=== PATIENT | female | born 1960 | race Caucasian/White ===

== ENCOUNTER 2016-04-06 09:26 | Emergency (ER) | payer OTHER ==
[2016-04-06] MEDS ORDERED: Morphine INJ* 4 MG/ML 1 ML CARPUJECT IV ONE (10:23)
[2016-04-06] MEDS ORDERED: NS 0.9% 1000 ML* 3,000 ML IV ONE (10:23)
[2016-04-06] MEDS ORDERED: Ondansetron INJ* 2 MG/ML VIAL IV ONE (10:23)
[2016-04-06 10:53] LABS: Albumin 3.8 g/dL (3.2-5.2); BUN/Creatinine Ratio 23.8 (8-20); Calcium 10.1 mg/dL (8.6-10.3); EGFR African American 49.2 (>60); EGFR Non-African American 38.2 (>60); Globulin 3.1 g/dL (2-4); Potassium 3.4 mmol/L (3.5-5.0); Total Bilirubin 0.5 mg/dL (0.2-1.0); Total Protein 6.9 g/dL (6.4-8.9)
[2016-04-06] MEDS ORDERED: NS 0.9% IVPB SCH (11:00)
[2016-04-06] MEDS ORDERED: ACYCLOVIR IVPB SCH (11:00)
--- NOTE | 2016-04-06 11:04 | ED ---
Harry Ren Rebecca, scribed for Johnathan Mcmillan MD on 04/06/16 at 1018 . Headache - HPI Summary HPI Summary: Pt is a 55 y/o F who presents to ED c/o FERNANDEZ. FERNANDEZ began suddenly 3 days ago with a L ear ache and has been constant since onset. Initially FERNANDEZ was characterized as shooting pain at onset, and is now characterized as dull. FERNANDEZ is in the occipital region with radiation into the neck and is currently ranked 4/10. Sx aggravated and alleviated by nothing, unchanged by Tylenol. Additionally c/o L eye swelling and rash on the L side of her forehead (1 day). Denies vision or hearing changes, ear drainage, slurred speech or weakness in the LE. Denies pruritis, fever, dental pain, CP, SOB. Confirms chicken pox infection as a child. No PMHx ear infections. PMHx kidney transplant (5 years ago). Is on Warfarin for blood clots s/p transplant. FHx aneurysms. - History Of Current Complaint Chief Complaint: EDHeadache Stated Complaint: HX OF FAMILY anysurms/HEADACHE 2DAYS Hx Obtained From: Patient Onset/Duration: Sudden Onset, Started days ago - 3 days ago, Still Present Initially Headache Was: Moderate Currently Pain Is: Current Pain Scale(0-10)= - 4, Moderate Timing: Constant Character: Dull Location of Headache: Occipital Radiates to: Neck Aggravating Factor: Nothing Allevating Factors: Nothing Associated Signs And Symptoms: Other (Noted In Comments) - L eye swelling, L- sided forehead rash - Allergies/Home Medications Allergies/Adverse Reactions: Allergies Allergy/AdvReac Type Severity Reaction Status Date / Time Anesthetics, Amide Allergy GI Upset Verified 04/06/16 09:35 Anesthetics, Jenny Allergy GI Upset Verified 04/06/16 09:35 Anesthetics, Halogenated Allergy GI Upset Verified 04/06/16 09:35 Home Medications: Home Medications Metoprolol Succinate [Toprol Xl] 50 mg PO QPM 04/06/16 [History Confirmed ] Metoprolol Succinate [Toprol Xl] 75 mg PO QAM 04/06/16 [History Confirmed ] NIFEdipine ER TAB* [Procardia Xl TAB*] 30 mg PO BEDTIME 04/06/16 [History Confirmed 01/28/17] PMH/Surg Hx/FS Hx/Imm Hx Endocrine/Hematology History: Denies: Hx Diabetes, Hx Thyroid Disease Cardiovascular History: Reports: Hx Angina, Hx Hypercholesterolemia, Hx Hypertension Denies: Hx Congestive Heart Failure, Hx Coronary Artery Disease, Hx Myocardial Infarction, Hx Pacemaker/ICD, Hx Valvular Heart Disease Respiratory History: Reports: Hx Pulmonary Embolism Denies: Hx Asthma, Hx Chronic Obstructive Pulmonary Disease (COPD) Comment Only: Other Respiratory Problems/Disorders - pe GI History: Denies: Hx Ulcer History: Reports: Hx Chronic Renal Failure - prior to renal transplant, Hx Renal Disease, Other Problems/Disorders - kidney transplant Sensory History: Reports: Hx Contacts or Glasses Denies: Hx Hearing Aid Opthamlomology History: Reports: Hx Contacts or Glasses Psychiatric History: Denies: Hx Panic Disorder - Cancer History Hx Chemotherapy: No Hx Radiation Therapy: No - Surgical History Surgery Procedure, Year, and Place: RIGHT KIDNEY BIOPSY. kidney transplant see above. RT CATARACT. D&C. RT BREAST BIOPSY - Immunization History Date of Tetanus Vaccine: 2009 Date of Influenza Vaccine: 12/08/14 Infectious Disease History: No Infectious Disease History: Denies: Hx Clostridium Difficile, Hx Hepatitis, Hx Human Immunodeficiency Virus (HIV), Hx of Known/Suspected MRSA, Hx Shingles, Hx Tuberculosis, Hx Known/ Suspected VRE, Hx Known/Suspected VRSA, Traveled Outside the [place] in Last 30 Days Comment Only: History Other Infectious Disease - CMV - Family History Known Family History: Positive: Cardiac Disease, Renal Disease, Other - Aneurysms - Social History Alcohol Use: None Substance Use Type: Reports: None Smoking Status (MU): Never Smoked Tobacco Review of Systems Negative: Fever Negative: Blurred Vision Positive: Ear Ache - Left, Other - Denies hearing changes, ear drianage. Negative: Dental Pain Negative: Chest Pain Negative: Shortness Of Breath Positive: Rash - L side of forehead; Non-pruritic, Other - L eye swelling Positive: Headache. Negative: Weakness, Slurred Speech All Other Systems Reviewed And Are Negative: Yes Physical Exam - Summary Physical Exam Summary: The patient is well-nourished in no acute distress and in no acute pain. The skin is warm and dry and skin color reflects adequate perfusion. HEENT: The head is normocephalic and atraumatic. The pupils are equal and reactive. EOMI. The conjunctivae are without drainage. Nares are patent and without drainage. Mouth reveals moist mucous membranes and the throat is without erythema and exudate. The external ears are intact. The ear canals are patent and without drainage. No tragal tenderness. No tenderness over the mastoid. The tympanic membranes are intact. On the left side of her forehead and into the scalp, involving the L eye, she has vesicles, red, raised lesions that extend into the eyelid. Conjunctiva is injected on the L side. Nothing behind the ear or on the R side and does not involve the nose. Maxillofacial swelling on the left side. Neck is supple with full range of motion and non-tender. There are no carotid bruits. There is no neck vein distension. Respiratory: Chest is non-tender. Lungs are clear to auscultation and breath sounds are symmetrical and equal. Cardiovascular: Hear is regular rate and rhythm. There is no murmur or rub auscultated. There is no peripheral edema and pulses are symmetrical and equal. Abdomen: The abdomen is soft and non-tender. There are normal bowel sounds heard in all four quadrants and there is no organomegaly palpated. Musculoskeletal: There is no back pain noted. Extremities are non-tender with full range of motion. There is good capillary refill. There is no peripheral edema or calf tenderness elicited. Neurological: Patient is alert and oriented to person, place and time. The patient has symmetrical motor strength in all four extremities. Cranial nerves are grossly intact. Deep tendon reflexes are symmetrical and equal in all four extremities. Psychiatric: The patient has an appropriate affect and does not exhibit any anxiety or depression. Triage Information Reviewed: Yes Vital Signs On Initial Exam: Initial Vitals Temp Pulse Resp BP Pulse Ox 98.7 F 90 16 138/77 99 04/06/16 09:36 04/06/16 09:36 04/06/16 09:36 04/06/16 09:36 04/06/16 09:36 Vital Signs Reviewed: Yes Diagnostics - Vital Signs Vital Signs Temp Pulse Resp BP Pulse Ox 04/06/16 09:36 98.7 F 90 16 138/77 99 - Laboratory Lab Results: Lab Results 04/06/16 04/06/16 04/06/16 Range/Units 09:59 09:59 09:59 INR (Anticoag Therapy) 2.56 H (0.89-1.11) Sodium 134 (133-145) mmol/L Potassium 3.4 L (3.5-5.0) mmol/L Chloride 102 (101-111) mmol/L Carbon Dioxide 22 (22-32) mmol/L Anion Gap 10 (2-11) mmol/L BUN 34 H (6-24) mg/dL Creatinine 1.43 H (0.51-0.95) mg/dL Est GFR ( Amer) 49.2 (>60) Est GFR (Non-Af Amer) 38.2 (>60) BUN/Creatinine Ratio 23.8 H (8-20) Glucose 166 H (70-100) mg/dL Lactic Acid 2.2 H* (0.5-2.0) mmol/L Calcium 10.1 (8.6-10.3) mg/dL Total Bilirubin 0.50 (0.2-1.0) mg/dL AST 13 (13-39) U/L ALT 15 (7-52) U/L Alkaline Phosphatase 69 (34-104) U/L Total Protein 6.9 (6.4-8.9) g/dL Albumin 3.8 (3.2-5.2) g/dL Globulin 3.1 (2-4) g/dL Albumin/Globulin Ratio 1.2 (1-3) Result Diagrams: 04/06/16 09:59 Lab Statement: Any lab studies that have been ordered have been reviewed, and results considered in the medical decision making process. Headache Course/Dx - Course Assessment/Plan: Pt is a 55 y/o F who presents to ED with a CC of FERNANDEZ for 3 days. She additinally c/o L ear ache (3 days) and L eye swelling and L-sided facial rash (1 day). Denies vision or hearing changes, ear drainage, slurred speech or weakness in the LE. Denies pruritis, fever, dental pain, CP, SOB. PMHx kidney transplant (5 years ago). Confirms chicken pox infection as a child. Discussed care of pt with Dr. Montiel who believed that transfer to [facility] would be best for pt. [facility] accepts pt for transfer. Pt will be transferred to [facility] with a dx of Ophthalmicus Herpes Zoster. - Diagnoses Differential Diagnosis/HQI/PQRI: Subarachnoid Hemorrhage, Other - herpes zoster , renal tranplant Provider Diagnoses: Herpes zoster ophthalmicus - Physician Notifications Discussed Care Of Patient With: Dr. Montiel, circular shear operator, who initially advised an opthamology consult but upon further discussion believed that a transfer to [facility] would be the best option. [facility], at 1044, who accepts pt for transfer. Time Discussed With Above Provider: 10:27 Reason For Transfer: Specialty or service not available at [facility]. Discharge - Discharge Plan Condition: Good Disposition: TRANS HIGHER LVL OF CARE FAC Referrals: Christophe Muñoz MD [Primary Care Provider] - The documentation as recorded by the Harry fraser Rebecca accurately reflects the service I personally performed and the decisions made by me, Johnathan Mcmillan MD.
[2016-04-06 12:42] VITALS: BP 117/60
== END 2016-04-06 12:41 | disposition short-term general hospital (02) ==
LOC: ED 09:26
DX: B02.30 Zoster ocular disease, unspecified (principal); R51 Headache; R21 Rash and other nonspecific skin eruption; H92.02 Otalgia, left ear
CPT/HCPCS: 36415; 80053; 83605; 85610; 85652; 87040; 96361; 96374; 96375; 99284; J0133; J2270; J2405

== ENCOUNTER 2016-08-06 07:41 | Emergency (ER) | payer OTHER ==
[2016-08-06 08:08] VITALS: BP 153/93
--- NOTE | 2016-08-06 08:40 | UC ---
Kang Ren SooYoung, scribed for Mary Rojas MD on 08/06/16 at 0757 . Complaint Female HPI - HPI Summary HPI Summary: A 55 y/o F presents to [facility] [place] with c/o UTI onset yesterday. Symptoms include aches , frequency, dysuria. Denies: nausea, fevers, chills, abdominal pain, vaginal discharge, urinary odor, hematuria. She denies having taken any OTC meds. Pt does have a renal transplant RLQ - no discomfort or pain over site. pt is on immunosuppressant. Denies vaginal discharge, odor, itch. Pt is post- menopausal. Pert PMHx: kidney transplant performed in [place]; bladder infection last summer and was hospitalized. Last time she was given Cipro, but infection was resistant so abx changed. Patients medication reviewed this visit. - History Of Current Complaint Stated Complaint: UTI Time Seen by Provider: 08/06/16 07:53 Hx Obtained From: Patient ?: No Onset/Duration: Lasting Hours - onset yesterday, Still Present Timing: Constant Severity Initially: Mild Severity Currently: Moderate Pain Intensity: 4 Pain Scale Used: 0-10 Numeric Associated Signs And Symptoms: Negative: Vaginal Bleeding/Discharge, Vaginal Discharge, Nausea - Allergies/Home Medications Allergies/Adverse Reactions: Allergies Allergy/AdvReac Type Severity Reaction Status Date / Time Anesthetics, Amide Allergy GI Upset Verified 08/06/16 07:59 Anesthetics, Jenny Allergy GI Upset Verified 08/06/16 07:59 Anesthetics, Halogenated Allergy GI Upset Verified 08/06/16 07:59 Home Medications: Home Medications Lisinopril [Lisinopril 40 MG-] 40 mg PO DAILY 08/06/16 [History Confirmed ] PMH/Surg Hx/FS Hx/Imm Hx Previously Healthy: No Endocrine History Of: Denies: Diabetes, Thyroid Disease Cardiovascular History Of: Reports: Hypertension Denies: Cardiac Disorders, Pacemaker/ICD, Myocardial Infarction, Congestive Heart Failure Respiratory History Of: Reports: Pulmonary Embolism Denies: COPD, Asthma GI/ History Of: Reports: Renal Disease Denies: Ulcer Cancer History Of: Denies: Breast Cancer - Surgical History Surgical History: Yes Surgery Procedure, Year, and Place: RIGHT KIDNEY BIOPSY. kidney transplant see above. RT CATARACT. D&C. RT BREAST BIOPSY - Family History Known Family History: Positive: Cardiac Disease - CAD, Hypertension, Renal Disease, Other - Aneurysms; Breast CA - paternal aunt - Social History Occupation: Employed Full-time Lives: Alone Alcohol Use: None Substance Use Type: None Smoking Status (MU): Never Smoked Tobacco - Immunization History Most Recent Influenza Vaccination: Fall 2015 Most Recent Tetanus Shot: 4 yrs ago Most Recent Pneumonia Vaccination: Fall 2015 Review of Systems Constitutional: Other - achiness Skin: Negative Eyes: Negative ENT: Negative Respiratory: Negative Cardiovascular: Negative Gastrointestinal: Negative Genitourinary: Dysuria, Frequency, Urgency Motor: Negative Neurovascular: Negative Musculoskeletal: Negative Neurological: Negative Psychological: Negative All Other Systems Reviewed And Are Negative: Yes Physical Exam Triage Information Reviewed: Yes Completion Of Physical Exam Limited Due To: Altered Mental Status Appearance: Well-Appearing, No Pain Distress, Well-Nourished Vital Signs: Initial Vital Signs Temp 98.8 F 08/06/16 07:52 Pulse 77 08/06/16 07:52 Resp 18 08/06/16 07:52 BP 153/93 08/06/16 07:52 Pulse Ox 97 08/06/16 07:52 Vital Signs Reviewed: Yes Neck: Positive: Supple Respiratory: Positive: Lungs clear, Normal breath sounds, No respiratory distress Cardiovascular: Positive: RRR, No Murmur, Pulses Normal Abdomen Description: Positive: Nontender, No Organomegaly, Soft, Other: - no discomfort with palpation of abdomen including over transplant. Negative: CVA Tenderness (R), CVA Tenderness (L), Distended Bowel Sounds: Positive: Present Musculoskeletal Exam: Normal Neurological Exam: Normal Psychological Exam: Normal Skin Exam: Normal Complaint Female Dx - Course Course Of Treatment: Blood pressure noted and patient informed to follow up with PCP. Spoke to pharmacist at [facility] - pt was given Rx cipro 10/06 and changed to Augmentin 875mg on 10/23 then Augmentin 250mg 10/24. Pt states was told 875mg was "too much". After discussion with pt, will start Augmentin 500mg BID. Pt to call her metal furniture assembler today with an update. urine culture pending. Pt states understanding if sx increase, fevers, chills MUST call metal furniture assembler or go to ED. Pt well appearing with stable VS today - Differential Dx/Diagnosis Provider Diagnoses: UTI in immunocompromised pt Discharge - Discharge Plan Condition: Stable Disposition: HOME Prescriptions: Amoxicillin/Clavulanate TAB* [Augmentin TAB 500 mg*] 500 mg PO BID #20 tab Patient Education Materials: Urinary Tract Infection in Women (ED) Referrals: Christophe Muñoz MD [Primary Care Provider] - Additional Instructions: - Stay well hydrated. Drink plenty of non-alcoholic, non-caffinated beverages - Eat and drink regular, healthy meals - Contact your metal furniture assembler today to update them regarding your infection and treatment today - you urine will be sent for additional testing. If you need a different antibiotic, a member of the care team will contact your - If you develop fevers, vomiting, increased pain, abdominal pain over the site of your transplant or any other concerns - contact your metal furniture assembler of go to the emergency department Lab Results - Lab Results Lab Results: 08/06/16 08:04 POC Urine Color Light yellow POC Urine Clarity Slightly cloudy POC Urine pH 5.0 POC Ur Specif [place] <= 1.005 L POC Urine Protein Negative POC Ur Glucose (UA) Negative POC Urine Ketones Negative POC Urine Blood 2+ H POC Urine Nitrite Negative POC Urine Bilirubin Negative POC Urine Urobilinogen 0.2 POC U Leukocyte Esteras 1+ H The documentation as recorded by the Kang fraser SooYoung accurately reflects the service I personally performed and the decisions made by , Mary Rojas MD.
== END 2016-08-06 08:49 | disposition home or self-care (01) ==
LOC: UCEAST 07:41
DX: N39.0 Urinary tract infection, site not specified (principal); N95.9 Unspecified menopausal and perimenopausal disorder; Z94.0 Kidney transplant status; I10 Essential (primary) hypertension; Z86.711 Personal history of pulmonary embolism; N28.9 Disorder of kidney and ureter, unspecified; D89.9 Disorder involving the immune mechanism, unspecified
CPT/HCPCS: 81003; 87077; 87086; 87186; 99212; G0463

== ENCOUNTER 2016-08-06 23:44 | Emergency (ER) | payer OTHER ==
[2016-08-07] MEDS ORDERED: Acetaminophen TAB* 325 MG ONE (00:14)
[2016-08-07] MEDS ORDERED: Acetaminophen TAB* 325 MG PO ONE (00:16)
[2016-08-07] MEDS ORDERED: NS 0.9% 1000 ML* 1,000 ML IV ONE (00:51)
--- NOTE | 2016-08-07 01:18 | ED ---
prateek Ren Timothy, scribed for Ras Holguin MD on 08/07/16 at 0052 . GI/ HPI - HPI Summary HPI Summary: Alondra Ramsey is a 55 yo female presenting to [facility] with fever and possible UTI with 4/10 dysuria. She states she [facility], and has taken 2 doses of the Rx Augmentin since then. She states she is presenting with a fever of 102 taken at home at 2300, and notes continued dysuria and urinary frequency. she denies any N/V. Her MHx includes CMV, angina, HLD, palpitations, HTN, PE, DVT, renal disease, kidney transplant, psychiatric problems. - History of Current Complaint Chief Complaint: EDUrogenitalProblems Time Seen by Provider: 08/07/16 00:45 Stated Complaint: POSSIBLE UTI, FEVER Hx Obtained From: Patient Onset/Duration: Started Days Ago, Still Present Timing: Constant Severity: Moderate Current Severity: Moderate Pain Intensity: 4 Location of Pain: Suprapubic Associated Signs and Symptoms: Positive: Fever, Dysuria, UTI Symptoms - Additional Pertinent History Primary Care Physician: FAIZA - Allergy/Home Medications Allergies/Adverse Reactions: Allergies Allergy/AdvReac Type Severity Reaction Status Date / Time Anesthetics, Amide Allergy GI Upset Verified 08/06/16 23:52 Anesthetics, Jenny Allergy GI Upset Verified 08/06/16 23:52 Anesthetics, Halogenated Allergy GI Upset Verified 08/06/16 23:52 PMH/Surg Hx/FS Hx/Imm Hx Endocrine/Hematology History: Denies: Hx Diabetes, Hx Thyroid Disease Cardiovascular History: Reports: Hx Angina, Hx Hypercholesterolemia, Hx Hypertension Denies: Hx Congestive Heart Failure, Hx Coronary Artery Disease, Hx Myocardial Infarction, Hx Pacemaker/ICD, Hx Valvular Heart Disease Respiratory History: Reports: Hx Pulmonary Embolism Denies: Hx Asthma, Hx Chronic Obstructive Pulmonary Disease (COPD) Comment Only: Other Respiratory Problems/Disorders - pe GI History: Denies: Hx Ulcer History: Reports: Hx Chronic Renal Failure - prior to renal transplant, Hx Renal Disease, Other Problems/Disorders - kidney transplant Sensory History: Reports: Hx Contacts or Glasses Denies: Hx Hearing Aid Opthamlomology History: Reports: Hx Contacts or Glasses Psychiatric History: Denies: Hx Panic Disorder - Cancer History Hx Chemotherapy: No Hx Radiation Therapy: No - Surgical History Surgery Procedure, Year, and Place: RIGHT KIDNEY BIOPSY. kidney transplant see above. RT CATARACT. D&C. RT BREAST BIOPSY - Immunization History Date of Tetanus Vaccine: 2009 Date of Influenza Vaccine: 12/08/14 Infectious Disease History: Denies: Hx Clostridium Difficile, Hx Hepatitis, Hx Human Immunodeficiency Virus (HIV), Hx of Known/Suspected MRSA, Hx Shingles, Hx Tuberculosis, Hx Known/ Suspected VRE, Hx Known/Suspected VRSA, Traveled Outside the [place] in Last 30 Days Comment Only: History Other Infectious Disease - CMV - Family History Known Family History: Positive: Cardiac Disease - CAD, Hypertension, Renal Disease, Other - Aneurysms; Breast CA - paternal aunt Negative: Diabetes - Social History Alcohol Use: None Substance Use Type: Reports: None Smoking Status (MU): Never Smoked Tobacco Review of Systems Positive: Fever Eyes: Negative ENT: Negative Cardiovascular: Negative Respiratory: Negative Gastrointestinal: Negative Positive: dysuria, frequency Musculoskeletal: Negative Skin: Negative Neurological: Negative Psychological: Normal All Other Systems Reviewed And Are Negative: Yes Physical Exam Triage Information Reviewed: Yes Vital Signs On Initial Exam: Initial Vitals Temp Pulse Resp BP Pulse Ox 101.5 F 105 16 156/92 97 08/06/16 23:45 08/06/16 23:45 08/06/16 23:45 08/06/16 23:45 08/06/16 23:45 Vital Signs Reviewed: Yes Appearance: Positive: Well-Appearing, No Pain Distress Skin: Positive: Warm Head/Face: Positive: Normal Head/Face Inspection Eyes: Positive: WAQAS ENT: Positive: Hearing grossly normal Neck: Positive: Supple Respiratory/Lung Sounds: Positive: Breath Sounds Present Cardiovascular: Positive: RRR Abdomen Description: Positive: Nontender, Soft. Negative: CVA Tenderness (R), CVA Tenderness (L) Bowel Sounds: Positive: Present Musculoskeletal: Positive: Strength/ROM Intact Neurological: Positive: Alert, Oriented to Person Place, Time Psychiatric: Positive: Affect/Mood Appropriate Diagnostics - Vital Signs Vital Signs Temp Pulse Resp BP Pulse Ox 08/06/16 23:45 101.5 F 105 16 156/92 97 - Laboratory Result Diagrams: 08/07/16 01:02 08/07/16 01:02 Lab Statement: Any lab studies that have been ordered have been reviewed, and results considered in the medical decision making process. Re-Evaluation - Re-Evaluation First Eval Change: Improved - will switch from augmentin to cipro GIGU Course/Dx - Course Assessment/Plan: Alondra Ramsey is a 55 yo female presenting to [facility] with Dx of UTI with fever and continued dysuria and frequency after her Dx this morning and beginning her augmentin regimen today. In the ED course she received acetampinophen to treat her fever and IV fluids. After clinical examination and review of her lab studies, she will be discharged home with UTI with appropriate instructions. - Diagnoses Differential Diagnoses - Female: Urinary Tract Infection Provider Diagnoses: UTI (urinary tract infection) Discharge - Discharge Plan Condition: Stable Disposition: HOME Prescriptions: Ciprofloxacin TAB* [Cipro 250 MG Tab*] 250 mg PO BID #14 tab Patient Education Materials: Urinary Tract Infection in Women (ED) Referrals: Christophe Muñoz MD [Primary Care Provider] - 2 Days Additional Instructions: Please follow up with your primary care physician regarding your visit to the emergency department today. Return to the emergency department with any new or recurring symptoms. The documentation as recorded by the prateek fraser Timothy accurately reflects the service I personally performed and the decisions made by , Ras Holguin MD.
[2016-08-07 01:20] LABS: Hematocrit 32 % (35-47); Hemoglobin 10.1 g/dl (12.0-16.0); Mean Corpuscular HGB Conc 32 g/dl (31-36); Mean Corpuscular Hemoglobin 25 pg (27-31); Mean Corpuscular Volume 77 fL (80-97); Mean Platelet Volume 9 um3 (7.4-10.4); Red Blood Count 4.13 10^6/ul (4.0-5.4); Red Cell Distribution Width 18 % (10.5-15); White Blood Count 11.9 10^3/ul (3.5-10.8)
[2016-08-07 01:22] LABS: Add Diff/Slide Review? Manual Diff Added; Comments Flag Yes
[2016-08-07 01:33] LABS: Albumin 3.7 g/dL (3.2-5.2); BUN/Creatinine Ratio 25.8 (8-20); C Reactive Protein 85.19 mg/L (< 5.00); Calcium 9.5 mg/dL (8.6-10.3); EGFR African American 46.2 (>60); EGFR Non-African American 35.9 (>60); Globulin 3.4 g/dL (2-4); Potassium 4.4 mmol/L (3.5-5.0); Total Bilirubin 0.5 mg/dL (0.2-1.0); Total Protein 7.1 g/dL (6.4-8.9)
[2016-08-07 01:39] LABS: Urine Bacteria 1+ (Absent); Urine Bilirubin Negative (Negative); Urine Glucose Negative (Negative); Urine Nitrite Negative (Negative)
[2016-08-07 01:42] LABS: Add Path Review? YES; Hypochromasia 1+; Immature Granulocytes 5 % (0-9); Macrocytosis 1+; Neutrophil % 71 % (38-83)
[2016-08-07] MEDS ORDERED: Ciprofloxacin 400MG IVPREMIX(* 400 MG/200 ML BAG IVPB ONE (02:33)
[2016-08-07 04:14] VITALS: BP 127/67
== END 2016-08-07 04:09 | disposition home or self-care (01) ==
LOC: ED 23:44
DX: N39.0 Urinary tract infection, site not specified (principal); R50.9 Fever, unspecified; R30.0 Dysuria
CPT/HCPCS: 36415; 80053; 81003; 81015; 83605; 83690; 85025; 85060; 86140; 87040; 99283; A9270-GY; J0744

== ENCOUNTER 2017-03-07 10:10 | Emergency (ER) | payer OTHER ==
--- NOTE | 2017-03-07 10:56 | ED ---
HPI Chest Pain - HPI Summary HPI Summary: Patient is a 56yo F with a history of HTN and high cholesterol arrives to the ED with CC of left anterior chest pain which radiates to the R anterior chest since last evening. Symptoms have improved since last night from a 710 to a / 10. Pain is described as a aching and stabbing intermittently and now just an ache. She notes to some radiation to the back (1-2 times) last night, but denies currently. Denies recent illness, cough, congestion. She first noticed the chest pain while at rest. Pain was not worse with exertion. Aggravated by nothing, relieved with nothing. Denies taking any aspirin. She is currently on Metroprolol and Lisinopril and recently has started taking Verapamil which was given to her by her advertising sales representative [address] Montiel Her helper shear operator is Dr. Mckeon but has not seen in many years. She is currently on Warfarin since her kidney transplant 7 years ago along with immunosuppression medications. She states she is active, but denies eating right. Denies smoking history or COPD/asthma. She denies SOB, N/V/C/D or weakness. Denies any neuro deficits. Mother still living with 7 stent placements from CAD. Denies other family history. Denies any personal history of PR, but notes to having chest pains similar to today's episode of which she has been seen here, with normal labs and EKG and stress test with no additional findings. She also states she had one episode a few weeks ago while walking and became light headed and short of breath. After sitting for a few minutes, she felt improved. Denies any other symptoms until last evening. - History of Current Complaint Chief Complaint: EDChestPainROMI Time Seen by Provider: 03/07/17 10:33 Hx Obtained From: Patient Onset/Duration: Started Hours Ago Timing: Constant Initial Severity: Mild Current Severity: Mild Pain Intensity: 1 Pain Scale Used: 0-10 Numeric Chest Pain Location: Left Anterior, Left Lateral Chest Pain Radiates: Yes Chest Pain Radiates To:: Back Character: Dull/Aching Aggravating Factor(s): Nothing Alleviating Factor(s): Nothing Associated Signs and Symptoms: Positive: Negative - Risk Factors Pulmonary Embolism Risk Factors: Negative TAD Risk Factors: Negative - Additional Pertinent History Primary Care Physician: [id number] - Allergy/Home Medications Allergies/Adverse Reactions: Allergies Allergy/AdvReac Type Severity Reaction Status Date / Time Anesthetics, Amide Allergy GI Upset Verified 03/07/17 10:13 Anesthetics, Jenny Allergy GI Upset Verified 03/07/17 10:13 Anesthetics, Halogenated Allergy GI Upset Verified 03/07/17 10:13 PMH/Surg Hx/FS Hx/Imm Hx Previously Healthy: Yes Endocrine/Hematology History: Denies: Hx Diabetes, Hx Thyroid Disease Cardiovascular History: Reports: Hx Angina, Hx Hypercholesterolemia, Hx Hypertension Denies: Hx Congestive Heart Failure, Hx Coronary Artery Disease, Hx Myocardial Infarction, Hx Pacemaker/ICD, Hx Valvular Heart Disease Respiratory History: Reports: Hx Pulmonary Embolism Denies: Hx Asthma, Hx Chronic Obstructive Pulmonary Disease (COPD) Comment Only: Other Respiratory Problems/Disorders - pe GI History: Denies: Hx Ulcer History: Reports: Hx Chronic Renal Failure - prior to renal transplant, Hx Renal Disease, Other Problems/Disorders - kidney transplant Sensory History: Reports: Hx Contacts or Glasses Denies: Hx Hearing Aid Opthamlomology History: Reports: Hx Contacts or Glasses Psychiatric History: Denies: Hx Panic Disorder - Cancer History Hx Chemotherapy: No Hx Radiation Therapy: No - Surgical History Surgery Procedure, Year, and Place: RIGHT KIDNEY BIOPSY. kidney transplant see above. RT CATARACT. D&C. RT BREAST BIOPSY - Immunization History Date of Tetanus Vaccine: 2009 Date of Influenza Vaccine: 12/08/14 Hx Pertussis Vaccination: No Immunizations Up to Date: Unable to Obtain/Confirm Infectious Disease History: No Infectious Disease History: Denies: Hx Clostridium Difficile, Hx Hepatitis, Hx Human Immunodeficiency Virus (HIV), Hx of Known/Suspected MRSA, Hx Shingles, Hx Tuberculosis, Hx Known/ Suspected VRE, Hx Known/Suspected VRSA, Traveled Outside the [place] in Last 30 Days Comment Only: History Other Infectious Disease - CMV - Family History Known Family History: Positive: Cardiac Disease - CAD, Hypertension, Renal Disease, Other - Aneurysms; Breast CA - paternal aunt Negative: Diabetes - Social History Occupation: Employed Full-time Lives: With Family Alcohol Use: None Hx Substance Use: No Substance Use Type: Reports: None Hx Tobacco Use: No Smoking Status (MU): Never Smoked Tobacco Review of Systems Constitutional: Negative Negative: Fever, Chills, Fatigue, Skin Diaphoresis Eyes: Negative Positive: Chest Pain Respiratory: Negative Negative: Shortness Of Breath, Cough Gastrointestinal: Negative Negative: Abdominal Pain, Vomiting, Diarrhea, Nausea Positive: see HPI. Negative: burning, dysuria, discharge Negative: Arthralgia, Myalgia Negative: Rash, Bruising Negative: Headache, Weakness, Paresthesia, Numbness, Syncope, Slurred Speech Psychological: Normal All Other Systems Reviewed And Are Negative: Yes Physical Exam Vital Signs On Initial Exam: Initial Vitals Temp Pulse Resp BP Pulse Ox 98.3 F 76 16 185/98 96 03/07/17 10:13 03/07/17 10:13 03/07/17 10:13 03/07/17 10:13 03/07/17 10:13 Diagnostics - Vital Signs Vital Signs Temp Pulse Resp BP Pulse Ox 03/07/17 10:13 98.3 F 76 16 185/98 96 - Laboratory Result Diagrams: 03/07/17 10:58 03/07/17 10:58 Lab Statement: Any lab studies that have been ordered have been reviewed, and results considered in the medical decision making process. Chest Pain Course/Dx - Course Course Of Treatment: During the course of treatment, labs obtained. Trop 0.01 with repeat of 0.00. Chest xray obtained and shows no abnormalities. EKG WNL. Patient is currently asymptomatic. Discussed case with Dr. St who also saw the patient. Called hospitalist who agrees to see the patient and d/t two negative trops, will schedule stress test and call on Friday. While awaiting discharge, 3rd trop is drawn and negative. Repeat EKG shows no changes. Patient is again asymptomatic at discharge. - Diagnoses Provider Diagnoses: Chest pain Discharge - Discharge Plan Condition: Stable Disposition: HOME Patient Education Materials: Chest Pain (ED) Referrals: Christophe Muñoz MD [Primary Care Provider] - Additional Instructions: Please follow up with cardiology. Out patient stress test will be scheduled - will call friday with date and time
[2017-03-07 11:12] LABS: ABS Basophils 0 10^3/ul (0-0.2); ABS Eosinophils 0.1 10^3/ul (0-0.6); ABS Lymphocytes 1.3 10^3/ul (1.0-4.8); ABS Monocytes 0.9 10^3/ul (0-0.8); ABS Neutrophils 5.1 10^3/ul (1.5-7.7); ABS Nucleated RBC 0 10^3/ul; Eosinophil % 1.5 % (0-6); Hematocrit 37 % (35-47); Hemoglobin 12.2 g/dl (12.0-16.0); Mean Corpuscular HGB Conc 33 g/dl (31-36); Mean Corpuscular Hemoglobin 27 pg (27-31); Mean Corpuscular Volume 82 fL (80-97); Mean Platelet Volume 9 um3 (7.4-10.4); Nucleated Red Blood Cells % 0; Platelet Count 233 10^3/ul (150-450); Red Blood Count 4.52 10^6/ul (4.0-5.4); Red Cell Distribution Width 15 % (10.5-15); White Blood Count 7.5 10^3/ul (3.5-10.8)
--- NOTE | 2017-03-07 11:18 | RAD ---
INDICATION: Chest pain COMPARISON: Chest x-ray dated October 20, 2015 TECHNIQUE: Single AP portable view of the chest was obtained. FINDINGS: Image quality is compromised due to the relative inferiority of a portable chest x-ray. The heart and mediastinum exhibit normal size and contour. The lungs are grossly clear. There is no evidence of a large pleural effusion. Visualized bones are normal for the patient's age. IMPRESSION: No radiographic evidence for acute cardiopulmonary abnormality on this portable chest x-ray.
[2017-03-07 11:21] LABS: INR 1.89 (0.77-1.02)
[2017-03-07 11:28] LABS: EGFR Non-African American 31.6 (>60)
[2017-03-07] MEDS ORDERED: Nitroglycerin TAB 0.4 MG* 0.4 MG TAB SL ONE (12:40)
--- NOTE | 2017-03-07 13:27 | RAD ---
INDICATION: Chest pain radiation to back evaluate for aneurysm, history of renal transplant and family history of aneurysms. COMPARISON: There are no prior studies available for comparison. TECHNIQUE: A CT scan of the chest, abdomen and pelvis was performed without intravenous or oral contrast. Contiguous axial sections were obtained from the lung apices through the symphysis pubis. Images were reconstructed in the coronal and sagittal planes. FINDINGS: There are small dependent bilateral lower lobe infiltrates suggestive of atelectasis. No pleural effusion is seen. No significant enlarged mediastinal or hilar lymph nodes are seen. The heart is within normal limits in size. There are coronary artery calcifications present. No pericardial effusion is present. The thoracic aorta is normal in caliber measuring a maximum of 3.5 cm in diameter. No calcific plaque is noted. The liver and spleen are normal in size without significant focal abnormality on this noncontrast study. No calcified gallstones are seen. The pancreas is normal in size. The adrenal glands appear within normal limits. There are severely atrophic [place] kidneys. There are couple hypodense lesions within the left [place] kidney most consistent with hemorrhagic cysts. No hydronephrosis is present. There is a renal transplant in the right iliac fossa which appears normal in size. There is a hypodense lesion in the inferior portion of the transplant measuring 2.3 cm in size most consistent with a cyst. There appear to be a couple hemorrhagic cysts. In addition there is a solid-appearing nodular density arising from the inferior pole measuring 1.5 cm in size. No hydronephrosis is seen. The abdominal aorta is normal in caliber. There is mild calcific plaque present. No significant enlarged retroperitoneal lymph nodes are seen. There is a small hiatal hernia present. The stomach, small and large bowel appear nondistended. There is mild descending and sigmoid diverticulosis without evidence for diverticulitis. There is no evidence for colitis. The uterus is anteverted and normal in size. No free intraperitoneal air or fluid is seen. No significant focal osseous abnormality is seen. IMPRESSION: 1. NO THORACIC OR ABDOMINAL AORTIC ANEURYSM. 2. STATUS POST RIGHT RENAL TRANSPLANT. NO HYDRONEPHROSIS IS PRESENT. THERE APPEAR TO BE A COUPLE HEMORRHAGIC CYSTS. THERE ALSO APPEARS TO BE A MORE SOLID NODULAR DENSITY ARISING FROM THE LOWER POLE OF THE KIDNEY. RECOMMEND A OUTPATIENT ULTRASOUND OF THE RENAL TRANSPLANT FOR FURTHER EVALUATION.
[2017-03-07 18:05] VITALS: BP 116/70
--- NOTE | 2017-03-07 22:37 | CONS ---
CC: Dr. Muñoz CONSULTATION REPORT: DATE OF ADMISSION: 03/07/17 PRIMARY CARE PHYSICIAN: Dr. Muñoz. ATTENDING PHYSICIAN: Natalia Arriola DO (dictation provided by Amarilis Orozco NP). CHIEF COMPLAINT: Chest pain. HISTORY OF PRESENT ILLNESS: Ms. Ramsey is a 56-year-old female with a past medical history of interstitial nephritis with renal transplant as well as chronic kidney disease; DVT, PE, on Coumadin; hypertension; and hyperlipidemia, who presents today to the hospital with concern for chest discomfort. Ms. Ramsey states that she has been in normal state of health and no acute complaints. Last evening, she was lying in bed when she had a sudden onset of discomfort along her lower chest at epigastric region. She describes it as an 8 out of 10 and intermittently sharp. It felt better when she sat up and worse when she laid down. She was not able to sleep all through the night because she was very worried. This morning, the pain had improved but she was still concerned and came to the emergency room for evaluation. She denies other complaints. She has had no shortness of breath. She had a mild cough that was related to postnasal drip. She has had no fever. She has been eating and drinking normally. She has had no nausea, vomiting, abdominal pain. In the emergency room, Ms. Ramsey had troponin, which was 0.01 followed by second troponin which was 0.00. Her BUN and creatinine are essentially at baseline. Rest of her labs are unremarkable. Her EKG shows no evidence of ischemia. She went on to have a chest x-ray that was read as normal and then a chest, abdomen and pelvis CT, which showed that she has no acute abnormality, but did show that there appears to be a solid nodular density arising from the lower lobe of the kidney and recommendation was for outpatient ultrasound of the renal transplant for further evaluation. PAST MEDICAL HISTORY: 1. Hereditary interstitial nephritis with renal transplant. 2. History of chronic kidney disease. 3. DVT/PE, on Coumadin. 4. Hypertension. 5. Hyperlipidemia. 6. Last stress test performed in 2013, which was a negative exercise stress test. MEDICATIONS: 1. Prednisone 5 mg p.o. daily. 2. Warfarin 2 and 3 mg every other day. 3. Pravastatin 20 mg p.o. q.p.m. 4. Omeprazole 20 mg p.o. daily. 5. Mycophenolate 540 mg p.o. b.i.d. 6. Multivitamin 1 cap p.o. daily. 7. Lisinopril 40 mg p.o. daily. 8. Cyclosporin 100 mg p.o. b.i.d. 9. Verapamil 180 mg p.o. daily. 10. Calcium carbonate 2 tabs 500 mg p.o. daily. 11. Metoprolol tartrate 100 mg p.o. b.i.d. ALLERGIES: To ANESTHETICS. FAMILY HISTORY: The patient reports that her mother related to cardiac disease, but she had her first five stents placed in her 60s. Dad had aneurysm and hypertension. SOCIAL HISTORY: No report of alcohol, tobacco or drug use. The patient states that her sister, Mely, will be her healthcare proxy. REVIEW OF SYSTEMS: A 14-point review of systems was completed with Ms. Ramsey and all those not mentioned above were negative. PHYSICAL EXAMINATION: Vital Signs: Temperature 98.3, pulse rate 72, respiratory rate 12, O2 saturation 95% on room air, blood pressure 125/69. General: Ms. Ramsey is lying in bed. She is in no acute distress. Neuro: She is alert and oriented x3. She moves all extremities equally. There is no facial asymmetry or focal weakness. Extraocular movements are intact. Heart: S1, S2. No murmur, rub or gallop and regular. Lungs: Clear to auscultation bilaterally with no accessory muscle use and good aeration. Abdomen: The abdomen is soft, nontender with bowel sounds positive x4. Extremities: No cyanosis or edema. Skin: intact. LABORATORY DATA/DIAGNOSTIC STUDIES: WBC 7.5, hemoglobin 12.2, hematocrit 37, platelet count 233, INR 1.89. Sodium 136, potassium 4.8, chloride 107, sodium bicarbonate 21, BUN 42, creatinine 1.68, glucose 104, troponin 0.01 followed by second troponin that was 0.00. TSH 0.86. Chest x-ray: "No radiographic evidence of acute cardiopulmonary abnormality on this portable chest x-ray. The chest, abdomen, and pelvis is read as follows: No thoracic or abdominal aortic aneurysm, status post right renal transplant. No hydronephrosis is present. There appears to be a couple hemorrhagic cysts. There also appears to be more solid nodular density arising from the lower pole of the kidney, recommend an outpatient ultrasound and renal transplant for further evaluation. ASSESSMENT: Ms. Ramsey is a 56-year-old female with a past medical history of renal transplant for hereditary interstitial nephritis as well as deep venous thrombosis, pulmonary embolism, on Coumadin, and hypertension, hyperlipidemia, presents to the hospital with concern for chest discomfort. Our recommendations are as follows: Chest pain: The patient states her pain has improved. Her 2+ troponins are negative. Her EKG shows no evidence of ischemia. The patient will need a third troponin to rule out acute coronary syndrome today, but I think that she can be discharged at that point, also write for repeat followup EKG. I think she is at low risk for acute coronary syndrome and that she can be followed up as outpatient for stress testing. Exercise stress test has been ordered and the patient will be contacted by [facility] on Friday. I instructed the patient should she have any further worsening at all of her chest pain that she should return immediately to the emergency room for reevaluation. I also again note the presence of an NODULAR DENSITY on her CT abdomen and pelvis which should be followed up outpatient with a DEDICATED ULTRASOUND. TIME SPENT: Approximately 45 minutes were spent on consultation of this patient , more than half time spent with the patient at the bedside reviewing the events , leading up to this presentation to the ED, performing physical examination, and reviewing my plan of care. AMARILIS OROZCO NP [id number]/[facility] [place] #: [id number] [place]
== END 2017-03-07 18:10 | disposition home or self-care (01) ==
LOC: ED 10:10
DX: R07.9 Chest pain, unspecified (principal); Z86.79 Personal history of other diseases of the circulatory system; M54.9 Dorsalgia, unspecified; R06.02 Shortness of breath; Z94.0 Kidney transplant status; Z79.01 Long term (current) use of anticoagulants; R42 Dizziness and giddiness
CPT/HCPCS: 36415; 71010; 71250; 74176; 80053; 82550; 83605; 83735; 83880; 84436; 84443; 84484; 85025; 85610; 85730; 93005; 99282

== ENCOUNTER 2017-04-06 19:40 | Observation (INO) | payer OTHER ==
--- NOTE | 2017-04-06 21:04 | RAD ---
INDICATION: Chest pain COMPARISON: March 07, 2017 TECHNIQUE: PA and lateral dual-energy views were obtained. FINDINGS: Bones/Soft Tissues: There are no acute bony findings. Cardiomediastinal: The cardiomediastinal silhouette is normal. Lungs: There are no infiltrates. Pleura: There are no pleural effusions. Other: None IMPRESSION: NO ACTIVE DISEASE
[2017-04-06] MEDS ORDERED: Nitroglycerin TAB 0.4 MG* 0.4 MG TAB SL ONE (22:23)
[2017-04-06] MEDS ORDERED: Aspirin TAB* 325 MG PO ONE (22:23)
[2017-04-06 22:29] LABS: ABS Basophils 0 10^3/ul (0-0.2); ABS Eosinophils 0.1 10^3/ul (0-0.6); ABS Lymphocytes 1.4 10^3/ul (1.0-4.8); ABS Monocytes 0.8 10^3/ul (0-0.8); ABS Nucleated RBC 0 10^3/ul; Eosinophil % 0.5 % (0-6); Hematocrit 37 % (35-47); Hemoglobin 12.2 g/dl (12.0-16.0); Lymphocyte % 12.7 % (25-47); Mean Corpuscular HGB Conc 33 g/dl (31-36); Mean Corpuscular Hemoglobin 27 pg (27-31); Mean Corpuscular Volume 83 fL (80-97); Mean Platelet Volume 9 um3 (7.4-10.4); Nucleated Red Blood Cells % 0; Platelet Count 248 10^3/ul (150-450); Red Cell Distribution Width 15 % (10.5-15); White Blood Count 11.4 10^3/ul (3.5-10.8)
[2017-04-06 22:33] LABS: INR 3.61 (0.77-1.02)
[2017-04-06] MEDS ORDERED: Ondansetron INJ* 2 MG/ML VIAL IV ONE (22:34)
[2017-04-06] MEDS ORDERED: Morphine INJ* 2 MG/ML 1 ML CARPUJECT IV ONE (22:34)
[2017-04-06 22:35] LABS: EGFR Non-African American 28.5 (>60)
[2017-04-06] MEDS ORDERED: NS 0.9% 1000 ML* 1,000 ML IV ONE (22:45)
--- NOTE | 2017-04-06 23:50 | ED ---
Amaris Ren Thomas, scribed for Mahendra St MD on 04/06/17 at 2349 . Progress - Progress Note Progress Note: I discussed the case with Dr. Wei, transplant surgeon at [facility] medical collections representative. (The patient had her transplant at [facility] many years ago by Dr. Juan.) I explained to Dr. Wei the patients slight increase in creatinine. Dr. Wei stated that a creatinine less than 2 is acceptable post-transplant. He reports that the patient should receive IV fluids for hydration and he recommended admission to [facility]. Dr. Montes De Oca is aware. Diagnosis is chest pain unspecified, acute renal insufficiency. The patient will be observed. Course/Dx - Diagnoses Provider Diagnoses: Chest pain, unspecified, Acute renal insufficiency - Provider Notifications Instructed by Provider To: Other - I consulted with Dr. Wei, transplant surgeon at [facility]. I also consulted with Dr. Montes De Oca, hospitalist. The documentation as recorded by the Amaris fraser Thomas accurately reflects the service I personally performed and the decisions made by me, Mahendra St MD.
--- NOTE | 2017-04-06 23:51 | ED ---
Haider Ren Stephanie, scribed for Mahendra St MD on 04/06/17 at 2220 . HPI Chest Pain - HPI Summary HPI Summary: The pt is a 56 y/o F presenting to the ED with c/o CP that began at 19:00 today. The pt reports she has experienced intermittent CP for the past few days. Current symptoms include cough, decreased appetite and diaphoresis. The pt reports recent illness including cough for 2 weeks. The pt was sitting at rest when pain began. The pain spontaneously resolved. The pain is rated at a 2 in severity and is described as a stabbing pain. The pt denies sleep disturbances, SI, or LE edema. - History of Current Complaint Chief Complaint: EDChestPainROMI Time Seen by Provider: 04/06/17 22:07 Hx Obtained From: Patient Onset/Duration: Started Hours Ago - 3 Timing: Intermittent Pain Intensity: 2 Pain Scale Used: 0-10 Numeric Chest Pain Location: Mid Sternal Chest Pain Radiates: No Character: Sharp/Stabbing Aggravating Factor(s): Nothing Alleviating Factor(s): Nothing Associated Signs and Symptoms: Positive: Chest Pain, Diaphoresis, Other: - decreased appetite. Negative: sleep disturbances, SI, or LE edema - Additional Pertinent History Primary Care Physician: FAIZA - Allergy/Home Medications Allergies/Adverse Reactions: Allergies Allergy/AdvReac Type Severity Reaction Status Date / Time Anesthetics, Amide Allergy GI Upset Verified 03/07/17 10:13 Anesthetics, Jenny Allergy GI Upset Verified 03/07/17 10:13 Anesthetics, Halogenated Allergy GI Upset Verified 03/07/17 10:13 PMH/Surg Hx/FS Hx/Imm Hx Endocrine/Hematology History: Denies: Hx Diabetes, Hx Thyroid Disease Cardiovascular History: Reports: Hx Angina, Hx Hypercholesterolemia, Hx Hypertension Denies: Hx Congestive Heart Failure, Hx Coronary Artery Disease, Hx Myocardial Infarction, Hx Pacemaker/ICD, Hx Valvular Heart Disease Respiratory History: Reports: Hx Pulmonary Embolism Denies: Hx Asthma, Hx Chronic Obstructive Pulmonary Disease (COPD) Comment Only: Other Respiratory Problems/Disorders - pe GI History: Denies: Hx Ulcer History: Reports: Hx Chronic Renal Failure - prior to renal transplant, Hx Renal Disease, Other Problems/Disorders - kidney transplant Sensory History: Reports: Hx Contacts or Glasses Denies: Hx Hearing Aid Opthamlomology History: Reports: Hx Contacts or Glasses Psychiatric History: Denies: Hx Panic Disorder - Cancer History Hx Chemotherapy: No Hx Radiation Therapy: No - Surgical History Surgery Procedure, Year, and Place: RIGHT KIDNEY BIOPSY. kidney transplant see above. RT CATARACT. D&C. RT BREAST BIOPSY - Immunization History Date of Tetanus Vaccine: 2009 Date of Influenza Vaccine: 12/08/14 Infectious Disease History: No Infectious Disease History: Denies: Hx Clostridium Difficile, Hx Hepatitis, Hx Human Immunodeficiency Virus (HIV), Hx of Known/Suspected MRSA, Hx Shingles, Hx Tuberculosis, Hx Known/ Suspected VRE, Hx Known/Suspected VRSA, Traveled Outside the [place] in Last 30 Days Comment Only: History Other Infectious Disease - CMV - Family History Known Family History: Positive: Cardiac Disease - CAD, Hypertension, Renal Disease, Other - Aneurysms; Breast CA - paternal aunt Negative: Diabetes - Social History Occupation: Employed Full-time Lives: Alone Alcohol Use: None Hx Substance Use: No Substance Use Type: Reports: None Hx Tobacco Use: No Smoking Status (MU): Never Smoked Tobacco Review of Systems Positive: Skin Diaphoresis. Negative: Fever, Chills Negative: Erythema Negative: Sore Throat Positive: Chest Pain Positive: Cough. Negative: Shortness Of Breath Negative: Abdominal Pain, Vomiting, Nausea Negative: dysuria, hematuria Negative: Myalgia, Edema Neurological: Other - Negative: dizziness All Other Systems Reviewed And Are Negative: Yes Physical Exam - Summary Physical Exam Summary: Constitutional: Well-developed, Well-nourished, Alert. (-) Distressed Skin: Warm, Dry HENT: Normocephalic; Atraumatic Eyes: Conjunctiva normal Neck: Musculoskeletal ROM normal neck. (-) JVD, (-) Stridor, (-) Tracheal deviation Cardio: Rhythm regular, rate normal, Heart sounds normal; Intact distal pulses; The pedal pulses are 2+ and symmetric. Radial pulses are 2+ and symmetric. (-) Murmur Pulmonary/Chest wall: Effort normal. (-) Respiratory distress, (-) Wheezes, (-) Rales Abd: Soft, (-) Tenderness, (-) Distension, (-) Guarding, (-) Rebound Musculoskeletal: (-) Edema Lymph: (-) Cervical adenopathy Neuro: Alert, Oriented x3 Psych: Mood and affect Normal Triage Information Reviewed: Yes Vital Signs On Initial Exam: Initial Vitals Temp Pulse Resp BP Pulse Ox 98 F 60 16 156/82 95 04/06/17 19:54 04/06/17 19:54 04/06/17 19:54 04/06/17 19:54 04/06/17 19:54 Vital Signs Reviewed: Yes Diagnostics - Vital Signs Vital Signs Temp Pulse Resp BP Pulse Ox 04/06/17 19:54 98 F 60 16 156/82 95 - Laboratory Lab Results: Lab Results 04/06/17 04/06/17 04/06/17 Range/Units 21:55 21:55 21:55 WBC 11.4 H (3.5-10.8) 10^3/ul RBC 4.50 (4.0-5.4) 10^6/ul Hgb 12.2 (12.0-16.0) g/dl Hct 37 (35-47) % MCV 83 (80-97) fL MCH 27 (27-31) pg MCHC 33 (31-36) g/dl RDW 15 (10.5-15) % Plt Count 248 (150-450) 10^3/ul MPV 9 (7.4-10.4) um3 Neut % (Auto) 79.6 (38-83) % Lymph % (Auto) 12.7 L (25-47) % [place] % (Auto) 7.0 (1-9) % Eos % (Auto) 0.5 (0-6) % Baso % (Auto) 0.2 (0-2) % Absolute Neuts (auto) 9.0 H (1.5-7.7) 10^3/ul Absolute Lymphs (auto) 1.4 (1.0-4.8) 10^3/ul Absolute Monos (auto) 0.8 (0-0.8) 10^3/ul Absolute Eos (auto) 0.1 (0-0.6) 10^3/ul Absolute Basos (auto) 0 (0-0.2) 10^3/ul Absolute Nucleated RBC 0 10^3/ul Nucleated RBC % 0 INR (Anticoag Therapy) 3.61 H (0.77-1.02) APTT 52.6 H (26.0-36.3) seconds Sodium (133-145) mmol/L Potassium (3.5-5.0) mmol/L Chloride (101-111) mmol/L Carbon Dioxide (22-32) mmol/L Anion Gap (2-11) mmol/L BUN (6-24) mg/dL Creatinine (0.51-0.95) mg/dL Est GFR ( Amer) (>60) Est GFR (Non-Af Amer) (>60) BUN/Creatinine Ratio (8-20) Glucose (70-100) mg/dL Lactic Acid (0.5-2.0) mmol/L Calcium (8.6-10.3) mg/dL Total Bilirubin (0.2-1.0) mg/dL AST (13-39) U/L ALT (7-52) U/L Alkaline Phosphatase (34-104) U/L Troponin I (<0.04) ng/mL B-Natriuretic Peptide 100 ( - 100) pg/mL Total Protein (6.4-8.9) g/dL Albumin (3.2-5.2) g/dL Globulin (2-4) g/dL Albumin/Globulin Ratio (1-3) 04/06/17 04/06/17 Range/Units 21:55 21:55 WBC (3.5-10.8) 10^3/ul RBC (4.0-5.4) 10^6/ul Hgb (12.0-16.0) g/dl Hct (35-47) % MCV (80-97) fL MCH (27-31) pg MCHC (31-36) g/dl RDW (10.5-15) % Plt Count (150-450) 10^3/ul MPV (7.4-10.4) um3 Neut % (Auto) (38-83) % Lymph % (Auto) (25-47) % [place] % (Auto) (1-9) % Eos % (Auto) (0-6) % Baso % (Auto) (0-2) % Absolute Neuts (auto) (1.5-7.7) 10^3/ul Absolute Lymphs (auto) (1.0-4.8) 10^3/ul Absolute Monos (auto) (0-0.8) 10^3/ul Absolute Eos (auto) (0-0.6) 10^3/ul Absolute Basos (auto) (0-0.2) 10^3/ul Absolute Nucleated RBC 10^3/ul Nucleated RBC % INR (Anticoag Therapy) (0.77-1.02) APTT (26.0-36.3) seconds Sodium 130 L (133-145) mmol/L Potassium 5.1 H (3.5-5.0) mmol/L Chloride 104 (101-111) mmol/L Carbon Dioxide 19 L (22-32) mmol/L Anion Gap 7 (2-11) mmol/L BUN 57 H (6-24) mg/dL Creatinine 1.84 H (0.51-0.95) mg/dL Est GFR ( Amer) 36.6 (>60) Est GFR (Non-Af Amer) 28.5 (>60) BUN/Creatinine Ratio 31.0 H (8-20) Glucose 131 H (70-100) mg/dL Lactic Acid 0.6 (0.5-2.0) mmol/L Calcium 10.0 (8.6-10.3) mg/dL Total Bilirubin 0.50 (0.2-1.0) mg/dL AST 12 L (13-39) U/L ALT 15 (7-52) U/L Alkaline Phosphatase 71 (34-104) U/L Troponin I 0.00 (<0.04) ng/mL B-Natriuretic Peptide ( - 100) pg/mL Total Protein 7.6 (6.4-8.9) g/dL Albumin 4.0 (3.2-5.2) g/dL Globulin 3.6 (2-4) g/dL Albumin/Globulin Ratio 1.1 (1-3) Result Diagrams: 04/06/17 21:55 04/06/17 21:55 Lab Statement: Any lab studies that have been ordered have been reviewed, and results considered in the medical decision making process. - Radiology CXR Xray Interpretation: No Acute Changes Radiology Interpretation Completed By: Radiologist - NO ACTIVE DISEASE - EKG 20:00 EKG Rhythm: Sinus Bradycardia - 56 BPM EKG Interpretation: No STEMI 22:11 EKG Rhythm: Sinus Rhythm - 60 BPM EKG Interpretation: No STEMI Chest Pain Course/Dx - Course Course Of Treatment: The pt is at high risk for PE given past hx of PE. The pt has multiple cardiac risk factors. ED physician recommends admission for recommendation for stress test in the morning and consideration for VQ scan. ED physician feels that d-dimer would underestimate possibility for PE. However, the patients symptoms are more typical for angina than for PE. - Diagnoses Provider Diagnoses: Chest pain, unspecified, Acute renal insufficiency Discharge - Discharge Plan Condition: Stable Disposition: ADMITTED TO [facility] Referrals: Christophe Muñoz MD [Primary Care Provider] - The documentation as recorded by the Haider fraser Stephanie accurately reflects the service I personally performed and the decisions made by , Mahendra St MD.
[2017-04-07] MEDS ORDERED: Senna TAB PO PRN (00:16)
[2017-04-07] MEDS ORDERED: Docusate CAP* 100 MG PO PRN (00:16)
[2017-04-07] MEDS ORDERED: Al Hydrox/Mg Hydrox/Simet LIQ* 30 ML UDC PO PRN (00:16)
[2017-04-07] MEDS ORDERED: Ondansetron INJ* 2 MG/ML VIAL IV PRN (00:16)
[2017-04-07] MEDS ORDERED: Acetaminophen TAB* 325 MG PO PRN (00:16)
[2017-04-07] MEDS ORDERED: NS 0.9% 1000 ML* 1,000 ML IV SCH (00:30)
[2017-04-07] MEDS ORDERED: Metoprolol Tartrate TAB* 100 MG TAB PO SCH (01:00)
[2017-04-07] MEDS ORDERED: CYCLOSPORINE 25 MG PO SCH (01:00)
[2017-04-07] MEDS: MYCOPHENOLATE 180 MG PO SCH ×2 (02:32→12:56)
--- NOTE | 2017-04-07 03:56 | PN ---
Progress Note - Progress Note Date of Service: 04/07/17 Note: Paged for HR in mid 40's - decreased her metoprolol 100 mg BID to 25 mg BID
--- NOTE | 2017-04-07 05:59 | HP ---
CC: Christophe Muñoz MD * HISTORY AND PHYSICAL: DATE OF ADMISSION: 04/07/17 TIME OF EVALUATION: 0000. PRIMARY CARE PHYSICIAN: Christophe Muñoz MD. CHIEF COMPLAINT: Chest pain. HISTORY OF PRESENT ILLNESS: This is a 56-year-old female with a past medical history of PE on Coumadin and interstitial nephritis, status post transplant in 2010, who presented to the emergency room after having atypical chest pain for the past 2 to 3 days. The patient's mother a few days ago, was home on hospice and since her mother has , she has had chest pain off and on in no pattern. There is nothing that seems to make it worse or better. It happens when she is at rest. This evening she was watching TV and she felt very flushed with the pain across her chest that lasted about 5 to 6 minutes. This concerned her and prompted her to come to the emergency room for further evaluation. Her last stress test was about 3 to 4 years ago. She was seeing Dr. Mckeon routinely prior to transplant. She denies any associated shortness of breath. No nausea. No diaphoresis. She feels achy all over. She has a sore neck and a posterior headache. She had a cold about 2 weeks ago. She still has a residual cough. No fever. No vomiting. No diarrhea. No abdominal pain. No urinary symptoms. She has had a decrease in her appetite since her mother has . Otherwise, remaining review of systems negative. In the emergency room, the patient had labs and imaging. She was given a liter of fluid, Zofran, nitro, morphine and full aspirin and was referred to the hospitalist service for further evaluation. Due to the patient's worsening renal function, Dr. Sanjuana Ariza was called by the ER and they were happy with her creatinine being less than 2 and recommended IV fluids and repeat labs. PAST MEDICAL HISTORY: 1. History of PE and DVT, on anticoagulation. 2. History of interstitial nephritis, status post transplant in 2010 at [facility]. She follows Dr. Montiel routinely. 3. Hypertension. 4. Hyperlipidemia. 5. GERD. 6. 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 MEDICATIONS: 1. Cyclosporin 100 mg in the morning and 75 mg in the evening. 2. Myfortic 2 pills 360 mg p.o. b.i.d. 3. Prednisone 5 mg p.o. in the morning. 4. Multivitamin. 5. Omeprazole 20 mg daily. 6. Metoprolol 100 mg p.o. b.i.d. 7. Verapamil 180 mg p.o. in the morning. 8. Pravastatin 20 mg p.o. daily. 9. Lisinopril 40 mg a day. 10. Warfarin 2 mg every other day and 3 mg every other day. ALLERGIES: AMIDE ANESTHETIC, CHELE ANESTHETIC and HALOGENATED ANESTHETIC, all gives GI upset. FAMILY HISTORY: Mother as mentioned just recently from lung cancer. Father from a brain aneurysm at age 70. She states her paternal grandfather had an NH at 50s. SOCIAL HISTORY: The patient works on a farm. She is not very active during this time of year. No history of tobacco, alcohol, or illicit drug use. Her healthcare proxy is her sister, Anneliese Armijo. Code status is full code. REVIEW OF SYSTEMS: A 14-point review of systems as mentioned in the HPI, otherwise negative. PHYSICAL EXAMINATION GENERAL: No acute distress, resting comfortably. VITAL SIGNS: Temp 98, pulse rate 68, respiratory rate 16, oxygen saturation 97 % on room air, blood pressure 159/85. HEENT: Head: Normocephalic. Pupils equal and reactive. Oropharynx: Mucous membranes moist. No erythema or exudate. NECK: Supple. No lymphadenopathy. RESPIRATORY: Diminished breath sounds. No wheezes, rhonchi, or rales. CARDIAC: Regular rate and rhythm. Soft systolic murmur heard throughout. ABDOMEN: Soft, nontender, and nondistended. EXTREMITIES: No clubbing, cyanosis, or edema. NEUROLOGIC: Alert and oriented x3. No focal neurologic deficits. LABORATORY DATA: White count 11.4, hemoglobin 12.2, hematocrit 37, and platelets 248. INR is 3.61. Sodium 130, potassium 5.1, chloride 105, bicarb 19 , BUN 57, creatinine 1.84, glucose 131, troponin is 0. RADIOGRAPHIC DATA: Chest x-ray, no active disease. EKG shows normal sinus rhythm. No significant ST changes. ASSESSMENT: This is a 56-year-old female with a past medical history of interstitial nephritis, status post transplant and pulmonary embolism, on anticoagulation, who presents to the emergency room with atypical chest pain for the past few days since her mother . 1. Chest pain. Assessment: The patient's chest pain is atypical. She does have hypertension and other risk factors. The other concern is her worsening renal function in the setting of decreased p.o. Plan: We will admit her to telemetry. We will trend her troponin. We will continue on a baby aspirin. Check a lipid panel in the morning and order a nuclear stress test. Making note there does not seem to be any contraindication for having a stress test in setting of renal transplant on immunosuppressive agents. She states normally she does treadmill stress test, but the verapamil makes her lower extremities very weak. Regarding her worsening renal failure, has not had significant change from her past creatinines. Dr. Wei from [facility] was notified and recommended keeping it less than 2, IV fluids and repeat her labs. We will place her on IV fluids and as mentioned we will renally dose her meds. I am going to hold her lisinopril for now and keep her at normal saline 125 an hour. 2. Chronic medical problems: Hypertension, resume her antihypertensive agents ; as mentioned and hold her lisinopril. 3. History of pulmonary embolism, on warfarin pharmacy dose. Hold her dose now as she is supratherapeutic. 4. Hyperlipidemia. Continue pravastatin and check her cholesterol in the morning. 5. Gastroesophageal reflux disease. Continue omeprazole. 6. History of renal transplant, on immunosuppressive. Continue with cyclosporin and Myfortic. 7. FEN. Keep her n.p.o. in the setting of a nuclear stress test with IV fluids in place. 8. DVT prophylaxis: The patient scores moderate risk. She is on Coumadin. 9. Code status: Full code. PATIENT TIME: Greater than 60 minutes was spent doing the history and physical , more than half time spent in direct patient contact. [id number]/[facility] #: [id number] ZELALEM
[2017-04-07] MEDS ORDERED: Omeprazole CAP* 20 MG PO SCH (06:00)
[2017-04-07 07:58] LABS: INR 3.53 (0.77-1.02)
[2017-04-07] MEDS ORDERED: Metoprolol Tartrate TAB* 25 MG PO SCH (09:00)
[2017-04-07] MEDS ORDERED: predniSONE TAB* 5 MG PO SCH (09:00)
[2017-04-07] MEDS ORDERED: CYCLOSPORINE 100 MG PO SCH (09:00)
[2017-04-07] MEDS ORDERED: Aspirin EC Low Dose* 81 MG TAB.EC PO SCH (09:00)
[2017-04-07] MEDS ORDERED: Atorvastatin* 10 MG TAB PO SCH (09:00)
[2017-04-07] MEDS ORDERED: Verapamil SR CAP* 180 MG PO SCH (09:00)
[2017-04-07 10:03] VITALS: BP 152/72
[2017-04-07] MEDS ORDERED: Aminophylline IV* 25 MG/ML 10 ML VIAL ONE (11:36)
[2017-04-07] MEDS ORDERED: Regadenoson* 0.4 MG/5 ML SYRINGE ONE (11:36)
--- NOTE | 2017-04-07 13:13 | RAD ---
Edited for charges. INDICATION: Chest pain. COMPARISON: There are no prior studies available for comparison. Technique: A single day myocardial perfusion stress study was performed. Initially the resting study was performed. The patient was given an intravenous injection of 10.9 mCi of technetium 99m tetrofosmin and and the heart was imaged in multiple projections. The patient returned later in the day and under the direction of Dr. Reich, the patient was given intervenous injection of Lexiscan. Subsequently the patient was given intravenous injection of 25.6 mCi of technetium 99m tetrofosmin and the heart was imaged in multiple projections. Images were reconstructed in the axial, sagittal and coronal planes and in a 3- D format. FINDINGS: There appears to be normal wall motion and myocardial thickening. The left ventricular ejection fraction was calculated to be 75%. No significant focal perfusion defects are seen after pharmacologic stress or rest. There is no evidence for infarct or ischemia. IMPRESSION: NO EVIDENCE FOR INFARCT OR ISCHEMIA. ASSESSMENT: Low risk. Based on imaging criteria from ACC/AHA 2002 Guideline Update for the Management of Patients With Chronic Stable Angina Table 23. Noninvasive Risk Stratification. MTDD
--- NOTE | 2017-04-09 14:13 | DS ---
CC: Dr. Christophe Muñoz * DISCHARGE SUMMARY: DATE OF ADMISSION: 04/07/17 DATE OF DISCHARGE: 04/07/17 PRIMARY CARE PROVIDER: Dr. Christophe Muñoz. MY ATTENDING WHILE IN THE HOSPITAL: Dr. Dawn Anaya. * (DICTATED BY DEREK LILLY) PRIMARY DISCHARGE DIAGNOSIS: Chest pain. SECONDARY DISCHARGE DIAGNOSES: 1. Interstitial nephritis, status post renal transplant in 2010. 2. History of deep venous thrombosis and pulmonary embolism, on anticoagulation , with supratherapeutic INR. 3. Hypertension. 4. Hyperlipidemia. 5. Gastroesophageal reflux disease. 6. 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 STUDIES DONE WHILE IN THE HOSPITAL: Electrocardiogram from 04/06/17 shows normal sinus rhythm, no ST-segment abnormalities, early repolarization in V2, QTc of 409, normal axis, no other abnormalities. Repeat EKG shows additional repolarization in V3, possible peaked T waves in V3 and V4, no other abnormalities. Chest x-ray from 04/06/17, read as no active disease. Nuclear medicine scan from 04/07/17 shows low risk, no evidence for infarct or ischemia, no significant focal perfusion defects are seen after pharmacologic stress or rest. There is no evidence for infarct or ischemia. Normal wall motion, left ventricular ejection fraction was calculated to be 75%. MEDICATIONS AT DISCHARGE: 1. Prednisone 5 mg p.o. q.a.m. 2. Omeprazole 20 mg p.o. q.a.m. 3. Myfortic 360 mg p.o. b.i.d. 4. Cyclosporin 100 mg p.o. q.a.m. 5. Warfarin 3 mg mg p.o. q.48 hours. 6. Pravastatin 40 mg p.o. q.a.m. 7. Multivitamin. 8. Calcium carbonate 500 mg p.o. daily. 9. Metoprolol succinate 100 mg p.o. b.i.d. 10. Lisinopril 40 mg p.o. q.p.m. 11. Cyclosporin 75 mg p.o. q.p.m. 12. Warfarin 2 mg p.o. q.48 hours. 13. Lexapro 10 mg p.o. daily. 14. Verapamil 180 mg p.o. q.a.m. 15. Aspirin 81 mg p.o. daily. New medications at discharge: 1. Aspirin. 2. Pravastatin. Medications discontinued at discharge: Pravastatin 20 mg p.o. q.p.m. HOSPITAL COURSE: This is a brief summary of the patient's presentation. For more details, please see the history and physical from Dr. Jackie Montes De Oca on . In brief, the patient is a 56-year-old female with a past medical history significant for the above, who presented after having chest pain under her left arm and breast for the past 2 to 3 days, which is on and off, with no palliating or provoking factors. It also happened when she was at rest, when she was watching TV. The patient had stress test was about 3 or 4 years ago. She had no associated symptom of shortness of breath, nausea, diaphoresis. The patient has no recent illnesses. The patient was admitted to the hospital for KS. The patient's kidney function was slightly decreased from her baseline at creatinine of 1.84, up from creatinine baseline about 1.5 to 1.6. The patient was given fluids. The patient also has supratherapeutic INR at 3.61 and an increased potassium at 5.1. The patient had troponin I of 0.00 x3. The patient had intermittent chest pain overnight, but it was for only brief periods. The patient had stress test, which did not provoke any chest pain and was read as the above. The patient had bradycardia in 40s overnight and this only occurred once and her metoprolol was decreased to 25 mg p.o. b.i.d., but her blood pressure was elevated significantly after this decrease. The patient had no other complaints during her hospitalization. The patient's LDL cholesterol was found to be 132. The patient was not on aspirin. After the patient's stress test, the patient was amenable to be discharged to follow up with her primary care provider for needed primary prevention of KS and follow up with Dr. Montiel of Nephrology for continued management of her kidneys and with her transplant surgeon for continued management of her immunosuppression. The patient was discussed with Dr. Montiel while in the hospital and it was recommended that due to her pravastatin dose being increased due to high cholesterol that she have a cyclosporin level drawn within 1 week. PHYSICAL EXAMINATION ON DAY OF DISCHARGE: General: The patient is a 56-year- old female, who appears stated age, sitting comfortably in bed, in no acute distress. Vital Signs: At the time of discharge, temperature 98.9, pulse rate 58, respiratory rate 16, oxygen saturation 96% on room air, blood pressure 152/ 72. HEENT: Head normocephalic, atraumatic. Sclerae anicteric. No conjunctival injection. Nasal mucosa moist. Oral mucosa moist. No pharyngeal erythema, exudates, or discharge. Neck: Supple, nontender. No lymphadenopathy , no carotid bruits auscultated. Cardiac: Regular rate and rhythm. No clicks , murmurs, gallops, or rubs. Pulses 2+ in bilateral dorsalis pedis, posterior tibialis, and radial areas. No lower extremity edema noted bilaterally. Respiratory: Clear to auscultation bilaterally. No wheezes, rales, or rhonchi. Abdomen: Soft, nontender, nondistended. Bowel sounds present, normoactive in all 4 quadrants. Genitourinary: No suprapubic tenderness or CVA tenderness. The kidneys are nonpalpable bilaterally. Scar is consistent with previous renal transplant. Skin: Clean, dry, and intact. Neuro: Cranial nerves II through XII intact. Alert and oriented x3. No focal deficits. Psychiatric: Pleasant and cooperative. LABORATORY DATA FROM HOSPITALIZATION: White blood cell count 11.4, hemoglobin 12.2, platelet count 248. INR 3.61, repeat 3.53. Sodium 130, potassium 5.1, carbon dioxide 19, BUN 57, creatinine 1.84, glucose 131, lactic acid 0.6. AST 12, ALT 15. Troponin I is 0.00 x3. BNP 100. Total protein 7.6. Triglycerides 296, cholesterol 234, LDL cholesterol 132, HDL cholesterol 43. DISCHARGE PLAN: The patient will be discharged to home. The patient should follow up with her primary care doctor within 1 week for general medical management. The patient should have a repeat INR drawn within 1 week as well as a BMP and cyclosporin level. The patient should follow up with Dr. Montiel and her transplant surgeon for continued management of her chronic kidney disease. The patient should return to the hospital for any symptoms, such as repeat chest pain, shortness of breath, anuria, fevers that do not respond to medication, or other severe muscle aches or other abnormalities. The patient engages in activity as tolerated. The patient should have a renal, heart healthy diet, avoiding caffeine. TIME SPENT: Approximately 60 minutes was spent on this discharge, 30 of which was spent [id number] with the patient , obtaining history and physical and discussing treatment plan. DEREK LILLY [id number]/[facility] #: [id number] [place]
== END 2017-04-07 14:39 | disposition home or self-care (01) ==
LOC: ED 19:40 → MEDTELE 04-07 00:16
PROVIDERS: ADMIT Pediatrics; ATTEND Internal Medicine
DX: R07.9 Chest pain, unspecified (principal); N28.9 Disorder of kidney and ureter, unspecified; R05 Cough; Z79.01 Long term (current) use of anticoagulants; Z86.711 Personal history of pulmonary embolism; I10 Essential (primary) hypertension; E78.5 Hyperlipidemia, unspecified; K21.9 Gastro-esophageal reflux disease without esophagitis; Z86.19 Personal history of other infectious and parasitic diseases
CPT/HCPCS: 36415; 71045; 78452; 80053; 80061; 83605; 83880; 84484; 85025; 85610; 85730; 93005; 93017; 96374; 96375; 99284; A9270-GY; A9502; G0378; J0280; J2270; J2405; J2785; J7502; J7512; J7515

== ENCOUNTER 2017-08-17 14:29 | Emergency (ER) | payer OTHER ==
--- NOTE | 2017-08-17 15:59 | UC ---
Complaint Female HPI - HPI Summary HPI Summary: 56 y/o female presents to the urgent care c/o UTI symptoms since this am, has them frequently. - History Of Current Complaint Chief Complaint: UCGU Stated Complaint: URINARY ISSUE Time Seen by Provider: 08/17/17 15:57 Pain Intensity: 2 - Allergies/Home Medications Allergies/Adverse Reactions: Allergies Allergy/AdvReac Type Severity Reaction Status Date / Time No Known Allergies Allergy Verified 08/17/17 14:50 PMH/Surg Hx/FS Hx/Imm Hx - Surgical History Surgical History: Yes Surgery Procedure, Year, and Place: RIGHT KIDNEY BIOPSY. kidney transplant see above. RT CATARACT. D&C. RT BREAST BIOPSY - Family History Known Family History: Positive: Cardiac Disease - CAD, Hypertension, Renal Disease, Other - Aneurysms; Breast CA - paternal aunt Negative: Diabetes - Social History Alcohol Use: None Substance Use Type: None Smoking Status (MU): Never Smoked Tobacco - Immunization History Most Recent Influenza Vaccination: Fall 2015 Most Recent Tetanus Shot: 4 yrs ago Most Recent Pneumonia Vaccination: Fall 2015 Physical Exam - Summary Physical Exam Summary: VITAL SIGNS: Reviewed. GENERAL: Patient is a well developed and nourished female who is sitting comfortable in the examining table. Patient is not in any acute respiratory distress. HEAD AND FACE: No signs of trauma. No ecchymosis, hematomas or skull depressions. No sinus tenderness. EYES: PERRLA, EOMI x 2, No injected conjunctiva, clear watery eyes, no nystagmus. No photophobia. EARS: Hearing grossly intact. Ear canals and tympanic membranes are within normal limits. MOUTH: pharynx with no erythema, no exudates,no palatal petechiae. no B/L tonsillar enlargement Uvula in midline. NECK: Supple, trachea is midline, no lymphadenopathy, no JVD, no carotid bruit, no c-spine tenderness, neck with full ROM. CHEST: Symmetric, no tenderness at palpation LUNGS: Clear to auscultation bilaterally. No wheezing or crackles. CVS: Regular rate and rhythm, S1 and S2 present, no murmurs or gallops appreciated. ABDOMEN: Soft, non-tender. No signs of distention. No rebound no guarding, and no masses palpated. Bowel sounds are normal. BACK:no scoliosis or lesions, non tender to palpation, No B/L CVA tenderness EXTREMITIES: FROM in all major joints, no edema, no cyanosis or clubbing. NEURO: Alert and oriented x 3. No acute neurological deficits. Speech is normal and follows commands. SKIN: Dry and warm Triage Information Reviewed: Yes Vital Signs: Initial Vital Signs Temp 97.7 F 08/17/17 14:46 Pulse 79 08/17/17 14:46 Resp 20 08/17/17 14:46 BP 151/85 08/17/17 14:46 Pulse Ox 99 08/17/17 14:46 Complaint Female Dx - Differential Dx/Diagnosis Differential Diagnosis/HQI/PQRI: Cervicitis, Pelvic Inflammatory Disease, Renal Colic, Ureteral Stone, Urinary Tract Infection, Other - pyleonepritis Provider Diagnoses: 1- UTI. 2- dysuria Discharge - Discharge Plan Condition: Stable Disposition: HOME Prescriptions: Amoxicillin/Clavulanate TAB* [Augmentin TAB 500 mg*] 500 mg PO BID #19 tab Phenazopyridine TAB* [Pyridium 100 mg TAB*] 100 mg PO TID #5 tab Patient Education Materials: Urinary Tract Infection in Women (ED) Referrals: Christophe Muñoz MD [Primary Care Provider] - 2 Days Additional Instructions: 1- Please take Augmentin PO x 10 days. Pyridium 100 mg PO TID x 2 days to alleviate urinary symptoms. Increase increase fluid intake. drink cranberry juice. 2-Urine sent for culture if any abnormality, you will be notified for further treatment. 3-If symptoms do not improve please return to the urgent care or f/u with her PCP. 4-Your BP is elevated today. please decrease salt in your diet, monitor BP and if it continues to be elevated please f/u with your PCP for further management - Billing Disposition and Condition Condition: STABLE Disposition: Home
[2017-08-17] MEDS ORDERED: Phenazopyridine TAB* 100 MG PO ONE (16:29)
[2017-08-17] MEDS ORDERED: Amoxicillin/Clavulanate TAB* 500 MG PO ONE (16:29)
[2017-08-17 16:50] VITALS: BP 160/76
== END 2017-08-17 16:45 | disposition home or self-care (01) ==
LOC: UCEAST 14:29
DX: N39.0 Urinary tract infection, site not specified (principal); Z94.0 Kidney transplant status
CPT/HCPCS: 81003; 87077; 87086; 87186; 99212; A9270-GY; G0463

== ENCOUNTER 2018-02-10 22:30 | Emergency (ER) | payer OTHER ==
--- OUTSIDE RECORDS SUMMARY | 2018-02-10 22:57 | XMS REPORT ---
:1960 External Reference #:[id number] Author Organization [facility] [facility] [facility] Address [address] [place] [address] [place] [address] Phone [phone] Care Team Providers Name Role Phone Christophe Muñoz MD Primary Care Physician Unavailable Payers Type Date Identification Numbers Payment Provider Subscriber Commercial Effective: Policy Number: Jace Vyas 2014 [id number] Group Number: [id number] [address] PayID: [id number] [place] [address] Problems Date Description Provider Status Onset: 07/30/2017 Anemia due to chronic blood loss Bhavin Torres M.D., FACP Active Note: iron-def Onset: 07/22/2014 Transplant of kidney Adelita Bañuelos M.D. Active Onset: 07/22/2014 Essential hypertension Natalia Arriola D.O. Active Onset: 07/22/2014 Obesity Natalia Arriola D.O. Active Onset: 07/22/2014 Paroxysmal supraventricular Jarvis Solis Mckeon M.D. Active tachycardia Onset: 07/22/2014 Pulmonary embolism Milton Skinner M.D. Active Onset: 07/22/2014 Hyperlipidemia Anderson Jordan M.D. Active Onset: 05/15/2016 Herpes zoster with meningitis Christophe Muñoz M.D. Active Onset: 05/15/2016 Gastroesophageal reflux disease Christophe uMñoz M.D. Active Onset: 08/28/2016 Chronic kidney disease stage 3 Bhavin Torres, Active Abigail,FACP Note: CreatClear 55 Onset: 10/09/2016 Urinary tract infectious disease Christophe Muñoz M.D. Active Onset: 02/12/2017 Bipolar affective disorder, Christophe Muñoz M.D. Active currently depressed, mild Onset: 02/12/2017 Mild recurrent major depression Christophe Muñoz M.D. Active Onset: 02/12/2017 Disorder of skin AND/OR Christophe Muñoz M.D. Active subcutaneous tissue Onset: 06/18/2017 Myalgia Christophe Muñoz M.D. Active Onset: 10/22/2017 Pure hyperglyceridemia Christophe Muñoz M.D. Active Onset: 05/15/2016 Mixed hyperlipidemia Christophe Muñoz M.D. Inactive Inactive: 08/28/2016 Onset: 05/27/2017 Anemia Christophe Muñoz M.D. Inactive Inactive: 07/30/2017 Onset: 05/27/2017 Malaise and fatigue Christophe Muñoz M.D. Inactive Inactive: 07/30/2017 Family History Date Family Member(s) Problem(s) Comments General anerysm brain Father Arteriosclerosis Father glomerular nephritis mother, not father Mother Kidney Disease glom nephritis Mother -Cancer Siblings interstitial nephritis Social History Type Date Description Comments Marital Status Single Lives With Alone Occupation [place] [employer] ETOH Use Denies alcohol use Smoking Patient has never smoked Recreational Drug Use Never Used Drugs Exercise Type/Frequency Exercises rarely Allergies, Adverse Reactions, Alerts Date Description Reaction Status Severity Comments 07/12/2014 NKDA active 07/12/2014 Anasthesia Nausea and Vomiting active Mild Medications Medication Date Status Form Strength Qnty SIG Indications Ordering Provider Vascepa 10/22/ Active Capsules 1gm 120ca take two E78.1 2017 ps capsules by Pachikara, mouth twice M.D. a day Feosol 07/09/ Active Tablets 200(65Fe) 30tab once daily D64.9 [place] 2018 mg s PachikaAbigail landeros Pantoprazole 07/09/ Active Tablets DR 40mg 30tab 1 in the K21.9 Christophe Sodium 2018 s morning Pachikara, empty M.D. stomach Aspirin 04/07/ Active Chewtabs 81mg 1 by mouth Unknown 2018 every day Ventolin HFA 03/19/ Active Aerosol 108(90Bas 24gm 2 puffs by J06.9 Christophe 2017 e) mouth four Pachikara, mcg/Act times a day M.D. as needed/ use spacer Blood Pressure 10/18/ Active Misc 1unit take your I10 Adelita Monitor Medium 2015 s bp 2x per Sarmad Cuff day M.D. Gengraf / Active Capsules 100mg 1 po Q Am Unknown 0000 Myfortic / Active Tablets DR 360mg bid Unknown 0000 Calcium / Active Tablets 500mg take 1.5 Unknown Carbonate 0000 tabs by mouth bid Acetaminophen / Active Tablets ER 650mg 1 tab po q6 Unknown ER 0000 hrs prn Prednisone / Active Tablets 5mg t nancy 1 Unknown 0000 tablet every day Multiple / Active Tablets 1 by mouth Unknown Vitamin 0000 every day Mag64 / Active Tablets ER 535(64mg) 1 po bid Unknown 0000 mg Warfarin Sodium / Active Tablets 1mg 200ta 1 tab daily Other 0000 bs as directed Ordering Provider Gengraf / Active Capsules 25mg 3 po Q PM Unknown 0000 Lisinopril / Active Tablets 40mg 1 by mouth Unknown 0000 every day Metoprolol / Active Tablets ER 100mg 1 tab twice I10 Unknown Succinate ER 0000 24HR daily Clonidine HCL / Active Patches 0.1mg/24H 1 patch Unknown 0000 Weekly R every week (friday) Escitalopram 05/27/ Hx Tablets 5mg 30tab 1 by mouth F33.0 Christophe Oxalate 2017 - s every day Pachikara, 07/09/ M.D. 2017 Escitalopram 05/14/ Hx Tablets 10mg 30tab 1 by mouth F33.0 Christophe Oxalate 2018 - s every day Pachikara, 05/27/ M.D. 2018 Pravastatin 04/21/ Hx Tablets 40mg 30tab 1 tablet by Christophe Sodium 2017 - s mouth once Pachikara, 10/01/ daily at M.D. 2018 bedtime Escitalopram 04/21/ Hx Tablets 5mg 30tab 1 1/2 by F33.0 [place] Oxalate 2018 - s mouth every Pachikara, 05/14/ day M.D. 2017 Amoxicillin/Cla 03/19/ Hx Tablets 875-125mg 14tab 1 by mouth J06.9 Christophe vulanate 2018 - s twice a day Pachikara, Potassium 05/14/ M.D. 2017 Escitalopram 02/12/ Hx Tablets 5mg 30tab 1 by mouth F33.0 [place] Oxalate 2016 - s every day BERNY Devlin 2017 Amoxicillin/Cla 08/28/ Hx Tablets 875-125mg 14tab by mouth Bhavin francisco 2017 - s twice a day Cathy Gutiérrez 09/04/ M.D.,FACP 2017 Ativan 04/18/ Hx Tablets 0.5mg 14tab 1tab 12h Christophe 2016 Kyung s jackson needed Pachikara, 06/26/ for anxiety M.D. 2016 Azithromycin 11/21/ Hx Tablets 250mg 6tabs 2 tabs by J01.00 Dean 2016 - mouth every BERNY Devlin 11/26/ day x1 day, 2016 1 tab by mouth every day x 4 days Amoxicillin/Cla 10/23/ Hx Tablets 250-125mg 14tab 1 po bid Emmie francisco 2015 - s for 7 days Cathy Cleaning 11/21/ M.D. 2015 Augmentin 10/23/ Hx Tablets 875-125mg 20tab one by Emmie 2015 Kyung s mouth every Black, 11/21/ 12 hours M.D. 2016 for 10 days Metoprolol 10/18/ Hx Tablets 50mg 45tab take one & I10 Adelita Tartrate 2015 - one-half Sarmad 08/28/ tablets by M.DHeriberto 2017 mouth in the morning and one at bedtime Omeprazole 04/25/ Hx Capsules 20mg 30cap take one Christophe 2015 Kyung SILVA s capsule by Wanda, 07/09/ mouth every M.D. 2018 day Amoxicillin 03/06/ Hx Tablets 500mg 14tab 1 tab by J06.9 Ras 2014 - s mouth twice BERNY Benites 10/10/ a day times 2015 7 days Ciprofloxacin 01/10/ Hx Tablets 250mg 20tab one by N39.0 Adelita HCL 2014 - s mouth twice Sarmad, 03/06/ a day for M.D. 2014 10 days Metronidazole 09/25/ Hx Tablets 250mg 40tab 1 by mouth Adelita 2014 - s every 6 Sarmad, 01/10/ hours M.D. 2014 Ciprofloxacin 09/23/ Hx Tablets 250mg 20tab one by 789.03 Adelita HCL 2015 - s mouth twice Sarmad, 01/03/ a day for M.DHeriberto 2014 10 days Amoxicillin 08/24/ Hx Tablets 875mg 20tab 1 by mouth 381.00 Ras 2015 - s twice a day BERNY Benites 2014 Metoprolol 01/19/ Hx Tablets ER 25mg 90tab 2 po qd Jarvis D. Succinate ER 2012 - 24HR s Brand, 10/18/ Abigail 2016 Sensipar /00/ Hx Tablets 60mg 1 by mouth Unknown 0000 - every day 2015 Gengraf // Hx Capsules 75mg 1 po q pm Unknown 0000 - 2015 Prednisone /00/ Hx Tablets 5mg 1 po qd Unknown (Vincent) - 2014 Omeprazole / Hx Capsules 20mg 30cap 1 by mouth Sarmad 0000 - DR s every day Adelita, 2015 Magnesium / Hx 64mg bid Unknown Chloride - 2015 Zocor /00/ Hx Tablets 40mg 1 by mouth Unknown 0000 - every night 03/06/ at bedtime 2014 Warfarin Sodium 00/ Hx Tablets 3mg 1 by mouth Unknown 0000 - every day as 2017 instructed Cipro /00/ Hx Tablets 500mg 1 by mouth Unknown 0000 - twice a day 2015 Norvasc /00/ Hx Tablets 5mg 1 by mouth I10 Unknown 0000 - every day 2016 Virt-Phos 250 /00/ Hx Tablets 155-852-1 30tab 1 tab daily Other Neutral 0000 - 30mg s Ordering 05/14/ Provider 2017 Nifedipine ER 00/00/ Hx Tablets ER 30mg 30tab 1 by mouth Other 0000 - 24HR s every day Ordering 06/26/ Provider 2017 Erythromycin 00/00/ Hx Ointment 5mg/GM 3.500 apply to Other 0000 - gm left eyelid Ordering 05/14/ qid Provider 2017 Metoprolol 00/00/ Hx Tablets ER 25mg 30tab 1 by mouth Other Succinate ER 0000 - 24HR s every day Ordering 05/14/ Provider 2017 Sensipar 00/00/ Hx Tablets 30mg 30tab 1 by mouth Other 0000 - s every day Ordering 05/14/ Provider 2017 Folic Acid 00/00/ Hx Tablets 1mg 30tab take one Other 0000 - s tablet Ordering 04/12/ daily by Provider 2017 mouth Simvastatin 0000/ Hx Tablets 40mg 90tab take 1 Other 0000 - s tablet by Ordering 05/14/ mouth at Provider 2017 bedtime Acyclovir 00/ Hx Solution 500mg per iv Other Sodium 0000 - Rec infusion q Ordering 05/14/ 8 hrs Provider 2017 Augmentin 0000/ Hx Tablets 500 1 by mouth Unknown 0000 - once a day 2016 Verapamil HCL / Hx Caps ER 180mg 1 by mouth Unknown ER 0000 - 24HR every day 2017 Immunizations CPT Code Status Date Vaccine Reaction Lot # [id number] Given 12/20/2017 Influenza Virus Vaccine, Quadrivalent, Split, Preservative Free [id number] Given 12/26/2016 Pneumonia Vaccine [id number] Given 12/18/2016 Influenza Virus Vaccine, Quadrivalent, Split, Preservative Free 51138 Given 09/03/2016 Tdap - [id number] Tetanus/Diptheria/Acellular Pertussis [id number] Given 12/27/2015 Pneumococcal Conjugate no reaction noted .. [id number] Vaccine 13 Valent For hh Intramuscular Use [id number] Given 12/20/2015 Fluvirin Im 3Yrs And Older Vital Signs Date Vital Result Comment 01/15/2018 Height 64 inches 5'4" Weight 173.00 lb Heart Rate 72 /min BP Systolic 131 mmHg BP Diastolic 86 mmHg BP Systolic Recheck 124 mmHg BP Diastolic Recheck 84 mmHg O2 % BldC Oximetry 96 % BMI (Body Mass Index) 29.7 kg/m2 10/22/2017 Height 64 inches 5'4" Weight 171.00 lb Heart Rate 83 /min BP Systolic 122 mmHg BP Diastolic 83 mmHg O2 % BldC Oximetry 97 % BMI (Body Mass Index) 29.3 kg/m2 10/01/2017 Height 64 inches 5'4" Weight 170.00 lb Heart Rate 77 /min BP Systolic Sitting 141 mmHg BP Diastolic Sitting 87 mmHg O2 % BldC Oximetry 97 % BMI (Body Mass Index) 29.2 kg/m2 07/09/2017 Weight 165.00 lb Heart Rate 73 /min BP Systolic 165 mmHg BP Diastolic 85 mmHg Body Temperature 97.9 F O2 % BldC Oximetry 99 % 06/18/2017 Weight 166.75 lb Heart Rate 74 /min BP Systolic 150 mmHg BP Diastolic 88 mmHg Body Temperature 98.3 F O2 % BldC Oximetry 97 % 05/27/2017 Weight 173.00 lb Heart Rate 67 /min BP Systolic 130 mmHg BP Diastolic 80 mmHg Body Temperature 97.7 F O2 % BldC Oximetry 98 % 05/14/2017 Weight 171.00 lb Heart Rate 78 /min BP Systolic 142 mmHg BP Diastolic 80 mmHg Body Temperature 97.8 F O2 % BldC Oximetry 97 % 04/21/2017 Weight 170.50 lb Heart Rate 64 /min BP Systolic 134 mmHg BP Diastolic 74 mmHg Body Temperature 97.9 F O2 % BldC Oximetry 97 % 03/19/2017 Height 64 inches 5'4" Weight 172.00 lb Heart Rate 67 /min BP Systolic 122 mmHg BP Diastolic 78 mmHg Body Temperature 97.0 F O2 % BldC Oximetry 97 % BMI (Body Mass Index) 29.5 kg/m2 02/12/2017 Height 64 inches 5'4" Weight 169.00 lb Heart Rate 69 /min BP Systolic 140 mmHg BP Diastolic 78 mmHg O2 % BldC Oximetry 97 % BMI (Body Mass Index) 29.0 kg/m2 10/09/2016 Weight 168.50 lb Heart Rate 78 /min BP Systolic 130 mmHg BP Diastolic 80 mmHg Body Temperature 98.2 F O2 % BldC Oximetry 97 % 08/28/2016 Weight 169.25 lb Heart Rate 78 /min BP Systolic Sitting 158 mmHg BP Diastolic Sitting 80 mmHg Body Temperature 98.0 F O2 % BldC Oximetry 97 % 06/26/2016 Weight 169.25 lb Heart Rate 78 /min BP Systolic 146 mmHg BP Diastolic 92 mmHg Body Temperature 97.8 F O2 % BldC Oximetry 98 % 05/15/2016 Height 64 inches 5'4" Weight 171.50 lb Heart Rate 96 /min BP Systolic 140 mmHg BP Diastolic 80 mmHg Body Temperature 98.3 F O2 % BldC Oximetry 97 % BMI (Body Mass Index) 29.4 kg/m2 03/18/2016 Weight 170.25 lb Heart Rate 89 /min BP Systolic Sitting 170 mmHg BP Diastolic Sitting 88 mmHg Body Temperature 97.4 F O2 % BldC Oximetry 99 % 12/27/2015 Weight 165.00 lb Heart Rate 78 /min BP Systolic Sitting 126 mmHg BP Diastolic Sitting 80 mmHg Respiratory Rate 15 /min O2 % BldC Oximetry 98 % 11/22/2015 Weight 163.00 lb Heart Rate 78 /min BP Systolic Sitting 124 mmHg BP Diastolic Sitting 78 mmHg Respiratory Rate 15 /min Body Temperature 97.6 F O2 % BldC Oximetry 98 % 10/19/2015 Weight 160.00 lb Heart Rate 87 /min BP Systolic Sitting 182 mmHg 184/110 second check BP Diastolic Sitting 102 mmHg 184/110 second check Body Temperature 97.6 F O2 % BldC Oximetry 98 % 03/06/2015 Height 64.5 inches 5'4.50" Weight 172.00 lb Heart Rate 102 /min BP Systolic 156 mmHg BP Diastolic 97 mmHg Body Temperature 101.1 F O2 % BldC Oximetry 97 % BMI (Body Mass Index) 29.1 kg/m2 01/10/2015 Height 64.5 inches 5'4.50" Weight 168.00 lb Heart Rate 82 /min BP Systolic 140 mmHg BP Diastolic 90 mmHg Body Temperature 98.7 F BMI (Body Mass Index) 28.4 kg/m2 01/03/2015 Weight 166.00 lb Heart Rate 82 /min BP Systolic Sitting 148 mmHg BP Diastolic Sitting 88 mmHg Body Temperature 97.1 F 09/23/2014 Height 64.5 inches 5'4.50" Weight 159.00 lb Heart Rate 74 /min BP Systolic Sitting 122 mmHg BP Diastolic Sitting 80 mmHg Body Temperature 98.9 F O2 % BldC Oximetry 98 % BMI (Body Mass Index) 26.9 kg/m2 08/24/2014 Height 64.5 inches 5'4.50" Weight 157.00 lb Heart Rate 84 /min BP Systolic Sitting 122 mmHg BP Diastolic Sitting 80 mmHg Body Temperature 98.6 F O2 % BldC Oximetry 96 % BMI (Body Mass Index) 26.5 kg/m2 07/22/2014 Height 64.5 inches 5'4.50" Weight 162.00 lb Heart Rate 84 /min BP Systolic Sitting 124 mmHg BP Diastolic Sitting 80 mmHg Body Temperature 98.6 F O2 % BldC Oximetry 98 % BMI (Body Mass Index) 27.4 kg/m2 07/12/2014 Height 64.5 inches 5'4.50" Weight 158.75 lb Heart Rate 85 /min BP Systolic Sitting 152 mmHg BP Diastolic Sitting 96 mmHg O2 % BldC Oximetry 96 % BMI (Body Mass Index) 26.8 kg/m2 Results Test Date Test Result H/L Range Note Inr/Protime 01/09/2018 Inr 2.23 High 0.77-1.02 Lipid Profile (Trig/Chol/HDL) 12/08/2017 Triglycerides 496 mg/dL 1 Cholesterol 348 mg/dL 2 HDL Cholesterol 41.2 mg/dL 3 LDL Cholesterol (SEE NOTE) mg/dL 4 Laboratory test finding 12/08/2017 LDL Cholesterol Direct 179 mg/dL 5 CBC Auto Diff 12/08/2017 White Blood Count 6.3 10^3/uL 3.5-10.8 Red Blood Count 4.32 10^6/uL 4.00-5.40 Hemoglobin 11.2 g/dL Low 12.0-16.0 Hematocrit 35 % 35-47 Mean Corpuscular Volume 81 fL 80-97 Mean Corpuscular Hemoglobin 26 pg Low 27-31 Mean Corpuscular HGB Conc 32 g/dL 31-36 Red Cell Distribution Width 14 % 10.5-15 Platelet Count 220 10^3/uL 150-450 Mean Platelet Volume 9.4 um3 7.4-10.4 Abs Neutrophils 3.6 10^3/uL 1.5-7.7 Abs Lymphocytes 1.5 10^3/uL 1.0-4.8 Abs Monocytes 0.8 10^3/uL 0-0.8 Abs Eosinophils 0.3 10^3/uL 0-0.6 Abs Basophils 0 10^3/uL 0-0.2 Abs Nucleated RBC 0 10^3/uL Granulocyte % 58.3 % 38-83 Lymphocyte % 24.4 % Low 25-47 Monocyte % 12.2 % High 0-7 Eosinophil % 4.4 % 0-6 Basophil % 0.7 % 0-2 Nucleated Red Blood Cells % 0.1 Urinalysis Profile 12/08/2017 Urine Color Straw Urine Appearance Clear Urine Specific [place] 1.008 Low 1.010-1.030 Urine pH 5.0 5-9 Urine Urobilinogen Negative Negative Urine Ketones Negative Negative Urine Protein Negative Negative Urine Leukocytes Negative Negative Urine Blood 2+ Negative Urine Nitrite Negative Negative Urine Bilirubin Negative Negative Urine Glucose Negative Negative Urine White Blood Cell Absent Absent Urine Red Blood Cell Trace(0-2/hpf) Absent Urine Bacteria Absent Absent Urine Squamous Epithelial Cell Present Absent Laboratory test finding 12/08/2017 Creatinine Random Urine 57.46 mg/dL 6 Total Protein Random Urine 9 mg/dL 7 Renal Function Panel 12/08/2017 Albumin 3.9 g/dL 3.2-5.2 Calcium 9.3 mg/dL 8.6-10.3 Co2 Carbon Dioxide 21 mmol/L Low 22-32 Chloride 104 mmol/L 101-111 Glucose 94 mg/dL 70-100 Phosphorus 3.0 mg/dL 2.5-5.0 Potassium 4.6 mmol/L 3.5-5.0 Sodium 134 mmol/L Low 135-145 Blood Urea Nitrogen 54 mg/dL High 6-24 Anion Gap 9 mmol/L 2-11 Creatinine 1.72 mg/dL High 0.51-0.95 BUN/Creatinine Ratio 31.4 High 8-20 Egfr Non- 30.7 >60 Egfr 37.1 >60 8 Laboratory test finding 12/08/2017 Magnesium 1.6 mg/dL Low 1.9-2.7 9 Urine Culture And 12/08/2017 Urine Culture SEE RESULT BELOW 10 Sensitivities Laboratory test finding 10/27/2017 Surgical Pathology SEE RESULT BELOW 11 Laboratory test finding 10/27/2017 Clotest SEE RESULT BELOW 12 Lipid Profile 10/10/2017 Triglycerides 618 mg/dL 13 (Trig/Chol/HDL) Cholesterol 293 mg/dL 14 HDL Cholesterol 44.9 mg/dL 15 LDL Cholesterol (SEE NOTE) mg/dL 16 Laboratory test finding 10/10/2017 LDL Cholesterol Direct 144 mg/dL 17 Poc Urinalysis 08/17/2017 Poc Glucose, Urine Negative Negative Poc Bilirubin, Urine Negative Negative Poc Ketone, Urine Negative Negative Poc Specific [place], Urine 1.010 1.010-1.030 Poc Blood, Urine 2+ Negative Poc pH, Urine 5.5 5-9 Poc Protein, Urine Negative Negative Poc Urobilinogen, Urine 0.2 Negative Poc Nitrite, Urine Positive Negative Poc Leukocytes, Urine Trace Negative Poc Color, Urine Yellow Poc Clarity, Urine Clear 18 Urine Culture And 08/17/2017 Urine Culture SEE RESULT BELOW 19, 20 Sensitivities Occult Blood,Stool (3 07/29/2017 Occult Blood - Positive x 3 Spec) Stool Urinalysis Profile 07/29/2017 Urine Color Yellow Urine Appearance Cloudy Urine Specific [place] 1.011 1.010-1.030 Urine pH 5.0 5-9 Urine Urobilinogen Negative Negative Urine Ketones Negative Negative Urine Protein Negative Negative Urine Leukocytes Negative Negative Urine Blood 1+ Negative Urine Nitrite Negative Negative Urine Bilirubin Negative Negative Urine Glucose Negative Negative Urine White Blood Cell 2+(11-20/hpf) Absent Urine Red Blood Cell 2+(6-10/hpf) Absent Urine Bacteria Absent Absent Urine Squamous Epithelial Cell Present Absent Urine Amorphous Crystals Present Absent Laboratory test finding 07/29/2017 Creatinine Random Urine 75.48 mg/dL Total Protein Random Urine 14 mg/dL Renal Function Panel 07/29/2017 Albumin 3.6 g/dL 3.2-5.2 Calcium 9.2 mg/dL 8.6-10.3 Co2 Carbon Dioxide 21 mmol/L Low 22-32 Chloride 104 mmol/L 101-111 Glucose 99 mg/dL 70-100 Phosphorus 3.1 mg/dL 2.5-5.0 Potassium 4.5 mmol/L 3.5-5.0 Sodium 132 mmol/L Low 139-145 Blood Urea Nitrogen 48 mg/dL High 6-24 Anion Gap 7 mmol/L 2-11 Creatinine 1.63 mg/dL High 0.51-0.95 BUN/Creatinine Ratio 29.4 High 8-20 Egfr Non- 32.8 >60 Egfr 42.1 >60 21 Liver Function Panel 07/29/2017 Total Protein 6.4 g/dL 6.4-8.9 Globulin 2.8 g/dL 2-4 Albumin/Globulin Ratio 1.3 1-3 Total Bilirubin 0.30 mg/dL 0.2-1.0 Direct Bilirubin 0.10 mg/dL 0.03-0.18 Indirect Bilirubin 0.2 mg/dL Low 0.3-1.0 Alkaline Phosphatase 62 U/L 34-104 Alt 11 U/L 7-52 Ast 12 U/L Low 13-39 Laboratory test finding 07/29/2017 Magnesium 1.6 mg/dL Low 1.9-2.7 CBC Auto Diff 07/29/2017 White Blood Count 8.6 10^3/uL 3.5-10.8 Red Blood Count 3.87 10^6/uL Low 4.0-5.4 Hemoglobin 9.7 g/dL Low 12.0-16.0 Hematocrit 30 % Low 35-47 Mean Corpuscular Volume 78 fL Low 80-97 Mean Corpuscular Hemoglobin 25 pg Low 27-31 Mean Corpuscular HGB Conc 33 g/dL 31-36 Red Cell Distribution Width 14 % 10.5-15 Platelet Count 279 10^3/uL 150-450 Mean Platelet Volume 8.4 um3 7.4-10.4 Abs Neutrophils 5.2 10^3/uL 1.5-7.7 Abs Lymphocytes 2.3 10^3/uL 1.0-4.8 Abs Monocytes 0.9 10^3/uL High 0-0.8 Abs Eosinophils 0.2 10^3/uL 0-0.6 Abs Basophils 0 10^3/uL 0-0.2 Abs Nucleated RBC 0 10^3/uL Granulocyte % 60.4 % 38-83 Lymphocyte % 26.4 % 25-47 Monocyte % 10.6 % High 0-7 Eosinophil % 2.1 % 0-6 Basophil % 0.5 % 0-2 Nucleated Red Blood Cells % 0.1 Urine Culture And 07/29/2017 Urine Culture SEE RESULT BELOW 22 Sensitivities Laboratory test finding 07/29/2017 Cyclosporine [place] 32 23 Occult Blood,Stool (3 07/16/2017 Occult Blood - Stool neg x3 Spec) Iron & Iron Binding 07/14/2017 Iron 24 g/dL Low 50-212 Capacity Unsaturated Iron Binding 379 g/dL Total Iron Binding Capacity 403 g/dL 250-450 Transferrin 288 mg/dL 203-362 % Iron Saturation 6 % Low 15-55 Iron & Iron Binding Capacity 06/18/2017 Iron 21 g/dL Low 50-212 Unsaturated Iron Binding 384 g/dL Total Iron Binding Capacity 405 g/dL 250-450 Transferrin 289 mg/dL 203-362 % Iron Saturation 5 % Low 15-55 Laboratory test finding 06/18/2017 Vitamin D, 1,25 Dihydroxy 32 pg/mL 18- 78 24 Creatine Kinase(CK) 57 U/L 10-223 Vitamin B12 And Folate Serum 06/18/2017 Vitamin B12 810 pg/mL 180-914 25 Folic Acid (Folate) > 20.00 ng/mL >3.99 Laboratory test finding 06/18/2017 TSH (Thyroid Stim Horm) 0.99 mcIU/mL 0.34-5.60 CBC Auto Diff 06/18/2017 White Blood Count 7.9 10^3/uL 3.5-10.8 Red Blood Count 3.87 10^6/uL Low 4.0-5.4 Hemoglobin 10.1 g/dL Low 12.0-16.0 Hematocrit 32 % Low 35-47 Mean Corpuscular Volume 81 fL 80-97 Mean Corpuscular Hemoglobin 26 pg Low 27-31 Mean Corpuscular HGB Conc 32 g/dL 31-36 Red Cell Distribution Width 14 % 10.5-15 Platelet Count 275 10^3/uL 150-450 Mean Platelet Volume 9.3 um3 7.4-10.4 Abs Neutrophils 5.0 10^3/uL 1.5-7.7 Abs Lymphocytes 1.6 10^3/uL 1.0-4.8 Abs Monocytes 1.0 10^3/uL High 0-0.8 Abs Eosinophils 0.2 10^3/uL 0-0.6 Abs Basophils 0.1 10^3/uL 0-0.2 Abs Nucleated RBC 0 10^3/uL Granulocyte % 64.1 % 38-83 Lymphocyte % 20.3 % Low 25-47 Monocyte % 12.7 % High 0-7 Eosinophil % 2.1 % 0-6 Basophil % 0.8 % 0-2 Nucleated Red Blood Cells % 0 Inr/Protime 06/16/2017 Inr 2.91 High 0.77-1.02 26 CBC Auto Diff 05/14/2017 White Blood Count 8.5 10^3/uL 3.5-10.8 27 Red Blood Count 3.70 10^6/uL Low 4.0-5.4 27 Hemoglobin 10.3 g/dL Low 12.0-16.0 27 Hematocrit 32 % Low 35-47 27 Mean Corpuscular Volume 85 fL 80-97 27 Mean Corpuscular Hemoglobin 28 pg 27-31 27 Mean Corpuscular HGB Conc 33 g/dL 31-36 27 Red Cell Distribution Width 15 % 10.5-15 27 Platelet Count 255 10^3/uL 150-450 27 Mean Platelet Volume 10 um3 7.4-10.4 27 Abs Neutrophils 5.9 10^3/uL 1.5-7.7 27 Abs Lymphocytes 1.6 10^3/uL 1.0-4.8 27 Abs Monocytes 0.8 10^3/uL 0-0.8 27 Abs Eosinophils 0.2 10^3/uL 0-0.6 27 Abs Basophils 0.1 10^3/uL 0-0.2 27 Abs Nucleated RBC 0 10^3/uL 27 Granulocyte % 68.7 % 38-83 27 Lymphocyte % 18.8 % Low 25-47 27 Monocyte % 9.4 % High 0-7 27 Eosinophil % 2.2 % 0-6 27 Basophil % 0.9 % 0-2 27 Nucleated Red Blood Cells % 0 27 Laboratory test finding 05/14/2017 Erythrocyte Sed Rate 29 mm/Hr 0-30 27 , 28 CBC Auto Diff 04/23/2017 White Blood Count 8.2 10^3/uL 3.5-10.8 Red Blood Count 4.25 10^6/uL 4.0-5.4 Hemoglobin 11.7 g/dL Low 12.0-16.0 Hematocrit 36 % 35-47 Mean Corpuscular Volume 84 fL 80-97 Mean Corpuscular Hemoglobin 27 pg 27-31 Mean Corpuscular HGB Conc 33 g/dL 31-36 Red Cell Distribution Width 14 % 10.5-15 Platelet Count 221 10^3/uL 150-450 Mean Platelet Volume 9 um3 7.4-10.4 Abs Neutrophils 4.9 10^3/uL 1.5-7.7 Abs Lymphocytes 2.1 10^3/uL 1.0-4.8 Abs Monocytes 0.9 10^3/uL High 0-0.8 Abs Eosinophils 0.2 10^3/uL 0-0.6 Abs Basophils 0 10^3/uL 0-0.2 Abs Nucleated RBC 0 10^3/uL Granulocyte % 59.9 % 38-83 Lymphocyte % 25.6 % 25-47 Monocyte % 11.4 % High 1-9 Eosinophil % 2.5 % 0-6 Basophil % 0.6 % 0-2 Nucleated Red Blood Cells % 0.1 Laboratory test finding 04/23/2017 Cyclosporine [place] 309 29 Urinalysis Profile 04/23/2017 Urine Color Straw Urine Appearance Clear Urine Specific [place] 1.008 Low 1.010-1.030 Urine pH 5.0 5-9 Urine Urobilinogen Negative Negative Urine Ketones Negative Negative Urine Protein Negative Negative Urine Leukocytes Negative Negative Urine Blood 2+ Negative Urine Nitrite Negative Negative Urine Bilirubin Negative Negative Urine Glucose Negative Negative Urine White Blood Cell Trace(0-5/hpf) Absent Urine Red Blood Cell Trace(0-2/hpf) Absent Urine Bacteria 1+ Absent Urine Squamous Epithelial Cell Present Absent Renal Function Panel 04/23/2017 Albumin 3.8 g/dL 3.2-5.2 Calcium 9.8 mg/dL 8.6-10.3 Co2 Carbon Dioxide 25 mmol/L 22-32 Chloride 100 mmol/L Low 101-111 Glucose 84 mg/dL 70-100 Phosphorus 2.8 mg/dL 2.5-5.0 Potassium 4.7 mmol/L 3.5-5.0 Sodium 131 mmol/L Low 133-145 Blood Urea Nitrogen 47 mg/dL High 6-24 Anion Gap 6 mmol/L 2-11 Creatinine 1.67 mg/dL High 0.51-0.95 BUN/Creatinine Ratio 28.1 High 8-20 Egfr Non- 31.9 >60 Egfr 41.0 >60 30 Liver Function Panel 04/23/2017 Total Protein 6.6 g/dL 6.4-8.9 Globulin 2.8 g/dL 2-4 Albumin/Globulin Ratio 1.4 1-3 Total Bilirubin 0.50 mg/dL 0.2-1.0 Direct Bilirubin 0.10 mg/dL 0.03-0.18 Indirect Bilirubin 0.4 mg/dL 0.3-1.0 Alkaline Phosphatase 71 U/L 34-104 Alt 16 U/L 7-52 Ast 12 U/L Low 13-39 Urine Culture And 04/23/2017 Urine Culture SEE RESULT BELOW 31 Sensitivities Laboratory test finding 04/23/2017 Magnesium 1.7 mg/dL Low 1.9-2.7 Creatinine Random Urine 54.20 mg/dL Total Protein Random Urine 9 mg/dL CBC Auto Diff 04/06/2017 White Blood Count 11.4 10^3/uL High 3.5-10.8 Red Blood Count 4.50 10^6/uL 4.0-5.4 Hemoglobin 12.2 g/dL 12.0-16.0 Hematocrit 37 % 35-47 Mean Corpuscular Volume 83 fL 80-97 Mean Corpuscular Hemoglobin 27 pg 27-31 Mean Corpuscular HGB Conc 33 g/dL 31-36 Red Cell Distribution Width 15 % 10.5-15 Platelet Count 248 10^3/uL 150-450 Mean Platelet Volume 9 um3 7.4-10.4 Abs Neutrophils 9.0 10^3/uL High 1.5-7.7 Abs Lymphocytes 1.4 10^3/uL 1.0-4.8 Abs Monocytes 0.8 10^3/uL 0-0.8 Abs Eosinophils 0.1 10^3/uL 0-0.6 Abs Basophils 0 10^3/uL 0-0.2 Abs Nucleated RBC 0 10^3/uL Granulocyte % 79.6 % 38-83 Lymphocyte % 12.7 % Low 25-47 Monocyte % 7.0 % 1-9 Eosinophil % 0.5 % 0-6 Basophil % 0.2 % 0-2 Nucleated Red Blood Cells % 0 Laboratory test finding 04/06/2017 Troponin-I (TnI) 0.00 ng/mL <0.04 Comp Metabolic Panel 04/06/2017 Sodium 130 mmol/L Low 133-145 Chloride 104 mmol/L 101-111 Co2 Carbon Dioxide 19 mmol/L Low 22-32 Glucose 131 mg/dL High 70-100 Blood Urea Nitrogen 57 mg/dL High 6-24 Creatinine 1.84 mg/dL High 0.51-0.95 BUN/Creatinine Ratio 31.0 High 8-20 Calcium 10.0 mg/dL 8.6-10.3 Total Protein 7.6 g/dL 6.4-8.9 Albumin 4.0 g/dL 3.2-5.2 Globulin 3.6 g/dL 2-4 Albumin/Globulin Ratio 1.1 1-3 Total Bilirubin 0.50 mg/dL 0.2-1.0 Alkaline Phosphatase 71 U/L 34-104 Alt 15 U/L 7-52 Ast 12 U/L Low 13-39 Egfr Non- 28.5 >60 Egfr 36.6 >60 32 Potassium 5.1 mmol/L High 3.5-5.0 Anion Gap 7 mmol/L 2-11 Laboratory test finding 04/06/2017 Partial Thrombo Time 52.6 seconds High 26.0-36.3 PTT Lactic Acid 0.6 mmol/L 0.5-2.0 33 Inr/Protime 04/06/2017 Inr 3.61 High 0.77-1.02 Laboratory test 04/06/2017 B-Type Natriuretic 100 pg/mL 34 finding Peptide BNP Inr/Protime 03/26/2017 Inr 3.11 High 0.77-1.02 Laboratory test 03/07/2017 Troponin-I (TnI) 0.00 ng/mL <0.04 finding Laboratory test 03/07/2017 Troponin-I (TnI) 0.00 ng/mL <0.04 finding CBC Auto Diff 03/07/2017 White Blood Count 7.5 10^3/uL 3.5-10.8 Red Blood Count 4.52 10^6/uL 4.0-5.4 Hemoglobin 12.2 g/dL 12.0-16.0 Hematocrit 37 % 35-47 Mean Corpuscular Volume 82 fL 80-97 Mean Corpuscular Hemoglobin 27 pg 27-31 Mean Corpuscular HGB Conc 33 g/dL 31-36 Red Cell Distribution Width 15 % 10.5-15 Platelet Count 233 10^3/uL 150-450 Mean Platelet Volume 9 um3 7.4-10.4 Abs Neutrophils 5.1 10^3/uL 1.5-7.7 Abs Lymphocytes 1.3 10^3/uL 1.0-4.8 Abs Monocytes 0.9 10^3/uL High 0-0.8 Abs Eosinophils 0.1 10^3/uL 0-0.6 Abs Basophils 0 10^3/uL 0-0.2 Abs Nucleated RBC 0 10^3/uL Granulocyte % 68.4 % 38-83 Lymphocyte % 18.0 % Low 25-47 Monocyte % 11.6 % High 1-9 Eosinophil % 1.5 % 0-6 Basophil % 0.5 % 0-2 Nucleated Red Blood Cells % 0 Laboratory test finding 03/07/2017 Lactic Acid 1.3 mmol/L 0.5-2.0 35 B-Type Natriuretic Peptide BNP 79 pg/mL 36 Inr/Protime 03/07/2017 Inr 1.89 High 0.77-1.02 37 Laboratory test finding 03/07/2017 Partial Thrombo 40.5 seconds High 26.0- 36.3 Time PTT Comp Metabolic Panel 03/07/2017 Sodium 136 mmol/L 133-145 Potassium 4.8 mmol/L 3.5-5.0 Chloride 107 mmol/L 101-111 Co2 Carbon Dioxide 21 mmol/L Low 22-32 Anion Gap 8 mmol/L 2-11 Glucose 104 mg/dL High 70-100 Blood Urea Nitrogen 42 mg/dL High 6-24 Creatinine 1.68 mg/dL High 0.51-0.95 BUN/Creatinine Ratio 25.0 High 8-20 Calcium 10.0 mg/dL 8.6-10.3 Total Protein 7.4 g/dL 6.4-8.9 Albumin 3.8 g/dL 3.2-5.2 Globulin 3.6 g/dL 2-4 Albumin/Globulin Ratio 1.1 1-3 Total Bilirubin 0.40 mg/dL 0.2-1.0 Alkaline Phosphatase 65 U/L 34-104 Alt 14 U/L 7-52 Ast 13 U/L 13-39 Egfr Non- 31.6 >60 Egfr 40.7 >60 38 Laboratory test finding 03/07/2017 Magnesium 1.8 mg/dL Low 1.9-2.7 Creatine Kinase(CK) 44 U/L 10-223 Troponin-I (TnI) 0.01 ng/mL <0.04 Thyroxine 9.56 g/mL 6.09-12.23 TSH (Thyroid Stim Horm) 0.86 mcIU/mL 0.34-5.60 Urine Culture And Sensitivities 09/18/2016 Urine Culture SEE RESULT BELOW 39 Urinalysis Profile 09/18/2016 Urine Color Yellow Urine Appearance Cloudy Urine Specific [place] 1.009 Low 1.010-1.030 Urine pH 5.0 5-9 Urine Urobilinogen Negative Negative Urine Ketones Negative Negative Urine Protein Negative Negative Urine Leukocytes 3+ Negative Urine Blood 2+ Negative Urine Nitrite Negative Negative Urine Bilirubin Negative Negative Urine Glucose Negative Negative Urine White Blood Cell 3+(>20/hpf) Absent Urine Red Blood Cell Trace(0-2/hpf) Absent Urine Bacteria Absent Absent Ua Routine 08/28/2016 Ua Specific [place] 1.015 Ua PH 5 Ua Color yellow Ua Appera clear Ua WBC + Ua Protein trace Ua Glucose normal Ua Ketones neg Ua Bilirubin neg Ua Urobilinogen normal Ua Nitrite neg Ua Occult Blood about 50 Urine Culture And 08/28/2016 Urine Culture SEE RESULT BELOW 40, 41 Sensitivities Laboratory test finding 08/07/2016 Lactic Acid 0.5 mmol/L 0.5-2.0 42 Urinalysis Profile 08/07/2016 Urine Color Yellow Urine Appearance Cloudy Urine Specific [place] 1.008 Low 1.010-1.030 Urine pH 5.0 5-9 Urine Urobilinogen Negative Negative Urine Ketones Negative Negative Urine Protein Negative Negative Urine Leukocytes 3+ Negative Urine Blood 2+ Negative Urine Nitrite Negative Negative Urine Bilirubin Negative Negative Urine Glucose Negative Negative Urine White Blood Cell 3+(>20/hpf) Absent Urine Red Blood Cell Trace(0-2/hpf) Absent Urine Bacteria 1+ Absent Urine Squamous Epithelial Cell Present Absent CBC Auto Diff 08/07/2016 White Blood Count 11.9 10^3/uL High 3.5-10.8 Red Blood Count 4.13 10^6/uL 4.0-5.4 Hemoglobin 10.1 g/dL Low 12.0-16.0 Hematocrit 32 % Low 35-47 Mean Corpuscular Volume 77 fL Low 80-97 Mean Corpuscular Hemoglobin 25 pg Low 27-31 Mean Corpuscular HGB Conc 32 g/dL 31-36 Red Cell Distribution Width 18 % High 10.5-15 Platelet Count 191 10^3/uL 150-450 Mean Platelet Volume 9 um3 7.4-10.4 Abs Neutrophils 8.9 10^3/uL High 1.5-7.7 Abs Lymphocytes 1.1 10^3/uL 1.0-4.8 Abs Monocytes 1.8 10^3/uL High 0-0.8 Abs Eosinophils 0.1 10^3/uL 0-0.6 Abs Basophils 0.1 10^3/uL 0-0.2 Abs Nucleated RBC 0.01 10^3/uL Manual Differential 08/07/2016 Immature Granulocytes 5 % 0-9 Neutrophil % 71 % 38-83 Band % 5 % 0-8 Lymphocytes % 13 % Low 25-47 Monocytes % 11 % 0-13 Macrocytosis 1+ Hypochromasia 1+ Comp Metabolic Panel 08/07/2016 Sodium 129 mmol/L Low 133-145 Potassium 4.4 mmol/L 3.5-5.0 Chloride 100 mmol/L Low 101-111 Co2 Carbon Dioxide 20 mmol/L Low 22-32 Anion Gap 9 mmol/L 2-11 Glucose 116 mg/dL High 70-100 Blood Urea Nitrogen 39 mg/dL High 6-24 Creatinine 1.51 mg/dL High 0.51-0.95 BUN/Creatinine Ratio 25.8 High 8-20 Calcium 9.5 mg/dL 8.6-10.3 Total Protein 7.1 g/dL 6.4-8.9 Albumin 3.7 g/dL 3.2-5.2 Globulin 3.4 g/dL 2-4 Albumin/Globulin Ratio 1.1 1-3 Total Bilirubin 0.50 mg/dL 0.2-1.0 Alkaline Phosphatase 73 U/L 34-104 Alt 14 U/L 7-52 Ast 12 U/L Low 13-39 Egfr Non- 35.9 >60 Egfr 46.2 >60 43 Laboratory test finding 08/07/2016 Lipase 111 U/L High 11.0-82.0 C Reactive Protein 85.19 mg/L High < 5.00 44 Pathologist Review (SEE NOTE) 45 Blood Culture SEE RESULT BELOW 46 Urine Culture And 08/06/2016 Urine Culture SEE RESULT BELOW 47, 48 Sensitivities Poc Urinalysis 08/06/2016 Poc Glucose, Negative Negative Urine Poc Bilirubin, Urine Negative Negative Poc Ketone, Urine Negative Negative Poc Specific [place], Urine <=1.005 Low 1.010-1.030 Poc Blood, Urine 2+ Negative Poc pH, Urine 5.0 5-9 Poc Protein, Urine Negative Negative Poc Urobilinogen, Urine 0.2 Negative Poc Nitrite, Urine Negative Negative Poc Leukocytes, Urine 1+ Negative Poc Color, Urine Light yellow Poc Clarity, Urine Slightly Cloudy 49 Laboratory test finding 05/27/2016 Cyclosporine [place] 173 50 Urine Culture And 05/27/2016 Urine Culture SEE RESULT BELOW 51 Sensitivities Laboratory test finding 05/27/2016 Magnesium 2.0 mg/dL 1.9-2.7 52 Creatinine Random Urine 101.80 mg/dL Urine Protein Negative Negative Liver Function Panel 05/27/2016 Total Protein 7.1 g/dL 6.4-8.9 Globulin 3.3 g/dL 2-4 Albumin/Globulin Ratio 1.2 1-3 Total Bilirubin 0.40 mg/dL 0.2-1.0 Direct Bilirubin 0.00 mg/dL Low 0.03-0.18 Alkaline Phosphatase 72 U/L 34-104 Alt 12 U/L 7-52 Ast 13 U/L 13-39 Urinalysis Profile 05/27/2016 Urine Color Yellow Urine Appearance Clear Urine Specific [place] 1.012 1.010-1.030 Urine pH 5.0 5-9 Urine Urobilinogen Negative Negative Urine Ketones Negative Negative Urine Protein Negative Negative Urine Leukocytes 1+ Negative Urine Blood 2+ Negative Urine Nitrite Negative Negative Urine Bilirubin Negative Negative Urine Glucose Negative Negative Urine White Blood Cell 3+(>20/hpf) Absent Urine Red Blood Cell 1+(3-5/hpf) Absent Urine Bacteria Absent Absent Urine Squamous Epithelial Cell Present Absent CBC Auto Diff 05/27/2016 White Blood Count 10.9 10^3/uL High 3.5-10.8 Red Blood Count 4.20 10^6/uL 4.0-5.4 Hemoglobin 10.7 g/dL Low 12.0-16.0 Hematocrit 33 % Low 35-47 Mean Corpuscular Volume 79 fL Low 80-97 Mean Corpuscular Hemoglobin 26 pg Low 27-31 Mean Corpuscular HGB Conc 32 g/dL 31-36 Red Cell Distribution Width 16 % High 10.5-15 Platelet Count 334 10^3/uL 150-450 Mean Platelet Volume 9 um3 7.4-10.4 Abs Neutrophils 7.6 10^3/uL 1.5-7.7 Abs Lymphocytes 2.0 10^3/uL 1.0-4.8 Abs Monocytes 1.0 10^3/uL High 0-0.8 Abs Eosinophils 0.2 10^3/uL 0-0.6 Abs Basophils 0.1 10^3/uL 0-0.2 Abs Nucleated RBC 0.01 10^3/uL Granulocyte % 69.9 % 38-83 Lymphocyte % 18.1 % Low 25-47 Monocyte % 9.3 % High 1-9 Eosinophil % 2.0 % 0-6 Basophil % 0.7 % 0-2 Nucleated Red Blood Cells % 0.1 Renal Function Panel 05/27/2016 Albumin 3.8 g/dL 3.2-5.2 Calcium 10.5 mg/dL High 8.6-10.3 Co2 Carbon Dioxide 22 mmol/L 22-32 Chloride 104 mmol/L 101-111 Glucose 93 mg/dL 70-100 Phosphorus 3.3 mg/dL 2.5-5.0 Potassium 4.7 mmol/L 3.5-5.0 Sodium 135 mmol/L 133-145 Blood Urea Nitrogen 39 mg/dL High 6-24 Anion Gap 9 mmol/L 2-11 Creatinine 1.54 mg/dL High 0.51-0.95 BUN/Creatinine Ratio 25.3 High 8-20 Egfr Non- 35.1 >60 Egfr 45.1 >60 53 Inr/Protime 04/06/2016 Inr 2.56 High 0.89-1.11 Comp Metabolic Panel 04/06/2016 Sodium 134 mmol/L 133-145 Potassium 3.4 mmol/L Low 3.5-5.0 Chloride 102 mmol/L 101-111 Co2 Carbon Dioxide 22 mmol/L 22-32 Anion Gap 10 mmol/L 2-11 Glucose 166 mg/dL High 70-100 Blood Urea Nitrogen 34 mg/dL High 6-24 Creatinine 1.43 mg/dL High 0.51-0.95 BUN/Creatinine Ratio 23.8 High 8-20 Calcium 10.1 mg/dL 8.6-10.3 Total Protein 6.9 g/dL 6.4-8.9 Albumin 3.8 g/dL 3.2-5.2 Globulin 3.1 g/dL 2-4 Albumin/Globulin Ratio 1.2 1-3 Total Bilirubin 0.50 mg/dL 0.2-1.0 Alkaline Phosphatase 69 U/L 34-104 Alt 15 U/L 7-52 Ast 13 U/L 13-39 Egfr Non- 38.2 >60 Egfr 49.2 >60 54 Laboratory test finding 04/06/2016 Lactic Acid 2.2 mmol/L High 0.5-2.0 55 Erythrocyte Sed Rate 25 mm/Hr 0-30 Blood Culture SEE RESULT BELOW 56 Laboratory test finding 03/30/2016 Cyclosporine [place] 257 57 Urine Culture And 03/30/2016 Urine Culture SEE RESULT BELOW 58 Sensitivities CBC Auto Diff 03/30/2016 White Blood Count 7.7 10^3/uL 3.5-10.8 Red Blood Count 4.71 10^6/uL 4.0-5.4 Hemoglobin 12.5 g/dL 12.0-16.0 Hematocrit 38 % 35-47 Mean Corpuscular Volume 82 fL 80-97 Mean Corpuscular Hemoglobin 27 pg 27-31 Mean Corpuscular HGB Conc 33 g/dL 31-36 Red Cell Distribution Width 14 % 10.5-15 Platelet Count 233 10^3/uL 150-450 Mean Platelet Volume 9 um3 7.4-10.4 Abs Neutrophils 5.1 10^3/uL 1.5-7.7 Abs Lymphocytes 1.4 10^3/uL 1.0-4.8 Abs Monocytes 0.9 10^3/uL High 0-0.8 Abs Eosinophils 0.1 10^3/uL 0-0.6 Abs Basophils 0 10^3/uL 0-0.2 Abs Nucleated RBC 0.01 10^3/uL Granulocyte % 67.2 % 38-83 Lymphocyte % 18.3 % Low 25-47 Monocyte % 12.3 % High 1-9 Eosinophil % 1.7 % 0-6 Basophil % 0.5 % 0-2 Nucleated Red Blood Cells % 0.1 Laboratory test finding 03/30/2016 Uric Acid 6.7 mg/dL High 2.3-6.6 Phosphorus 2.9 mg/dL 2.5-5.0 Magnesium 1.6 mg/dL Low 1.9-2.7 Liver Function Panel 03/30/2016 Direct Bilirubin 0.10 mg/dL 0.03-0.18 Indirect Bilirubin 0.4 mg/dL 0.3-1.0 Lipid Profile (Trig/Chol/HDL) 03/30/2016 Triglycerides 467 mg/dL 59 Cholesterol 290 mg/dL 60 HDL Cholesterol 56.2 mg/dL 61 LDL Cholesterol (SEE NOTE) mg/dL 62 Comp Metabolic Panel 03/30/2016 Sodium 137 mmol/L 133-145 Potassium 3.9 mmol/L 3.5-5.0 Chloride 103 mmol/L 101-111 Co2 Carbon Dioxide 27 mmol/L 22-32 Anion Gap 7 mmol/L 2-11 Glucose 96 mg/dL 70-100 Blood Urea Nitrogen 36 mg/dL High 6-24 Creatinine 1.29 mg/dL High 0.51-0.95 BUN/Creatinine Ratio 27.9 High 8-20 Calcium 10.1 mg/dL 8.6-10.3 Total Protein 6.6 g/dL 6.4-8.9 Albumin 3.9 g/dL 3.2-5.2 Globulin 2.7 g/dL 2-4 Albumin/Globulin Ratio 1.4 1-3 Total Bilirubin 0.50 mg/dL 0.2-1.0 Alkaline Phosphatase 68 U/L 34-104 Alt 15 U/L 7-52 Ast 13 U/L 13-39 Egfr Non- 43.1 >60 Egfr 55.4 >60 63 Urinalysis Profile 03/30/2016 Urine Color Straw Urine Appearance Clear Urine Specific [place] 1.010 1.010-1.030 Urine pH 6.0 5-9 Urine Urobilinogen Negative Negative Urine Ketones Negative Negative Urine Protein Negative Negative Urine Leukocytes Negative Negative Urine Blood 2+ Negative Urine Nitrite Negative Negative Urine Bilirubin Negative Negative Urine Glucose Negative Negative Urine White Blood Cell Absent Absent Urine Red Blood Cell Trace(0-2/hpf) Absent Urine Bacteria Absent Absent Urine Squamous Epithelial Cell Present Absent Laboratory test finding 10/20/2015 Lactic Acid 1.5 mmol/L 0.5-2.0 64 Comp Metabolic Panel 10/20/2015 Sodium 133 mmol/L 133-145 Potassium 4.1 mmol/L 3.5-5.0 Chloride 100 mmol/L Low 101-111 Co2 Carbon Dioxide 25 mmol/L 22-32 Anion Gap 8 mmol/L 2-11 Glucose 102 mg/dL High 70-100 Blood Urea Nitrogen 34 mg/dL High 6-24 Creatinine 1.73 mg/dL High 0.51-0.95 BUN/Creatinine Ratio 19.7 8-20 Calcium 11.1 mg/dL High 8.6-10.3 Total Protein 7.5 g/dL 6.4-8.9 Albumin 3.8 g/dL 3.2-5.2 Globulin 3.7 g/dL 2-4 Albumin/Globulin Ratio 1.0 1-3 Total Bilirubin 0.50 mg/dL 0.2-1.0 Alkaline Phosphatase 59 U/L 34-104 Alt 18 U/L 7-52 Ast 20 U/L 13-39 Egfr Non- 30.8 >60 Egfr 39.6 >60 65 Laboratory test finding 10/20/2015 Troponin-I (TnI) 0.01 ng/mL <0.03 66 Urinalysis Profile 10/20/2015 Urine Color Yellow Urine Appearance Clear Urine Specific [place] 1.010 1.010-1.030 Urine pH 6.0 5-9 Urine Urobilinogen Negative Negative Urine Ketones Negative Negative Urine Protein Negative Negative Urine Leukocytes Trace Negative Urine Blood 2+ Negative Urine Nitrite Negative Negative Urine Bilirubin Negative Negative Urine Glucose Negative Negative Urine White Blood Cell Trace(0-5/hpf) Absent Urine Red Blood Cell 1+(3-5/hpf) Absent Urine Bacteria Absent Absent Urine Squamous Epithelial Cell Present Absent Urine Culture And 10/20/2015 Urine Culture SEE RESULT BELOW 67 Sensitivities CBC Auto Diff 10/20/2015 White Blood Count 9.6 10^3/uL 3.5-10.8 Red Blood Count 4.53 10^6/uL 4.0-5.4 Hemoglobin 12.3 g/dL 12.0-16.0 Hematocrit 38 % 35-47 Mean Corpuscular Volume 83 fL 80-97 Mean Corpuscular Hemoglobin 27 pg 27-31 Mean Corpuscular HGB Conc 33 g/dL 31-36 Red Cell Distribution Width 14 % 10.5-15 Platelet Count 251 10^3/uL 150-450 Mean Platelet Volume 9 um3 7.4-10.4 Abs Neutrophils 7.2 10^3/uL 1.5-7.7 Abs Lymphocytes 1.1 10^3/uL 1.0-4.8 Abs Monocytes 1.1 10^3/uL High 0-0.8 Abs Eosinophils 0.1 10^3/uL 0-0.6 Abs Basophils 0.1 10^3/uL 0-0.2 Abs Nucleated RBC 0.01 10^3/uL Granulocyte % 75.0 % 38-83 Lymphocyte % 11.2 % Low 25-47 Monocyte % 11.6 % High 1-9 Eosinophil % 1.2 % 0-6 Basophil % 1.0 % 0-2 Nucleated Red Blood Cells % 0.1 Urine Culture And Sensitivities 10/19/2015 Urine Culture SEE RESULT BELOW 68, 69 Urinalysis Profile 10/19/2015 Urine Color Yellow 68 Urine Appearance Clear 68 Urine Specific [place] 1.010 1.010-1.030 68 Urine pH 5.0 5-9 68 Urine Urobilinogen Negative Negative 68 Urine Ketones Negative Negative 68 Urine Protein Negative Negative 68 Urine Leukocytes 1+ Negative 68 Urine Blood 2+ Negative 68 Urine Nitrite Negative Negative 68 Urine Bilirubin Negative Negative 68 Urine Glucose Negative Negative 68 Urine White Blood Cell Trace(0-5/hpf) Absent 68 Urine Red Blood Cell Trace(0-2/hpf) Absent 68 Urine Bacteria Absent Absent 68 Urine Hyaline Casts Present Absent 68 Ua Routine 10/19/2015 Ua Specific [place] 1.005 Ua PH 6 Ua Color yellow Ua Appera clear Ua WBC positive Ua Protein neg Ua Glucose neg Ua Ketones neg Ua Bilirubin neg Ua Urobilinogen neg Ua Nitrite neg Ua Occult Blood positive Urinalysis Profile 10/05/2015 Urine Color Yellow Urine Appearance Cloudy Urine Specific [place] 1.012 1.010-1.030 Urine pH 5.0 5-9 Urine Urobilinogen Negative Negative Urine Ketones Negative Negative Urine Protein 2+(100 mg/dL) Negative Urine Leukocytes 2+ Negative Urine Blood 3+ Negative Urine Nitrite Negative Negative Urine Bilirubin Negative Negative Urine Glucose Negative Negative Urine White Blood Cell 3+(>20/hpf) Absent Urine Red Blood Cell 2+(6-10/hpf) Absent Urine Bacteria Absent Absent Urine Squamous Epithelial Cell Present Absent Comp Metabolic Panel 10/05/2015 Sodium 132 mmol/L Low 133-145 Potassium 3.9 mmol/L 3.5-5.0 Chloride 103 mmol/L 101-111 Co2 Carbon Dioxide 22 mmol/L 22-32 Anion Gap 7 mmol/L 2-11 Glucose 113 mg/dL High 70-100 Blood Urea Nitrogen 40 mg/dL High 6-24 Creatinine 1.61 mg/dL High 0.51-0.95 BUN/Creatinine Ratio 24.8 High 8-20 Calcium 10.3 mg/dL 8.6-10.3 Total Protein 7.4 g/dL 6.4-8.9 Albumin 3.8 g/dL 3.2-5.2 Globulin 3.6 g/dL 2-4 Albumin/Globulin Ratio 1.1 1-3 Total Bilirubin 0.50 mg/dL 0.2-1.0 Alkaline Phosphatase 68 U/L 34-104 Alt 15 U/L 7-52 Ast 15 U/L 13-39 Egfr Non- 33.5 >60 Egfr 43.1 >60 70 CBC Auto Diff 10/05/2015 White Blood Count 13.0 10^3/uL High 3.5-10.8 Red Blood Count 4.47 10^6/uL 4.0-5.4 Hemoglobin 12.1 g/dL 12.0-16.0 Hematocrit 37 % 35-47 Mean Corpuscular Volume 82 fL 80-97 Mean Corpuscular Hemoglobin 27 pg 27-31 Mean Corpuscular HGB Conc 33 g/dL 31-36 Red Cell Distribution Width 14 % 10.5-15 Platelet Count 193 10^3/uL 150-450 Mean Platelet Volume 9 um3 7.4-10.4 Abs Neutrophils 10.8 10^3/uL High 1.5-7.7 Abs Lymphocytes 0.8 10^3/uL Low 1.0-4.8 Abs Monocytes 1.3 10^3/uL High 0-0.8 Abs Eosinophils 0 10^3/uL 0-0.6 Abs Basophils 0.1 10^3/uL 0-0.2 Abs Nucleated RBC 0.01 10^3/uL Granulocyte % 83.2 % High 38-83 Lymphocyte % 6.0 % Low 25-47 Monocyte % 9.9 % High 1-9 Eosinophil % 0.2 % 0-6 Basophil % 0.7 % 0-2 Nucleated Red Blood Cells % 0 Inr/Protime 10/05/2015 Inr 2.80 High 0.89-1.11 Laboratory test finding 10/05/2015 Lactic Acid 0.8 mmol/L 0.5-2.0 71 C Reactive Protein 52.94 mg/L High < 5.00 72 Blood Culture SEE RESULT BELOW 73 Urine Culture And Sensitivities 10/05/2015 Urine Culture SEE RESULT BELOW 74 Urine Culture And Sensitivities 06/24/2015 Urine Culture SEE RESULT BELOW 75 Urinalysis Profile 01/10/2015 Urine Color Yellow Urine Appearance Cloudy Urine Specific [place] 1.013 1.010-1.030 Urine pH 5.0 5-9 Urine Urobilinogen Negative Negative Urine Ketones Negative Negative Urine Protein Negative Negative Urine Leukocytes 2+ Negative Urine Blood 2+ Negative Urine Nitrite Negative Negative Urine Bilirubin Negative Negative Urine Glucose Negative Negative Urine White Blood Cell 3+(>20/hpf) Absent Urine Red Blood Cell Trace(0-2/hpf) Absent Urine Bacteria Absent Absent Ua And Culture 01/10/2015 Urine Culture And SEE RESULT BELOW 76 Sensitivity Sensitivities Laboratory test finding 09/23/2014 Urine Culture And SEE RESULT BELOW 77 Sensitivities Ua Routine 09/23/2014 Ua Specific [place] 1.010 Ua PH 5 Ua Color yellow Ua Appera cloudy Ua WBC small Ua Protein trace Ua Glucose neg Ua Ketones neg Ua Bilirubin small Ua Urobilinogen normal Ua Nitrite neg Ua Occult Blood large Comp Metabolic Panel 09/23/2014 Sodium 132 mmol/L Low 133-145 Potassium 4.6 mmol/L 3.5-5.0 Chloride 100 mmol/L Low 101-111 Co2 Carbon Dioxide 25 mmol/L 22-32 Anion Gap 7 mmol/L 2-11 Glucose 106 mg/dL High 70-100 Blood Urea Nitrogen 30 mg/dL High 6-24 Creatinine 1.39 mg/dL High 0.51-0.95 BUN/Creatinine Ratio 21.6 High 8-20 Calcium 8.1 mg/dL Low 8.6-10.3 Total Protein 7.2 g/dL 6.4-8.9 Albumin 4.1 g/dL 3.2-5.2 Globulin 3.1 g/dL 2-4 Albumin/Globulin Ratio 1.3 1-3 Total Bilirubin 0.50 mg/dL 0.2-1.0 Alkaline Phosphatase 66 U/L 34-104 Alt 14 U/L 7-52 Ast 15 U/L 13-39 Egfr Non- 39.8 >60 Egfr 51.2 >60 78 CBC Auto Diff 09/23/2014 White Blood Count 13.8 10^3/uL High 4.8-10.8 Red Blood Count 4.25 10^6/uL 4.0-5.4 Hemoglobin 12.0 g/dL 12.0-16.0 Hematocrit 37 % 35-47 Mean Corpuscular Volume 86 fL 80-97 Mean Corpuscular Hemoglobin 28 pg 27-31 Mean Corpuscular HGB Conc 33 g/dL 31-36 Red Cell Distribution Width 14 % 10.5-15 Platelet Count 213 10^3/uL 150-450 Mean Platelet Volume 9 um3 7.4-10.4 Abs Neutrophils 11.4 10^3/uL High 1.5-7.7 Abs Lymphocytes 1.1 10^3/uL 1.0-4.8 Abs Monocytes 1.3 10^3/uL High 0-0.8 Abs Eosinophils 0 10^3/uL 0-0.6 Abs Basophils 0 10^3/uL 0-0.2 Abs Nucleated RBC 0.01 10^3/uL Granulocyte % 82.4 % 38-83 Lymphocyte % 7.9 % Low 25-47 Monocyte % 9.2 % High 1-9 Eosinophil % 0.2 % 0-6 Basophil % 0.3 % 0-2 Nucleated Red Blood Cells % 0 Laboratory test finding 07/22/2014 Culture Throat SEE RESULT BELOW 79 Laboratory test finding 01/27/2012 Troponin I 0 ng/mL 0-0.06 80 1 Desirable: <150 Borderline High: 150-199 High: 200-499 Very High: >500 2 Desirable: <200 Borderline High: 200-239 High: >239 3 Low: <40 Desirable: 40-60 High: >60 4 Unable to calculate LDL as triglyceride is > 400 5 Desirable: <100 Near Optimal: 100-129 Borderline High: 130-159 High: 160-189 Very High: >189 6 STANDING ORDER ENTERED 08/21/17 EXPIRES 01/23/18 PLEASE FAX RESULTS TO: [id number] STANDING ORDER ENTERED 08/21/17 EXPIRES 01/23/18 PLEASE FAX RESULTS TO: [id number] 8 Because ethnic data is not always readily available, this report includes an eGFR for both -Americans and non- Americans. The National Kidney Disease Education Program (NKDEP) does not endorse the use of the MDRD equation for patients that are not between the ages of 18 and 70, are , have extremes of body size, muscle mass, or nutritional status, or are non- or non-. According to the National Kidney Foundation, irrespective of diagnosis, the stage of the disease is based on the level of kidney function: Stage Description GFR(mL/min/1.73 m(2)) 1 Kidney damage with normal or decreased GFR 90 2 Kidney damage with mild decrease in GFR 60-89 3 Moderate decrease in GFR 30-59 4 Severe decrease in GFR 15-29 5 Kidney failure <15 (or dialysis) 9 STANDING ORDER ENTERED 08/21/17 EXPIRES 01/23/18 PLEASE FAX RESULTS TO: [id number] SEE RESULT BELOW Name: ALONDRA VYAS : [address]: Darian Orellana MD Acct: [id number] Unit: [id number] AGE: 57 Location: [facility] Re12/08/17 SEX: F Status: REG REF SPEC: [id number] STAN: 12/08/17 [facility] DR: Jeremy Joseph Jr, MD REQ: [id number] RECD: 12/08/17 EXPLICIT FAX#: [phone] STATUS: COMP OTHR DR: Darian Muñoz MD _ SOURCE: URINE SPDESC: ORDERED: Urine Culture COMMENTS: ST [facility] ORDER ENTERED 08/21/17 EXPIRES 01/23/18 PLEASE FAX RESULTS TO: [phone] Procedure Result Reported Site Urine Culture Final 12/09/17- 08 ML No growth of clinically significant organisms * ML - Main Lab . END OF REPORT DEPARTMENT OF PATHOLOGY, [address] [place] [address] Derick De La Paz M.D. Director [facility] # [id number] 11 SEE RESULT BELOW Name: ALONDRA VYAS : [address]: Darian Orellnaa MD Acct: [id number] Unit: [id number] AGE: 56 Location: ENDO Re10/27/17 SEX: F Status: DEP REF SPEC: [id number] STAN: 10/27/17- SUBM DR: Darian Orellana MD REQ: [id number] RECD: 10/27/17-1210 STATUS: SHA ADAM DR: Christophe Muñoz MD _ ORDERED: LEVEL 4 FINAL DIAGNOSIS Duodenum, biopsy: -- Benign small intestinal mucosa with no significant pathologic abnormalities. -- No evidence of villous blunting or increased intraepithelial lymphocytes. POST-OPERATIVE DIAGNOSIS EGD: esophagus ? small hiatal hernia; gastric ? (2) antral ulcers ? biopsy for CLOtest; duodenum ? biopsy; colonoscopy: to terminal ileum; melanosis coli GROSS DESCRIPTION The specimen is received in formalin labeled, Duodenum Biopsy, and consists of a 0.6 x 0.2 x 0.1 cm celestin speckled red irregular soft tissue fragment which is submitted entirely in one cassette. Signed by and Reported on: Patricia Meier MD 10/28/17 1208 END OF REPORT DEPARTMENT OF PATHOLOGY, [address] [place] [address] Derick De La Paz M.D. Director [facility] # [id number] 12 SEE RESULT BELOW Name: ALONDRA VYAS : [address]: Darian Orellana MD Acct: [id number] Unit: [id number] AGE: 56 Location: ENDO Re10/27/17 SEX: F Status: DEP REF SPEC: [id number] STAN: 10/27/17-1007 [facility] DR: Darian Orellana MD REQ: [id number] RECD: 10/27/17 STATUS: TANNER ADAM DR: Michelle Muñoz MD _ SOURCE: GAS ANTRUM SPDESC: ORDERED: Clotest Procedure Result Reported Site Clotest Final 10/28/17- 0859 ML Clotest Negative * ML - Main Lab . END OF REPORT DEPARTMENT OF PATHOLOGY, [address] [place] [address] Derick De La Paz M.D. Director [facility] # [id number] 13 Desirable: <150 Borderline High: 150-199 High: 200-499 Very High: >500 14 Desirable: <200 Borderline High: 200-239 High: >239 15 Low: <40 Desirable: 40-60 High: >60 16 Unable to calculate LDL as triglyceride is > 400 17 Desirable: <100 Near Optimal: 100-129 Borderline High: 130-159 High: 160-189 Very High: >189 18 Raise Driller: [id number] 20 SEE RESULT BELOW Name: ALONDRA VYAS : [address]: Ras Sarabia MD Acct: [id number] Unit: [id number] AGE: 56 Location: [facility] Re08/17/17 SEX: F Status: DEP ER SPEC: [id number] STAN: 08/17/17-6 [facility] DR: Julia REED REQ: [id number] RECD: 08/18/17 STATUS: [facility] DR: Ras Muñoz MD _ SOURCE: URINE [facility]: ORDERED: Urine Culture COMMENTS: [id number] Procedure Result Reported Site Urine Culture Final 08/20/17- 0830 ML Organism 1 ESCHERICHIA COLI Willard Count >100,000 (Many) CFU/ML Organism 2 NORMAL MARILEE Willard Count 10-25,000 (Moderate) CFU/ML 1. ESCHERICHIA COLI M.I.C. RX --------- ------ Ampicillin 4 S Cefazolin <=4 S Cefepime <=1 S Ceftriaxone <=1 S Ciprofloxacin <=0.25 S Gentamicin <=1 S Levofloxacin <=0.12 S Meropenem <=0.25 S Nitrofurantoin <=16 S Tetracycline <=1 S Pipercillin/Tazobactam <=4 S Trimethoprim/Sulfamethoxazole <=20 S Amoxicillin/Clavulanic Acid 4 S Aztreonam <=1 S Contact the Microbiology Department for any additional antibiotic reporting. * - [facility] Lab . END OF REPORT DEPARTMENT OF PATHOLOGY, [address] [place] [address] Derick De La Paz M.D. Director [facility] # [id number] 21 Because ethnic data is not always readily available, this report includes an eGFR for both -Americans and non- Americans. The National Kidney Disease Education Program (NKDEP) does not endorse the use of the MDRD equation for patients that are not between the ages of 18 and 70, are , have extremes of body size, muscle mass, or nutritional status, or are non- or non-. According to the National Kidney Foundation, irrespective of diagnosis, the stage of the disease is based on the level of kidney function: Stage Description GFR(mL/min/1.73 m(2)) 1 Kidney damage with normal or decreased GFR 90 2 Kidney damage with mild decrease in GFR 60-89 3 Moderate decrease in GFR 30-59 4 Severe decrease in GFR 15-29 5 Kidney failure <15 (or dialysis) 22 SEE RESULT BELOW Name: ALONDRA VYAS : [address]: Jeremy Joseph Jr, MD Acct: [id number] Unit: [id number] AGE: 56 Location: LAB Re07/29/17 SEX: F Status: REG REF SPEC: [id number] STAN: 07/29/17 [facility] DR: Jeremy Joseph Jr, MD REQ: [id number] RECD: 07/29/17 EXPLICIT FAX#: [phone] STATUS: COMP HR DR: Michelle Muñoz MD _ SOURCE: URINE SPDESC: ORDERED: Urine Culture COMMENTS: STANDING ORDER OR PRN VALID 04/03/2017 TO 10/01/2017 FAX RESULTS: [phone] CC: MICHELLE CROUCH Procedure Result Reported Site Urine Culture Final 07/31/17- 0809 ML Organism 1 ESCHERICHIA COLI Willard Count 25-50,000 (Moderate) CFU/ML 1. ESCHERICHIA COLI M.I.C. RX --------- ------ Ampicillin 4 S Cefazolin <=4 S Cefepime <=1 S Ceftriaxone <=1 S Ciprofloxacin <=0.25 S Gentamicin <=1 S Levofloxacin <=0.12 S Meropenem <=0.25 S Nitrofurantoin <=16 S Tetracycline <=1 S Pipercillin/Tazobactam <=4 S Trimethoprim/Sulfamethoxazole <=20 S Amoxicillin/Clavulanic Acid <=2 S Aztreonam <=1 S CONTINUED ON NEXT PAGE DEPARTMENT OF PATHOLOGY, [address] [place] [address] Derick De La Paz M.D. Director [facility] # [id number] Patient: ALONDRA VYAS [id number] (Continued) Specimen: [id number] Collected: 07/29/17 Received: 07/29/17 (Continued) Procedure Result Reported Site Urine Culture Final (continued) Contact the Microbiology Department for any additional antibiotic reporting. * ML - Main Lab . END OF REPORT DEPARTMENT OF PATHOLOGY, [address] [place] [address] Derick De La Paz M.D. Director [facility] # [id number] 23 Reference Range (ng/mL) Therapeutic: ng/mL Renal Transplant: 100 - 250 ng/mL Liver Transplant: 100 - 400 ng/mL Cardiac Transplant: 100 - 400 ng/mL Bone Marrow: 200 - 300 ng/mL Testing Performed at: [facility] Department of Pathology [address] [place] [id number] 24 ADDITIONAL INFORMATION This test was developed and its performance characteristics determined by [facility] in a manner consistent with CLIA requirements. This test has not been cleared or approved by the U.S. Food and Drug Administration. Test Performed by: [facility] [address] [place] [address] 25 Normal Range 180 to 914 Indeterminate Range 145 to 180 Deficient Range <145 26 ORDERED 12/04/16 06/03/17 27 Left Shift 28 Left Shift 29 Reference Range (ng/mL) Therapeutic: ng/mL Renal Transplant: 100 - 250 ng/mL Liver Transplant: 100 - 400 ng/mL Cardiac Transplant: 100 - 400 ng/mL Bone Marrow: 200 - 300 ng/mL Testing Performed at: [facility] Department of Pathology [address] [place] [id number] 30 Because ethnic data is not always readily available, this report includes an eGFR for both -Americans and non- Americans. The National Kidney Disease Education Program (NKDEP) does not endorse the use of the MDRD equation for patients that are not between the ages of 18 and 70, are , have extremes of body size, muscle mass, or nutritional status, or are non- or non-. According to the National Kidney Foundation, irrespective of diagnosis, the stage of the disease is based on the level of kidney function: Stage Description GFR(mL/min/1.73 m(2)) 1 Kidney damage with normal or decreased GFR 90 2 Kidney damage with mild decrease in GFR 60-89 3 Moderate decrease in GFR 30-59 4 Severe decrease in GFR 15-29 5 Kidney failure <15 (or dialysis) 31 SEE RESULT BELOW Name: CÉSARJAQUELINHERNANFLACA : [address]: Jeremy Joseph Jr, MD Acct: [id number] Unit: [id number] AGE: 56 Location: [facility] Re04/23/17 SEX: F Status: REG REF SPEC: [id number] STAN: 04/23/17 [facility] DR: Jeremy Joseph Jr, MD REQ: [id number] RECD: 04/23/17 STATUS: [facility] DR: Michelle Muñoz MD _ SOURCE: URINE SPDESC: ORDERED: Urine Culture QUERIES: Urine Source: Clean Catch Procedure Result Reported Site Urine Culture Final 04/24/17- 941 ML No growth of clinically significant organisms * ML - MAIN LAB ([facility]) . END OF REPORT * ML=Testing performed at Main Lab DEPARTMENT OF PATHOLOGY, [address] [place] [address] Derick De La Paz M.D. Director [facility] # [id number] 32 Because ethnic data is not always readily available, this report includes an eGFR for both -Americans and non- Americans. The National Kidney Disease Education Program (NKDEP) does not endorse the use of the MDRD equation for patients that are not between the ages of 18 and 70, are , have extremes of body size, muscle mass, or nutritional status, or are non- or non-. According to the National Kidney Foundation, irrespective of diagnosis, the stage of the disease is based on the level of kidney function: Stage Description GFR(mL/min/1.73 m(2)) 1 Kidney damage with normal or decreased GFR 90 2 Kidney damage with mild decrease in GFR 60-89 3 Moderate decrease in GFR 30-59 4 Severe decrease in GFR 15-29 5 Kidney failure <15 (or dialysis) 33 [facility] Severe Sepsis and Septic Shock Management Bundle Measure requires all lactic acids initially measuring >2.0 mmol/L be repeated. 34 >100 to <200 pg/mL: likely compensated congestive heart failure (CHF) 200 to 400 pg/mL: likely moderate CHF >400 pg/mL: likely moderate to severe CHF 35 [facility] Severe Sepsis and Septic Shock Management Bundle Measure requires all lactic acids initially measuring >2.0 mmol/L be repeated. 36 >100 to <200 pg/mL: likely compensated congestive heart failure (CHF) 200 to 400 pg/mL: likely moderate CHF >400 pg/mL: likely moderate to severe CHF 37 Please note the change in INR reference range effective 17. 38 Because ethnic data is not always readily available, this report includes an eGFR for both -Americans and non- Americans. The National Kidney Disease Education Program (NKDEP) does not endorse the use of the MDRD equation for patients that are not between the ages of 18 and 70, are , have extremes of body size, muscle mass, or nutritional status, or are non- or non-. According to the National Kidney Foundation, irrespective of diagnosis, the stage of the disease is based on the level of kidney function: Stage Description GFR(mL/min/1.73 m(2)) 1 Kidney damage with normal or decreased GFR 90 2 Kidney damage with mild decrease in GFR 60-89 3 Moderate decrease in GFR 30-59 4 Severe decrease in GFR 15-29 5 Kidney failure <15 (or dialysis) 39 SEE RESULT BELOW Name: ALONDRA VYAS : [address]: Michelle Crouch MD Acct: [id number] Unit: [id number] AGE: 55 Location: LAB Re09/18/16 SEX: F Status: REG REF SPEC: [id number] STAN: 09/18/16-1235 [facility] DR: Michelle Crouch MD REQ: [id number] RECD: 09/18/16 STATUS: [facility] DR: Christophe Muñoz MD _ SOURCE: URINE [facility]: ORDERED: Urine Culture QUERIES: Urine Source: Catheterization Procedure Result Reported Site Urine Culture Final 09/20/16- 726 ML Organism 1 ESCHERICHIA COLI Willard Count 75-100,000 (Many) CFU/ML Organism 2 NORMAL MARILEE Willard Count 1-10,000 (Few) CFU/ML 1. ESCHERICHIA COLI M.I.C. RX --------- ------ Ampicillin >=32 R Cefazolin <=4 S Cefepime <=1 S Ceftriaxone <=1 S Ciprofloxacin >=4 R Gentamicin >=16 R Levofloxacin >=8 R Meropenem <=0.25 S Nitrofurantoin <=16 S Tetracycline >=16 R Pipercillin/Tazobactam <=4 S Trimethoprim/Sulfamethoxazole >=320 R Amoxicillin/Clavulanic Acid 4 S Aztreonam <=1 S Contact the Microbiology Department for any additional antibiotic reporting. * ML - MAIN LAB ([facility]) . END OF REPORT * ML=Testing performed at Main Lab DEPARTMENT OF PATHOLOGY, [address] [place] [address] Derick De La Paz M.D. Director [facility] # [id number] 40 [id number] 41 SEE RESULT BELOW Name: ALONDRA VYAS : [address]: Xochilt Torres MD Acct: [id number] Unit: [id number] AGE: 55 Location: [facility] Re08/28/16 SEX: F Status: REG REF SPEC: [id number] STAN: 08/28/16-1650 [facility] DR: Bhavin Torres MD REQ: [id number] RECD: 08/28/16 STATUS: COMP _ SOURCE: URINE [facility]: ORDERED: Urine Culture COMMENTS: [id number] Urine Source: Random Procedure Result Reported Site Urine Culture Final 08/30/16- 0841 ML Organism 1 ESCHERICHIA COLI Willard Count 75-100,000 (Many) CFU/ML 1. ESCHERICHIA COLI M.I.C. RX --------- ------ Ampicillin >=32 R Cefazolin <=4 S Cefepime <=1 S Ceftriaxone <=1 S Ciprofloxacin >=4 R Gentamicin >=16 R Levofloxacin >=8 R Meropenem <=0.25 S Nitrofurantoin <=16 S Tetracycline >=16 R Pipercillin/Tazobactam <=4 S Trimethoprim/Sulfamethoxazole >=320 R Amoxicillin/Clavulanic Acid 8 S Aztreonam <=1 S Contact the Microbiology Department for any additional antibiotic reporting. * ML - MAIN LAB ([facility]) . END OF REPORT * ML=Testing performed at Main Lab DEPARTMENT OF PATHOLOGY, [address] [place] [address] Derick De La Paz M.D. Director [facility] # [id number] 42 [facility] Severe Sepsis and Septic Shock Management Bundle Measure requires all lactic acids initially measuring >2.0 mmol/L be repeated. 43 Because ethnic data is not always readily available, this report includes an eGFR for both -Americans and non- Americans. The National Kidney Disease Education Program (NKDEP) does not endorse the use of the MDRD equation for patients that are not between the ages of 18 and 70, are , have extremes of body size, muscle mass, or nutritional status, or are non- or non-. According to the National Kidney Foundation, irrespective of diagnosis, the stage of the disease is based on the level of kidney function: Stage Description GFR(mL/min/1.73 m(2)) 1 Kidney damage with normal or decreased GFR 90 2 Kidney damage with mild decrease in GFR 60-89 3 Moderate decrease in GFR 30-59 4 Severe decrease in GFR 15-29 5 Kidney failure <15 (or dialysis) 44 Acute inflammation: >10.00 45 Microcytic anemia. Absolute neutrophilia and monocytosis, favor reactive. Reviewed by Patricia Meier MD 46 SEE RESULT BELOW Name: ALONDRA VYAS : [address]: Ras Holguin MD Acct: [id number] Unit: [id number] AGE: 55 Location: ED Re08/06/16 SEX: F Status: DEP ER SPEC: [id number] STAN: 08/07/[address]: Ras Holguin MD REQ: [id number] RECD: 08/07/16 STATUS: COMP JAIR DR: Christophe Muñoz MD _ SOURCE: BLOOD,VENO SPDES: ORDERED: Blood Cult Procedure Result Reported Site Aerobic Culture Bottle Final 08/12/16- 105 ML No Growth Day 5 Anaerobic Culture Bottle Final 08/12/16105 ML No Growth Day 5 * ML - MAIN LAB ([facility]) . END OF REPORT * ML=Testing performed at Main Lab DEPARTMENT OF PATHOLOGY, [address] [place] [address] Derick De La Paz M.D. Director [facility] # [id number] 47 [id number] 48 SEE RESULT BELOW Name: ALONDRA VYAS : [address]: Mary Rojas MD Acct: [id number] Unit: [id number] AGE: 55 Location: [facility] Re08/06/16 SEX: F Status: DEP ER SPEC: [id number] STAN: 08/06/16 [facility] DR: Mary Rojas MD REQ: [id number] RECD: 08/06/16-1105 STATUS: [facility] DR: Christophe Muñoz MD _ SOURCE: URINE SPDESC: ORDERED: Urine Culture COMMENTS: [id number] Procedure Result Reported Site Urine Culture Final 08/08/16- 0846 ML Organism 1 ESCHERICHIA COLI Willard Count >100,000 (Many) CFU/ML 1. ESCHERICHIA COLI M.I.C. RX --------- ------ Ampicillin >=32 R Cefazolin <=4 S Cefepime <=1 S Ceftriaxone <=1 S Ciprofloxacin >=4 R Gentamicin >=16 R Levofloxacin >=8 R Meropenem <=0.25 S Nitrofurantoin <=16 S Tetracycline >=16 R Pipercillin/Tazobactam <=4 S Trimethoprim/Sulfamethoxazole >=320 R Amoxicillin/Clavulanic Acid 8 S Aztreonam <=1 S Contact the Microbiology Department for any additional antibiotic reporting. * ML - MAIN LAB ([facility]) . END OF REPORT * ML=Testing performed at Main Lab DEPARTMENT OF PATHOLOGY, [address] [place] [address] Derick De La Paz M.D. Director [facility] # [id number] 49 Raise Driller: [id number] Reference Range (ng/mL) Therapeutic: ng/mL Renal Transplant: 100 - 250 ng/mL Liver Transplant: 100 - 400 ng/mL Cardiac Transplant: 100 - 400 ng/mL Bone Marrow: 200 - 300 ng/mL Testing Performed at: [facility] Department of Pathology [address] [place] [address] 51 SEE RESULT BELOW Name: ALONDRA VYAS : [address]: Kojo Mcwilliams MD Acct: [id number] Unit: [id number] AGE: 55 Location: [facility] Re05/27/16 SEX: F Status: REG REF SPEC: [id number] STAN: 05/27/16 [facility] DR: Kojo Mcwilliams MD REQ: [id number] RECD: 05/27/16 EXPLICIT FAX#: [phone] STATUS: [facility] DR: Michelle Muñoz MD _ SOURCE: URINE SPDESC: ORDERED: Urine Culture Procedure Result Reported Site Urine Culture Final 05/29/16828 ML Organism 1 ENTEROCOCCUS FAECALIS Willard Count >100,000 (Many) CFU/ML Organism 2 NORMAL MARILEE Willard Count 1-10,000 (Few) CFU/ML 1. ENTEROCOCCUS FAECALIS M.I.C. RX --------- ------ Ampicillin <=2 S Penicillin 2 S Ciprofloxacin 1 S Gentamicin High Level S Levofloxacin 1 S Linezolid 2 S Nitrofurantoin <=16 S * Quinupristin/Dalfopristin 4 R * Streptomycin High Level S Tetracycline >=16 R Tigecycline <=0.12 S Vancomycin 1 S Imipenem-Deduced S * Ampicillin/Sulbactam-Deduced S CONTINUED ON NEXT PAGE * ML=Testing performed at Main Lab DEPARTMENT OF PATHOLOGY, [address] [place] [address] Derick De La Paz M.D. Director [facility] # [id number] Patient: ALONDRA VYAS [id number] (Continued) Specimen: [id number] Collected: 05/27/16 Received: 05/27/16 (Continued) Procedure Result Reported Site Urine Culture Final (continued) * These antibiotics are not available in the [facility] Formulary Contact the Microbiology Department for any additional antibiotic reporting. * ML - MAIN LAB ([facility]) . END OF REPORT * ML=Testing performed at Main Lab DEPARTMENT OF PATHOLOGY, [address] [place] [address] Derick De La Paz M.D. Director [facility] # [id number] 52 FAX RESULTS TO: 53 Because ethnic data is not always readily available, this report includes an eGFR for both -Americans and non- Americans. The National Kidney Disease Education Program (NKDEP) does not endorse the use of the MDRD equation for patients that are not between the ages of 18 and 70, are , have extremes of body size, muscle mass, or nutritional status, or are non- or non-. According to the National Kidney Foundation, irrespective of diagnosis, the stage of the disease is based on the level of kidney function: Stage Description GFR(mL/min/1.73 m(2)) 1 Kidney damage with normal or decreased GFR 90 2 Kidney damage with mild decrease in GFR 60-89 3 Moderate decrease in GFR 30-59 4 Severe decrease in GFR 15-29 5 Kidney failure <15 (or dialysis) 54 Because ethnic data is not always readily available, this report includes an eGFR for both -Americans and non- Americans. The National Kidney Disease Education Program (NKDEP) does not endorse the use of the MDRD equation for patients that are not between the ages of 18 and 70, are , have extremes of body size, muscle mass, or nutritional status, or are non- or non-. According to the National Kidney Foundation, irrespective of diagnosis, the stage of the disease is based on the level of kidney function: Stage Description GFR(mL/min/1.73 m(2)) 1 Kidney damage with normal or decreased GFR 90 2 Kidney damage with mild decrease in GFR 60-89 3 Moderate decrease in GFR 30-59 4 Severe decrease in GFR 15-29 5 Kidney failure <15 (or dialysis) 55 Critical Result LACT:2.2 Called to [id number] at: 10:54:46 by:[email or web address] Read back by:[id number] [facility] Severe Sepsis and Septic Shock Management Bundle Measure requires all lactic acids initially measuring >2.0 mmol/L be repeated. 56 SEE RESULT BELOW Name: ALONDRA VYAS : [address]: Johnathan Mcmillan DO Acct: [id number] Unit: [id number] AGE: 55 Location: ED Re04/06/16 SEX: F Status: DEP ER SPEC: [id number] STAN: 04/06/16 [facility] DR: Johnathan Mcmillan DO REQ: [id number] RECD: 04/06/16 STATUS: TANNER [facility] DR: Christophe Muñoz MD _ SOURCE: BLOOD,VENO SPDES: ORDERED: Blood Cult Procedure Result Reported Site Aerobic Culture Bottle Final 04/11/16- 1129 ML No Growth Day 5 Anaerobic Culture Bottle Final 04/11/16- 1129 ML No Growth Day 5 * ML - MAIN LAB ([facility]) . END OF REPORT * ML=Testing performed at Main Lab DEPARTMENT OF PATHOLOGY, [address] [place] [address] Derick De La Paz M.D. Director [facility] # [id number] 57 Reference Range (ng/mL) Therapeutic: ng/mL Renal Transplant: 100 - 250 ng/mL Liver Transplant: 100 - 400 ng/mL Cardiac Transplant: 100 - 400 ng/mL Bone Marrow: 200 - 300 ng/mL Testing Performed at: [facility] Department of Pathology [address] [place] [id number] 58 SEE RESULT BELOW Name: ALONDRA VYAS : [address]: Jose Hall MD Acct: [id number] Unit: [id number] AGE: 55 Location: [facility] Re03/30/16 SEX: F Status: REG REF SPEC: [id number] STAN: 03/30/[address]: Kojo Mcwilliams MD REQ: [id number] RECD: 03/30/16 STATUS: TANNER [facility] DR: Michelle Muñoz MD _ SOURCE: URINE SPDESC: ORDERED: Urine Culture QUERIES: Urine Source: Clean Catch Procedure Result Reported Site Urine Culture Final 03/31/16- 1251 ML No growth of clinically significant organisms * ML - MAIN LAB ([facility]) . END OF REPORT * ML=Testing performed at Main Lab DEPARTMENT OF PATHOLOGY, [address] [place] [address] Derick De La Paz M.D. Director [facility] # [id number] 59 Desirable <150 Borderline high 150-199 High 200-499 Very High >500 60 Desirable <200 Borderline high 200-239 High >239 61 Low <40 Desirable: 40-60 High: >60 62 Unable to calculate LDL as triglyceride is > 400 63 Because ethnic data is not always readily available, this report includes an eGFR for both -Americans and non- Americans. The National Kidney Disease Education Program (NKDEP) does not endorse the use of the MDRD equation for patients that are not between the ages of 18 and 70, are , have extremes of body size, muscle mass, or nutritional status, or are non- or non-. According to the National Kidney Foundation, irrespective of diagnosis, the stage of the disease is based on the level of kidney function: Stage Description GFR(mL/min/1.73 m(2)) 1 Kidney damage with normal or decreased GFR 90 2 Kidney damage with mild decrease in GFR 60-89 3 Moderate decrease in GFR 30-59 4 Severe decrease in GFR 15-29 5 Kidney failure <15 (or dialysis) 64 [facility] Severe Sepsis and Septic Shock Management Bundle Measure requires all lactic acids initially measuring >2.0 mmol/L be repeated. 65 Because ethnic data is not always readily available, this report includes an eGFR for both -Americans and non- Americans. The National Kidney Disease Education Program (NKDEP) does not endorse the use of the MDRD equation for patients that are not between the ages of 18 and 70, are , have extremes of body size, muscle mass, or nutritional status, or are non- or non-. According to the National Kidney Foundation, irrespective of diagnosis, the stage of the disease is based on the level of kidney function: Stage Description GFR(mL/min/1.73 m(2)) 1 Kidney damage with normal or decreased GFR 90 2 Kidney damage with mild decrease in GFR 60-89 3 Moderate decrease in GFR 30-59 4 Severe decrease in GFR 15-29 5 Kidney failure <15 (or dialysis) 66 Reference Range and Interpretation: TnI (ng/mL) Interpretation Less Than 0.03 ng/mL Not supportive of diagnosis of [place] 0.03 - 0.50 ng/mL Indeterminate: suggest serial studies if clinically indicated. Greater than 0.5 ng/mL Consistent with diagnosis of [place] 67 SEE RESULT BELOW Name: ALONDRA VYAS : [address]: Slim Stiles MD Acct: [id number] Unit: [id number] AGE: 54 Location: ED Re10/20/15 SEX: F Status: DEP ER SPEC: [id number] STAN: 10/20/15-1035 [facility] DR: Slim Stiles MD REQ: [id number] RECD: 10/20/15 STATUS: TANNER BEY[facility] DR: Adelita Bañuelos MD _ SOURCE: URINE SPDESC: ORDERED: Urine Culture Procedure Result Reported Site Urine Culture Final 10/23/15- 1157 ML Organism 1 ESCHERICHIA COLI Willard Count 50-75,000 (Many) CFU/ML Organism 2 NORMAL MARILEE Willard Count 10-25,000 (Moderate) CFU/ML * This is a corrected result. * Nitrofurantoin was added to report: this was not originally reported due to a problem with software upgrade. A prior result that was reported as final has been changed. 1. ESCHERICHIA COLI M.I.C. RX --------- ------ Ampicillin <=2 S Cefazolin <=4 S Cefepime <=1 S Ceftriaxone <=1 S Ciprofloxacin >=4 R Gentamicin <=1 S Levofloxacin >=8 R Meropenem <=0.25 S Nitrofurantoin <=16 S Tetracycline >=16 R Pipercillin/Tazobactam <=4 S Trimethoprim/Sulfamethoxazole <=20 S CONTINUED ON NEXT PAGE * ML=Testing performed at Main Lab DEPARTMENT OF PATHOLOGY, [address] [place] [address] Derick De La Paz M.D. Director [facility] # [id number] Patient: LILLIAMALONDRA [id number] (Continued) Specimen: [id number] Collected: 10/20/15 Received: 10/20/15 (Continued) Procedure Result Reported Site Urine Culture Final (continued) 10/23/15- 1157 1. ESCHERICHIA COLI (continued) M.I.C. RX --------- ------ Amoxicillin/Clavulanic Acid <=2 S Aztreonam <=1 S Contact the Microbiology Department for any additional antibiotic reporting. * ML - MAIN LAB ([facility]) . END OF REPORT * ML=Testing performed at Main Lab DEPARTMENT OF PATHOLOGY, [address] [place] [address] Derick De La Paz M.D. Director [facility] # [id number] SEE RESULT BELOW Name: ALONDRA VYAS ANN : [address]: Adelita Bañuelos MD Acct: [id number] Unit: [id number] AGE: 54 Location: [facility] Re10/19/15 SEX: F Status: REG REF SPEC: [id number] STAN: 10/19/15-[address]: Adelita Bañuelos MD REQ: [id number] RECD: 10/19/15 STATUS: COMP _ SOURCE: URINE SPDESC: ORDERED: Urine Culture COMMENTS: [id number] Procedure Result Reported Site Urine Culture Final 10/23/15- 1151 ML Organism 1 ESCHERICHIA COLI Willard Count 75-100,000 (Many) CFU/ML Organism 2 NORMAL MARILEE Willard Count 1-10,000 (Few) CFU/ML * This is a corrected result. * Nitrofurantoin was added to report: this was not originally reported due to a problem with software upgrade. A prior result that was reported as final has been changed. 1. ESCHERICHIA COLI M.I.C. RX --------- ------ Ampicillin <=2 S Cefazolin <=4 S Cefepime <=1 S Ceftriaxone <=1 S Ciprofloxacin >=4 R Gentamicin <=1 S Levofloxacin >=8 R Meropenem <=0.25 S Nitrofurantoin <=16 S Tetracycline >=16 R CONTINUED ON NEXT PAGE * ML=Testing performed at Main Lab DEPARTMENT OF PATHOLOGY, [address] [place] [address] Derick De La Paz M.D. Director [facility] # [id number] Patient: ALONDRA VYAS [id number] (Continued) Specimen: [id number] Collected: 10/19/15-1019 Received: 10/19/15-1629 (Continued) Procedure Result Reported Site Urine Culture Final (continued) 10/23/15- 1151 1. ESCHERICHIA COLI (continued) M.I.C. RX --------- ------ Pipercillin/Tazobactam <=4 S Trimethoprim/Sulfamethoxazole <=20 S Amoxicillin/Clavulanic Acid <=2 S Aztreonam <=1 S Contact the Microbiology Department for any additional antibiotic reporting. * ML - MAIN LAB ([facility]) . END OF REPORT * ML=Testing performed at Main Lab DEPARTMENT OF PATHOLOGY, [address] [place] [address] Derick De La Paz M.D. Director [facility] # [id number] 70 Because ethnic data is not always readily available, this report includes an eGFR for both -Americans and non- Americans. The National Kidney Disease Education Program (NKDEP) does not endorse the use of the MDRD equation for patients that are not between the ages of 18 and 70, are , have extremes of body size, muscle mass, or nutritional status, or are non- or non-. According to the National Kidney Foundation, irrespective of diagnosis, the stage of the disease is based on the level of kidney function: Stage Description GFR(mL/min/1.73 m(2)) 1 Kidney damage with normal or decreased GFR 90 2 Kidney damage with mild decrease in GFR 60-89 3 Moderate decrease in GFR 30-59 4 Severe decrease in GFR 15-29 5 Kidney failure <15 (or dialysis) 71 [facility] Severe Sepsis and Septic Shock Management Bundle Measure requires all lactic acids initially measuring >2.0 mmol/L be repeated. 72 Acute inflammation: >10.00 73 SEE RESULT BELOW Name: ALONDRA VYAS : [address]: Yosef Rojas MD Acct: [id number] Unit: [id number] AGE: 54 Location: [place] [address]- Re10/05/15 Dis: 10/07/15 SEX: F Status: DIS IN SPEC: [id number] STAN: 10/05/[address]: Johnathan Mcmillan DO REQ: [id number] RECD: 10/05/15 STATUS: TANNER ADAM DR: Adelita Bañuelos MD _ SOURCE: BLOOD,VENO SPDESC: ORDERED: Blood Cult Procedure Result Reported Site Aerobic Culture Bottle Final 10/10/15- 1131 ML No Growth Day 5 Anaerobic Culture Bottle Final 10/10/15- 1131 ML No Growth Day 5 * ML - MAIN LAB ([facility]) . END OF REPORT * ML=Testing performed at Main Lab DEPARTMENT OF PATHOLOGY, [address] [place] [address] Derick De La Paz M.D. Director [facility] # [id number] 74 SEE RESULT BELOW Name: ALONDRA VYAS : [address]: Yosef Rojas MD Acct: [id number] Unit: [id number] AGE: 54 Location: [place] [address] Re10/05/15 SEX: F Status: ADM IN SPEC: [id number] STAN: 10/05/[address]: Johnathan Mcmillan DO REQ: [id number] RECD: 10/05/15 STATUS: TANNER ADAM DR: Adelita Bañuelos MD _ SOURCE: URINE [facility]: ORDERED: Urine Culture Procedure Result Reported Site Urine Culture Final 10/06/15- 1644 ML Organism 1 ESCHERICHIA COLI Willard Count >100,000 (Many) CFU/ML 1. ESCHERICHIA COLI M.I.C. RX --------- ------ Ampicillin <=2 S Cefazolin <=4 S Cefepime <=1 S Ceftriaxone <=1 S Ciprofloxacin <=0.25 S Gentamicin <=1 S Levofloxacin <=0.12 S Meropenem <=0.25 S Nitrofurantoin <=16 S Tetracycline <=1 S Pipercillin/Tazobactam <=4 S Trimethoprim/Sulfamethoxazole <=20 S Amoxicillin/Clavulanic Acid <=2 S Aztreonam <=1 S Contact the Microbiology Department for any additional antibiotic reporting. * ML - MAIN LAB ([facility]) . END OF REPORT * ML=Testing performed at Main Lab DEPARTMENT OF PATHOLOGY, [address] [place] [address] Derick De La Paz M.D. Director [facility] # [id number] 75 SEE RESULT BELOW Name: ALONDRA VYAS : [address]: Janeth An MD Acct: [id number] Unit: [id number] AGE: 54 Location: [facility] Re06/24/15 SEX: F Status: DEP ER SPEC: [id number] STAN: 06/24/15 [facility] DR: Janeth An MD REQ: [id number] RECD: 06/24/15123 STATUS: TANNER ADAM DR: Adelita Bañuelos MD _ SOURCE: URINE SPDESC: ORDERED: Urine Culture Procedure Result Reported Site Urine Culture Final 06/25/15- 1207 ML No growth of clinically significant organisms * ML - MAIN LAB ([facility]) . END OF REPORT * ML=Testing performed at Main Lab DEPARTMENT OF PATHOLOGY, [address] [place] [address] Derick De La Paz M.D. Director [facility] # [id number] 76 SEE RESULT BELOW Name: ALONDRA VYAS : [address]: Adelita Bañuelos MD Acct: [id number] Unit: [id number] AGE: 54 Location: [facility] Re01/10/15 SEX: F Status: REG REF SPEC: [id number] STAN: 01/10/[address]: Adelita Bañuelos MD REQ: [id number] RECD: 01/10/15 STATUS: COMP _ SOURCE: URINE SPDESC: ORDERED: Urine Culture Procedure Result Verified Site Urine Culture Final 01/12/15- 0931 ML Organism 1 ESCHERICHIA COLI Willard Count >100,000 (Many) CFU/ML 1. ESCHERICHIA COLI M.I.C. RX --------- ------ Ampicillin <=2 S Cefazolin <=4 S Cefepime <=1 S Ceftriaxone <=1 S Ciprofloxacin <=0.25 S Gentamicin <=1 S Levofloxacin <=0.12 S Meropenem <=0.25 S Nitrofurantoin <=16 S Tetracycline <=1 S Pipercillin/Tazobactam <=4 S Trimethoprim/Sulfamethoxazole <=20 S Amoxicillin/Clavulanic Acid <=2 S Aztreonam <=1 S Contact the Microbiology Department for any additional antibiotic reporting. * ML - MAIN LAB ([facility]) . END OF REPORT * ML=Testing performed at Main Lab DEPARTMENT OF PATHOLOGY, [address] [place] [address] Derick De La Paz M.D. Director [facility] # [id number] 77 SEE RESULT BELOW Name: ALONDRA VYAS : [address]: Adelita Bañuelos MD Acct: [id number] Unit: [id number] AGE: 53 Location: [facility] Re09/23/14 SEX: F Status: REG REF SPEC: [id number] STAN: 09/23/14-1416 [facility] DR: Adelita Bañuelos MD REQ: [id number] RECD: 09/23/14241 STATUS: COMP _ SOURCE: URINE SPDESC: ORDERED: Urine Culture Procedure Result Verified Site Urine Culture Final 09/25/14- 910 ML Organism 1 ESCHERICHIA COLI Willard Count 10-25,000 (Moderate) CFU/ML Organism 2 NORMAL MARILEE Willard Count 50-75,000 (Many) CFU/ML 1. ESCHERICHIA COLI M.I.C. RX --------- ------ Ampicillin 8 S Cefazolin <=4 S Cefepime <=1 S Ceftriaxone <=1 S Ciprofloxacin <=0.25 S Gentamicin <=1 S Levofloxacin <=0.12 S Meropenem <=0.25 S Nitrofurantoin <=16 S Tetracycline <=1 S Pipercillin/Tazobactam <=4 S Trimethoprim/Sulfamethoxazole <=20 S Amoxicillin/Clavulanic Acid 4 S Aztreonam <=1 S Contact the Microbiology Department for any additional antibiotic reporting. * ML - MAIN LAB ([facility]) . END OF REPORT * ML=Testing performed at Main Lab DEPARTMENT OF PATHOLOGY, [address] [place] [address] Derick De La Paz M.D. Director [facility] # [id number] 78 Because ethnic data is not always readily available, this report includes an eGFR for both -Americans and non- Americans. The National Kidney Disease Education Program (NKDEP) does not endorse the use of the MDRD equation for patients that are not between the ages of 18 and 70, are , have extremes of body size, muscle mass, or nutritional status, or are non- or non-. According to the National Kidney Foundation, irrespective of diagnosis, the stage of the disease is based on the level of kidney function: Stage Description GFR(mL/min/1.73 m(2)) 1 Kidney damage with normal or decreased GFR 90 2 Kidney damage with mild decrease in GFR 60-89 3 Moderate decrease in GFR 30-59 4 Severe decrease in GFR 15-29 5 Kidney failure <15 (or dialysis) 79 SEE RESULT BELOW Name: ALONDRA VYAS ANN : [address]: Adelita Bañuelos MD Acct: [id number] Unit: [id number] AGE: 53 Location: [facility] Re07/22/14 SEX: F Status: REG REF SPEC: [id number] STAN: 07/22/14-1322 [facility] DR: Adelita Bañuelos MD REQ: [id number] RECD: 07/22/14 STATUS: COMP _ SOURCE: THROAT SPDESC: ORDERED: Throat Culture Procedure Result Verified Site Throat Culture Final 07/24/14- 0811 ML Organism 1 NORMAL MARILEE Quantity 3+ Throat cultures are clinically indicated to detect the presence of group A strep, arcanobacterium and yeast. In certain cases, predominating organisms will be reported. * ML - MAIN LAB ([facility]) . END OF REPORT * ML=Testing performed at Main Lab DEPARTMENT OF PATHOLOGY, [address] [place] [address] Derick De La Paz M.D. Director [facility] # [id number] 80 Reference Range and Interpretation: TnI (ng/ml) Interpretation Less Than 0.06 ng/mL Not supportive of diagnosis of [place] 0.06 - 0.50 ng/ml Indeterminate: suggest serial studies if clinically indicated. Greater than 0.5 ng/mL Consistent with diagnosis of [place] Procedures Date CPT Code Description Status Comment 06/27/2017 Mammogram Completed 04/07/2017 66079 Treadmill Interp/Report Only Completed 04/07/2017 65867 Stress Test Supervsn W/Out I/R Completed 06/13/2016 Mammogram Completed 12/27/2015 Diabetic Foot Exam Completed 04/25/2015 Mammogram Completed 03/10/2014 Mammogram Completed 02/07/2014 Diabetic Retinal Eye Exam Completed 06/22/2013 48467 EKG, Interpretation Only Completed 06/22/2013 98745 Stress Test Supervsn W/Out I/R Completed 06/22/2013 50917 Stress Test Supervsn W/Out I/R Completed 06/22/2013 66081 Treadmill Interp/Report Only Completed 06/22/2013 67610 Treadmill Interp/Report Only Completed 02/03/2012 06353 Treadmill Interp/Report Only Completed 02/03/2012 93334 Stress Test Supervsn W/Out I/R Completed 02/03/2012 27645 Stress ECHO Interpretation/Report Hospital Completed 01/28/2012 30280 EKG Tracing & Interpretation Completed 03/10/2011 Colonoscopy Completed divertic Encounters Type Date Location Provider CPT E/M Dx Office Visit 10/22/2017 4:00p [facility] Internal Medicine Christophe Muñoz 08333 E78.1 - Hyacinth Hayes Office Visit 10/01/2017 4:00p [facility] Internal Medicine Christophe Muñoz 82183 D64.9 - Hyacinth Hayes I10 E78.5 K21.9 Office Visit 07/09/2017 8:20a [facility] Internal Medicine Christophe Muñoz 75860 D64.9 - Hyacinth Hayes K21.9 Office Visit 06/18/2017 8:00a [facility] Internal Medicine Christophe Muñoz 45978 F33.0 - Hyacinth Hayes R53.83 M79.1 D64.9 Office Visit 05/27/2017 8:00a [facility] Internal Christophe Muñoz M.D. 99825 F33.0 Medicine - [address] D64.9 R53.83 Office Visit 05/14/2017 8:20a [facility] Internal Medicine Christophe Muñoz 80136 F33.0 - Hyacinth Hayes R51 Office Visit 04/21/2017 1:40p [facility] [place] [address] R07.9 Hyacinth E78.5 F33.0 Office Visit 04/07/2017 12:07p [facility],[place] [address] R07.9 Hospitalists E78.5 I10 Z94.0 Office Visit 03/19/2017 3:00p [facility] Internal Medicine Christophe Muñoz, 85776 F33.0 - Hyacinth Hayes J06.9 Office Visit 03/07/2017 1:42p [facility] Christophe Muñoz, 65004 R07.9 Assoc,pc Hospitalists MAnahi Z94.0 Office Visit 02/24/2017 10:00a [facility] [place] [address] D22.5 D22.62 D22.72 L82.1 Z08 Z85.828 Office Visit 02/12/2017 11:00a [facility] Internal Medicine Christophe Muñoz M.D. 98044 I10 - [place] F33.0 L98.9 Office Visit 10/09/2016 3:40p [facility] Internal Medicine Christophe Muñoz M.D. 30448 I10 - [place] N39.0 Office Visit 08/28/2016 2:40p [facility] Internal Medicine Bhavin Torres, 30619 N39.0 - [place] Hayes,FACP Z94.0 Office Visit 06/26/2016 3:40p [facility] Internal Medicine Christophe Muñoz, 04965 I10 - Hyacinth Hayes Office Visit 05/15/2016 9:40a [facility] Internal Medicine Christophe Muñoz, 92398 B02.1 - Hyacinth Hayes I10 E78.2 K21.9 Office Visit 03/18/2016 11:20a [facility] [place] [address] I10 - [address] Office Visit 12/27/2015 3:00p [facility] Internal Medicine Christophe Muñoz, 17181 M72.2 - Hyacinth Hayes I12.9 Z94.0 I26.99 Z23 Office Visit 11/22/2015 3:40p [facility] [place] [address] J01.00 - [place] Office Visit 10/19/2015 9:40a [facility] Internal Medicine Adelita Bañuelos M.D. 15300 I10 - [place] N12 Z94.0 Office Visit 10/07/2015 12:31p [facility],[place] [address] N12 Hospitalists R65.10 Z94.0 I10 Office Visit 10/06/2015 11:23a [facility], [place] [address] N12 Hospitalists Z94.0 I10 R65.10 Office Visit 10/05/2015 11:22a [facility], Butch Hsieh 05681 N12 Hospitalists M.[place] Z94.0 I10 R65.10 Office Visit 03/06/2015 12:00p [facility] [place] [address] J06.9 [place] Z94.0 Office Visit 01/10/2015 4:40p [facility] Internal Medicine Adelita Bañuelos M.D. 44012 N39.0 - [place] Z94.0 Office Visit 01/03/2015 4:20p [facility] Internal Medicine Adelita Bañuelos M.D. 50959 Z85.828 - [place] Z12.4 Office Visit 09/23/2014 1:40p [facility] Internal Medicine Adelita Bañuelos M.D. 99201 789.03 - [place] 789.04 Office Visit 08/24/2014 3:00p [facility] [place] [address] 381.00 - [place] Office Visit 07/22/2014 12:40p [facility] Internal Medicine Adelita Bañuelos M.D. 42485 462 - [place] Office Visit 07/12/2014 3:00p [facility] Internal Medicine Adelita Bañuelos M.D. 23643 V70.0 - [place] V42.0 Office Visit 06/22/2013 11:05a [facility], Natalia Arriola 80450 786.50 Hospitalists D.O. 401.9 278.00 V42.0 Office Visit 06/21/2013 11:04a [facility], Butch Dinero 02074 786.50 Hospitalists N.P. 401.9 278.00 Office Visit 02/26/2012 2:45p [facility] Jarvis Mckeon 79073 786.50 Jess Hayes 401.9 Office Visit 01/28/2012 12:45p [facility] Jarvis Mckeon 43058 786.50 Jess Hayes 427.0 Plan of Care Future Appointment(s):03/18/2018 3:00 pm - Christophe Muñoz M.D. at [facility] Internal Medicine [facility]01/15/2018 - Dean Devlin NPE78.5 Hyperlipidemia, unspecifiedComments:Based on your intolerance to statins and the fact that your LDL cholesterol is elevated I would recommend discussing this with a dough mixer.Discuss with Dr. Crouch and if he agrees we can refer you to cardiology (or you can call Dr. Mckeon for an appointment).Follow up:[address] Muñoz
--- NOTE | 2018-02-11 00:03 | ED ---
HPI Chest Pain - HPI Summary HPI Summary: This patient is a 57 year old F presenting to [facility] accompanied by another female with a chief complaint of intermittent mid sternal CP since this morning at 0200. The patient rates the pain 3/10 in severity when it occurs, although she is not having CP currently. Symptoms alleviated by spontaneous resolution with 15 minutes time. Patient reports burping and indigestion. Patient denies n/ v, SOB, and diaphoresis. She has hx of HTN and HLD. She had a kidney transplant in 2010, takes cyclosporine and prednisone. She had similar CP in March and passed a stress test. Pt sees Dr Mckeon. She also dx with ulcers in september of this year after an endoscopy. - History of Current Complaint Chief Complaint: EDChestPainROMI Time Seen by Provider: 02/10/18 23:47 Hx Obtained From: Patient Onset/Duration: Still Present Time of Onset: 02:00 Timing: Intermittent, Lasting Minutes - 15 Initial Severity: Mild Current Severity: Mild Pain Intensity: 3 Pain Scale Used: 0-10 Numeric Chest Pain Location: Mid Sternal Chest Pain Radiates: No Associated Signs and Symptoms: Positive: Negative - n/v, SOB, diaphoresis,, Other: - burping - Additional Pertinent History Primary Care Physician: [id number] - Allergy/Home Medications Allergies/Adverse Reactions: Allergies Allergy/AdvReac Type Severity Reaction Status Date / Time No Known Allergies Allergy Verified 02/10/18 22:42 PMH/Surg Hx/FS Hx/Imm Hx Endocrine/Hematology History: Denies: Hx Diabetes, Hx Thyroid Disease Cardiovascular History: Reports: Hx Angina, Hx Hypercholesterolemia, Hx Hypertension Denies: Hx Angioplasty, Hx Congestive Heart Failure, Hx Coronary Artery Disease, Hx Myocardial Infarction, Hx Pacemaker/ICD, Hx Valvular Heart Disease Respiratory History: Reports: Hx Pulmonary Embolism Denies: Hx Asthma, Hx Chronic Obstructive Pulmonary Disease (COPD), Hx Lung Cancer Comment Only: Other Respiratory Problems/Disorders - pe GI History: Reports: Hx Diverticulosis - 2011 Denies: Hx Cirrhosis, Hx Ulcer History: Reports: Hx Chronic Renal Failure - prior to renal transplant, Hx Renal Disease, Other Problems/Disorders - kidney transplant Musculoskeletal History: Reports: Hx Arthritis Sensory History: Reports: Hx Contacts or Glasses Denies: Hx Cataracts, Hx Eye Injury, Hx Eye Prosthesis, Hx Glaucoma, Hx Macular Degeneration, Hx Vision Problem, Hx Deafness, Hx Hearing Aid, Hx Hearing Problem, Other Sensory Impairments Opthamlomology History: Reports: Hx Contacts or Glasses Denies: Hx Cataracts, Hx Eye Injury, Hx Eye Prosthesis, Hx Glaucoma, Hx Macular Degeneration, Hx Vision Problem, Other Sensory Impairments Neurological History: Reports: Hx Headaches Denies: Hx Dementia, Hx Migraine, Hx Seizures, Hx Transient Ischemic Attacks (TIA) Psychiatric History: Reports: Hx Depression - r/t mother few days Denies: Hx Panic Disorder, Hx Post Traumatic Stress Disorder, Hx Suicide Attempt - Cancer History Hx Chemotherapy: No Hx Radiation Therapy: No - Surgical History Surgery Procedure, Year, and Place: RIGHT KIDNEY BIOPSY. kidney transplant see above. RT CATARACT. D&C. RT BREAST BIOPSY - Immunization History Date of Tetanus Vaccine: 2009 Date of Influenza Vaccine: 12/08/14 Infectious Disease History: No Infectious Disease History: Reports: Hx Shingles - 04/2016, History Other Infectious Disease - CMV Denies: Hx Clostridium Difficile, Hx Hepatitis, Hx Human Immunodeficiency Virus (HIV), Hx of Known/Suspected MRSA, Hx Tuberculosis, Hx Known/Suspected VRE , Hx Known/Suspected VRSA, Traveled Outside the [place] in Last 30 Days - Family History Known Family History: Positive: Cardiac Disease - CAD, Hypertension, Renal Disease, Other - Aneurysms; Breast CA - paternal aunt Negative: Diabetes - Social History Alcohol Use: None Hx Substance Use: No Substance Use Type: Reports: None Hx Tobacco Use: No Smoking Status (MU): Never Smoked Tobacco Review of Systems Negative: Skin Diaphoresis Positive: Chest Pain Negative: Shortness Of Breath Negative: Vomiting, Nausea All Other Systems Reviewed And Are Negative: Yes Physical Exam - Summary Physical Exam Summary: VITAL SIGNS: Reviewed. GENERAL: Patient is a well-developed and nourished female who is lying comfortable in the stretcher. Patient is not in any acute respiratory distress. HEAD AND FACE: No signs of trauma. No ecchymosis, hematomas or skull depressions. No sinus tenderness. EYES: PERRLA, EOMI x 2, No injected conjunctiva, no nystagmus. EARS: Hearing grossly intact. Ear canals and tympanic membranes are within normal limits. MOUTH: Oropharynx within normal limits. NECK: Supple, trachea is midline, no adenopathy, no JVD, no carotid bruit, no c- spine tenderness, neck with full ROM. CHEST: Symmetric, no tenderness at palpation LUNGS: Clear to auscultation bilaterally. No wheezing or crackles. CVS: Regular rate and rhythm, S1 and S2 present, no murmurs or gallops appreciated. ABDOMEN: Soft, non-tender. No signs of distention. No rebound no guarding, and no masses palpated. Bowel sounds are normal. EXTREMITIES: FROM in all major joints, no edema, no cyanosis or clubbing. NEURO: Alert and oriented x 3. No acute neurological deficits. Speech is normal and follows commands. SKIN: Dry and warm Triage Information Reviewed: Yes Vital Signs On Initial Exam: Initial Vitals Temp Pulse Resp BP Pulse Ox 99.3 F 75 16 182/102 96 02/10/18 22:35 02/10/18 22:35 02/10/18 22:35 02/10/18 22:35 02/10/18 22:35 Vital Signs Reviewed: Yes Diagnostics - Vital Signs Vital Signs Temp Pulse Resp BP Pulse Ox 02/10/18 22:35 99.3 F 75 16 182/102 96 - Laboratory Result Diagrams: 02/11/18 00:21 02/11/18 00:21 Lab Statement: Any lab studies that have been ordered have been reviewed, and results considered in the medical decision making process. - Radiology CXR Radiology Interpretation Completed By: ED Physician Summary of Radiographic Findings: no acute process. Pending official report. - EKG 2245 Cardiac Rate: NL EKG Rhythm: Sinus Rhythm - at 74 BPM Summary of EKG Findings: Normal axis. Normal interval. No ischemic changes Chest Pain Course/Dx - Course Assessment/Plan: This patient is a 57 year old F presenting to [facility] accompanied by another female with a chief complaint of intermittent mid sternal CP since this morning at 0200. The patient rates the pain 3/10 in severity. Symptoms alleviated by spontaneous resolution with 15 minutes time. Patient reports burping and indigestion. Patient denies n/v, SOB, and diaphoresis. She has hx of HTN and HLD. She had a kidney transplant in 2010, takes cyclosporine and prednisone. She had CP in March and passed a stress test. Pt sees Dr Mckeon. She also dx with ulcers in september of this year after an endoscopy. An EKG reveals Normal axis. Normal interval. No ischemic changes. CXR reveals, no acute process. Pending official report. The patient had two negative troponins in the ED. In the ED course the patient was given protonix and trandate. Patient will be discharged and follow up from cardiology. The patient is agreeable with this plan. - Diagnoses Provider Diagnoses: Chest pain Discharge - Sign-Out/Discharge Documenting (check all that apply): Patient Departure - Discharge Plan Condition: Stable Disposition: HOME Patient Education Materials: Chest Pain (ED) Referrals: Elvin Rhodes MD [Medical Doctor] - Additional Instructions: Please follow up with cardiology to schedule an outpatient stress test. Return to the emergency department for any new of worsening symptoms. - Attestation Statements Document Initiated by Scribe: Yes Documenting Scribe: Angel Henderson Provider For Whom Scribe is Documenting (Include Credential): Gloria Martin MD Scribe Attestation: Angel Ren , scribed for Gloria Martin MD on 02/11/18 at 0421. Status of Scribe Document: Ready
[2018-02-11] MEDS ORDERED: Labetalol IV* 5 MG/ML 20 ML VIAL IV PUSH ONE (00:12)
[2018-02-11] MEDS ORDERED: Pantoprazole IV* 40 MG IV ONE (00:12)
[2018-02-11 00:29] LABS: ABS Basophils 0.1 10^3/ul (0-0.2); ABS Eosinophils 0.2 10^3/ul (0-0.6); ABS Lymphocytes 1.6 10^3/ul (1.0-4.8); ABS Neutrophils 6.4 10^3/ul (1.5-7.7); ABS Nucleated RBC 0 10^3/ul; Eosinophil % 1.7 %; Hematocrit 36 % (35-47); Lymphocyte % 17.3 %; Mean Corpuscular HGB Conc 33 g/dl (31-36); Mean Corpuscular Hemoglobin 27 pg (27-31); Mean Corpuscular Volume 81 fL (80-97); Mean Platelet Volume 8.5 fL (7.4-10.4); Nucleated Red Blood Cells % 0.5; Platelet Count 235 10^3/ul (150-450); Red Blood Count 4.49 10^6/ul (4.00-5.40); Red Cell Distribution Width 14 % (10.5-15); White Blood Count 9.2 10^3/ul (3.5-10.8)
[2018-02-11 00:38] LABS: INR 1.87 (0.77-1.02)
[2018-02-11 00:45] LABS: EGFR Non-African American 30.3 (>60)
[2018-02-11 05:11] VITALS: BP 137/81
== END 2018-02-11 05:08 | disposition home or self-care (01) ==
LOC: ED 22:30
DX: R07.9 Chest pain, unspecified (principal); E78.00 Pure hypercholesterolemia, unspecified; I10 Essential (primary) hypertension; Z86.711 Personal history of pulmonary embolism; E78.5 Hyperlipidemia, unspecified; Z94.0 Kidney transplant status
CPT/HCPCS: 36415; 71045; 80053; 83735; 84484; 85025; 85610; 85730; 93005; 96374; 96375; 99283

== ENCOUNTER 2018-04-15 12:27 | Emergency (ER) | payer OTHER ==
--- NOTE | 2018-04-15 12:41 | ED ---
HPI Chest Pain - HPI Summary HPI Summary: This pt is a 57 y/o female presenting to [facility] c/o chest pain since yesterday morning. Pt describes chest pain is constant and dull all across her chest. Pt notes she had exertion yesterday when she ambulated from the parking lot (that was far away) to [facility]. She notes she has also been having indigestion (for which she takes pantoprazole). Denies nausea, vomiting, SOB, lightheadedness. Pt currently rates her pain 2-3 out of 10 in severity. Pt has had chest pain in the past. Her last stress test was 1 year ago that resulted normal. She has never had a cardiac cath. Dr. Mckeon is her trichologist. PMHx: HTN, high cholesterol, kidney transplant 7 years ago at [facility]. - History of Current Complaint Chief Complaint: EDChestPainROMI Time Seen by Provider: 04/15/18 12:36 Hx Obtained From: Patient Onset/Duration: Started Days Ago - 1, Still Present Timing: Lasting Days - 1 Current Severity: Mild Pain Intensity: 3 Pain Scale Used: 0-10 Numeric Chest Pain Location: Diffuse Chest Pain Radiates: No Character: Dull/Aching - Dull pain Aggravating Factor(s): Nothing Alleviating Factor(s): Nothing Associated Signs and Symptoms: Positive: Chest Pain, Other: - POS: indigestion. Negative: Shortness of Breath, Fever, Chills, Lightheadedness, Nausea, Vomiting - Additional Pertinent History Primary Care Physician: [id number] - Allergy/Home Medications Allergies/Adverse Reactions: Allergies Allergy/AdvReac Type Severity Reaction Status Date / Time No Known Allergies Allergy Verified 04/15/18 12:32 Home Medications: Home Medications Icosapent Ethyl [Vascepa] 2 gm PO BID 04/15/18 [History Confirmed 04/15/18] PMH/Surg Hx/FS Hx/Imm Hx Endocrine/Hematology History: Denies: Hx Diabetes, Hx Thyroid Disease Cardiovascular History: Reports: Hx Angina, Hx Hypercholesterolemia, Hx Hypertension Denies: Hx Angioplasty, Hx Congestive Heart Failure, Hx Coronary Artery Disease, Hx Myocardial Infarction, Hx Pacemaker/ICD, Hx Valvular Heart Disease Respiratory History: Reports: Hx Pulmonary Embolism Denies: Hx Asthma, Hx Chronic Obstructive Pulmonary Disease (COPD), Hx Lung Cancer Comment Only: Other Respiratory Problems/Disorders - pe GI History: Reports: Hx Diverticulosis - 2011 Denies: Hx Cirrhosis, Hx Ulcer History: Reports: Hx Chronic Renal Failure - prior to renal transplant, Hx Renal Disease, Other Problems/Disorders - kidney transplant Musculoskeletal History: Reports: Hx Arthritis Sensory History: Reports: Hx Contacts or Glasses Denies: Hx Cataracts, Hx Eye Injury, Hx Eye Prosthesis, Hx Glaucoma, Hx Macular Degeneration, Hx Vision Problem, Hx Deafness, Hx Hearing Aid, Hx Hearing Problem, Other Sensory Impairments Opthamlomology History: Reports: Hx Contacts or Glasses Denies: Hx Cataracts, Hx Eye Injury, Hx Eye Prosthesis, Hx Glaucoma, Hx Macular Degeneration, Hx Vision Problem, Other Sensory Impairments Neurological History: Reports: Hx Headaches Denies: Hx Dementia, Hx Migraine, Hx Seizures, Hx Transient Ischemic Attacks (TIA) Psychiatric History: Reports: Hx Depression - r/t mother few days Denies: Hx Panic Disorder, Hx Post Traumatic Stress Disorder, Hx Suicide Attempt - Cancer History Hx Chemotherapy: No Hx Radiation Therapy: No - Surgical History Surgery Procedure, Year, and Place: RIGHT KIDNEY BIOPSY. kidney transplant see above. RT CATARACT. D&C. RT BREAST BIOPSY - Immunization History Date of Tetanus Vaccine: 2009 Date of Influenza Vaccine: 12/08/14 Infectious Disease History: No Infectious Disease History: Reports: Hx Shingles - 04/2016, History Other Infectious Disease - CMV Denies: Hx Clostridium Difficile, Hx Hepatitis, Hx Human Immunodeficiency Virus (HIV), Hx of Known/Suspected MRSA, Hx Tuberculosis, Hx Known/Suspected VRE , Hx Known/Suspected VRSA, Traveled Outside the [place] in Last 30 Days - Family History Known Family History: Positive: Cardiac Disease - CAD, Hypertension, Renal Disease, Other - Aneurysms; Breast CA - paternal aunt Negative: Diabetes - Social History Alcohol Use: None Hx Substance Use: No Substance Use Type: Reports: None Hx Tobacco Use: No Smoking Status (MU): Never Smoked Tobacco Review of Systems Negative: Fever Positive: Chest Pain Negative: Shortness Of Breath Gastrointestinal: Other - POS: indigestion Negative: Vomiting, Nausea Neurological: Other - NEG: lightheadedness All Other Systems Reviewed And Are Negative: Yes Physical Exam - Summary Physical Exam Summary: VITAL SIGNS: Reviewed. GENERAL: Patient is a well-developed and nourished female who is lying comfortable in the stretcher. Patient is not in any acute respiratory distress. HEAD AND FACE: No signs of trauma. No ecchymosis, hematomas or skull depressions. No sinus tenderness. EYES: PERRLA, EOMI x 2, No injected conjunctiva, no nystagmus. EARS: Hearing grossly intact. Ear canals and tympanic membranes are within normal limits. MOUTH: Oropharynx within normal limits. NECK: Supple, trachea is midline, no adenopathy, no JVD, no carotid bruit, no c- spine tenderness, neck with full ROM. CHEST: Symmetric, no tenderness at palpation LUNGS: Clear to auscultation bilaterally. No wheezing or crackles. CVS: Regular rate and rhythm, S1 and S2 present, no murmurs or gallops appreciated. ABDOMEN: Soft, non-tender. No signs of distention. No rebound, no guarding, and no masses palpated. Bowel sounds are normal. EXTREMITIES: FROM in all major joints, no edema, no cyanosis or clubbing. NEURO: Alert and oriented x 3. No acute neurological deficits. Speech is normal and follows commands. SKIN: Dry and warm Triage Information Reviewed: Yes Vital Signs On Initial Exam: Initial Vitals Temp Pulse Resp BP Pulse Ox 97.8 F 72 16 200/95 96 04/15/18 12:29 04/15/18 12:29 04/15/18 12:29 04/15/18 12:29 04/15/18 12:29 Vital Signs Reviewed: Yes Diagnostics - Vital Signs Vital Signs Temp Pulse Resp BP Pulse Ox 04/15/18 12:29 97.8 F 72 16 200/95 96 - Laboratory Result Diagrams: 04/15/18 13:09 04/15/18 13:09 Lab Statement: Any lab studies that have been ordered have been reviewed, and results considered in the medical decision making process. - Radiology Chest XR Radiology Interpretation Completed By: Radiologist Summary of Radiographic Findings: IMPRESSION: No active cardiopulmonary disease. Dr. Ochoa has reviewed this report. - EKG 12:34 Cardiac Rate: NL - at 71 bpm EKG Rhythm: Sinus Rhythm EKG Comparison: No Significant Change - similar to prior EKG on 02/10/18 Summary of EKG Findings: No ST elevations. Q wave in lead III. Chest Pain Course/Dx - Course Assessment/Plan: Blood work without any significant abnormality except for hemoglobin 11.4, INR is 2.63, sodium 132, BUN is 49, creatinine 1.69 which is at her baseline. Glucose is 118, magnesium 1.8, and 2 troponins four hours apart are both 0.00. Urinalysis is negative for UTI. Chest XR shows no active cardiopulmonary disease. Initially the patient reported burning pain in the epigastric area therefore the patient was given a GI cocktail and symptoms have resolved. The HEART score is equal to 1 therefore I have low suspicion for an acute coronary syndrome. I have no suspicion for PE since the patient isnt therapeutic INR. Since the patient is asymptomatic at this point she will be discharged home with follow-up from her primary care physician. I discussed all the findings and test results with the patient. Patient was instructed to return to the emergency room immediately if any of the symptoms return or worsens. Plan of care was discussed with the patient and understands and agrees. All questions were answered at patient satisfaction. There were no further complaints or concerns. Lung exam before discharge: CTA B/L. Good air exchange. No wheezing or crackles heard. CVS: S1 and S2 present. No murmurs appreciated. Patient is alert and oriented x 3. Patient is hemodynamically stable. Patient will be discharged home with follow up from PCP in the next 2-3 days. - Chest Pain Differential Diagnosis/HQI/PQRI: Acute SD, ACS, Angina, CHF, Chest Wall, GI Disease, Lower Respiratory Infection, Pulmonary Edema - Diagnoses Provider Diagnoses: Atypical chest pain Discharge - Sign-Out/Discharge Documenting (check all that apply): Patient Departure - discharge home Patient Received Moderate/Deep Sedation with Procedure: No - Discharge Plan Condition: Stable Disposition: HOME Patient Education Materials: Chest Pain (ED) Referrals: Christophe Muñzo MD [Primary Care Provider] - Additional Instructions: FOLLOW UP WITH YOUR PRIMARY CARE PROVIDER WITHIN ONE WEEK FOR HIGH BLOOD PRESSURE NOTED TODAY. RETURN TO THE ED FOR ANY NEW OR WORSENING SYMPTOMS. - Billing Disposition and Condition Condition: STABLE Disposition: Home - Attestation Statements Document Initiated by Scribe: Yes Documenting Scribe: Sherri Bowser Provider For Whom Jordiibe is Documenting (Include Credential): Codey Ochoa MD Scribe Attestation: Sherri Ren, scribed for Codey Ochoa MD on 04/17/18 at 2033. Scribe Documentation Reviewed: Yes Provider Attestation: The documentation as recorded by the scribe, Sherri Bowser accurately reflects the service I personally performed and the decisions made by me, Codey Ochoa MD Status of Zelda Document: Viewed
[2018-04-15] MEDS ORDERED: Al Hydrox/Mg Hydrox/Simet LIQ* 30 ML UDC PO ONE (12:42)
[2018-04-15] MEDS ORDERED: Lidocaine 2% VISCOUS* 15 ML UDC PO ONE (12:42)
--- OUTSIDE RECORDS SUMMARY | 2018-04-15 12:48 | XMS REPORT | Continuity of Care Document ---
:1960 External Reference #:[id number] Author Name Mary Moss Care Team Providers Name Role Phone Nickie Love M.D. Primary Care Physician Unavailable Payers Type Date Identification Numbers Payment Provider Subscriber Effective: Policy Number: [id number] Jace Vyas 2014 Group Number: [id number] [address] PayID: [id number] [place] [address] Advance Directives Description No Information Available Problems Date Description Provider Status Onset: 07/30/2017 [...] Active Onset: 05/15/2016 Gastroesophageal reflux disease Christophe Muñoz M.D. Active Onset: 08/28/2016 Chronic kidney disease stage 3 Bhavin Torres, Active Abigail,FACP Note: CreatClear 55 Onset: 10/09/2016 Urinary tract infectious disease Christophe Muñoz M.D. Active Onset: 02/12/2017 Bipolar affective disorder, Christophe Muñoz M.D. Active currently depressed, mild Onset: 02/12/2017 Mild recurrent major depression Christophe Muñoz M.D. Active Onset: 02/12/2017 Disorder of skin and/or Christophe Muñoz M.D. Active subcutaneous tissue Onset: [...] nephritis Social History Type Date Description Comments Sex Unknown Marital Status Single Lives With Alone Occupation [place] [employer] ETOH Use Denies alcohol use Tobacco Use Start: Unknown Patient has never smoked Recreational Drug Use Never Used Drugs Smoking Status Reviewed: 04/10/18 Patient has never smoked Exercise Type/Frequency Exercises rarely Allergies, Adverse Reactions, Alerts Date Description Reaction Status Severity Comments 07/12/2014 NKDA Active 07/12/2014 Anasthesia Nausea and Vomiting Active Mild Medications Medication Date Status Form Strength Qnty SIG Indications Ordering Provider Ezetimibe 04/10/ Active Tablets 10mg 30tab 1 by mouth E78.5 Nickie 2019 s every day MD Kate Vascepa 10/22/ Active Capsules 1gm 120ca Take Two E78.1 Char 2018 ps Capsules By MD Igor Mouth Twice A Day Feosol 07/09/ Active Tablets 200(65Fe) 30tab once daily D64.9 Christophe 2018 mg s Abigail Muñoz Pantoprazole 07/09/ Active Tablets DR 40mg 30tab 1 in the K21.9 Christophe Sodium 2018 s morning sofia Muñoz M.D. stomach Aspirin 04/07/ Active Chewtabs 81mg 04/10/18 Unknown 2017 reports not taking. 1 by mouth every day Ventolin HFA 03/19/ Active Aerosol 108(90Bas 24gm 2 puffs by J06.9 Christophe 2017 e) mouth four Pachikara, mcg/Act times a day M.D. as needed/ use spacer Blood Pressure 10/18/ Active Misc 1unit take your I10 Adelita Monitor Medium 2015 s bp 2x per Sonja Bañuelos M.D. Gengraf / Active Capsules 100mg 1 [...] Oxalate 2017 - s every day Pachikara, 05/27/ M.D. 2017 Pravastatin 04/21/ Hx Tablets 40mg 30tab 1 tablet by Christophe Sodium 2017 - s mouth once Pachikara, 10/01/ daily at M.D. 2018 bedtime Escitalopram 04/21/ Hx Tablets 5mg 30tab 1 1/2 by F33.0 Christophe Oxalate 2017 - mouth every Pachikara, 05/14/ day M.D. 2017 Amoxicillin/Cla 03/19/ Hx Tablets 875-125mg 14tab 1 by mouth J06.9 Christophe francisco 2017 - s twice a day Pachikara, Potassium 05/14/ M.D. 2017 Escitalopram 02/12/ Hx Tablets 5mg 30tab 1 by mouth F33.0 Dean Oxalate 2017 - s every day BERNY Devlin 2017 Amoxicillin/Cla 08/28/ Hx Tablets 875-125mg 14tab by mouth Bhavin francisco 2017 - s twice a day Cathy Gutiérrez 09/04/ M.D.,FACP 2017 Ativan 04/18/ Hx Tablets 0.5mg 14tab 1tab 12h Christophe 2016 - s jackson needed Wanda, 06/26/ for anxiety M.D. 2016 Azithromycin 11/21/ Hx Tablets 250mg 6tabs 2 tabs by J01.00 Dean 2016 - mouth every BERNY Devlin 11/26/ day x1 day, 2015 1 tab by mouth every day x 4 days Amoxicillin/Cla 10/23/ Hx Tablets 250-125mg 14tab 1 po bid Emmie francisco 2015 - s for 7 days Cotton Potassium 11/21/ M.D. 2015 Augmentin 10/23/ Hx Tablets 875-125mg 20tab one by Emmie 2015 Kyung s mouth every Black, 11/21/ 12 hours M.D. 2016 for 10 days Metoprolol 10/18/ Hx Tablets 50mg 45tab take one & I10 Adelita Tartrate 2015 - s one-half Sarmad 08/28/ tablets by MAnahi 2016 mouth in the morning and one at bedtime Omeprazole 04/25/ Hx Capsules 20mg 30cap take one Christophe 2015 Kyung SILVA s capsule by Wanda, 07/09/ mouth every M.D. 2017 day Amoxicillin 03/06/ Hx Tablets 500mg 14tab 1 tab by [id number] Mcginnis 2014 - s mouth twice BERNY Benites [...] 250mg 20tab one by 789.03 Adelita HCL 2014 - s mouth twice Sarmad, 01/03/ a day for M.D. 2014 10 days Amoxicillin 08/24/ Hx Tablets 875mg 20tab 1 by mouth 381.00 Ras 2015 - s twice a day BERNY Benites 2014 Metoprolol 01/19/ Hx Tablets ER 25mg 90tab 2 po qd Jarvis D. Succinate ER 2012 - 24HR s Brand, 10/18/ M.D. 2015 Sensipar / Hx Tablets 60mg 1 by mouth Unknown 0000 - every day 2015 Gengraf / Hx Capsules 75mg 1 po q pm Unknown 0000 - 2015 Prednisone // Hx Tablets 5mg 1 po qd Unknown (Vincent) 0000 - 2014 Omeprazole / Hx Capsules 20mg 30cap 1 by mouth Sarmad, 0000 - DR s every day Adelita, 2015 Magnesium /00/ Hx 64mg bid Unknown Chloride - 2015 Zocor / Hx Tablets 40mg 1 by mouth Unknown 0000 - every night 03/06/ at bedtime 2014 Warfarin Sodium 00/ Hx Tablets 3mg 1 by mouth Unknown 0000 - every day as 2017 instructed Cipro /00/ Hx Tablets 500mg 1 by mouth Unknown 0000 - twice a day 2015 Norvasc 00/00/ Hx Tablets 5mg 1 by mouth I10 Unknown 0000 - every day 2016 Virt-Phos 250 /00/ Hx Tablets 155-852-1 30tab 1 tab daily Other Neutral 0000 - 30mg s Ordering 05/14/ Provider 2017 Nifedipine ER 00/00/ Hx Tablets ER 30mg 30tab 1 by mouth Other 0000 - 24HR s every day Ordering Provider 2017 Erythromycin 00/00/ Hx Ointment 5mg/GM 3.500 apply to Other 0000 - gm left eyelid Ordering 05/14/ qid Provider 2017 Metoprolol 00/00/ Hx Tablets ER 25mg 30tab 1 by mouth Other Succinate ER 0000 - 24HR s every day Ordering 03/07/ Provider 2017 Sensipar 00/00/ Hx Tablets 30mg 30tab 1 by mouth Other 0000 - s every day Ordering 05/14/ Provider 2017 Folic Acid 00/00/ Hx Tablets 1mg 30tab take one Other 0000 - s tablet Ordering 04/12/ daily by Provider 2017 mouth Simvastatin 00/00/ Hx Tablets 40mg 90tab take 1 Other 0000 - s tablet by Ordering 05/14/ mouth at Provider 2017 bedtime Acyclovir 0000/ Hx Solution 500mg per iv Other Sodium 0000 - Rec infusion q Ordering 05/14/ 8 hrs Provider 2017 Augmentin 00/00/ Hx Tablets 500 1 by mouth Unknown 0000 - once a day 2016 Verapamil HCL 00/ Hx Caps ER 180mg 1 by mouth Unknown ER 0000 - 24HR every day 2017 Immunizations CPT Code Status Date Vaccine Reaction Lot # [id number] Given 12/20/2017 Influenza Virus Vaccine, Quadrivalent, Split, Preservative Free [id number] Given 12/26/2016 Pneumonia Vaccine [id number] 04787 Given 12/18/2016 Influenza Virus Vaccine, Quadrivalent, Split, Preservative Free 83215 Given 09/03/2016 Tdap - [id number] Tetanus/Diptheria/Acellular Pertussis 63201 Given 12/27/2015 Pneumococcal Conjugate no reaction noted .. [id number] Vaccine 13 Valent For hh Intramuscular Use [id number] Given 12/20/2015 Fluvirin Im [id number] And Older Vital Signs Date Vital Result Comment 04/10/2018 11:15am Height 64 inches 5'4" Weight 176.50 lb Heart Rate 66 /min BP Systolic 155 mmHg BP Diastolic 90 mmHg Body Temperature 97.9 F O2 % BldC Oximetry 98 % BMI (Body Mass Index) 30.3 kg/m2 01/15/2018 2:49pm Height 64 inches 5'4" Weight 173.00 lb Heart Rate 72 /min BP Systolic 131 mmHg BP Diastolic 86 mmHg BP Systolic Recheck 124 mmHg BP Diastolic Recheck 84 mmHg O2 % BldC Oximetry 96 % BMI (Body Mass Index) 29.7 kg/m2 10/22/2017 4:01pm Height 64 inches 5'4" Weight 171.00 lb Heart Rate 83 /min BP Systolic 122 mmHg BP Diastolic 83 mmHg O2 % BldC Oximetry 97 % BMI (Body Mass Index) 29.3 kg/m2 10/01/2017 4:05pm Height 64 inches 5'4" Weight 170.00 lb Heart Rate 77 /min BP Systolic Sitting 141 mmHg BP Diastolic Sitting 87 mmHg O2 % BldC Oximetry 97 % BMI (Body Mass Index) 29.2 kg/m2 07/09/2017 8:28am Weight 165.00 lb Heart Rate 73 /min BP Systolic 165 mmHg BP Diastolic 85 mmHg Body Temperature 97.9 F O2 % BldC Oximetry 99 % 06/18/2017 7:44am Weight 166.75 lb Heart Rate 74 /min BP Systolic 150 mmHg BP Diastolic 88 mmHg Body Temperature 98.3 F O2 % BldC Oximetry 97 % 05/27/2017 8:06am Weight 173.00 lb Heart Rate 67 /min BP Systolic 130 mmHg BP Diastolic 80 mmHg Body Temperature 97.7 F O2 % BldC Oximetry 98 % 05/14/2017 8:11am Weight 171.00 lb Heart Rate 78 /min BP Systolic 142 mmHg BP Diastolic 80 mmHg Body Temperature 97.8 F O2 % BldC Oximetry 97 % 04/21/2017 1:42pm Weight 170.50 lb Heart Rate 64 /min BP Systolic 134 mmHg BP Diastolic 74 mmHg Body Temperature 97.9 F O2 % BldC Oximetry 97 % 03/19/2017 3:12pm Height 64 inches 5'4" Weight 172.00 lb Heart Rate 67 /min BP Systolic 122 mmHg BP Diastolic 78 mmHg Body Temperature 97.0 F O2 % BldC Oximetry 97 % BMI (Body Mass Index) 29.5 kg/m2 02/12/2017 11:33am Height 64 inches 5'4" Weight 169.00 lb Heart Rate 69 /min BP Systolic 140 mmHg BP Diastolic 78 mmHg O2 % BldC Oximetry 97 % BMI (Body Mass Index) 29.0 kg/m2 10/09/2016 3:36pm Weight 168.50 lb Heart Rate 78 /min BP Systolic 130 mmHg BP Diastolic 80 mmHg Body Temperature 98.2 F O2 % BldC Oximetry 97 % 08/28/2016 2:52pm Weight 169.25 lb Heart Rate 78 /min BP Systolic Sitting 158 mmHg BP Diastolic Sitting 80 mmHg Body Temperature 98.0 F O2 % BldC Oximetry 97 % 06/26/2016 3:23pm Weight 169.25 lb Heart Rate 78 /min BP Systolic 146 mmHg BP Diastolic 92 mmHg Body Temperature 97.8 F O2 % BldC Oximetry 98 % 05/15/2016 9:51am Height 64 inches 5'4" Weight 171.50 lb Heart Rate 96 /min BP Systolic 140 mmHg BP Diastolic 80 mmHg Body Temperature 98.3 F O2 % BldC Oximetry 97 % BMI (Body Mass Index) 29.4 kg/m2 03/18/2016 11:23am Weight 170.25 lb Heart Rate 89 /min BP Systolic Sitting 170 mmHg BP Diastolic Sitting 88 mmHg Body Temperature 97.4 F O2 % BldC Oximetry 99 % 12/27/2015 3:08pm Weight 165.00 lb Heart Rate 78 /min BP Systolic Sitting 126 mmHg BP Diastolic Sitting 80 mmHg Respiratory Rate 15 /min O2 % BldC Oximetry 98 % 11/22/2015 3:36pm Weight 163.00 lb Heart Rate 78 /min BP Systolic Sitting 124 mmHg BP Diastolic Sitting 78 mmHg Respiratory Rate 15 /min Body Temperature 97.6 F O2 % BldC Oximetry 98 % 10/19/2015 9:45am Weight 160.00 lb Heart Rate 87 /min BP Systolic Sitting 182 mmHg 184/110 second check BP Diastolic Sitting 102 mmHg 184/110 second check Body Temperature 97.6 F O2 % BldC Oximetry 98 % 03/06/2015 12:10pm Height 64.5 inches 5'4.50" Weight 172.00 lb Heart Rate 102 /min BP Systolic 156 mmHg BP Diastolic 97 mmHg Body Temperature 101.1 F O2 % BldC Oximetry 97 % BMI (Body Mass Index) 29.1 kg/m2 01/10/2015 4:39pm Height 64.5 inches 5'4.50" Weight 168.00 lb Heart Rate 82 /min BP Systolic 140 mmHg BP Diastolic 90 mmHg Body Temperature 98.7 F BMI (Body Mass Index) 28.4 kg/m2 01/03/2015 4:17pm Weight 166.00 lb Heart Rate 82 /min BP Systolic Sitting 148 mmHg BP Diastolic Sitting 88 mmHg Body Temperature 97.1 F 09/23/2014 1:37pm Height 64.5 inches 5'4.50" Weight 159.00 lb Heart Rate 74 /min BP Systolic Sitting 122 mmHg BP Diastolic Sitting 80 mmHg Body Temperature 98.9 F O2 % BldC Oximetry 98 % BMI (Body Mass Index) 26.9 kg/m2 08/24/2014 3:08pm Height 64.5 inches 5'4.50" Weight 157.00 lb Heart Rate 84 /min BP Systolic Sitting 122 mmHg BP Diastolic Sitting 80 mmHg Body Temperature 98.6 F O2 % BldC Oximetry 96 % BMI (Body Mass Index) 26.5 kg/m2 07/22/2014 12:47pm Height 64.5 inches 5'4.50" Weight 162.00 lb Heart Rate 84 /min BP Systolic Sitting 124 mmHg BP Diastolic Sitting 80 mmHg Body Temperature 98.6 F O2 % BldC Oximetry 98 % BMI (Body Mass Index) 27.4 kg/m2 07/12/2014 3:11pm Height 64.5 inches 5'4.50" Weight 158.75 lb Heart Rate 85 /min BP Systolic Sitting 152 mmHg BP Diastolic Sitting 96 mmHg O2 % BldC Oximetry 96 % BMI (Body Mass Index) 26.8 kg/m2 Results Test Date Facility Test Result H/L Range Note CBC Auto Diff 02/20/2018 [facility] White Blood 7.6 10^3/uL N 3.5-10.[address] [place] [address] [phone] Red Blood Count 4.20 10^6/uL N 4.00-5.40 Hemoglobin 11.3 g/dL Low 12.0-16.0 Hematocrit 35 % N 35-47 Mean Corpuscular Volume 82 fL N 80-97 Mean Corpuscular Hemoglobin 27 pg N 27-31 Mean Corpuscular HGB Conc 33 g/dL N 31-36 Red Cell Distribution Width 14 % N 10.5-15 Platelet Count 257 10^3/uL N 150-450 Mean Platelet Volume 9.6 fL N 7.4-10.4 Abs Neutrophils 5.1 10^3/uL N 1.5-7.7 Abs Lymphocytes 1.5 10^3/uL N 1.0-4.8 Abs Monocytes 0.8 10^3/uL N 0-0.8 Abs Eosinophils 0.2 10^3/uL N 0-0.6 Abs Basophils 0.1 10^3/uL N 0-0.2 Abs Nucleated RBC 0 10^3/uL Granulocyte % 67.4 % Lymphocyte % 19.1 % Monocyte % 10.4 % Eosinophil % 2.3 % Basophil % 0.8 % Nucleated Red Blood Cells % 0 Renal Function Panel 02/20/2018 [facility] Albumin 3.7 g/dL N 3.2-5.[address] [place] [address] [phone] Calcium 9.7 mg/dL N 8.6-10.3 Co2 Carbon Dioxide 22 mmol/L N 22-32 Chloride 105 mmol/L N 101-111 Glucose 94 mg/dL N 70-100 Phosphorus 3.1 mg/dL N 2.5-5.0 Potassium 4.7 mmol/L N 3.5-5.0 Sodium 134 mmol/L Low 135-145 Blood Urea Nitrogen 63 mg/dL High 6-24 Anion Gap 7 mmol/L N 2-11 Creatinine 1.76 mg/dL High 0.51-0.95 BUN/Creatinine Ratio 35.8 High 8-20 Egfr Non- 29.9 >60 Egfr 36.1 >60 1 Liver Function 02/20/2018 [facility] Total Protein 6.7 g/dL N 6.4-8.[address] [place] [address] [phone] Globulin 3.0 g/dL N 2-4 Albumin/Globulin Ratio 1.2 N 1-3 Total Bilirubin 0.40 mg/dL N 0.2-1.0 Direct Bilirubin 0.10 mg/dL N 0.03-0.18 Indirect Bilirubin 0.3 mg/dL N 0.3-1.0 Alkaline Phosphatase 64 U/L N 34-104 Alt 13 U/L N 7-52 Ast 12 U/L Low 13-39 Laboratory test 02/20/2018 [facility] Total Protein 6 mg/dL finding [address] [place] [address] [phone] Urinalysis Profile 02/20/2018 [facility] Urine Color Straw [address] [place] [address] [phone] Urine Appearance Clear Urine Specific Roland 1.010 N 1.010-1.030 Urine pH 5.0 N 5-9 Urine Urobilinogen Negative Negative Urine Ketones Negative Negative Urine Protein Negative Negative Urine Leukocytes Negative Negative Urine Blood 1+ Abnormal Negative Urine Nitrite Negative Negative Urine Bilirubin Negative Negative Urine Glucose Negative Negative Urine White Blood Cell Trace(0-5/hpf) Absent Urine Red Blood Cell Trace(0-2/hpf) Absent Urine Bacteria 1+ Abnormal Absent Urine Squamous Epithelial Cell Present Abnormal Absent Urine Culture And 02/20/2018 [facility] Urine Culture SEE RESULT [address] [place] [address] [phone] Laboratory test 02/20/2018 [facility] Cyclosporine 127 [address] [place] [address] [phone] Laboratory test 02/11/2018 [facility] Partial Thrombo 34.6 N 26.[address] Time PTT seconds -36. [place] [address] 3 [phone] Inr/Protime 02/11/2018 [facility] Inr 1.87 High [address] -1.0 [place] [address] 2 [phone] Laboratory test 02/11/2018 [facility] Magnesium 1.6 mg/dL Low 1.9- finding [address] 2.7 [place] [address] [phone] Troponin-I (TnI) 0.00 ng/mL <0.04 4 Comp Metabolic Panel 02/11/2018 [facility] Sodium 130 mmol/L Low 135-[address] [place] [address] [phone] Potassium 4.8 mmol/L N 3.5-5.0 Chloride 103 mmol/L N 101-111 Co2 Carbon Dioxide 19 mmol/L Low 22-32 Anion Gap 8 mmol/L N 2-11 Glucose 100 mg/dL N 70-100 Blood Urea Nitrogen 59 mg/dL High 6-24 Creatinine 1.74 mg/dL High 0.51-0.95 BUN/Creatinine Ratio 33.9 High 8-20 Calcium 10.1 mg/dL N 8.6-10.3 Total Protein 7.2 g/dL N 6.4-8.9 Albumin 3.9 g/dL N 3.2-5.2 Globulin 3.3 g/dL N 2-4 Albumin/Globulin Ratio 1.2 N 1-3 Total Bilirubin 0.40 mg/dL N 0.2-1.0 Alkaline Phosphatase 67 U/L N 34-104 Alt 12 U/L N 7-52 Ast 11 U/L Low 13-39 Egfr Non- 30.3 >60 Egfr 36.6 >60 5 CBC Auto Diff 02/11/2018 [facility] White Blood 9.2 10^3/uL N 3.5-10.[address] [place] [address] [phone] Red Blood Count 4.49 10^6/uL N 4.00-5.40 Hemoglobin 12.0 g/dL N 12.0-16.0 Hematocrit 36 % N 35-47 Mean Corpuscular Volume 81 fL N 80-97 Mean Corpuscular Hemoglobin 27 pg N 27-31 Mean Corpuscular HGB Conc 33 g/dL N 31-36 Red Cell Distribution Width 14 % N 10.5-15 Platelet Count 235 10^3/uL N 150-450 Mean Platelet Volume 8.5 fL N 7.4-10.4 Abs Neutrophils 6.4 10^3/uL N 1.5-7.7 Abs Lymphocytes 1.6 10^3/uL N 1.0-4.8 Abs Monocytes 1.0 10^3/uL High 0-0.8 Abs Eosinophils 0.2 10^3/uL N 0-0.6 Abs Basophils 0.1 10^3/uL N 0-0.2 Abs Nucleated RBC 0 10^3/uL Granulocyte % 69.4 % Lymphocyte % 17.3 % Monocyte % 10.3 % Eosinophil % 1.7 % Basophil % 1.3 % Nucleated Red Blood Cells % 0.5 Laboratory test 02/11/2018 [facility] Troponin-I 0.00 ng/mL < 0.04 [address] (TnI) [place] [address] [phone] Inr/Protime 01/09/2018 [facility] Inr 2.23 High 0.77-1.[address] [place] [address] [phone] Urine Culture And 12/08/2017 [facility] Urine Culture SEE RESULT [address] [place] [address] [phone] Laboratory test 12/08/2017 [facility] Magnesium 1.6 mg/dL Low 1.9-2.7 [address] [place] [address] [phone] Renal Function 12/08/2017 [facility] Albumin 3.9 g/dL N 3.2- 5.[address] [place] [address] [phone] Calcium 9.3 mg/dL N 8.6-10.3 Co2 Carbon Dioxide 21 mmol/L Low 22-32 Chloride 104 mmol/L N 101-111 Glucose 94 mg/dL N 70-100 Phosphorus 3.0 mg/dL N 2.5-5.0 Potassium 4.6 mmol/L N 3.5-5.0 Sodium 134 mmol/L Low 135-145 Blood Urea Nitrogen 54 mg/dL High 6-24 Anion Gap 9 mmol/L N 2-11 Creatinine 1.72 mg/dL High 0.51-0.95 BUN/Creatinine Ratio 31.4 High 8-20 Egfr Non- 30.7 >60 Egfr 37.1 >60 9 Laboratory test 12/08/2017 [facility] Creatinine Random 57.46 mg /dL [address] [place] [address] [phone] Total Protein Random Urine 9 mg/dL 11 Urinalysis Profile 12/08/2017 [facility] Urine Color Straw [address] [place] [address] [phone] Urine Appearance Clear Urine Specific Roland 1.008 Low 1.010-1.030 Urine pH 5.0 N 5-9 Urine Urobilinogen Negative Negative Urine Ketones Negative Negative Urine Protein Negative Negative Urine Leukocytes Negative Negative Urine Blood 2+ Abnormal Negative Urine Nitrite Negative Negative Urine Bilirubin Negative Negative Urine Glucose Negative Negative Urine White Blood Cell Absent Absent Urine Red Blood Cell Trace(0-2/hpf) Absent Urine Bacteria Absent Absent Urine Squamous Epithelial Cell Present Abnormal Absent CBC Auto Diff 12/08/2017 [facility] White Blood 6.3 10^3/uL N 3.5-10.[address] [place] [address] [phone] Red Blood Count 4.32 10^6/uL N 4.00-5.40 Hemoglobin 11.2 g/dL Low 12.0-16.0 Hematocrit 35 % N 35-47 Mean Corpuscular Volume 81 fL N 80-97 Mean Corpuscular Hemoglobin 26 pg Low 27-31 Mean Corpuscular HGB Conc 32 g/dL N 31-36 Red Cell Distribution Width 14 % N 10.5-15 Platelet Count 220 10^3/uL N 150-450 Mean Platelet Volume 9.4 um3 N 7.4-10.4 Abs Neutrophils 3.6 10^3/uL N 1.5-7.7 Abs Lymphocytes 1.5 10^3/uL N 1.0-4.8 Abs Monocytes 0.8 10^3/uL N 0-0.8 Abs Eosinophils 0.3 10^3/uL N 0-0.6 Abs Basophils 0 10^3/uL N 0-0.2 Abs Nucleated RBC 0 10^3/uL Granulocyte % 58.3 % N 38-83 Lymphocyte % 24.4 % Low 25-47 Monocyte % 12.2 % High 0-7 Eosinophil % 4.4 % N 0-6 Basophil % 0.7 % N 0-2 Nucleated Red Blood Cells % 0.1 Laboratory test 12/08/2017 [facility] LDL Cholesterol 179 mg/dL [address] [place] [address] [phone] Lipid Profile 12/08/2017 [facility] Triglycerides 496 mg/dL 13 (Trig/Chol/HDL) [address] [place] [address] [phone] Cholesterol 348 mg/dL 14 HDL Cholesterol 41.2 mg/dL 15 LDL Cholesterol (SEE NOTE) mg/dL 16 Laboratory test 10/27/2017 [facility] Surgical Pathology SEE RESULT [address] [place] [address] [phone] Laboratory test 10/27/2017 [facility] Clotest SEE RESULT [address] [place] [address] [phone] Lipid Profile 10/10/2017 [facility] Triglycerides 618 mg/dL 19 (Trig/Chol/HDL) [address] [place] [address] [phone] Cholesterol 293 mg/dL 20 HDL Cholesterol 44.9 mg/dL 21 LDL Cholesterol (SEE NOTE) mg/dL 22 Laboratory test 10/10/2017 [facility] LDL 144 mg/dL [address] [place] [address] Direct [phone] Urine Culture 08/17/2017 [facility] Urine Culture SEE RESULT 24, And [address]OW [address] [place] [address] [phone] Poc Urinalysis 08/17/2017 [facility] Poc Glucose, Negative Negative [address] [place] [address] [phone] Poc Bilirubin, Urine Negative Negative Poc Ketone, Urine Negative Negative Poc Specific Roland, Urine 1.010 N 1.010-1.030 Poc Blood, Urine 2+ Abnormal Negative Poc pH, Urine 5.5 N 5-9 Poc Protein, Urine Negative Negative Poc Urobilinogen, Urine 0.2 Negative Poc Nitrite, Urine Positive Abnormal Negative Poc Leukocytes, Urine Trace Abnormal Negative Poc Color, Urine Yellow Poc Clarity, Urine Clear 26 Laboratory test 07/29/2017 [facility] Cyclosporine 32 [address] [place] [address] [phone] Urine Culture And 07/29/2017 [facility] Urine Culture SEE RESULT [address] [place] [address] [phone] CBC Auto Diff 07/29/2017 [facility] White Blood Count 8.6 10^3/ uL N 3.5- [address] 10[address]8 [place] [address] [phone] Red Blood Count 3.87 10^6/uL Low 4.0-5.4 Hemoglobin 9.7 g/dL Low 12.0-16.0 Hematocrit 30 % Low 35-47 Mean Corpuscular Volume 78 fL Low 80-97 Mean Corpuscular Hemoglobin 25 pg Low 27-31 Mean Corpuscular HGB Conc 33 g/dL N 31-36 Red Cell Distribution Width 14 % N 10.5-15 Platelet Count 279 10^3/uL N 150-450 Mean Platelet Volume 8.4 um3 N 7.4-10.4 Abs Neutrophils 5.2 10^3/uL N 1.5-7.7 Abs Lymphocytes 2.3 10^3/uL N 1.0-4.8 Abs Monocytes 0.9 10^3/uL High 0-0.8 Abs Eosinophils 0.2 10^3/uL N 0-0.6 Abs Basophils 0 10^3/uL N 0-0.2 Abs Nucleated RBC 0 10^3/uL Granulocyte % 60.4 % N 38-83 Lymphocyte % 26.4 % N 25-47 Monocyte % 10.6 % High 0-7 Eosinophil % 2.1 % N 0-6 Basophil % 0.5 % N 0-2 Nucleated Red Blood Cells % 0.1 Laboratory test 07/29/2017 [facility] Magnesium 1.6 mg/dL Low 1.9-2.7 finding [address] [place] [address] [phone] Liver Function 07/29/2017 [facility] Total Protein 6.4 g/dL N 6.4-8.9 Panel [address] [place] [address] [phone] Globulin 2.8 g/dL N 2-4 Albumin/Globulin Ratio 1.3 N 1-3 Total Bilirubin 0.30 mg/dL N 0.2-1.0 Direct Bilirubin 0.10 mg/dL N 0.03-0.18 Indirect Bilirubin 0.2 mg/dL Low 0.3-1.0 Alkaline Phosphatase 62 U/L N 34-104 Alt 11 U/L N 7-52 Ast 12 U/L Low 13-39 Renal Function Panel 07/29/2017 [facility] Albumin 3.6 g/dL N 3.2-5.2 [place] [address] [phone] Calcium 9.2 mg/dL N 8.6-10.3 Co2 Carbon Dioxide 21 mmol/L Low 22-32 Chloride 104 mmol/L N 101-111 Glucose 99 mg/dL N 70-100 Phosphorus 3.1 mg/dL N 2.5-5.0 Potassium 4.5 mmol/L N 3.5-5.0 Sodium 132 mmol/L Low 139-145 Blood Urea Nitrogen 48 mg/dL High 6-24 Anion Gap 7 mmol/L N 2-11 Creatinine 1.63 mg/dL High 0.51-0.95 BUN/Creatinine Ratio 29.4 High 8-20 Egfr Non- 32.8 >60 Egfr 42.1 >60 29 Laboratory test 07/29/2017 [facility] Creatinine Random 75.48 mg /dL finding 101 [facility] [place] [address] [phone] Total Protein Random Urine 14 mg/dL Urinalysis Profile 07/29/2017 [facility] Urine Color Yellow [address] [place] [address] [phone] Urine Appearance Cloudy Urine Specific Roland 1.011 N 1.010-1.030 Urine pH 5.0 N 5-9 Urine Urobilinogen Negative Negative Urine Ketones Negative Negative Urine Protein Negative Negative Urine Leukocytes Negative Negative Urine Blood 1+ Abnormal Negative Urine Nitrite Negative Negative Urine Bilirubin Negative Negative Urine Glucose Negative Negative Urine White Blood Cell 2+(11-20/hpf) Abnormal Absent Urine Red Blood Cell 2+(6-10/hpf) Abnormal Absent Urine Bacteria Absent Absent Urine Squamous Epithelial Cell Present Abnormal Absent Urine Amorphous Crystals Present Abnormal Absent Occult Blood,Stool 07/29/2017 [facility] Occult Blood Positive x 3 (3 Spec) - Stool Occult Blood,Stool 07/16/2017 [facility] House Occult Blood neg x3 (3 Spec) - Stool Iron & Iron Binding 07/14/2017 [facility] Iron 24 g/dL Low 50-212 [address] [place] [address] [phone] Unsaturated Iron Binding 379 g/dL Total Iron Binding Capacity 403 g/dL N 250-450 Transferrin 288 mg/dL N 203-362 % Iron Saturation 6 % Low 15-55 Iron & Iron Binding 06/18/2017 [facility] Iron 21 g/dL Low 50-212 [address] [place] [address] [phone] Unsaturated Iron Binding 384 g/dL Total Iron Binding Capacity 405 g/dL N 250-450 Transferrin 289 mg/dL N 203-362 % Iron Saturation 5 % Low 15-55 Laboratory test 06/18/2017 [facility] Vitamin D, 1,25 32 pg/mL 18-78 30 finding [address] [facility] [place] [address] [phone] Creatine Kinase(CK) 57 U/L N 10-223 Vitamin B12 And 06/18/2017 [facility] Vitamin B12 810 pg/mL N 180-914 31 Folate Serum [address] [place] [address] [phone] Folic Acid (Folate) > 20.00 ng/mL >3.99 CBC Auto Diff 06/18/2017 [facility] White Blood 7.9 10^3/uL N 3.5-10.8 [address] [place] [address] [phone] Red Blood Count 3.87 10^6/uL Low 4.0-5.4 Hemoglobin 10.1 g/dL Low 12.0-16.0 Hematocrit 32 % Low 35-47 Mean Corpuscular Volume 81 fL N 80-97 Mean Corpuscular Hemoglobin 26 pg Low 27-31 Mean Corpuscular HGB Conc 32 g/dL N 31-36 Red Cell Distribution Width 14 % N 10.5-15 Platelet Count 275 10^3/uL N 150-450 Mean Platelet Volume 9.3 um3 N 7.4-10.4 Abs Neutrophils 5.0 10^3/uL N 1.5-7.7 Abs Lymphocytes 1.6 10^3/uL N 1.0-4.8 Abs Monocytes 1.0 10^3/uL High 0-0.8 Abs Eosinophils 0.2 10^3/uL N 0-0.6 Abs Basophils 0.1 10^3/uL N 0-0.2 Abs Nucleated RBC 0 10^3/uL Granulocyte % 64.1 % N 38-83 Lymphocyte % 20.3 % Low 25-47 Monocyte % 12.7 % High 0-7 Eosinophil % 2.1 % N 0-6 Basophil % 0.8 % N 0-2 Nucleated Red Blood Cells % 0 Laboratory test 06/18/2017 [facility] TSH (Thyroid 0.99 N 0.34 -5.[address] Stim Horm) mcIU/[place] [address] [phone] Inr/Protime 06/16/2017 [facility] Inr 2.91 High 0.77-1.[address] [place] [address] [phone] CBC Auto Diff 05/14/2017 [facility] White Blood 8.5 10^3/uL N 3.5-10.[address] [place] [address] [phone] Red Blood Count 3.70 10^6/uL Low 4.0-5.4 Hemoglobin 10.3 g/dL Low 12.0-16.0 Hematocrit 32 % Low 35-47 Mean Corpuscular Volume 85 fL N 80-97 Mean Corpuscular Hemoglobin 28 pg N 27-31 Mean Corpuscular HGB Conc 33 g/dL N 31-36 Red Cell Distribution Width 15 % N 10.5-15 Platelet Count 255 10^3/uL N 150-450 Mean Platelet Volume 10 um3 N 7.4-10.4 Abs Neutrophils 5.9 10^3/uL N 1.5-7.7 Abs Lymphocytes 1.6 10^3/uL N 1.0-4.8 Abs Monocytes 0.8 10^3/uL N 0-0.8 Abs Eosinophils 0.2 10^3/uL N 0-0.6 Abs Basophils 0.1 10^3/uL N 0-0.2 Abs Nucleated RBC 0 10^3/uL Granulocyte % 68.7 % N 38-83 Lymphocyte % 18.8 % Low 25-47 Monocyte % 9.4 % High 0-7 Eosinophil % 2.2 % N 0-6 Basophil % 0.9 % N 0-2 Nucleated Red Blood Cells % 0 Laboratory test 05/14/2017 [facility] Erythrocyte Sed 29 mm/Hr N 0-30 [address] [place] [address] [phone] Laboratory test 04/23/2017 [facility] Cyclosporine 309 [address] [place] [address] [phone] Urine Culture And 04/23/2017 [facility] Urine Culture SEE [address] [place] [address] BELOW [phone] Laboratory test 04/23/2017 [facility] Magnesium 1.7 mg/dL Low 1.9-2.[address] [place], [place] [id number] [phone] Creatinine Random Urine 54.20 mg/dL Total Protein Random Urine 9 mg/dL Liver Function 04/23/2017 [facility] Total Protein 6.6 g/dL N 6.4-8.[address] [place], [place] [id number] [phone] Globulin 2.8 g/dL N 2-4 Albumin/Globulin Ratio 1.4 N 1-3 Total Bilirubin 0.50 mg/dL N 0.2-1.0 Direct Bilirubin 0.10 mg/dL N 0.03-0.18 Indirect Bilirubin 0.4 mg/dL N 0.3-1.0 Alkaline Phosphatase 71 U/L N 34-104 Alt 16 U/L N 7-52 Ast 12 U/L Low 13-39 Renal Function Panel 04/23/2017 [facility] Albumin 3.8 g/dL N 3.2-5.[address] [place] [address] [phone] Calcium 9.8 mg/dL N 8.6-10.3 Co2 Carbon Dioxide 25 mmol/L N 22-32 Chloride 100 mmol/L Low 101-111 Glucose 84 mg/dL N 70-100 Phosphorus 2.8 mg/dL N 2.5-5.0 Potassium 4.7 mmol/L N 3.5-5.0 Sodium 131 mmol/L Low 133-145 Blood Urea Nitrogen 47 mg/dL High 6-24 Anion Gap 6 mmol/L N 2-11 Creatinine 1.67 mg/dL High 0.51-0.95 BUN/Creatinine Ratio 28.1 High 8-20 Egfr Non- 31.9 >60 Egfr 41.0 >60 37 Urinalysis Profile 04/23/2017 [facility] Urine Color Straw [address] [place] [address] [phone] Urine Appearance Clear Urine Specific Roland 1.008 Low 1.010-1.030 Urine pH 5.0 N 5-9 Urine Urobilinogen Negative Negative Urine Ketones Negative Negative Urine Protein Negative Negative Urine Leukocytes Negative Negative Urine Blood 2+ Abnormal Negative Urine Nitrite Negative Negative Urine Bilirubin Negative Negative Urine Glucose Negative Negative Urine White Blood Cell Trace(0-5/hpf) Absent Urine Red Blood Cell Trace(0-2/hpf) Absent Urine Bacteria 1+ Abnormal Absent Urine Squamous Epithelial Cell Present Abnormal Absent CBC Auto Diff 04/23/2017 [facility] White Blood 8.2 10^3/uL N 3.5-10.[address] [place] [address] [phone] Red Blood Count 4.25 10^6/uL N 4.0-5.4 Hemoglobin 11.7 g/dL Low 12.0-16.0 Hematocrit 36 % N 35-47 Mean Corpuscular Volume 84 fL N 80-97 Mean Corpuscular Hemoglobin 27 pg N 27-31 Mean Corpuscular HGB Conc 33 g/dL N 31-36 Red Cell Distribution Width 14 % N 10.5-15 Platelet Count 221 10^3/uL N 150-450 Mean Platelet Volume 9 um3 N 7.4-10.4 Abs Neutrophils 4.9 10^3/uL N 1.5-7.7 Abs Lymphocytes 2.1 10^3/uL N 1.0-4.8 Abs Monocytes 0.9 10^3/uL High 0-0.8 Abs Eosinophils 0.2 10^3/uL N 0-0.6 Abs Basophils 0 10^3/uL N 0-0.2 Abs Nucleated RBC 0 10^3/uL Granulocyte % 59.9 % N 38-83 Lymphocyte % 25.6 % N 25-47 Monocyte % 11.4 % High 1-9 Eosinophil % 2.5 % N 0-6 Basophil % 0.6 % N 0-2 Nucleated Red Blood Cells % 0.1 CBC Auto 04/06/2017 [facility] White Blood 11.4 10^3/uL High 3.5-10.[address] [place] [address] [phone] Red Blood Count 4.50 10^6/uL N 4.0-5.4 Hemoglobin 12.2 g/dL N 12.0-16.0 Hematocrit 37 % N 35-47 Mean Corpuscular Volume 83 fL N 80-97 Mean Corpuscular Hemoglobin 27 pg N 27-31 Mean Corpuscular HGB Conc 33 g/dL N 31-36 Red Cell Distribution Width 15 % N 10.5-15 Platelet Count 248 10^3/uL N 150-450 Mean Platelet Volume 9 um3 N 7.4-10.4 Abs Neutrophils 9.0 10^3/uL High 1.5-7.7 Abs Lymphocytes 1.4 10^3/uL N 1.0-4.8 Abs Monocytes 0.8 10^3/uL N 0-0.8 Abs Eosinophils 0.1 10^3/uL N 0-0.6 Abs Basophils 0 10^3/uL N 0-0.2 Abs Nucleated RBC 0 10^3/uL Granulocyte % 79.6 % N 38-83 Lymphocyte % 12.7 % Low 25-47 Monocyte % 7.0 % N 1-9 Eosinophil % 0.5 % N 0-6 Basophil % 0.2 % N 0-2 Nucleated Red Blood Cells % 0 Laboratory test 04/06/2017 [facility] B-Type 100 pg/mL [address] [place] [address] Peptide BNP [phone] Inr/Protime 04/06/2017 [facility] Inr 3.61 High 0.[address] -1.0 [place] [address] 2 [phone] Laboratory test 04/06/2017 [facility] Partial Thrombo 52.6 seconds High 26.[address] Time PTT -36. [place] [address] 3 [phone] Lactic Acid 0.6 mmol/L N 0.5-2.0 39 Comp Metabolic Panel 04/06/2017 [facility] Sodium 130 mmol/L Low 133-[address] [place] [address] [phone] Chloride 104 mmol/L N 101-111 Co2 Carbon Dioxide 19 mmol/L Low 22-32 Glucose 131 mg/dL High 70-100 Blood Urea Nitrogen 57 mg/dL High 6-24 Creatinine 1.84 mg/dL High 0.51-0.95 BUN/Creatinine Ratio 31.0 High 8-20 Calcium 10.0 mg/dL N 8.6-10.3 Total Protein 7.6 g/dL N 6.4-8.9 Albumin 4.0 g/dL N 3.2-5.2 Globulin 3.6 g/dL N 2-4 Albumin/Globulin Ratio 1.1 N 1-3 Total Bilirubin 0.50 mg/dL N 0.2-1.0 Alkaline Phosphatase 71 U/L N 34-104 Alt 15 U/L N 7-52 Ast 12 U/L Low 13-39 Egfr Non- 28.5 >60 Egfr 36.6 >60 40 Potassium 5.1 mmol/L High 3.5-5.0 Anion Gap 7 mmol/L N 2-11 Laboratory test 04/06/2017 [facility] Troponin-I 0.00 <0.04 finding (TnI) ng/mL [place], [place] [id number] [phone] Inr/Protime 03/26/2017 [facility] Inr 3.11 High 0.77-1.[address] [place] [address] [phone] Laboratory test 03/07/2017 [facility] Magnesium 1.8 mg/dL Low 1.9-2.[address] [place] [address] [phone] Creatine Kinase(CK) 44 U/L N 10-223 Troponin-I (TnI) 0.01 ng/mL <0.04 Thyroxine 9.56 g/mL N 6.09-12.23 TSH (Thyroid Stim Horm) 0.86 mcIU/mL N 0.34-5.60 Comp Metabolic Panel 03/07/2017 [facility] Sodium 136 mmol/L N 133-145 [address] [place] [address] [phone] Potassium 4.8 mmol/L N 3.5-5.0 Chloride 107 mmol/L N 101-111 Co2 Carbon Dioxide 21 mmol/L Low 22-32 Anion Gap 8 mmol/L N 2-11 Glucose 104 mg/dL High 70-100 Blood Urea Nitrogen 42 mg/dL High 6-24 Creatinine 1.68 mg/dL High 0.51-0.95 BUN/Creatinine Ratio 25.0 High 8-20 Calcium 10.0 mg/dL N 8.6-10.3 Total Protein 7.4 g/dL N 6.4-8.9 Albumin 3.8 g/dL N 3.2-5.2 Globulin 3.6 g/dL N 2-4 Albumin/Globulin Ratio 1.1 N 1-3 Total Bilirubin 0.40 mg/dL N 0.2-1.0 Alkaline Phosphatase 65 U/L N 34-104 Alt 14 U/L N 7-52 Ast 13 U/L N 13-39 Egfr Non- 31.6 >60 Egfr 40.7 >60 41 Laboratory test 03/07/2017 [facility] Partial 40.5 High 26.0- 36.[address] [place] [address] Time PTT [phone] Inr/Protime 03/07/2017 [facility] Inr 1.89 High 0.77-1.[address] [place] [address] [phone] Laboratory test 03/07/2017 [facility] Troponin-I 0.00 ng/mL < 0.[address] (TnI) [place] [address] [phone] Laboratory test 03/07/2017 [facility] Troponin-I 0.00 ng/mL < 0.[address] (TnI) [place] [address] [phone] CBC Auto Diff 03/07/2017 [facility] White Blood 7.5 10^3/uL N 3.5-10.8 [address] [place] [address] [phone] Red Blood Count 4.52 10^6/uL N 4.0-5.4 Hemoglobin 12.2 g/dL N 12.0-16.0 Hematocrit 37 % N 35-47 Mean Corpuscular Volume 82 fL N 80-97 Mean Corpuscular Hemoglobin 27 pg N 27-31 Mean Corpuscular HGB Conc 33 g/dL N 31-36 Red Cell Distribution Width 15 % N 10.5-15 Platelet Count 233 10^3/uL N 150-450 Mean Platelet Volume 9 um3 N 7.4-10.4 Abs Neutrophils 5.1 10^3/uL N 1.5-7.7 Abs Lymphocytes 1.3 10^3/uL N 1.0-4.8 Abs Monocytes 0.9 10^3/uL High 0-0.8 Abs Eosinophils 0.1 10^3/uL N 0-0.6 Abs Basophils 0 10^3/uL N 0-0.2 Abs Nucleated RBC 0 10^3/uL Granulocyte % 68.4 % N 38-83 Lymphocyte % 18.0 % Low 25-47 Monocyte % 11.6 % High 1-9 Eosinophil % 1.5 % N 0-6 Basophil % 0.5 % N 0-2 Nucleated Red Blood Cells % 0 Laboratory test 03/07/2017 [facility] Lactic Acid 1.3 mmol/L N 0.5-2.0 [address] [place] [address] [phone] B-Type Natriuretic Peptide BNP 79 pg/mL 44 Urinalysis Profile 09/18/2016 [facility] Urine Color Yellow N [address] [place] [address] [phone] Urine Appearance Cloudy N Urine Specific Roland 1.009 Low 1.010-1.030 Urine pH 5.0 N 5-9 Urine Urobilinogen Negative N Negative Urine Ketones Negative N Negative Urine Protein Negative N Negative Urine Leukocytes 3+ Abnormal Negative Urine Blood 2+ Abnormal Negative Urine Nitrite Negative N Negative Urine Bilirubin Negative N Negative Urine Glucose Negative N Negative Urine White Blood Cell 3+(>20/hpf) Abnormal Absent Urine Red Blood Cell Trace(0-2/hpf) N Absent Urine Bacteria Absent N Absent Urine Culture And 09/18/2016 [facility] Urine Culture SEE RESULT [address] [place] [address] [phone] Urine Culture And 08/28/2016 [facility] Urine Culture SEE RESULT 46, [address] [place] [address] [phone] Ua Routine 08/28/2016 [facility] Ua Specific 1.015 Roland Ua PH 5 Ua Color yellow Ua Appera clear Ua WBC + Ua Protein trace Ua Glucose normal Ua Ketones neg Ua Bilirubin neg Ua Urobilinogen normal Ua Nitrite neg Ua Occult Blood about 50 Laboratory test 08/07/2016 [facility] Lipase 111 U/L High 11.0 -82.[address] [place] [address] [phone] C Reactive Protein 85.19 mg/L High < 5.00 48 Pathologist Review (SEE NOTE) N 49 Blood Culture SEE RESULT BELOW 50 Comp Metabolic Panel 08/07/2016 [facility] Sodium 129 mmol/L Low 133-[address] [place] [address] [phone] Potassium 4.4 mmol/L N 3.5-5.0 Chloride 100 mmol/L Low 101-111 Co2 Carbon Dioxide 20 mmol/L Low 22-32 Anion Gap 9 mmol/L N 2-11 Glucose 116 mg/dL High 70-100 Blood Urea Nitrogen 39 mg/dL High 6-24 Creatinine 1.51 mg/dL High 0.51-0.95 BUN/Creatinine Ratio 25.8 High 8-20 Calcium 9.5 mg/dL N 8.6-10.3 Total Protein 7.1 g/dL N 6.4-8.9 Albumin 3.7 g/dL N 3.2-5.2 Globulin 3.4 g/dL N 2-4 Albumin/Globulin Ratio 1.1 N 1-3 Total Bilirubin 0.50 mg/dL N 0.2-1.0 Alkaline Phosphatase 73 U/L N 34-104 Alt 14 U/L N 7-52 Ast 12 U/L Low 13-39 Egfr Non- 35.9 N >60 Egfr 46.2 N >60 51 Manual Differential 08/07/2016 [facility] Immature 5 % N 0-[address] [place] [address] [phone] Neutrophil % 71 % N 38-83 Band % 5 % N 0-8 Lymphocytes % 13 % Low 25-47 Monocytes % 11 % N 0-13 Macrocytosis 1+ N Hypochromasia 1+ N CBC Auto 08/07/2016 [facility] White Blood 11.9 10^3/uL High 3.5-10.[address] [place] [address] [phone] Red Blood Count 4.13 10^6/uL N 4.0-5.4 Hemoglobin 10.1 g/dL Low 12.0-16.0 Hematocrit 32 % Low 35-47 Mean Corpuscular Volume 77 fL Low 80-97 Mean Corpuscular Hemoglobin 25 pg Low 27-31 Mean Corpuscular HGB Conc 32 g/dL N 31-36 Red Cell Distribution Width 18 % High 10.5-15 Platelet Count 191 10^3/uL N 150-450 Mean Platelet Volume 9 um3 N 7.4-10.4 Abs Neutrophils 8.9 10^3/uL High 1.5-7.7 Abs Lymphocytes 1.1 10^3/uL N 1.0-4.8 Abs Monocytes 1.8 10^3/uL High 0-0.8 Abs Eosinophils 0.1 10^3/uL N 0-0.6 Abs Basophils 0.1 10^3/uL N 0-0.2 Abs Nucleated RBC 0.01 10^3/uL N Urinalysis Profile 08/07/2016 [facility] Urine Color Yellow N [address] [place] [address] [phone] Urine Appearance Cloudy N Urine Specific Roland 1.008 Low 1.010-1.030 Urine pH 5.0 N 5-9 Urine Urobilinogen Negative N Negative Urine Ketones Negative N Negative Urine Protein Negative N Negative Urine Leukocytes 3+ Abnormal Negative Urine Blood 2+ Abnormal Negative Urine Nitrite Negative N Negative Urine Bilirubin Negative N Negative Urine Glucose Negative N Negative Urine White Blood Cell 3+(>20/hpf) Abnormal Absent Urine Red Blood Cell Trace(0-2/hpf) N Absent Urine Bacteria 1+ Abnormal Absent Urine Squamous Epithelial Cell Present Abnormal Absent Laboratory test 08/07/2016 [facility] Lactic Acid 0.5 mmol/L N 0.5-2.0 [address] [place] [address] [phone] Urine Culture And 08/06/2016 [facility] Urine SEE RESULT 53 , Sensitivities [address] Culture BELOW 54 [place], [place] [id number] [phone] Poc Urinalysis 08/06/2016 [facility] Poc Negative N Negative [address] Glucose, [place] [address] Urine [phone] Poc Bilirubin, Urine Negative N Negative Poc Ketone, Urine Negative N Negative Poc Specific Roland, Urine <=1.005 Low 1.010-1.030 Poc Blood, Urine 2+ Abnormal Negative Poc pH, Urine 5.0 N 5-9 Poc Protein, Urine Negative N Negative Poc Urobilinogen, Urine 0.2 N Negative Poc Nitrite, Urine Negative N Negative Poc Leukocytes, Urine 1+ Abnormal Negative Poc Color, Urine Light yellow N Poc Clarity, Urine Slightly Cloudy N 55 Laboratory test 05/27/2016 [facility] Cyclosporine 173 N [address] [place] [address] [phone] Urine Culture And 05/27/2016 [facility] Urine Culture SEE RESULT [address] [place] [address] [phone] Laboratory test 05/27/2016 [facility] Magnesium 2.0 mg/dL N 1.9- [address] 2.7 [place] [address] [phone] Creatinine Random Urine 101.80 mg/dL N Urine Protein Negative N Negative Liver Function 05/27/2016 [facility] Total Protein 7.1 g/dL N 6.4-8.[address] [place] [address] [phone] Globulin 3.3 g/dL N 2-4 Albumin/Globulin Ratio 1.2 N 1-3 Total Bilirubin 0.40 mg/dL N 0.2-1.0 Direct Bilirubin 0.00 mg/dL Low 0.03-0.18 Alkaline Phosphatase 72 U/L N 34-104 Alt 12 U/L N 7-52 Ast 13 U/L N 13-39 Renal Function Panel 05/27/2016 [facility] Albumin 3.8 g/dL N 3.2-5.[address] [place] [address] [phone] Calcium 10.5 mg/dL High 8.6-10.3 Co2 Carbon Dioxide 22 mmol/L N 22-32 Chloride 104 mmol/L N 101-111 Glucose 93 mg/dL N 70-100 Phosphorus 3.3 mg/dL N 2.5-5.0 Potassium 4.7 mmol/L N 3.5-5.0 Sodium 135 mmol/L N 133-145 Blood Urea Nitrogen 39 mg/dL High 6-24 Anion Gap 9 mmol/L N 2-11 Creatinine 1.54 mg/dL High 0.51-0.95 BUN/Creatinine Ratio 25.3 High 8-20 Egfr Non- 35.1 N >60 Egfr 45.1 N >60 59 CBC Auto 05/27/2016 [facility] White Blood 10.9 10^3/uL High 3.5-10.[address] [place] [address] [phone] Red Blood Count 4.20 10^6/uL N 4.0-5.4 Hemoglobin 10.7 g/dL Low 12.0-16.0 Hematocrit 33 % Low 35-47 Mean Corpuscular Volume 79 fL Low 80-97 Mean Corpuscular Hemoglobin 26 pg Low 27-31 Mean Corpuscular HGB Conc 32 g/dL N 31-36 Red Cell Distribution Width 16 % High 10.5-15 Platelet Count 334 10^3/uL N 150-450 Mean Platelet Volume 9 um3 N 7.4-10.4 Abs Neutrophils 7.6 10^3/uL N 1.5-7.7 Abs Lymphocytes 2.0 10^3/uL N 1.0-4.8 Abs Monocytes 1.0 10^3/uL High 0-0.8 Abs Eosinophils 0.2 10^3/uL N 0-0.6 Abs Basophils 0.1 10^3/uL N 0-0.2 Abs Nucleated RBC 0.01 10^3/uL N Granulocyte % 69.9 % N 38-83 Lymphocyte % 18.1 % Low 25-47 Monocyte % 9.3 % High 1-9 Eosinophil % 2.0 % N 0-6 Basophil % 0.7 % N 0-2 Nucleated Red Blood Cells % 0.1 N Urinalysis Profile 05/27/2016 [facility] Urine Color Yellow N [address] [place] [address] [phone] Urine Appearance Clear N Urine Specific Roland 1.012 N 1.010-1.030 Urine pH 5.0 N 5-9 Urine Urobilinogen Negative N Negative Urine Ketones Negative N Negative Urine Protein Negative N Negative Urine Leukocytes 1+ Abnormal Negative Urine Blood 2+ Abnormal Negative Urine Nitrite Negative N Negative Urine Bilirubin Negative N Negative Urine Glucose Negative N Negative Urine White Blood Cell 3+(>20/hpf) Abnormal Absent Urine Red Blood Cell 1+(3-5/hpf) Abnormal Absent Urine Bacteria Absent N Absent Urine Squamous Epithelial Cell Present Abnormal Absent Inr/Protime 04/06/2016 [facility] Inr 2.56 High 0.89-1.11 [address] [place] [address] [phone] Comp Metabolic 04/06/2016 [facility] Sodium 134 mmol/L N 133- 145 Panel [address] [place] [address] [phone] Potassium 3.4 mmol/L Low 3.5-5.0 Chloride 102 mmol/L N 101-111 Co2 Carbon Dioxide 22 mmol/L N 22-32 Anion Gap 10 mmol/L N 2-11 Glucose 166 mg/dL High 70-100 Blood Urea Nitrogen 34 mg/dL High 6-24 Creatinine 1.43 mg/dL High 0.51-0.95 BUN/Creatinine Ratio 23.8 High 8-20 Calcium 10.1 mg/dL N 8.6-10.3 Total Protein 6.9 g/dL N 6.4-8.9 Albumin 3.8 g/dL N 3.2-5.2 Globulin 3.1 g/dL N 2-4 Albumin/Globulin Ratio 1.2 N 1-3 Total Bilirubin 0.50 mg/dL N 0.2-1.0 Alkaline Phosphatase 69 U/L N 34-104 Alt 15 U/L N 7-52 Ast 13 U/L N 13-39 Egfr Non- 38.2 N >60 Egfr 49.2 N >60 60 Laboratory test 04/06/2016 [facility] Lactic Acid 2.2 mmol/L High 0.5-2.0 61 finding [address] [place] [address] [phone] Erythrocyte Sed Rate 25 mm/Hr N 0-30 Blood Culture SEE RESULT BELOW 62 Laboratory test 03/30/2016 [facility] Cyclosporine [address] [place] [address] [phone] Urine Culture And 03/30/2016 [facility] Urine Culture SEE RESULT [address] [place] [address] [phone] CBC Auto Diff 03/30/2016 [facility] White Blood Count 7.7 10^3/ uL N 3.5- [address] 10.8 [place] [address] [phone] Red Blood Count 4.71 10^6/uL N 4.0-5.4 Hemoglobin 12.5 g/dL N 12.0-16.0 Hematocrit 38 % N 35-47 Mean Corpuscular Volume 82 fL N 80-97 Mean Corpuscular Hemoglobin 27 pg N 27-31 Mean Corpuscular HGB Conc 33 g/dL N 31-36 Red Cell Distribution Width 14 % N 10.5-15 Platelet Count 233 10^3/uL N 150-450 Mean Platelet Volume 9 um3 N 7.4-10.4 Abs Neutrophils 5.1 10^3/uL N 1.5-7.7 Abs Lymphocytes 1.4 10^3/uL N 1.0-4.8 Abs Monocytes 0.9 10^3/uL High 0-0.8 Abs Eosinophils 0.1 10^3/uL N 0-0.6 Abs Basophils 0 10^3/uL N 0-0.2 Abs Nucleated RBC 0.01 10^3/uL N Granulocyte % 67.2 % N 38-83 Lymphocyte % 18.3 % Low 25-47 Monocyte % 12.3 % High 1-9 Eosinophil % 1.7 % N 0-6 Basophil % 0.5 % N 0-2 Nucleated Red Blood Cells % 0.1 N Laboratory test 03/30/2016 [facility] Uric Acid 6.7 mg/dL High 2.3-6.[address] [place] [address] [phone] Phosphorus 2.9 mg/dL N 2.5-5.0 Magnesium 1.6 mg/dL Low 1.9-2.7 Liver Function 03/30/2016 [facility] Direct 0.10 mg/dL N 0.03- 0.[address] [place] [address] [phone] Indirect Bilirubin 0.4 mg/dL N 0.3-1.0 Lipid Profile 03/30/2016 [facility] Triglycerides 467 mg/dL N 65 (Trig/Chol/HDL) [address] [place] [address] [phone] Cholesterol 290 mg/dL N 66 HDL Cholesterol 56.2 mg/dL N 67 LDL Cholesterol (SEE NOTE) mg/dL N 68 Comp Metabolic Panel 03/30/2016 [facility] Sodium 137 mmol/L N 133-145 [address] [place] [address] [phone] Potassium 3.9 mmol/L N 3.5-5.0 Chloride 103 mmol/L N 101-111 Co2 Carbon Dioxide 27 mmol/L N 22-32 Anion Gap 7 mmol/L N 2-11 Glucose 96 mg/dL N 70-100 Blood Urea Nitrogen 36 mg/dL High 6-24 Creatinine 1.29 mg/dL High 0.51-0.95 BUN/Creatinine Ratio 27.9 High 8-20 Calcium 10.1 mg/dL N 8.6-10.3 Total Protein 6.6 g/dL N 6.4-8.9 Albumin 3.9 g/dL N 3.2-5.2 Globulin 2.7 g/dL N 2-4 Albumin/Globulin Ratio 1.4 N 1-3 Total Bilirubin 0.50 mg/dL N 0.2-1.0 Alkaline Phosphatase 68 U/L N 34-104 Alt 15 U/L N 7-52 Ast 13 U/L N 13-39 Egfr Non- 43.1 N >60 Egfr 55.4 N >60 69 Urinalysis Profile 03/30/2016 [facility] Urine Color Straw N [address] [place] [address] [phone] Urine Appearance Clear N Urine Specific Roland 1.010 N 1.010-1.030 Urine pH 6.0 N 5-9 Urine Urobilinogen Negative N Negative Urine Ketones Negative N Negative Urine Protein Negative N Negative Urine Leukocytes Negative N Negative Urine Blood 2+ Abnormal Negative Urine Nitrite Negative N Negative Urine Bilirubin Negative N Negative Urine Glucose Negative N Negative Urine White Blood Cell Absent N Absent Urine Red Blood Cell Trace(0-2/hpf) N Absent Urine Bacteria Absent N Absent Urine Squamous Epithelial Cell Present Abnormal Absent Urinalysis Profile 10/20/2015 [facility] Urine Color Yellow N [address] [place] [address] [phone] Urine Appearance Clear N Urine Specific Roland 1.010 N 1.010-1.030 Urine pH 6.0 N 5-9 Urine Urobilinogen Negative N Negative Urine Ketones Negative N Negative Urine Protein Negative N Negative Urine Leukocytes Trace Abnormal Negative Urine Blood 2+ Abnormal Negative Urine Nitrite Negative N Negative Urine Bilirubin Negative N Negative Urine Glucose Negative N Negative Urine White Blood Cell Trace(0-5/hpf) N Absent Urine Red Blood Cell 1+(3-5/hpf) Abnormal Absent Urine Bacteria Absent N Absent Urine Squamous Epithelial Cell Present Abnormal Absent Urine Culture And 10/20/2015 [facility] Urine Culture SEE RESULT [address] [place] [address] [phone] CBC Auto Diff 10/20/2015 [facility] White Blood 9.6 10^3/uL N 3.5-[address] Count 0.8 [place] [address] [phone] Red Blood Count 4.53 10^6/uL N 4.0-5.4 Hemoglobin 12.3 g/dL N 12.0-16.0 Hematocrit 38 % N 35-47 Mean Corpuscular Volume 83 fL N 80-97 Mean Corpuscular Hemoglobin 27 pg N 27-31 Mean Corpuscular HGB Conc 33 g/dL N 31-36 Red Cell Distribution Width 14 % N 10.5-15 Platelet Count 251 10^3/uL N 150-450 Mean Platelet Volume 9 um3 N 7.4-10.4 Abs Neutrophils 7.2 10^3/uL N 1.5-7.7 Abs Lymphocytes 1.1 10^3/uL N 1.0-4.8 Abs Monocytes 1.1 10^3/uL High 0-0.8 Abs Eosinophils 0.1 10^3/uL N 0-0.6 Abs Basophils 0.1 10^3/uL N 0-0.2 Abs Nucleated RBC 0.01 10^3/uL N Granulocyte % 75.0 % N 38-83 Lymphocyte % 11.2 % Low 25-47 Monocyte % 11.6 % High 1-9 Eosinophil % 1.2 % N 0-6 Basophil % 1.0 % N 0-2 Nucleated Red Blood Cells % 0.1 N Laboratory test 10/20/2015 [facility] Troponin-I 0.01 ng/mL N <0.[address] (TnI) [place] [address] [phone] Comp Metabolic 10/20/2015 [facility] Sodium 133 mmol/L N 133- 145 Panel [address] [place] [address] [phone] Potassium 4.1 mmol/L N 3.5-5.0 Chloride 100 mmol/L Low 101-111 Co2 Carbon Dioxide 25 mmol/L N 22-32 Anion Gap 8 mmol/L N 2-11 Glucose 102 mg/dL High 70-100 Blood Urea Nitrogen 34 mg/dL High 6-24 Creatinine 1.73 mg/dL High 0.51-0.95 BUN/Creatinine Ratio 19.7 N 8-20 Calcium 11.1 mg/dL High 8.6-10.3 Total Protein 7.5 g/dL N 6.4-8.9 Albumin 3.8 g/dL N 3.2-5.2 Globulin 3.7 g/dL N 2-4 Albumin/Globulin Ratio 1.0 N 1-3 Total Bilirubin 0.50 mg/dL N 0.2-1.0 Alkaline Phosphatase 59 U/L N 34-104 Alt 18 U/L N 7-52 Ast 20 U/L N 13-39 Egfr Non- 30.8 N >60 Egfr 39.6 N >60 72 Laboratory test 10/20/2015 [facility] Lactic Acid 1.5 mmol/L N 0.5-2.0 73 finding [address] [place] [address] [phone] Ua Routine 10/19/2015 [employer] [facility] Ua Specific 1.005 Roland Ua PH 6 Ua Color yellow Ua Appera clear Ua WBC positive Ua Protein neg Ua Glucose neg Ua Ketones neg Ua Bilirubin neg Ua Urobilinogen neg Ua Nitrite neg Ua Occult Blood positive Urinalysis Profile 10/19/2015 [facility] Urine Color Yellow N 74 [address] [place] [address] [phone] Urine Appearance Clear N Urine Specific Roland 1.010 N 1.010-1.030 Urine pH 5.0 N 5-9 Urine Urobilinogen Negative N Negative Urine Ketones Negative N Negative Urine Protein Negative N Negative Urine Leukocytes 1+ Abnormal Negative Urine Blood 2+ Abnormal Negative Urine Nitrite Negative N Negative Urine Bilirubin Negative N Negative Urine Glucose Negative N Negative Urine White Blood Cell Trace(0-5/hpf) N Absent Urine Red Blood Cell Trace(0-2/hpf) N Absent Urine Bacteria Absent N Absent Urine Hyaline Casts Present Abnormal Absent Urine Culture And 10/19/2015 [facility] Urine SEE RESULT [address] [place] [place] [address] [phone] Inr/Protime 10/05/2015 [facility] Inr 2.80 High 0.89- [address] 1.11 [place] [address] [phone] Laboratory test 10/05/2015 [facility] Lactic Acid 0.8 mmol/L N 0.5-2 [address]0 [place] [address] [phone] C Reactive Protein 52.94 mg/L High < 5.00 77 Blood Culture SEE RESULT BELOW 78 Urine Culture And 10/05/2015 [facility] Urine SEE RESULT [address] [place] [place] [address] [phone] CBC Auto Diff 10/05/2015 [facility] White Blood 13.0 High 3.5- [address] Count 10^3/uL 0.8 [place] [id number] [phone] Red Blood Count 4.47 10^6/uL N 4.0-5.4 Hemoglobin 12.1 g/dL N 12.0-16.0 Hematocrit 37 % N 35-47 Mean Corpuscular Volume 82 fL N 80-97 Mean Corpuscular Hemoglobin 27 pg N 27-31 Mean Corpuscular HGB Conc 33 g/dL N 31-36 Red Cell Distribution Width 14 % N 10.5-15 Platelet Count 193 10^3/uL N 150-450 Mean Platelet Volume 9 um3 N 7.4-10.4 Abs Neutrophils 10.8 10^3/uL High 1.5-7.7 Abs Lymphocytes 0.8 10^3/uL Low 1.0-4.8 Abs Monocytes 1.3 10^3/uL High 0-0.8 Abs Eosinophils 0 10^3/uL N 0-0.6 Abs Basophils 0.1 10^3/uL N 0-0.2 Abs Nucleated RBC 0.01 10^3/uL N Granulocyte % 83.2 % High 38-83 Lymphocyte % 6.0 % Low 25-47 Monocyte % 9.9 % High 1-9 Eosinophil % 0.2 % N 0-6 Basophil % 0.7 % N 0-2 Nucleated Red Blood Cells % 0 N Comp Metabolic Panel 10/05/2015 [facility] Sodium 132 mmol/L Low 133-[address] [place] [address] [phone] Potassium 3.9 mmol/L N 3.5-5.0 Chloride 103 mmol/L N 101-111 Co2 Carbon Dioxide 22 mmol/L N 22-32 Anion Gap 7 mmol/L N 2-11 Glucose 113 mg/dL High 70-100 Blood Urea Nitrogen 40 mg/dL High 6-24 Creatinine 1.61 mg/dL High 0.51-0.95 BUN/Creatinine Ratio 24.8 High 8-20 Calcium 10.3 mg/dL N 8.6-10.3 Total Protein 7.4 g/dL N 6.4-8.9 Albumin 3.8 g/dL N 3.2-5.2 Globulin 3.6 g/dL N 2-4 Albumin/Globulin Ratio 1.1 N 1-3 Total Bilirubin 0.50 mg/dL N 0.2-1.0 Alkaline Phosphatase 68 U/L N 34-104 Alt 15 U/L N 7-52 Ast 15 U/L N 13-39 Egfr Non- 33.5 N >60 Egfr 43.1 N >60 80 Urinalysis Profile 10/05/2015 [facility] Urine Color Yellow N [address] [place] [address] [phone] Urine Appearance Cloudy N Urine Specific Roland 1.012 N 1.010-1.030 Urine pH 5.0 N 5-9 Urine Urobilinogen Negative N Negative Urine Ketones Negative N Negative Urine Protein 2+(100 mg/dL) Abnormal Negative Urine Leukocytes 2+ Abnormal Negative Urine Blood 3+ Abnormal Negative Urine Nitrite Negative N Negative Urine Bilirubin Negative N Negative Urine Glucose Negative N Negative Urine White Blood Cell 3+(>20/hpf) Abnormal Absent Urine Red Blood Cell 2+(6-10/hpf) Abnormal Absent Urine Bacteria Absent N Absent Urine Squamous Epithelial Cell Present Abnormal Absent Urine Culture And 06/24/2015 [facility] Urine Culture SEE RESULT [address] [place] [address] [phone] Urinalysis Profile 01/10/2015 [facility] Urine Color Yellow N [address] [place] [address] [phone] Urine Appearance Cloudy N Urine Specific Roland 1.013 N 1.010-1.030 Urine pH 5.0 N 5-9 Urine Urobilinogen Negative N Negative Urine Ketones Negative N Negative Urine Protein Negative N Negative Urine Leukocytes 2+ Abnormal Negative Urine Blood 2+ Abnormal Negative Urine Nitrite Negative N Negative Urine Bilirubin Negative N Negative Urine Glucose Negative N Negative Urine White Blood Cell 3+(>20/hpf) Abnormal Absent Urine Red Blood Cell Trace(0-2/hpf) N Absent Urine Bacteria Absent N Absent Ua And Culture 01/10/2015 [facility] Urine Culture And SEE RESULT [address] [place] [address] [phone] Laboratory test 09/23/2014 [facility] Urine Culture And SEE RESULT [address] [place] [address] [phone] Ua Routine 09/23/2014 [facility] House Ua Specific Roland 1.010 Ua PH 5 Ua Color yellow Ua Appera cloudy Ua WBC small Ua Protein trace Ua Glucose neg Ua Ketones neg Ua Bilirubin small Ua Urobilinogen normal Ua Nitrite neg Ua Occult Blood large Comp Metabolic Panel 09/23/2014 [facility] Sodium 132 mmol/L Low 133-[address] [place] [address] [phone] Potassium 4.6 mmol/L N 3.5-5.0 Chloride 100 mmol/L Low 101-111 Co2 Carbon Dioxide 25 mmol/L N 22-32 Anion Gap 7 mmol/L N 2-11 Glucose 106 mg/dL High 70-100 Blood Urea Nitrogen 30 mg/dL High 6-24 Creatinine 1.39 mg/dL High 0.51-0.95 BUN/Creatinine Ratio 21.6 High 8-20 Calcium 8.1 mg/dL Low 8.6-10.3 Total Protein 7.2 g/dL N 6.4-8.9 Albumin 4.1 g/dL N 3.2-5.2 Globulin 3.1 g/dL N 2-4 Albumin/Globulin Ratio 1.3 N 1-3 Total Bilirubin 0.50 mg/dL N 0.2-1.0 Alkaline Phosphatase 66 U/L N 34-104 Alt 14 U/L N 7-52 Ast 15 U/L N 13-39 Egfr Non- 39.8 N >60 Egfr 51.2 N >60 84 CBC Auto 09/23/2014 [facility] White Blood 13.8 10^3/uL High 4.8-10.[address] [place] [address] [phone] Red Blood Count 4.25 10^6/uL N 4.0-5.4 Hemoglobin 12.0 g/dL N 12.0-16.0 Hematocrit 37 % N 35-47 Mean Corpuscular Volume 86 fL N 80-97 Mean Corpuscular Hemoglobin 28 pg N 27-31 Mean Corpuscular HGB Conc 33 g/dL N 31-36 Red Cell Distribution Width 14 % N 10.5-15 Platelet Count 213 10^3/uL N 150-450 Mean Platelet Volume 9 um3 N 7.4-10.4 Abs Neutrophils 11.4 10^3/uL High 1.5-7.7 Abs Lymphocytes 1.1 10^3/uL N 1.0-4.8 Abs Monocytes 1.3 10^3/uL High 0-0.8 Abs Eosinophils 0 10^3/uL N 0-0.6 Abs Basophils 0 10^3/uL N 0-0.2 Abs Nucleated RBC 0.01 10^3/uL N Granulocyte % 82.4 % N 38-83 Lymphocyte % 7.9 % Low 25-47 Monocyte % 9.2 % High 1-9 Eosinophil % 0.2 % N 0-6 Basophil % 0.3 % N 0-2 Nucleated Red Blood Cells % 0 N Laboratory test 07/22/2014 [facility] Culture Throat SEE RESULT [address] [place] [address] [phone] Laboratory test 01/27/2012 [facility] Troponin I 0 ng/mL 0- 0.06 [address] [place] [address] [phone] 1 Because ethnic data is not always readily [...] 15-29 5 Kidney failure <15 (or dialysis) 2 SEE RESULT BELOW Name: ALONDRA VYAS Fazal : [address]: Jeremy Joseph Jr, MD Acct: [id number] Unit: [id number] AGE: 57 Location: [facility] Re02/20/18 SEX: F Status: REG REF SPEC: [id number] STAN: 02/20/[address] [facility] [address]: Jeremy Joseph Jr, MD REQ: [id number] RECD: 02/20/18 STATUS: TANNER ADAM DR: Michelle Muñoz MD _ SOURCE: URINE SPDESC: ORDERED: Urine Culture Procedure Result Reported Site Urine Culture Final 02/21/18- 1419 ML No growth of clinically significant organisms * ML - Main Lab . END OF REPORT DEPARTMENT OF PATHOLOGY, [address] [place] [address] Derick De La Paz M.D. Director [facility] # [id number] 3 Reference Range (ng/mL) Therapeutic: ng/mL Renal Transplant: 100 - 250 ng/mL Liver Transplant: 100 - 400 ng/mL Cardiac Transplant: 100 - 400 ng/mL Bone Marrow: 200 - 300 ng/mL Testing Performed at: [facility] Department of Pathology [address] [place] [address] 4 Troponin-I testing on Plasma Separator Tubes (PST) has a known false positive rate of 0.20-0.40%. All positive troponins reflex immediate secondary confirmatory testing. 5 Because ethnic data is not always readily [...] 15-29 5 Kidney failure <15 (or dialysis) 6 Troponin-I testing on Plasma Separator Tubes (PST) has a known false positive rate of 0.20-0.40%. All positive troponins reflex immediate secondary confirmatory testing. 7 SEE RESULT BELOW Name: ALONDRA VYAS : [address]: Darian Orellana MD Acct: [id number] Unit: [id number] AGE: 57 Location: [facility] Re12/08/17 SEX: F Status: REG REF SPEC: [id number] STAN: 12/08/[address] [facility] [address]: Jeremy Joseph Jr, MD REQ: [id number] RECD: 12/08/17 EXPLICIT FAX#: [id number] STATUS: TANNER BEYER DR: Darian Muñoz MD _ SOURCE: URINE SPDESC: ORDERED: Urine Culture COMMENTS: ANDJERAMIE ORDER ENTERED 08/21/17 EXPIRES 01/23/18 PLEASE FAX RESULTS TO: [phone] Procedure Result Reported Site Urine Culture Final 12/09/17- 0807 ML No growth of clinically significant organisms * ML - Main Lab . END OF REPORT DEPARTMENT OF PATHOLOGY, [address] [place] [address] Derick De La Paz M.D. Director [facility] # [id number] STANDING ORDER ENTERED 08/21/17 EXPIRES 01/23/18 PLEASE FAX RESULTS TO: [phone] 9 Because ethnic data is not always readily [...] 15-29 5 Kidney failure <15 (or dialysis) 10 STANDING ORDER ENTERED 08/21/17 EXPIRES 01/23/18 PLEASE FAX RESULTS TO: [phone] STANDING ORDER ENTERED 08/21/17 EXPIRES 01/23/18 PLEASE FAX RESULTS TO: [phone] [id number] Desirable: <100 Near Optimal: 100-129 Borderline High: 130-159 High: 160-189 Very High: >189 13 Desirable: <150 Borderline High: 150-199 High: 200-499 Very High: >500 14 Desirable: <200 Borderline High: 200-239 High: >239 15 Low: <40 Desirable: 40-60 High: >60 16 Unable to calculate LDL as triglyceride is > 400 17 SEE RESULT BELOW Name: ALONDRA VYAS : [address]: Darian Orellana MD Acct: [id number] Unit: [id number] AGE: 56 Location: [facility] Re10/27/17 SEX: F Status: DEP REF SPEC: [id number] STAN: 10/27/17- [facility] DR: Darian Orellana MD REQ: [id number] RECD: 10/27/17-1210 STATUS: SHA JAIR DR: Christophe Muñoz MD _ ORDERED: LEVEL [...] 1208 END OF REPORT DEPARTMENT OF PATHOLOGY, [address] [place] [address] Derick De La Paz M.D. Director [facility] # [id number] 18 SEE RESULT BELOW Name: ALONDRA VYAS : [address]: Darian Orellana MD Acct: [id number] Unit: [id number] AGE: 56 Location: ENDO Re10/27/17 SEX: F Status: DEP REF SPEC: [id number] STAN: 10/27/17-[address] [facility] [address]: Darian Orellana MD REQ: [id number] RECD: 10/27/17 STATUS: TANNER ADAM DR: Michelle Muñoz MD _ SOURCE: GAS ANTRUM SPDESC: ORDERED: Clotest Procedure Result Reported Site Clotest Final 10/28/17 2070 ML Clotest Negative * ML - Main Lab . END OF REPORT DEPARTMENT OF PATHOLOGY, [address] [place] [address] Derick De La Paz M.D. Director [facility] # [id number] 19 Desirable: <150 Borderline High: 150-199 High: 200-499 Very High: >500 20 Desirable: <200 Borderline High: 200-239 High: >239 21 Low: <40 Desirable: 40-60 High: >60 22 Unable to calculate LDL as triglyceride is > 400 23 Desirable: <100 Near Optimal: 100-129 Borderline High: 130-159 High: 160-189 Very High: >189 24 [id number] 25 SEE RESULT BELOW Name: ALONDRA VYAS Fazal : [address]: Ras Sarabia MD Acct: [id number] Unit: [id number] AGE: 56 Location: [facility] Re08/17/17 SEX: F Status: DEP ER SPEC: [id number] STAN: 08/17/17-[address] [facility] [address]: Julia REED REQ: [id number] RECD: 08/18/17 STATUS: TANNER ADAM DR: Ras Muñoz MD _ SOURCE: URINE SPDESC: ORDERED: Urine Culture COMMENTS: [id number] Procedure Result Reported Site Urine Culture Final 08/20/17- 0830 ML Organism 1 ESCHERICHIA COLI Minter Count >100,000 (Many) CFU/ML Organism 2 NORMAL MARILEE Minter Count 10-25,000 (Moderate) CFU/ML 1. ESCHERICHIA COLI [...] . END OF REPORT DEPARTMENT OF PATHOLOGY, [address] [place] [address] Derick De La Paz M.D. Director [facility] # [id number] 26 Sales And Production Manager: [id number] Reference Range (ng/mL) Therapeutic: ng/mL Renal Transplant: 100 - 250 ng/mL Liver Transplant: 100 - 400 ng/mL Cardiac Transplant: 100 - 400 ng/mL Bone Marrow: 200 - 300 ng/mL Testing Performed at: [facility] Department of Pathology [address] [place] [id number] 28 SEE RESULT BELOW Name: ALONDRA VYAS : [address]: Jeremy Joseph Jr, MD Acct: [id number] Unit: [id number] AGE: 56 Location: LAB Re07/29/17 SEX: F Status: REG REF SPEC: [id number] STAN: 07/29/[address] [facility] [address]: Jeremy Joseph Jr, MD REQ: [id number] RECD: 07/29/17 EXPLICIT FAX#: [id number] STATUS: COMP OTHR DR: Michelle Muñoz MD _ SOURCE: URINE SPDESC: ORDERED: Urine Culture COMMENTS: STANDING ORDER OR PRN VALID 04/03/2017 TO 10/01/2017 FAX RESULTS: [phone] CC: MICHELLE CROUCH Procedure Result Reported Site Urine Culture Final 07/31/17- 808 ML Organism 1 ESCHERICHIA COLI Minter Count 25-50,000 (Moderate) CFU/ML 1. ESCHERICHIA COLI M.I.C. RX --------- ------ Ampicillin 4 S Cefazolin <=4 S Cefepime <=1 S Ceftriaxone <=1 S Ciprofloxacin <=0.25 S Gentamicin <=1 S Levofloxacin <=0.12 S Meropenem <=0.25 S Nitrofurantoin <=16 S Tetracycline <=1 S Pipercillin/Tazobactam <=4 S Trimethoprim/Sulfamethoxazole <=20 S Amoxicillin/Clavulanic Acid <=2 S Aztreonam <=1 S CONTINUED ON NEXT PAGE DEPARTMENT OF PATHOLOGY, [address] [place] [address] Derick De La Paz M.D. Director [facility] # [id number] Patient: ALONDRA VYAS [id number] (Continued) Specimen: [id number] Collected: 07/29/17 Received: 07/29/17 (Continued) Procedure Result Reported Site Urine Culture Final (continued) Contact the Microbiology Department for any additional antibiotic reporting. * - [facility] Lab . END OF REPORT DEPARTMENT OF PATHOLOGY, [address] [place] [address] Derick De La Paz M.D. Director [facility] # [id number] 29 Because ethnic data is not always readily [...] 15-29 5 Kidney failure <15 (or dialysis) 30 ADDITIONAL INFORMATION This test was developed and its performance characteristics determined by [facility] in a manner consistent with CLIA requirements. This test has not been cleared or approved by the U.S. Food and Drug Administration. Test Performed by: [facility] [address] [place] [id number] 31 Normal Range 180 to 914 Indeterminate Range 145 to 180 Deficient Range <145 32 ORDERED 12/04/16 06/03/17 33 Left Shift 34 Left Shift 35 Reference Range (ng/mL) Therapeutic: ng/mL Renal Transplant: 100 - 250 ng/mL Liver Transplant: 100 - 400 ng/mL Cardiac Transplant: 100 - 400 ng/mL Bone Marrow: 200 - 300 ng/mL Testing Performed at: [facility] Department of Pathology [address] [place] [id number] 36 SEE RESULT BELOW Name: ALONDRA VYAS ANN : [address]: Jeremy Joseph Jr, MD Acct: [id number] Unit: [id number] AGE: 56 Location: [facility] Re04/23/17 SEX: F Status: REG REF SPEC: [id number] STAN: 04/23/[address] [facility] [address]: Jeremy Joseph Jr, MD REQ: [id number] RECD: 04/23/17 STATUS: COMP OTHR DR: Michelle Muñoz MD _ SOURCE: URINE SPDESC: ORDERED: Urine Culture QUERIES: Urine Source: Clean Catch Procedure Result Reported Site Urine Culture Final 04/24/17- 0942 ML No growth of clinically significant organisms * ML - MAIN LAB ([facility]) . END OF REPORT * ML=Testing performed at Main Lab DEPARTMENT OF PATHOLOGY, [address] [place] [address] Derick De La Paz M.D. Director [facility] # [id number] 37 Because ethnic data is not always readily [...] 15-29 5 Kidney failure <15 (or dialysis) 38 >100 to <200 pg/mL: likely compensated congestive heart failure (CHF) 200 to 400 pg/mL: likely moderate CHF >400 pg/mL: likely moderate to severe CHF 39 [place] Severe Sepsis and Septic Shock Management Bundle Measure requires all lactic acids initially measuring >2.0 mmol/L be repeated. 40 Because ethnic data is not always readily [...] 15-29 5 Kidney failure <15 (or dialysis) 41 Because ethnic data is not always readily [...] 15-29 5 Kidney failure <15 (or dialysis) 42 Please note the change in INR reference range effective 17. 43 [facility] Severe Sepsis and Septic Shock Management Bundle Measure requires all lactic acids initially measuring >2.0 mmol/L be repeated. 44 >100 to <200 pg/mL: likely compensated congestive heart failure (CHF) 200 to 400 pg/mL: likely moderate CHF >400 pg/mL: likely moderate to severe CHF 45 SEE RESULT BELOW Name: ALONDRA VYAS : [address]: Michelle Crouch MD Acct: [id number] Unit: [id number] AGE: 55 Location: LAB Re09/18/16 SEX: F Status: REG REF SPEC: [id number] STAN: 09/18/16-[address] [facility] [address]: Michelle Crouch MD REQ: [id number] RECD: 09/18/16-1 STATUS: TANNER ADAM DR: Christophe Muñoz MD _ S[facility]: Urine Culture QUERIES: Urine Source: Catheterization Procedure Result Reported Site Urine Culture Final 09/20/16- 0727 ML Organism 1 ESCHERICHIA COLI Minter Count 75-100,000 (Many) CFU/ML Organism 2 NORMAL MARILEE Minter Count 1-10,000 (Few) CFU/ML 1. ESCHERICHIA COLI [...] ML - MAIN LAB ([facility]) . END OF REPORT * ML=Testing performed at Main Lab DEPARTMENT OF PATHOLOGY, [address] [place] [address] Derick De La Paz M.D. Director [facility] # [id number] 46 [id number] 47 SEE RESULT BELOW Name: ALONDRA VYAS : [address]: Xochilt Torres MD Acct: [id number] Unit: [id number] AGE: 55 Location: [facility] Re08/28/16 SEX: F Status: REG REF SPEC: [id number] STAN: 08/28/[address]: Bhavin Torres MD REQ: [id number] RECD: 08/28/16 STATUS: COMP _ SOURCE: URINE [facility]: ORDERED: Urine Culture COMMENTS: [id number] Urine Source: Random Procedure Result Reported Site Urine Culture Final 08/30/16- 0841 ML Organism 1 ESCHERICHIA COLI Minter Count 75-100,000 (Many) CFU/ML 1. ESCHERICHIA COLI [...] ML - MAIN LAB ([facility]) . END OF REPORT * ML=Testing performed at Main Lab DEPARTMENT OF PATHOLOGY, [address] [place] [address] Derick De La Paz M.D. Director [facility] # [id number] 48 Acute inflammation: >10.00 49 Microcytic anemia. Absolute neutrophilia and monocytosis, favor reactive. Reviewed by Patricia Meier MD 50 SEE RESULT BELOW Name: ALONDRA VYAS : [address]: Ras Holguin MD Acct: [id number] Unit: [id number] AGE: 55 Location: ED Re08/06/16 SEX: F Status: DEP ER SPEC: [id number] STAN: 08/07/[address] [facility] [address]: Ras Holguin MD REQ: [id number] RECD: 08/07/16 STATUS: TANNER ADAM DR: Christophe Muñoz MD _ SOURCE: BLOOD,VENO SPDESC: ORDERED: Blood Cult Procedure Result Reported Site Aerobic Culture Bottle Final 08/12/16- 0106 ML No Growth Day 5 Anaerobic Culture Bottle Final 08/12/16- 0106 ML No Growth Day 5 * ML - MAIN LAB ([facility]) . END OF REPORT * ML=Testing performed at Main Lab DEPARTMENT OF PATHOLOGY, [address] [place] [address] Derick De La Paz M.D. Director [facility] # [id number] 51 Because ethnic data is not always readily [...] 15-29 5 Kidney failure <15 (or dialysis) 52 [facility] Severe Sepsis and Septic Shock Management Bundle Measure requires all lactic acids initially measuring >2.0 mmol/L be repeated. 53 [id number] 54 SEE RESULT BELOW Name: ALONDRA VYAS : [address]: Mary Rojas MD Acct: [id number] Unit: [id number] AGE: 55 Location: [facility] Re08/06/16 SEX: F Status: DEP ER SPEC: [id number] STAN: 08/06/[address]: Mary Rojas MD REQ: [id number] RECD: 08/06/16 STATUS: TANNER ADAM DR: Christophe Muñoz MD _ SOURCE: URINE SPDESC: ORDERED: Urine Culture COMMENTS: [id number] Procedure Result Reported Site Urine Culture Final 08/08/16- 845 ML Organism 1 ESCHERICHIA COLI Minter Count >100,000 (Many) CFU/ML 1. ESCHERICHIA COLI [...] antibiotic reporting. * ML - MAIN LAB ([facility]) . END OF REPORT * ML=Testing performed at Main Lab DEPARTMENT OF PATHOLOGY, [address] [place] [address] Derick De La Paz M.D. Director [facility] # [id number] 55 Sales And Production Manager: [id number] Reference Range (ng/mL) Therapeutic: ng/mL Renal Transplant: 100 - 250 ng/mL Liver Transplant: 100 - 400 ng/mL Cardiac Transplant: 100 - 400 ng/mL Bone Marrow: 200 - 300 ng/mL Testing Performed at: [facility] Department of Pathology [address] [place], [place] [address] 57 SEE RESULT BELOW Name: ALONDRA VYAS : [address]: Kojo Mcwilliams MD Acct: [id number] Unit: [id number] AGE: 55 Location: [facility] Re05/27/16 SEX: F Status: REG REF SPEC: [id number] STAN: 05/27/[address]: Kojo Mcwilliams MD REQ: [id number] RECD: 05/27/16 EXPLICIT FAX#: [phone] STATUS: TANNER ADAM DR: Michelle Muñoz MD _ SOURCE: URINE SPDESC: ORDERED: Urine Culture Procedure Result Reported Site Urine Culture Final 05/29/16- 0829 ML Organism 1 ENTEROCOCCUS FAECALIS Minter Count >100,000 (Many) CFU/ML Organism 2 NORMAL MARILEE Minter Count 1-10,000 (Few) CFU/ML 1. ENTEROCOCCUS FAECALIS [...] performed at Main Lab DEPARTMENT OF PATHOLOGY, [address] [place] [address] Derick De La Paz M.D. Director [facility] # [id number] Patient: ELMIRAALONDRA BECERRA [id number] (Continued) Specimen: [id number] Collected: 05/27/16 Received: 05/27/16 (Continued) Procedure Result Reported Site Urine Culture Final (continued) * These antibiotics are not available in the [facility] Formulary Contact the Microbiology Department for any additional antibiotic reporting. * ML - MAIN LAB ([facility]) . END OF REPORT * ML=Testing performed at Main Lab DEPARTMENT OF PATHOLOGY, [address] [place] [address] Derick De La Paz M.D. Director [facility] # [id number] 58 FAX RESULTS TO: 59 Because ethnic data is not always readily [...] 15-29 5 Kidney failure <15 (or dialysis) 60 Because ethnic data is not always readily [...] 15-29 5 Kidney failure <15 (or dialysis) 61 Critical Result LACT:2.2 Called to [id number] at: 10:54:46 by:[id number] Read back by:[id number] [place] Severe Sepsis and Septic Shock Management Bundle Measure requires all lactic acids initially measuring >2.0 mmol/L be repeated. 62 SEE RESULT BELOW Name: ALONDRA VYAS : [address]: Johnathan Mcmillan DO Acct: [id number] Unit: [id number] AGE: 55 Location: ED Re04/06/16 SEX: F Status: DEP ER SPEC: [id number] STAN: 04/06/[address] [facility] [address]: Johnathan Mcmillan DO REQ: [id number] RECD: 04/06/16 STATUS: TANNER ADAM DR: Christophe Muñoz MD _ SOURCE: BLOOD,VENO SPDESC: ORDERED: Blood Cult Procedure Result Reported Site Aerobic Culture Bottle Final 04/11/16- 1130 ML No Growth Day 5 Anaerobic Culture Bottle Final 04/11/16- 1130 ML No Growth Day 5 * ML - MAIN LAB ([facility]) . END OF REPORT * ML=Testing performed at Main Lab DEPARTMENT OF PATHOLOGY, [address] [place] [address] Derick De La Paz M.D. Director [facility] # [id number] 63 Reference Range (ng/mL) Therapeutic: ng/mL Renal Transplant: 100 - 250 ng/mL Liver Transplant: 100 - 400 ng/mL Cardiac Transplant: 100 - 400 ng/mL Bone Marrow: 200 - 300 ng/mL Testing Performed at: [facility] Department of Pathology [address] [place] [id number] 64 SEE RESULT BELOW Name: ALONDRA VYAS : [address]: Jose Hall MD Acct: [id number] Unit: [id number] AGE: 55 Location: [facility] Re03/30/16 SEX: F Status: REG REF SPEC: [id number] STAN: 03/30/[address] [facility] [address]: Kojo Mcwilliams MD REQ: [id number] RECD: 03/30/16 STATUS: COMP OTHR DR: Michelle Muñoz MD _ SOURCE: URINE SPDESC: ORDERED: Urine Culture QUERIES: Urine Source: Clean Catch Procedure Result Reported Site Urine Culture Final 03/31/16- 1251 ML No growth of clinically significant organisms * ML - MAIN LAB ([facility]) . END OF REPORT * ML=Testing performed at Main Lab DEPARTMENT OF PATHOLOGY, [address] [place] [address] Derick De La Paz M.D. Director [facility] # [id number] 65 Desirable <150 Borderline high 150-199 High 200-499 Very High >500 66 Desirable <200 Borderline high 200-239 High >239 67 Low <40 Desirable: 40-60 High: >60 68 Unable to calculate LDL as triglyceride is > 400 69 Because ethnic data is not always readily [...] 15-29 5 Kidney failure <15 (or dialysis) 70 SEE RESULT BELOW Name: ALONDRA VYAS : [address]: Slim Stiles MD Acct: [id number] Unit: [id number] AGE: 54 Location: ED Re10/20/15 SEX: F Status: DEP ER SPEC: [id number] STAN: 10/20/15-[address]: Slim Stiles MD REQ: [id number] RECD: 10/20/15 STATUS: TANNER ADAM DR: Adelita Bañuelos MD _ SOURCE: URINE SPDESC: ORDERED: Urine Culture Procedure Result Reported Site Urine Culture Final 10/23/15- 1157 ML Organism 1 ESCHERICHIA COLI Minter Count 50-75,000 (Many) CFU/ML Organism 2 NORMAL MARILEE Minter Count 10-25,000 (Moderate) CFU/ML * This is [...] performed at Main Lab DEPARTMENT OF PATHOLOGY, [address] [place] [address] Derick De La Paz M.D. Director [facility] # [id number] Patient: ALONDRA VYAS [id number] (Continued) Specimen: [id number] Collected: 10/20/15 Received: 10/20/15 (Continued) Procedure Result Reported Site Urine Culture Final (continued) 10/23/15- 1156 1. ESCHERICHIA COLI (continued) M.I.C. RX --------- ------ Amoxicillin/Clavulanic Acid <=2 S Aztreonam <=1 S Contact the Microbiology Department for any additional antibiotic reporting. * ML - MAIN LAB ([facility]) . END OF REPORT * ML=Testing performed at Main Lab DEPARTMENT OF PATHOLOGY, [address] [place] [address] Derick De La Paz M.D. Director [facility] # [id number] 71 Reference Range and Interpretation: TnI (ng/mL) Interpretation Less Than 0.03 ng/mL Not supportive of diagnosis of [place] 0.03 - 0.50 ng/mL Indeterminate: suggest serial studies if clinically indicated. Greater than 0.5 ng/mL Consistent with diagnosis of AK 72 Because ethnic data is not always readily [...] 15-29 5 Kidney failure <15 (or dialysis) 73 [facility] Severe Sepsis and Septic Shock Management Bundle Measure requires all lactic acids initially measuring >2.0 mmol/L be repeated. 74 [id number] 75 SEE RESULT BELOW Name: ALONDRA VYAS : [address]: Adelita Bañuelos MD Acct: [id number] Unit: [id number] AGE: 54 Location: [facility] Re10/19/15 SEX: F Status: REG REF SPEC: [id number] STAN: 10/19/15-[address]: Adelita Bañuelos MD REQ: [id number] RECD: 10/19/15 STATUS: COMP _ SOURCE: URINE SPDESC: ORDERED: Urine Culture COMMENTS: [id number] Procedure Result Reported Site Urine Culture Final 10/23/15- 1151 ML Organism 1 ESCHERICHIA COLI Minter Count 75-100,000 (Many) CFU/ML Organism 2 NORMAL MARILEE Minter Count 1-10,000 (Few) CFU/ML * This is [...] performed at Main Lab DEPARTMENT OF PATHOLOGY, [address] [place] [address] Derick De La Paz M.D. Director [facility] # [id number] Patient: ALONDRA VYAS [id number] (Continued) Specimen: [id number] Collected: 10/19/15-1019 Received: 10/19/15 (Continued) Procedure Result Reported Site Urine Culture Final (continued) 10/23/15- 1151 1. ESCHERICHIA COLI (continued) M.I.C. RX --------- ------ Pipercillin/Tazobactam <=4 S Trimethoprim/Sulfamethoxazole <=20 S Amoxicillin/Clavulanic Acid <=2 S Aztreonam <=1 S Contact the Microbiology Department for any additional antibiotic reporting. * ML - MAIN LAB ([facility]) . END OF REPORT * ML=Testing performed at Main Lab DEPARTMENT OF PATHOLOGY, [address] [place] [address] Derick De La Paz M.D. Director [facility] # [id number] [facility] Severe Sepsis and Septic Shock Management Bundle Measure requires all lactic acids initially measuring >2.0 mmol/L be repeated. 77 Acute inflammation: >10.00 78 SEE RESULT BELOW Name: ALONDRA VYAS : [address]: Yosef Rojas MD Acct: [id number] Unit: [id number] AGE: 54 Location: [place] [address] Re10/05/15 Dis: 10/07/15 SEX: F Status: DIS IN SPEC: [id number] STAN: 10/05/[address]: Johnathan Mcmillan DO REQ: [id number] RECD: 10/05/15 STATUS: TANNER ADAM DR: Adelita Bañuelos MD _ SOURCE: BLOOD,VENO [facility]: ORDERED: Blood Cult Procedure Result Reported Site Aerobic Culture Bottle Final 10/10/151130 ML No Growth Day 5 Anaerobic Culture Bottle Final 10/10/151130 ML No Growth Day 5 * ML - MAIN LAB ([facility]) . END OF REPORT * ML=Testing performed at Main Lab DEPARTMENT OF PATHOLOGY, [address] [place] [address] Derick De La Paz M.D. Director [facility] # [id number] 79 SEE RESULT BELOW Name: ALONDRA VYAS : [address]: Yosef Rojas MD Acct: [id number] Unit: [id number] AGE: 54 Location: [place] [id number] Re10/05/15 SEX: F Status: ADM IN SPEC: [id number] STAN: 10/05/[address]: Johnathan Mcmillan DO REQ: [id number] RECD: 10/05/15 STATUS: TANNER ADAM DR: Adelita Bañuelos MD _ SOURCE: URINE SPDESC: ORDERED: Urine Culture Procedure Result Reported Site Urine Culture Final 10/06/15- 1644 ML Organism 1 ESCHERICHIA COLI Minter Count >100,000 (Many) CFU/ML 1. ESCHERICHIA COLI [...] antibiotic reporting. * ML - MAIN LAB ([facility]) . END OF REPORT * ML=Testing performed at Main Lab DEPARTMENT OF PATHOLOGY, [address] [place] [address] Derick De La Paz M.D. Director [facility] # [id number] 80 Because ethnic data is not always readily [...] 15-29 5 Kidney failure <15 (or dialysis) 81 SEE RESULT BELOW Name: ALONDRA VYAS : [address]: Janeth An MD Acct: [id number] Unit: [id number] AGE: 54 Location: [facility] Re06/24/15 SEX: F Status: DEP ER SPEC: [id number] STAN: 06/24/[address] [facility] [address]: Janeth An MD REQ: [id number] RECD: 06/24/15123 STATUS: TANNER ADAM DR: Adelita Bañuelos MD _ SOURCE: URINE SPDESC: ORDERED: Urine Culture Procedure Result Reported Site Urine Culture Final 06/25/15- 1207 ML No growth of clinically significant organisms * ML - MAIN LAB ([facility]) . END OF REPORT * ML=Testing performed at Main Lab DEPARTMENT OF PATHOLOGY, [address] [place] [address] Derick De La Paz M.D. Director [facility] # [id number] 82 SEE RESULT BELOW Name: ALONDRA VYAS : [address]: Adelita Bañuelos MD Acct: [id number] Unit: [id number] AGE: 54 Location: [facility] Re01/10/15 SEX: F Status: REG REF SPEC: [id number] STAN: 01/10/[address] [facility] [address]: Adelita Bañuelos MD REQ: [id number] RECD: 01/10/15 STATUS: COMP _ SOURCE: URINE SPDESC: ORDERED: Urine Culture Procedure Result Verified Site Urine Culture Final 01/12/15- 930 ML Organism 1 ESCHERICHIA COLI Minter Count >100,000 (Many) CFU/ML 1. ESCHERICHIA COLI [...] antibiotic reporting. * ML - MAIN LAB ([facility]) . END OF REPORT * ML=Testing performed at Main Lab DEPARTMENT OF PATHOLOGY, [address] [place] [address] Derick De La Paz M.D. Director [facility] # [id number] 83 SEE RESULT BELOW Name: ALONDRA VYAS : [address]: Adelita Bañuelos MD Acct: [id number] Unit: [id number] AGE: 53 Location: [facility] Re09/23/14 SEX: F Status: REG REF SPEC: [id number] STAN: 09/23/14-[address]: Adelita Bañuelos MD REQ: [id number] RECD: 09/23/14 STATUS: COMP _ SOURCE: URINE SPDESC: ORDERED: Urine Culture Procedure Result Verified Site Urine Culture Final 09/25/14- 910 ML Organism 1 ESCHERICHIA COLI Minter Count 10-25,000 (Moderate) CFU/ML Organism 2 NORMAL MARILEE Minter Count 50-75,000 (Many) CFU/ML 1. ESCHERICHIA COLI [...] antibiotic reporting. * ML - MAIN LAB ([facility]) . END OF REPORT * ML=Testing performed at Main Lab DEPARTMENT OF PATHOLOGY, [address] [place] [address] Derick De La Paz M.D. Director [facility] # [id number] 84 Because ethnic data is not always readily [...] 15-29 5 Kidney failure <15 (or dialysis) 85 SEE RESULT BELOW Name: ALONDRA VYAS : [address]: Adelita Bañuelos MD Acct: [id number] Unit: [id number] AGE: 53 Location: [facility] Re07/22/14 SEX: F Status: REG REF SPEC: [id number] STAN: 07/22/14-[address] [facility] [address]: Adelita Bañuelos MD REQ: [id number] RECD: 07/22/14-151 STATUS: COMP _ SOURCE: THROAT SPDESC: ORDERED: Throat Culture Procedure Result Verified Site Throat Culture Final 07/24/14- 0811 ML Organism 1 NORMAL MARILEE Quantity 3+ Throat cultures are clinically indicated to detect the presence of group A strep, arcanobacterium and yeast. In certain cases, predominating organisms will be reported. * ML - MAIN LAB ([facility]) . END OF REPORT * ML=Testing performed at Main Lab DEPARTMENT OF PATHOLOGY, [address] [place] [address] Derick De La Paz M.D. Director [facility] # [id number] 86 Reference Range and Interpretation: TnI (ng/ml) Interpretation Less Than 0.06 ng/mL Not supportive of diagnosis of AK 0.06 - 0.50 ng/ml Indeterminate: suggest serial studies if clinically indicated. Greater than 0.5 ng/mL Consistent with diagnosis of AK Procedures Date Code Description Status 06/27/2017 94424952 Mammogram Completed 04/07/2017 99941 Treadmill Interp/Report Only Completed 04/07/2017 34917 Stress Test Supervsn W/Out I/R Completed 06/13/2016 11301073 Mammogram Completed 12/27/2015 527791425 Diabetic Foot Exam Completed 04/25/2015 74665143 Mammogram Completed 03/10/2014 80302379 Mammogram Completed 02/07/2014 629718829 Diabetic Retinal Eye Exam Completed 06/22/2013 46063 EKG, Interpretation Only Completed 06/22/2013 68965 Stress Test Supervsn W/Out I/R Completed 06/22/2013 78996 Stress Test Supervsn W/Out I/R Completed 06/22/2013 16733 Treadmill Interp/Report Only Completed 06/22/2013 69080 Treadmill Interp/Report Only Completed 02/03/2012 23418 Treadmill Interp/Report Only Completed 02/03/2012 53899 Stress Test Supervsn W/Out I/R Completed 02/03/2012 48296 Stress ECHO Interpretation/Report Hospital Completed 01/28/2012 78065 EKG Tracing & Interpretation Completed 03/10/2011 78481791 Colonoscopy Completed Encounters Type Date Location Provider Dx Diagnosis Office Visit 01/15/2018 [facility] Internal Dean Devlin NP E78.5 Hyperlipidemia, 2:40p Medicine - unspecified [place] Office Visit 10/22/2017 [facility] Internal Christophe E78.1 Pure hyperglyceridemia 4:00p Ruddy Muñoz M.D. [place] Office Visit 10/01/2017 [facility] Internal Christophe D64.9 Anemia, unspecified 4:00p Abigail [place] I10 Essential (primary) hypertension E78.5 Hyperlipidemia, unspecified K21.9 Gastro-esophageal reflux disease without esophagitis Office Visit 07/09/2017 8:20a [facility] Internal Christophe D64.9 Anemia, Medicine - Abigail Muñoz unspecified [place] K21.9 Gastro-esophageal reflux disease without esophagitis Office Visit 06/18/2017 8:00a [facility] Internal [place] Octaviora, F33.0 Major depressive Medicine - M.D. disorder, [place] recurrent, mild R53.83 Other fatigue M79.1 Myalgia D64.9 Anemia, unspecified Office Visit 05/27/2017 8:00a [facility] Internal Christophe Pachsilvio, F33.0 Major depressive Medicine - M.D. disorder, [address] recurrent, mild D64.9 Anemia, unspecified R53.83 Other fatigue Office Visit 05/14/2017 8:20a [facility] Internal Christophe Pachsilvio, F33.0 Major depressive Medicine - M.D. disorder, [place] recurrent, mild R51 Headache Office Visit 04/21/2017 1:40p [facility] Internal Dean Devlin, R07.9 Chest pain, Medicine - HOME DESIGNER unspecified [place] E78.5 Hyperlipidemia, unspecified F33.0 Major depressive disorder, recurrent, mild Office Visit 04/07/2017 12:07p [facility] Jackie R07.9 Chest pain, Assoc,pc R[place], DO unspecified Hospitalists E78.5 Hyperlipidemia, unspecified I10 Essential (primary) hypertension Z94.0 Kidney transplant status Office Visit 03/19/2017 3:00p [facility] Internal Christophecarson Muñoz, F33.0 Major depressive Medicine - M.DHeriberto disorder, [place] recurrent, mild J06.9 Acute upper respiratory infection, unspecified Office Visit 03/07/2017 [facility] R07.9 Chest pain, 1:42p Assoc,pc Abigail Muñoz unspecified Hospitalists Z94.0 Kidney transplant status Office Visit 02/24/2017 10:00a [facility] Dermatology Neftaly Ceballos, D22.5 Melanocytic nevi MD of trunk D22.62 Melanocytic nevi of left upper limb, including shoulder D22.72 Melanocytic nevi of left lower limb, including hip L82.1 Other seborrheic keratosis Z08 Encntr for follow-up exam after trtmt for malignant neoplasm Z85.828 Personal history of other malignant neoplasm of skin Office Visit 02/12/2017 11:00a [facility] Internal [place] Muñoz, I10 Essential Medicine - Abigail (primary) [place] hypertension F33.0 Major depressive disorder, recurrent, mild L98.9 Disorder of the skin and subcutaneous tissue, unspecified Office Visit 10/09/2016 3:40p [facility] Internal Christophe Muñoz, I10 Essential Medicine - Abigail (primary) [place] hypertension N39.0 Urinary tract infection, site not specified Office Visit 08/28/2016 2:40p [facility] Internal Bhavin Ely N39.0 Urinary tract Medicine Kyung Torres M.D.,FACP infection, site [address] not specified Z94.0 Kidney transplant status Office Visit 06/26/2016 3:40p [facility] Internal [place] I10 Essential Medicine Kyung Muñoz M.D. (primary) [place] hypertension Office Visit 05/15/2016 9:40a [facility] Internal Christophe B02.1 Zoster meningitis Medicine Kyung Muñoz M.D. 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 I12.9 Hypertensive chronic kidney disease w stg 1-4/unsp chr kdny Z94.0 Kidney transplant status I26.99 Other pulmonary embolism without acute cor pulmonale Z23 Encounter for immunization Office Visit 11/22/2015 3:40p [facility] Internal Dean Devlin NP J01.00 Acute maxillary Medicine - sinusitis, [place] unspecified Office Visit 10/19/2015 9:40a [facility] Internal Adelita Bañuelos, I10 Essential Medicine - M.D. 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 Z94.0 Kidney transplant status Office Visit 10/07/2015 [facility] Yosef N12 Tubulo-interstitial 12:31p cruz Lilly MD nephritis, not spcf as Hospitalists acute or chronic R65.10 Sirs of non-infectious origin w/o acute organ dysfunction Z94.0 Kidney transplant status I10 Essential (primary) hypertension Office Visit 10/06/2015 [facility] Yosef N12 Tubulo-interstitial 11:23a Asscruz myers MD nephritis, not spcf as Hospitalists acute or chronic Z94.0 Kidney transplant status I10 Essential (primary) hypertension R65.10 Sirs of non-infectious origin w/o acute organ dysfunction Office Visit 10/05/2015 [facility] Butch N12 Tubulo-interstitial 11:22a Asscruz myers M.D. nephritis, not spcf as Hospitalists acute or chronic Z94.0 Kidney transplant status I10 Essential (primary) hypertension R65.10 Sirs of non-infectious origin w/o acute organ dysfunction Office Visit 03/06/2015 12:00p [facility] Internal Ras Benites, J06.9 Acute upper Medicine - HOME DESIGNER respiratory [place] infection, unspecified Z94.0 Kidney transplant status Office Visit 01/10/2015 4:40p [facility] Internal Adelita Bañuelos, N39.0 Urinary tract Medicine - M.D. infection, site [place] not specified Z94.0 Kidney transplant status Office Visit 01/03/2015 4:20p [facility] Internal Adelita Bañuelos, Z85.828 Personal history Medicine - M.D. of other [place] malignant neoplasm of skin Z12.4 Encounter for screening for malignant neoplasm of cervix Office Visit 09/23/2014 1:40p [facility] Internal Adelita Bañuelos, 789.03 Pain Abdominal Medicine - Abigail Right Lower [place] Quadrant 789.04 Pain Abdominal Left Lower Quadrant Office Visit 08/24/2014 3:00p [facility] Internal Ras Benites, 381.00 Otitis Media Medicine - HOME DESIGNER Nonsuppurative Acute [place] Unspec Office Visit 07/22/2014 12:40p [facility] Internal Adelita 462 Pharyngitis Acute Medicine - Abigail Bañuelos [place] Office Visit 07/12/2014 3:00p [facility] Internal Adelita V70.0 Examination General Medicine - Abigail Bañuelos Medical Routine AT [facility] V42.0 Transplant Kidney Office Visit 06/22/2013 11:05a [facility] Natalia 786.50 Pain Chest Assoc,pc Flako D.Jerri. Unspec Hospitalists 401.9 Hypertension Unspec 278.00 Obesity Unspec V42.0 Transplant Kidney Office Visit 06/21/2013 11:04a [facility] Butch 786.50 Pain Chest Assoc,pc Leticia Dinero.Nicole. Unspec Hospitalists 401.9 Hypertension Unspec 278.00 Obesity Unspec Office Visit 02/26/2012 2:45p [facility] Jarvis Ely 786.50 Pain Chest Of Jess Mckeon M.D. Unspec 401.9 Hypertension Unspec Office Visit 01/28/2012 12:45p [facility] Jarvis Ely 786.50 Pain Chest Of Jess Mckeon M.D. Unspec 427.0 PSVT Paroxysmal Supraventricular Tachycardia Plan of Treatment Future Appointment(s):06/19/2018 10:40 am - Nickie Love MD at [facility] Internal Medicine [facility]04/10/2018 - Nickie Love MDE78.5 Hyperlipidemia, unspecifiedNew Medication:Ezetimibe 10 mg - 1 by mouth every dayFollow up:2 [id number] Essential (primary) hypertensionComments:Continue with your current medication. I would like you to monitor your blood pressure at home. If your readings at home are consistently higher than 140/90, please call the office. Do some relaxationbreathing (4-7-8) when in the office
[2018-04-15 13:18] LABS: ABS Basophils 0.1 10^3/ul (0-0.2); ABS Eosinophils 0.1 10^3/ul (0-0.6); ABS Lymphocytes 0.9 10^3/ul (1.0-4.8); ABS Monocytes 0.8 10^3/ul (0-0.8); ABS Neutrophils 6.1 10^3/ul (1.5-7.7); ABS Nucleated RBC 0 10^3/ul; Eosinophil % 1.3 %; Hematocrit 35 % (35-47); Hemoglobin 11.4 g/dl (12.0-16.0); Mean Corpuscular HGB Conc 33 g/dl (31-36); Mean Corpuscular Hemoglobin 27 pg (27-31); Mean Corpuscular Volume 83 fL (80-97); Mean Platelet Volume 8.9 fL (7.4-10.4); Nucleated Red Blood Cells % 0; Platelet Count 244 10^3/ul (150-450); Red Blood Count 4.18 10^6/ul (4.00-5.40); Red Cell Distribution Width 14 % (10.5-15)
[2018-04-15 13:33] LABS: INR 2.63 (0.77-1.02)
[2018-04-15 13:36] LABS: Albumin 3.9 g/dL (3.2-5.2); Albumin/Globulin Ratio 1.3 (1-3); Calcium 9.8 mg/dL (8.6-10.3); EGFR African American 37.9 (>60); EGFR Non-African American 31.3 (>60); Globulin 3.1 g/dL (2-4); Magnesium 1.8 mg/dL (1.9-2.7); Potassium 4.7 mmol/L (3.5-5.0); Total Bilirubin 0.3 mg/dL (0.2-1.0)
[2018-04-15 13:41] LABS: CKMB ng/mL 0.9 ng/mL (0.6-6.3)
[2018-04-15 14:00] LABS: Urine Appearance Cloudy; Urine Bacteria 1+ (Absent); Urine Bilirubin Negative (Negative); Urine Blood 2+ (Negative); Urine Color Straw; Urine Glucose Negative (Negative); Urine Ketones Negative (Negative); Urine Nitrite Negative (Negative); Urine Protein Negative (Negative); Urine Red Blood Cell Trace(0-2/hpf) (Absent); Urine Specific Gravity 1.005 (1.010-1.030); Urine Squamous Epithelial Cell Present (Absent); Urine Urobilinogen Negative (Negative); Urine White Blood Cell Trace(0-5/hpf) (Absent)
[2018-04-15 14:44] LABS: TSH (Thyroid Stimulating Horm) 0.98 mcIU/mL (0.34-5.60)
[2018-04-15 17:03] VITALS: BP 162/83
== END 2018-04-15 17:02 | disposition home or self-care (01) ==
LOC: ED 12:27
DX: R07.89 Other chest pain (principal); Z86.711 Personal history of pulmonary embolism
CPT/HCPCS: 36415; 71045; 80053; 81003; 81015; 82550; 82553; 83605; 83735; 83880; 84443; 84484; 85025; 85610; 85730; 87086; 93005; 99283; A9270-GY

== ENCOUNTER 2018-06-01 21:15 | Emergency (ER) | payer OTHER ==
[2018-06-01 22:25] LABS: ABS Basophils 0 10^3/ul (0-0.2); ABS Eosinophils 0.1 10^3/ul (0-0.6); ABS Lymphocytes 1.6 10^3/ul (1.0-4.8); ABS Monocytes 0.9 10^3/ul (0-0.8); ABS Nucleated RBC 0 10^3/ul; Eosinophil % 1.4 %; Hematocrit 33 % (33-41); Hemoglobin 10.8 g/dL (12.0-16.0); Lymphocyte % 20.6 %; Mean Corpuscular HGB Conc 33 g/dL (31-36); Mean Corpuscular Hemoglobin 27 pg (27-31); Mean Corpuscular Volume 81 fL (80-97); Mean Platelet Volume 8.7 fL (7.4-10.4); Nucleated Red Blood Cells % 0; Platelet Count 267 10^3/uL (150-450); Red Blood Count 4.06 10^6 /uL (3.70-4.87); Red Cell Distribution Width 15 % (10.5-15); White Blood Count 7.7 10^3/uL (3.5-10.8)
--- NOTE | 2018-06-01 22:39 | ED ---
GI/ HPI - HPI Summary HPI Summary: 57-year-old female presents with mid abdominal pain for the past 3 days. She denies any change in appetite. No nausea or vomiting. No urinary symptoms. had normal bowel movement today. She has history of her kidney transplant. She is followed up by nephrology. She denies any fevers. No cough. Nothing makes the pain better or worse. She had a colonoscopy endoscope last year: Shows that she has ulcers and diverticulosis. only abd surgery is for transplant. - History of Current Complaint Chief Complaint: EDAbdPain Time Seen by Provider: 06/01/18 22:03 Stated Complaint: I HAVE CONSTANT BELLY PAIN PER PT Pain Intensity: 2 - Additional Pertinent History Primary Care Physician: [id number] - Allergy/Home Medications Allergies/Adverse Reactions: Allergies Allergy/AdvReac Type Severity Reaction Status Date / Time No Known Allergies Allergy Verified 06/01/18 21:20 PMH/Surg Hx/FS Hx/Imm Hx Endocrine/Hematology History: Denies: Hx Diabetes, Hx Thyroid Disease Cardiovascular History: Reports: Hx Angina, Hx Hypercholesterolemia, Hx Hypertension Denies: Hx Angioplasty, Hx Congestive Heart Failure, Hx Coronary Artery Disease, Hx Myocardial Infarction, Hx Pacemaker/ICD, Hx Valvular Heart Disease Respiratory History: Reports: Hx Pulmonary Embolism Denies: Hx Asthma, Hx Chronic Obstructive Pulmonary Disease (COPD), Hx Lung Cancer Comment Only: Other Respiratory Problems/Disorders - pe GI History: Reports: Hx Diverticulosis - 2011 Denies: Hx Cirrhosis, Hx Ulcer History: Reports: Hx Chronic Renal Failure - prior to renal transplant, Hx Renal Disease, Other Problems/Disorders - kidney transplant Musculoskeletal History: Reports: Hx Arthritis Sensory History: Reports: Hx Contacts or Glasses Denies: Hx Cataracts, Hx Eye Injury, Hx Eye Prosthesis, Hx Glaucoma, Hx Macular Degeneration, Hx Vision Problem, Hx Deafness, Hx Hearing Aid, Hx Hearing Problem, Other Sensory Impairments Opthamlomology History: Reports: Hx Contacts or Glasses Denies: Hx Cataracts, Hx Eye Injury, Hx Eye Prosthesis, Hx Glaucoma, Hx Macular Degeneration, Hx Vision Problem, Other Sensory Impairments Neurological History: Reports: Hx Headaches Denies: Hx Dementia, Hx Migraine, Hx Seizures, Hx Transient Ischemic Attacks (TIA) Psychiatric History: Reports: Hx Depression - r/t mother few days Denies: Hx Panic Disorder, Hx Post Traumatic Stress Disorder, Hx Suicide Attempt - Cancer History Hx Chemotherapy: No Hx Radiation Therapy: No - Surgical History Surgery Procedure, Year, and Place: RIGHT KIDNEY BIOPSY. kidney transplant see above. RT CATARACT. D&C. RT BREAST BIOPSY - Immunization History Date of Tetanus Vaccine: 2009 Date of Influenza Vaccine: 12/08/14 Infectious Disease History: No Infectious Disease History: Reports: Hx Shingles - 04/2016, History Other Infectious Disease - CMV Denies: Hx Clostridium Difficile, Hx Hepatitis, Hx Human Immunodeficiency Virus (HIV), Hx of Known/Suspected MRSA, Hx Tuberculosis, Hx Known/Suspected VRE , Hx Known/Suspected VRSA, Traveled Outside the [place] in Last 30 Days - Family History Known Family History: Positive: Cardiac Disease - CAD, Hypertension, Renal Disease, Other - Aneurysms; Breast CA - paternal aunt Negative: Diabetes - Social History Alcohol Use: None Hx Substance Use: No Substance Use Type: Reports: None Hx Tobacco Use: No Smoking Status (MU): Never Smoked Tobacco Review of Systems Negative: Fever Negative: Chest Pain Negative: Shortness Of Breath Positive: Abdominal Pain. Negative: Vomiting, Diarrhea, Nausea All Other Systems Reviewed And Are Negative: Yes Physical Exam Triage Information Reviewed: Yes Vital Signs On Initial Exam: Initial Vitals Temp Pulse Resp BP Pulse Ox 98.6 F 79 15 187/108 96 06/01/18 21:16 06/01/18 21:16 06/01/18 21:16 06/01/18 21:16 06/01/18 21:16 Vital Signs Reviewed: Yes Appearance: Positive: Well-Appearing Skin: Positive: Warm, Dry Head/Face: Positive: Normal Head/Face Inspection Eyes: Positive: Normal, Conjunctiva Clear ENT: Positive: Pharynx normal Respiratory/Lung Sounds: Positive: Clear to Auscultation, Breath Sounds Present Cardiovascular: Positive: Normal, RRR Abdomen Description: Positive: Soft, Other: - tenderness periumbilical Bowel Sounds: Positive: Present Musculoskeletal: Positive: Normal Neurological: Positive: Normal Psychiatric: Positive: Normal Diagnostics - Vital Signs Vital Signs Temp Pulse Resp BP Pulse Ox 06/01/18 21:16 98.6 F 79 15 187/108 96 - Laboratory Lab Results: Lab Results 06/01/18 Range/Units 22:17 WBC 7.7 (3.5-10.8) 10^3/uL RBC 4.06 (3.70-4.87) 10^6 /uL Hgb 10.8 L (12.0-16.0) g/dL Hct 33 (33-41) % MCV 81 (80-97) fL MCH 27 (27-31) pg MCHC 33 (31-36) g/dL RDW 15 (10.5-15) % Plt Count 267 (150-450) 10^3/uL MPV 8.7 (7.4-10.4) fL Neut % (Auto) 65.9 % Lymph % (Auto) 20.6 % [place] % (Auto) 11.5 % Eos % (Auto) 1.4 % Baso % (Auto) 0.6 % Absolute Neuts (auto) 5.0 (1.5-7.7) 10^3/ul Absolute Lymphs (auto) 1.6 (1.0-4.8) 10^3/ul Absolute Monos (auto) 0.9 H (0-0.8) 10^3/ul Absolute Eos (auto) 0.1 (0-0.6) 10^3/ul Absolute Basos (auto) 0 (0-0.2) 10^3/ul Absolute Nucleated RBC 0 10^3/ul Nucleated RBC % 0 Result Diagrams: 06/01/18 22:17 06/01/18 22:17 Lab Statement: Any lab studies that have been ordered have been reviewed, and results considered in the medical decision making process. - CT abd CT Interpretation Completed By: Radiologist Summary of CT Findings: IMPRESSION: 1. There is a small hiatal hernia. 2. Stable colonic diverticulosis without evidence for acute diverticulitis. GIGU Course/Dx - Course Course Of Treatment: 57-year-old female presents with mid abdominal pain for the past 3 days. She denies any change in appetite. No nausea or vomiting. No urinary symptoms. had normal bowel movement today. She has history of her kidney transplant. She is followed up by nephrology. She denies any fevers. No cough. Nothing makes the pain better or worse. She had a colonoscopy endoscope last year: Shows that she has ulcers and diverticulosis. On exam has tenderness in periumbilical region. wbc normal. CRP normal. renal function is slightly elevated compared to normal. CT shows no acute findings. patient did not want IV constract. Told to follow up with nephrology and primary. Patient understands agrees with plan. - Diagnoses Differential Diagnoses - Female: Constipation, Diverticulitis, Urinary Tract Infection Provider Diagnoses: Abdominal pain Discharge - Sign-Out/Discharge Documenting (check all that apply): Patient Departure Patient Received Moderate/Deep Sedation with Procedure: No - Discharge Plan Condition: Good Disposition: HOME Patient Education Materials: Abdominal Pain (ED) Referrals: Nickie Love MD [Primary Care Provider] - Additional Instructions: Follow up with primary take tyenlol as needed for pain Return to ED if develop any new or worsening symptoms - Billing Disposition and Condition Condition: GOOD Disposition: Home
[2018-06-01 22:41] LABS: Albumin 3.9 g/dL (3.2-5.2); Albumin/Globulin Ratio 1.3 (1-3); BUN/Creatinine Ratio 34.4 (8-20); C Reactive Protein 7.77 mg/L (<8.01); Calcium 9.4 mg/dL (8.6-10.3); EGFR African American 33.9 (>60); Total Bilirubin 0.2 mg/dL (0.2-1.0); Total Protein 6.9 g/dL (6.4-8.9)
[2018-06-01 23:13] LABS: Urine Appearance Clear; Urine Bacteria 1+ (Absent); Urine Bilirubin Negative (Negative); Urine Blood 2+ (Negative); Urine Color Straw; Urine Glucose Negative (Negative); Urine Ketones Negative (Negative); Urine Nitrite Negative (Negative); Urine Protein Negative (Negative); Urine Red Blood Cell Trace(0-2/hpf) (Absent); Urine Specific Gravity 1.008 (1.010-1.030); Urine Squamous Epithelial Cell Present (Absent); Urine Urobilinogen Negative (Negative); Urine White Blood Cell Trace(0-5/hpf) (Absent)
[2018-06-02 00:27] VITALS: BP 153/89
== END 2018-06-02 00:27 | disposition home or self-care (01) ==
LOC: ED 21:15
DX: R10.33 Periumbilical pain (principal); K44.9 Diaphragmatic hernia without obstruction or gangrene; K57.30 Diverticulosis of large intestine without perforation or abscess without bleeding; I12.9 Hypertensive chronic kidney disease with stage 1 through stage 4 chronic kidney disease, or unspecified chronic kidney disease; N18.9 Chronic kidney disease, unspecified; Z94.0 Kidney transplant status; Z82.49 Family history of ischemic heart disease and other diseases of the circulatory system; Z84.1 Family history of disorders of kidney and ureter; Z80.3 Family history of malignant neoplasm of breast
CPT/HCPCS: 36415; 74176; 80053; 81003; 81015; 82150; 83605; 83690; 85025; 86140; 87086; 99282

== ENCOUNTER 2018-08-16 00:40 | Emergency (ER) | payer OTHER ==
[2018-08-16 01:02] LABS: Urine Appearance Clear; Urine Bacteria 1+ (Absent); Urine Bilirubin Negative (Negative); Urine Blood 2+ (Negative); Urine Color Straw; Urine Glucose Negative (Negative); Urine Ketones Negative (Negative); Urine Nitrite Negative (Negative); Urine Protein Negative (Negative); Urine Red Blood Cell 2+(6-10/hpf) (Absent); Urine Specific Gravity 1.008 (1.010-1.030); Urine Urobilinogen Negative (Negative); Urine White Blood Cell 3+(>20/hpf) (Absent)
[2018-08-16] MEDS ORDERED: cefTRIAXone(*) 1 GM in NS 0.9% 50 ML* 50 ML IVPB ONE (01:22)
[2018-08-16] MEDS ORDERED: NS 0.9% 1000 ML** 1,000 ML IV ONE (01:22)
--- NOTE | 2018-08-16 01:24 | ED ---
GI/ HPI - HPI Summary HPI Summary: 57 year old female with history of renal transplant presents with dysuria for the past day. She states that about a week ago she had her testing done for her transplant and they noticed that she had UTI since she was treated with a course of keflex. Culture noted per patient to be resistant to Cipro and grew Escherichia coli. she stopped the antibiotic three days ago. she took a dose of amoxicillin today prior to come. she states has had chills and felt feverish. states has had all over body aches. no history of pyelo but history of uti. no chest pain or SOB. she denies any nausea or vomiting. denies any flank pain. does have pain into lower back. - History of Current Complaint Chief Complaint: EDUrogenitalProblems Time Seen by Provider: 08/16/18 01:18 Stated Complaint: "UTI" PER PT Pain Intensity: 5 - Additional Pertinent History Primary Care Physician: [id number] - Allergy/Home Medications Allergies/Adverse Reactions: Allergies Allergy/AdvReac Type Severity Reaction Status Date / Time No Known Allergies Allergy Verified 06/01/18 21:20 PMH/Surg Hx/FS Hx/Imm Hx Endocrine/Hematology History: Denies: Hx Diabetes, Hx Thyroid Disease Cardiovascular History: Reports: Hx Angina, Hx Hypercholesterolemia, Hx Hypertension Denies: Hx Angioplasty, Hx Congestive Heart Failure, Hx Coronary Artery Disease, Hx Myocardial Infarction, Hx Pacemaker/ICD, Hx Valvular Heart Disease Respiratory History: Reports: Hx Pulmonary Embolism Denies: Hx Asthma, Hx Chronic Obstructive Pulmonary Disease (COPD), Hx Lung Cancer Comment Only: Other Respiratory Problems/Disorders - pe GI History: Reports: Hx Diverticulosis - 2011 Denies: Hx Cirrhosis, Hx Ulcer History: Reports: Hx Chronic Renal Failure - prior to renal transplant, Hx Renal Disease, Other Problems/Disorders - kidney transplant Musculoskeletal History: Reports: Hx Arthritis Sensory History: Reports: Hx Contacts or Glasses Denies: Hx Cataracts, Hx Eye Injury, Hx Eye Prosthesis, Hx Glaucoma, Hx Macular Degeneration, Hx Vision Problem, Hx Deafness, Hx Hearing Aid, Hx Hearing Problem, Other Sensory Impairments Opthamlomology History: Reports: Hx Contacts or Glasses Denies: Hx Cataracts, Hx Eye Injury, Hx Eye Prosthesis, Hx Glaucoma, Hx Macular Degeneration, Hx Vision Problem, Other Sensory Impairments Neurological History: Reports: Hx Headaches Denies: Hx Dementia, Hx Migraine, Hx Seizures, Hx Transient Ischemic Attacks (TIA) Psychiatric History: Reports: Hx Depression - r/t mother few days Denies: Hx Panic Disorder, Hx Post Traumatic Stress Disorder, Hx Suicide Attempt - Cancer History Hx Chemotherapy: No Hx Radiation Therapy: No - Surgical History Surgery Procedure, Year, and Place: RIGHT KIDNEY BIOPSY. kidney transplant see above. RT CATARACT. D&C. RT BREAST BIOPSY - Immunization History Date of Tetanus Vaccine: 2009 Date of Influenza Vaccine: 12/08/14 Infectious Disease History: Yes Infectious Disease History: Reports: Hx Shingles - 04/2016, History Other Infectious Disease - CMV Denies: Hx Clostridium Difficile, Hx Hepatitis, Hx Human Immunodeficiency Virus (HIV), Hx of Known/Suspected MRSA, Hx Tuberculosis, Hx Known/Suspected VRE , Hx Known/Suspected VRSA, Traveled Outside the [place] in Last 30 Days - Family History Known Family History: Positive: Cardiac Disease - CAD, Hypertension, Renal Disease, Other - Aneurysms; Breast CA - paternal aunt Negative: Diabetes - Social History Alcohol Use: None Hx Substance Use: No Substance Use Type: Reports: None Hx Tobacco Use: No Smoking Status (MU): Never Smoked Tobacco Review of Systems Positive: Fever, Chills Negative: Chest Pain Negative: Shortness Of Breath Negative: Abdominal Pain, Vomiting, Nausea Positive: dysuria, urgency All Other Systems Reviewed And Are Negative: Yes Physical Exam Triage Information Reviewed: Yes Vital Signs On Initial Exam: Initial Vitals Temp Pulse Resp BP Pulse Ox 99.9 F 90 16 169/101 95 08/16/18 00:43 08/16/18 00:43 08/16/18 00:43 08/16/18 00:43 08/16/18 00:43 Vital Signs Reviewed: Yes Appearance: Positive: Well-Appearing Skin: Positive: Warm, Dry Head/Face: Positive: Normal Head/Face Inspection Eyes: Positive: Normal, Conjunctiva Clear ENT: Positive: Pharynx normal Respiratory/Lung Sounds: Positive: Clear to Auscultation, Breath Sounds Present Cardiovascular: Positive: Normal, RRR Abdomen Description: Positive: Soft, Other: - suprapubic tenderness. Negative: CVA Tenderness (R), CVA Tenderness (L) Bowel Sounds: Positive: Present Musculoskeletal: Positive: Normal Neurological: Positive: Normal Psychiatric: Positive: Normal Diagnostics - Vital Signs Vital Signs Temp Pulse Resp BP Pulse Ox 08/16/18 00:43 99.9 F 90 16 169/101 95 - Laboratory Lab Results: Lab Results 08/16/18 Range/Units 00:53 Urine Color Straw Urine Appearance Clear Urine pH 5.0 (5-9) Ur Specific [place] 1.008 L (1.010-1.030) Urine Protein Negative (Negative) Urine Ketones Negative (Negative) Urine Blood 2+ A (Negative) Urine Nitrate Negative (Negative) Urine Bilirubin Negative (Negative) Urine Urobilinogen Negative (Negative) Ur Leukocyte Esterase 2+ A (Negative) Urine WBC (Auto) 3+(>20/hpf) A (Absent) Urine RBC (Auto) 2+(6-10/hpf) A (Absent) Urine Bacteria 1+ A (Absent) Urine Glucose Negative (Negative) Result Diagrams: 08/16/18 01:32 08/16/18 01:32 Lab Statement: Any lab studies that have been ordered have been reviewed, and results considered in the medical decision making process. - CT abd CT Interpretation Completed By: Radiologist Summary of CT Findings: IMPRESSION: 1. Minimal left lower lobe and to a lesser degree right middle lobe. fibro-atelectatic change. 2. Minimal hiatal hernia. 3. Prominent bilateral renal atrophy with right pelvic transplant kidney which. is similar to 06/01/2018. 4. Colonic diverticulosis without diverticulitis. 5. Otherwise negative CT abdomen/pelvis. Re-Evaluation - Re-Evaluation First Eval Re-Evaluation Time: 02:39 Change: Improved Comment: feeling better, is not tachycardic. patient is comfortable with discharge and will return if symptoms worsen GIGU Course/Dx - Course Course Of Treatment: 57 year old female with history of renal transplant presents with dysuria for the past day. She states that about a week ago she had her testing done for her transplant and they noticed that she had UTI since she was treated with a course of keflex. Culture noted per patient to be resistant to Cipro and grew Escherichia coli. she stopped the antibiotic three days ago. she took a dose of amoxicillin today prior to come. she states has had chills and felt feverish. states has had all over body aches. no history of pyelo but history of uti. no chest pain or SOB. she denies any nausea or vomiting. denies any flank pain. does have pain into lower back. on exam has suprapubic tenderness. no CVA tenderness. developed low grade fever while in ED. wbc 12. crp elevated. renal function is at baseline. gave dose of rocephin. discussed with dr ku will try a course of antibiotics as home. found old culture and was sensitive to augmentin so will try a course of such. warned if develop worsening symptoms to return. patient understand and agrees with plan. - Diagnoses Differential Diagnoses - Female: Pyelonephritis, Urinary Tract Infection, Ureteral Calculi Provider Diagnoses: UTI (urinary tract infection) Discharge - Sign-Out/Discharge Documenting (check all that apply): Patient Departure Patient Received Moderate/Deep Sedation with Procedure: No - Discharge Plan Condition: Stable Disposition: HOME Prescriptions: Amoxicillin/Clavulanate TAB* [Augmentin TAB 875*] 875 mg PO BID #14 tab Patient Education Materials: Urinary Tract Infection in Women (ED) Referrals: Nickie Love MD [Primary Care Provider] - Additional Instructions: Take augmentin twice a day for 7days take tyenlol as needed for pain every 6 hours Drink plenty of fluids Follow up with primary in 5 days Return to ED if develop persistent fevers or any new or worsening symptoms - Billing Disposition and Condition Condition: STABLE Disposition: Home
[2018-08-16] MEDS ORDERED: Acetaminophen TAB* 325 MG PO ONE (01:53)
[2018-08-16 02:00] LABS: ABS Basophils 0.1 10^3/ul (0-0.2); ABS Eosinophils 0.1 10^3/ul (0-0.6); ABS Lymphocytes 0.9 10^3/ul (1.0-4.8); ABS Monocytes 1.4 10^3/ul (0-0.8); ABS Neutrophils 9.7 10^3/ul (1.5-7.7); Eosinophil % 0.5 %; Hematocrit 31 % (35-47); Hemoglobin 9.8 g/dL (12.0-16.0); Lymphocyte % 7.2 %; Mean Corpuscular HGB Conc 32 g/dL (31-36); Mean Corpuscular Hemoglobin 25 pg (27-31); Mean Corpuscular Volume 78 fL (80-97); Mean Platelet Volume 8.9 fL (7.4-10.4); Platelet Count 221 10^3/uL (150-450); Red Blood Count 3.98 10^6 /uL (3.70-4.87); Red Cell Distribution Width 17 % (10-15); White Blood Count 12.1 10^3/uL (3.5-10.8)
[2018-08-16 02:02] LABS: Albumin 3.9 g/dL (3.2-5.2); Albumin/Globulin Ratio 1.1 (1-3); BUN/Creatinine Ratio 29.5 (8-20); C Reactive Protein 75.11 mg/L (<8.01); Calcium 9.6 mg/dL (8.6-10.3); EGFR African American 29.5 (>60); EGFR Non-African American 24.4 (>60); Globulin 3.4 g/dL (2-4); Potassium 4.8 mmol/L (3.5-5.0); Total Bilirubin 0.5 mg/dL (0.2-1.0); Total Protein 7.3 g/dL (6.4-8.9)
[2018-08-16 02:54] VITALS: BP 162/85
== END 2018-08-16 02:54 | disposition home or self-care (01) ==
LOC: ED 00:40
DX: N39.0 Urinary tract infection, site not specified (principal); R30.0 Dysuria; I10 Essential (primary) hypertension; N18.9 Chronic kidney disease, unspecified; Z94.0 Kidney transplant status; R50.9 Fever, unspecified
CPT/HCPCS: 36415; 74176; 80053; 81003; 81015; 83605; 85025; 86140; 87040; 87086; 96361; 96365; 99283; A9270-GY; J0696

== ENCOUNTER 2018-08-27 11:02 | Emergency (ER) | payer OTHER ==
[2018-08-27 12:27] LABS: ABS Basophils 0.1 10^3/ul (0-0.2); ABS Eosinophils 0.1 10^3/ul (0-0.6); ABS Lymphocytes 0.9 10^3/ul (1.0-4.8); ABS Monocytes 1.2 10^3/ul (0-0.8); ABS Neutrophils 12.8 10^3/ul (1.5-7.7); Eosinophil % 0.7 %; Hematocrit 32 % (35-47); Hemoglobin 9.9 g/dL (12.0-16.0); Lymphocyte % 5.7 %; Mean Corpuscular HGB Conc 31 g/dL (31-36); Mean Corpuscular Hemoglobin 25 pg (27-31); Mean Corpuscular Volume 78 fL (80-97); Mean Platelet Volume 8.4 fL (7.4-10.4); Platelet Count 254 10^3/uL (150-450); Red Blood Count 4.04 10^6 /uL (3.70-4.87); Red Cell Distribution Width 18 % (10-15)
[2018-08-27 12:41] LABS: INR 0.96 (0.82-1.09)
[2018-08-27 12:57] LABS: Albumin 3.8 g/dL (3.2-5.2); Albumin/Globulin Ratio 1.1 (1-3); BUN/Creatinine Ratio 30.1 (8-20); Calcium 10.2 mg/dL (8.6-10.3); EGFR African American 34.6 (>60); EGFR Non-African American 28.6 (>60); Globulin 3.4 g/dL (2-4); Total Bilirubin 0.4 mg/dL (0.2-1.0); Total Protein 7.2 g/dL (6.4-8.9)
[2018-08-27 12:58] LABS: Potassium 5.4 mmol/L (3.5-5.0)
--- NOTE | 2018-08-27 13:36 | ED ---
HPI Chest Pain - HPI Summary HPI Summary: This patient is a 57 year old F presenting to [facility] accompanied by her sister with a chief complaint of mid-sternal CP since 0700 this morning. She states that she has never had CP that is mid-sternal before. She got out of the bed today and went to the bathroom without any pain. It has been constant since the onset and has started radiating up her neck and jaw. She rates the pain as a 6-7 /10 She denies fever N/V/D, cough, diaphoresis, sore throat, abdominal pain, SOB and headaches. She reported that laying down has alleviated the pain and she has an increase in pain with deep inhalations. She had a nuclear stress test in 2018 for CP that radiated across her chest which she describes as different from the CP today. 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 She denies any recent illness. - History of Current Complaint Chief Complaint: EDChestPainROMI Time Seen by Provider: 08/27/18 13:28 Hx Obtained From: Patient Onset/Duration: Started Hours Ago - 0700, Still Present, Worse Since - arrival Time of Onset: 07:00 Timing: Constant Initial Severity: Mild Current Severity: Moderate Pain Intensity: 7 Pain Scale Used: 0-10 Numeric Chest Pain Location: Mid Sternal Chest Pain Radiates: Yes Chest Pain Radiates To:: Jaw, Neck Aggravating Factor(s): Deep Breaths Alleviating Factor(s): Other: - laying down Associated Signs and Symptoms: Positive: Negative - fever N/V/D, cough, sore throat, abdominal pain, SOB and headaches. Denies recent illness, Chest Pain - mid-sternal that radiates up her neck and jaw - Additional Pertinent History Primary Care Physician: [id number] - Allergy/Home Medications Allergies/Adverse Reactions: Allergies Allergy/AdvReac Type Severity Reaction Status Date / Time No Known Allergies Allergy Verified 08/27/18 11:09 Home Medications: Home Medications Enoxaparin(*) [Lovenox(*)] 80 mg SUBCUT Q24HR 08/27/18 [History Confirmed ] Pravastatin Sodium 20 mg PO DAILY 08/27/18 [History Confirmed 08/27/18] PMH/Surg Hx/FS Hx/Imm Hx Previously Healthy: No Endocrine/Hematology History: Denies: Hx Diabetes, Hx Thyroid Disease Cardiovascular History: Reports: Hx Angina, Hx Hypercholesterolemia, Hx Hypertension Denies: Hx Angioplasty, Hx Congestive Heart Failure, Hx Coronary Artery Disease, Hx Myocardial Infarction, Hx Pacemaker/ICD, Hx Valvular Heart Disease Respiratory History: Reports: Hx Pulmonary Embolism Denies: Hx Asthma, Hx Chronic Obstructive Pulmonary Disease (COPD), Hx Lung Cancer Comment Only: Other Respiratory Problems/Disorders - pe GI History: Reports: Hx Diverticulosis - 2011 Denies: Hx Cirrhosis, Hx Ulcer History: Reports: Hx Chronic Renal Failure - prior to renal transplant, Hx Renal Disease, Other Problems/Disorders - kidney transplant Musculoskeletal History: Reports: Hx Arthritis Sensory History: Reports: Hx Contacts or Glasses Denies: Hx Cataracts, Hx Eye Injury, Hx Eye Prosthesis, Hx Glaucoma, Hx Macular Degeneration, Hx Vision Problem, Hx Deafness, Hx Hearing Aid, Hx Hearing Problem, Other Sensory Impairments Opthamlomology History: Reports: Hx Contacts or Glasses Denies: Hx Cataracts, Hx Eye Injury, Hx Eye Prosthesis, Hx Glaucoma, Hx Macular Degeneration, Hx Vision Problem, Other Sensory Impairments Neurological History: Reports: Hx Headaches Denies: Hx Dementia, Hx Migraine, Hx Seizures, Hx Transient Ischemic Attacks (TIA) Psychiatric History: Reports: Hx Depression - r/t mother few days Denies: Hx Panic Disorder, Hx Post Traumatic Stress Disorder, Hx Suicide Attempt - Cancer History Hx Chemotherapy: No Hx Radiation Therapy: No - Surgical History Surgery Procedure, Year, and Place: RIGHT KIDNEY BIOPSY. kidney transplant see above. RT CATARACT. D&C. RT BREAST BIOPSY - Immunization History Date of Tetanus Vaccine: 2009 Date of Influenza Vaccine: 12/08/14 Infectious Disease History: No Infectious Disease History: Reports: Hx Shingles - 04/2016, History Other Infectious Disease - CMV Denies: Hx Clostridium Difficile, Hx Hepatitis, Hx Human Immunodeficiency Virus (HIV), Hx of Known/Suspected MRSA, Hx Tuberculosis, Hx Known/Suspected VRE , Hx Known/Suspected VRSA, Traveled Outside the [place] in Last 30 Days - Family History Known Family History: Positive: Cardiac Disease - CAD, Hypertension, Renal Disease, Other - Aneurysms; Breast CA - paternal aunt Negative: Diabetes - Social History Alcohol Use: None Hx Substance Use: No Substance Use Type: Reports: None Hx Tobacco Use: No Smoking Status (MU): Never Smoked Tobacco Review of Systems Negative: Fever, Skin Diaphoresis Positive: Chest Pain - mid-sternal Negative: Shortness Of Breath, Cough Negative: Abdominal Pain, Vomiting, Diarrhea, Nausea Positive: Other - radiating pain into her neck and jaw Negative: Headache All Other Systems Reviewed And Are Negative: Yes Physical Exam - Summary Physical Exam Summary: Appearance: Well-appearing, Well-nourished, lying in bed comfortably Skin: Warm, dry, no obvious rash Eyes: sclera anicteric, no conjunctival pallor ENT: mucous membranes moist, pharynx appears normal Neck: Supple, nontender Respiratory: Clear to auscultation, no signs of respiratory distress Cardiovascular: Normal S1, S2. No murmurs. Normal distal pulses in tibial and radial bilaterally. Abdomen: Soft, nontender, normal active bowel sounds present Musculoskeletal: Normal, Strength/ROM Intact Neurological: A&Ox3, awake and alert, mentation is normal, speech is fluent and appropriate Psychiatric: affect is normal, does not appear anxious or depressed Triage Information Reviewed: Yes Vital Signs On Initial Exam: Initial Vitals Temp Pulse Resp BP Pulse Ox 98.4 F 92 16 197/100 96 08/27/18 11:04 08/27/18 11:04 08/27/18 11:04 08/27/18 11:04 08/27/18 11:04 Vital Signs Reviewed: Yes Diagnostics - Vital Signs Vital Signs Temp Pulse Resp BP Pulse Ox 08/27/18 13:19 83 17 178/112 96 08/27/18 12:45 99.1 F 87 20 147/80 98 08/27/18 11:04 98.4 F 92 16 197/100 96 - Laboratory Lab Results: Lab Results 08/27/18 08/27/18 08/27/18 Range/Units 12:10 12:10 12:10 WBC 15.0 H (3.5-10.8) 10^3/uL RBC 4.04 (3.70-4.87) 10^6 /uL Hgb 9.9 L (12.0-16.0) g/dL Hct 32 L (35-47) % MCV 78 L (80-97) fL MCH 25 L (27-31) pg MCHC 31 (31-36) g/dL RDW 18 H (10-15) % Plt Count 254 (150-450) 10^3/uL MPV 8.4 (7.4-10.4) fL Neut % (Auto) 85.1 % Lymph % (Auto) 5.7 % Frio % (Auto) 8.1 % Eos % (Auto) 0.7 % Baso % (Auto) 0.4 % Absolute Neuts (auto) 12.8 H (1.5-7.7) 10^3/ul Absolute Lymphs (auto) 0.9 L (1.0-4.8) 10^3/ul Absolute Monos (auto) 1.2 H (0-0.8) 10^3/ul Absolute Eos (auto) 0.1 (0-0.6) 10^3/ul Absolute Basos (auto) 0.1 (0-0.2) 10^3/ul Absolute Nucleated RBC 0.0 10^3/ul Nucleated RBC % 0.0 INR (Anticoag Therapy) 0.96 (0.82-1.09) Sodium 133 L (135-145) mmol/L Potassium 5.4 H (3.5-5.0) mmol/L Chloride 106 (101-111) mmol/L Carbon Dioxide 19 L (22-32) mmol/L Anion Gap 8 (2-11) mmol/L BUN 55 H (6-24) mg/dL Creatinine 1.83 H (0.51-0.95) mg/dL Est GFR ( Amer) 34.6 (>60) Est GFR (Non-Af Amer) 28.6 (>60) BUN/Creatinine Ratio 30.1 H (8-20) Glucose 153 H (70-100) mg/dL Calcium 10.2 (8.6-10.3) mg/dL Total Bilirubin 0.40 (0.2-1.0) mg/dL AST 14 (13-39) U/L ALT 16 (7-52) U/L Alkaline Phosphatase 69 (34-104) U/L Troponin I 0.00 (<0.04) ng/mL Total Protein 7.2 (6.4-8.9) g/dL Albumin 3.8 (3.2-5.2) g/dL Globulin 3.4 (2-4) g/dL Albumin/Globulin Ratio 1.1 (1-3) Result Diagrams: 08/27/18 12:10 08/27/18 12:10 Lab Statement: Any lab studies that have been ordered have been reviewed, and results considered in the medical decision making process. - Radiology CXR Radiology Interpretation Completed By: Radiologist Summary of Radiographic Findings: New consolidation at the LEFT lung base may represent atelectasis, pneumonia, or. potentially pulmonary embolism given history of DVT. ED Physician has reviewed this report. - CT Chest CT CT Interpretation Completed By: Radiologist Summary of CT Findings: No CT apparent acute abnormality of the chest. ED Physician has reviewed this report. - EKG 1104 Cardiac Rate: NL - 94 BPM EKG Rhythm: Sinus Rhythm ST Segment: Normal Ectopy: None Summary of EKG Findings: NSR at 94 BPM, P waves, QRS complex, and T waves are within normal limits, T waves and intervals are normal, no ischemic changes. This is a normal EKG. Interpreted by Dr. Brambila at 1340 08/27/18. Re-Evaluation - Re-Evaluation First Eval Re-Evaluation Time: 16:44 Change: Improved Comment: Pt was informed of the discharge plan and is agreeable. Chest Pain Course/Dx - Course Course Of Treatment: This patient is a 57 year old F presenting to [facility] accompanied by her sister with a chief complaint of mid-sternal CP since 0700 this morning. She states that she has never had CP that is mid-sternal before. She got out of the bed today and went to the bathroom without any pain. It has been constant since the onset and has started radiating up her head and neck. Upon her PE she has no abnormal findings. She has abnormal lab values in WBC, RDW, Absolute Neuts, carbon dioxide, BUN, BUN/Creatinine ratio. Her Troponin levels are within normal ranges. Her CXR shows New consolidation at the LEFT lung base may represent atelectasis, pneumonia, or potentially pulmonary embolism given history of DVT. Pt received an EKG which shows a NSR at 94 BPM, P waves, QRS complex, and T waves are within normal limits, T waves and intervals are normal, no ischemic changes. This is a normal EKG. Dr. Hall agreed at 1642 with a non-contrast chest CT. If the results are negative the pt can be discharged, given an ABX and return for a follow up visit at his office for 1310 08/28/18. Her Chest CT shows No CT apparent acute abnormality of the chest. She will be discharged home with a DX of Chest Pain but no ABX. - Diagnoses Provider Diagnoses: Chest pain - Provider Notifications Discussed Care Of Patient With: Jose Hall Time Discussed With Above Provider: 16:39 Instructed by Provider To: Other - Dr. Hall agreed with a non-contrast chest CT. If the results are negative the pt can be discharged, given an ABX and return for a follow up visit at his office for 1310 08/28/18. Discharge - Sign-Out/Discharge Documenting (check all that apply): Patient Departure - discharge Patient Received Moderate/Deep Sedation with Procedure: No - Discharge Plan Condition: Good Disposition: HOME Patient Education Materials: Chest Pain (ED) Referrals: Jose Hall MD [Medical Doctor] - 1 Day Additional Instructions: Dr. Hall would like to have you come to his office to see his ASSEMBLY HAND Perry Trinh tomorrow at 1:10 pm. The test we did here today did not show any sign of a heart problem, and Dr. Hall felt that the liklehood of developing another pulmonary embolus while on lovenox is quite remote. Your CXR showed some subtle changes suggestive of pneumonia in the left lower lung, but your history did not sound like pneumonia, so we did the CT scan which did not show any problem. At this point the exact cause of your pain is not certain, but we do not have any indication of anything dangerous or serious at present, so we feel it is safe for you to go home and rest. - Billing Disposition and Condition Condition: GOOD Disposition: Home - Attestation Statements Document Initiated by Zelda: Yes Documenting Scribe: Josué Alvarado Provider For Whom Zelda is Documenting (Include Credential): Slim Brambila MD Scribe Attestation: IJosué, scribed for Slim Brambila MD on 08/29/18 at 0453. Scribe Documentation Reviewed: Yes Provider Attestation: The documentation as recorded by the Josué fraser accurately reflects the service I personally performed and the decisions made by me, Slim Brambila MD Status of Scribe Document: Viewed
[2018-08-27] MEDS ORDERED: Acetaminophen TAB* 325 MG PO ONE (16:46)
[2018-08-27 18:10] VITALS: BP 139/84
== END 2018-08-27 18:16 | disposition home or self-care (01) ==
LOC: ED 11:02
DX: R07.9 Chest pain, unspecified (principal); I26.99 Other pulmonary embolism without acute cor pulmonale; I12.9 Hypertensive chronic kidney disease with stage 1 through stage 4 chronic kidney disease, or unspecified chronic kidney disease; N18.9 Chronic kidney disease, unspecified; Z94.0 Kidney transplant status; Z79.899 Other long term (current) drug therapy
CPT/HCPCS: 36415; 71046; 71250; 80053; 84484; 85025; 85610; 93005; 99283; A9270-GY

== ENCOUNTER 2018-10-21 13:16 | Emergency (ER) | payer OTHER ==
[2018-10-21 14:14] VITALS: BP 138/76
[2018-10-21] MEDS ORDERED: Acetaminophen TAB* 325 MG PO ONE (14:22)
--- NOTE | 2018-10-21 14:54 | UC ---
Lower Extremity/Ankle HPI - HPI Summary HPI Summary: 57 yo female with right ankle pain after stepping in a hole this am able to painfully bear wt on chronic prednisone (kidney transplant) - History of Current Complaint Chief Complaint: UCLowerExtremity Stated Complaint: ANKLE PAIN RIGHT SIDE Time Seen by Provider: 10/21/18 14:15 Hx Obtained From: Patient Onset/Duration: Sudden Onset, Lasting Hours Severity Initially: Moderate Severity Currently: Mild Pain Intensity: 4 Pain Scale Used: 0-10 Numeric Aggravating Factor(s): Standing, Ambulation Alleviating Factor(s): Rest, Elevation Able to Bear Weight: Yes Feet (Multiple View): 1 - tender/swollen - Allergies/Home Medications Allergies/Adverse Reactions: Allergies Allergy/AdvReac Type Severity Reaction Status Date / Time ANESTHESIA AdvReac Intermediate Vomiting Uncoded 10/21/18 14:15 PMH/Surg Hx/FS Hx/Imm Hx Previously Healthy: No Cardiovascular History: Hypertension GI/ History: Renal Disease, Other - intersititial nephritis, transplant - Surgical History Surgical History: Yes Surgery Procedure, Year, and Place: RIGHT KIDNEY BIOPSY. Rt kidney transplant. RT CATARACT. D&C. RT BREAST BIOPSY. PERTINEAL DIALYSIS - SURGY TO IMPLANT TUBE & REMOVED - Family History Known Family History: Positive: Cardiac Disease - CAD, Hypertension, Renal Disease, Other - Aneurysms; Breast CA - paternal aunt Negative: Diabetes - Social History Alcohol Use: None Substance Use Type: None Smoking Status (MU): Never Smoked Tobacco - Immunization History Most Recent Influenza Vaccination: Fall 2015 Most Recent Tetanus Shot: 4 yrs ago Most Recent Pneumonia Vaccination: Fall 2015 Review of Systems All Other Systems Reviewed And Are Negative: Yes Constitutional: Positive: Negative Skin: Positive: Negative Eyes: Positive: Negative ENT: Positive: Negative Respiratory: Positive: Negative Cardiovascular: Positive: Negative Gastrointestinal: Positive: Negative Genitourinary: Positive: Negative Motor: Positive: Negative Neurovascular: Positive: Negative Musculoskeletal: Positive: Arthralgia - right ankle Neurological: Positive: Negative Physical Exam Triage Information Reviewed: Yes Appearance: Well-Appearing, No Pain Distress, Well-Nourished Vital Signs: Initial Vital Signs Temp 98.4 F 08/14/19 14:10 Pulse 70 10/21/18 14:10 Resp 16 10/21/18 14:10 BP 138/76 10/21/18 14:10 Pulse Ox 97 10/21/18 14:10 Vital Signs Reviewed: Yes Eyes: Positive: Conjunctiva Clear ENT: Positive: Hearing grossly normal. Negative: Nasal congestion, Nasal drainage, Tonsillar exudate, Trismus, Muffled voice, Hoarse voice Neck: Positive: Supple, Nontender Respiratory: Positive: Lungs clear, Normal breath sounds, No respiratory distress, No accessory muscle use Cardiovascular: Positive: RRR, No Murmur Musculoskeletal: Positive: Other: - see image Neurological Exam: Normal Neurological: Positive: Alert Psychological Exam: Normal Skin Exam: Normal Diagnostics - Radiology No standard instances Radiology Interpretation Completed By: Radiologist Summary of Radiographic Findings: Grossly nondisplaced avulsion fracture caudal margin lateral malleolus Lower Extremity Course/Dx - Course Course Of Treatment: patient declined crutches states she would be a fall risk on crutches - Differential Dx/Diagnosis Provider Diagnosis: Avulsion fracture of lateral malleolus of right fibula Discharge - Sign-Out/Discharge Documenting (check all that apply): Patient Departure All imaging exams completed and their final reports reviewed: No Studies - Discharge Plan Condition: Stable Disposition: HOME Patient Education Materials: Ankle Fracture (ED) Referrals: Zacarias Valle MD [Medical Doctor] - As Soon As Possible (is) - Billing Disposition and Condition Condition: STABLE Disposition: Home
--- OUTSIDE RECORDS SUMMARY | 2018-10-21 18:01 | XMS REPORT | Continuity of Care Document ---
:1960 External Reference #:[id number] Author Name Jass Macario, OD Address [address] [place] [address] Care Team Providers Name Role Phone Adelita Bañuelos MD Care Team Information Code Official Unavailable Adelita Bañuelos MD Primary Care Physician Unavailable Payers Date Identification Numbers Payment Provider Subscriber Policy Number: [id number] [facility] Alondra Ramsey PayID: [id number] [address] [place] [address] Problems Active Problems Provider Date Posterior subcapsular polar senile cataract Jass Chinchilla O.D. Onset: 03/09 Lens Replaced By Other Means Jass Chinchilla O.D. Onset: 03/09/2014 Presbyopia Jass Chinchilla O.D. Onset: 03/09/2014 Disorder of optic nerve Jass Chinchilla O.D. 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 Family History Date Family Member(s) Observation Comments General Glaucoma General High BP General Kidney Disease Father due to aneurysm () Father Glaucoma Mother Arthritis Mother due to Lung Cancer () Mother Glaucoma Mother H/O: Hypertension Mother Heart Disease Social History Type Date Description Comments Sex Unknown ETOH Use Never used alcohol Tobacco Use Start: Unknown Patient has never smoked Smoking Status Reviewed: 10/01/18 Patient has never smoked Allergies, Adverse Reactions, Alerts Active Allergies Reaction Severity Comments Date Anesthesia 03/09/2014 Medications Active Medications SIG Qnty Indications Ordering Provider Date Ketotifen Fumarate one drop twice a 5ml Jass Macario, OD 09/24/2017 0.025% day both eyes Solution Clonidine Nick Montiel MD 0.1mg/24HR Patches Weekly Pantoprazole Sodium Nickie Love M.D. 40mg Tablets Nickie Ferris M.D. 1gm Capsules Vamsi Hall MD, Jose 5mg Tablets Lisinopril Nick Montiel MD 20mg Tablets Pravastatin Sodium Nick Montiel MD 20mg Tablets Gengraf Unknown 100mg Capsules Gengraf Unknown 25mg Capsules Metoprolol Succinate ER Unknown 25mg Tablets ER 24HR Mycophenolic Acid Unknown 180mg Tablets Prednisone Unknown 5mg Tablets Simvastatin Unknown 40mg Tablets History Medications Fluorometholone 1gtt tid OU x 10ml Jass Macario, 09/16/2017 - 0.1% Suspension 1 week OD 10/01/2018 Fluorometholone one drop qid 5ml B02.32 Jass Macario, 04/19/2016 - 0.1% Suspension OS x 1 week, OD 07/04/2016 then d/c Warfarin Sodium Unknown - 1mg Tablets 07/04/2016 Omeprazole Unknown - 20mg Capsules 10/01/2018 Sensipar Unknown - 60mg Tablets 07/04/2016 Amoxicillin/Clavulanate Unknown - Potassium 07/04/2016 875-125mg Tablets Metoprolol Succinate ER Nick Montiel - 50mg MD 10/01/2018 Tablets ER 24HR Warfarin Sodium Unknown - 2mg Tablets 10/01/2018 Nifedipine ER Nick Montiel - 30mg Tablets ER 10/01/2018 24HR Vital Signs Date Vital Result Comment 10/01/2018 9:01am Intraocular Pressure Right Eye 15 mmHg Intraocular Pressure Left Eye 15 mmHg 09/24/2017 10:00am Intraocular Pressure Right Eye 15 mmHg Intraocular Pressure Left Eye 15 mmHg 07/04/2016 3:13pm Intraocular Pressure Right Eye 16 mmHg Intraocular Pressure Left Eye 16 mmHg 06/29/2015 9:38am Intraocular Pressure Right Eye 16 mmHg Intraocular Pressure Left Eye 16 mmHg 03/09/2014 8:22am Intraocular Pressure Right Eye 16 mmHg Intraocular Pressure Left Eye 16 mmHg Procedures Date Code Description Status 10/01/2018 26422 Fundus Photography W/Interpretation & Report Completed 10/01/2018 68872 Eye Exam Est Comprehensive Completed 07/07/2017 83760 Ophthalmoscopy Subsequent Completed 07/07/2017 83138 Refraction Completed 07/07/2017 16304 Eye Exam Est Intermediate Completed 07/04/2016 10554 Fundus Photography W/Interpretation & Report Completed 07/04/2016 46551 Ophthalmoscopy Subsequent Completed 07/04/2016 37751 Eye Exam Est Comprehensive Completed 04/19/2016 64533 Eye Exam Est Intermediate Completed 06/29/2015 63478 Ophthalmoscopy Subsequent Completed 06/29/2015 36659 Eye Exam Est Comprehensive Completed 06/28/2015 68500 Eye Exam Est Intermediate Completed 06/28/2015 18253 Refraction Completed 03/09/2014 96228 Ophthalmoscopy Subsequent Completed 03/09/2014 88844 Refraction Completed 03/09/2014 35923 Eye Exam Est Comprehensive Completed 06/11/2011 03857 Visual Field Exam Extended, Unilateral Or Bilateral Completed 06/11/2011 07230 Eye Exam Est Intermediate Completed 05/07/2011 30753 Fundus Photography W/Interpretation & Report Completed 05/07/2011 65189 Ophthalmoscopy Initial Completed 05/07/2011 80782 Refraction Completed 05/07/2011 53282 Eye Exam New Comprehensive Completed Encounters Type Date Location Provider Dx Diagnosis Office Visit 09/24/2017 Main Office Jass Macario, OD 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
== END 2018-10-21 15:00 | disposition home or self-care (01) ==
LOC: UCEAST 13:16
DX: S82.61XA Displaced fracture of lateral malleolus of right fibula, initial encounter for closed fracture (principal); W18.30XA Fall on same level, unspecified, initial encounter; Y92.9 Unspecified place or not applicable; I10 Essential (primary) hypertension
CPT/HCPCS: 99213; A9270-GY; G0463

== ENCOUNTER 2020-06-07 04:16 | Observation (INO) ==
[2020-06-07] MEDS ORDERED: diPHENhydraMINE 25 mg TAB PO ONE (04:28)
[2020-06-07 05:18] LABS: ABS Lymphocytes 2.5 10^3/ul (1.0-4.8); ABS Monocytes 0.7 10^3/ul (0-0.8); ABS Neutrophils 10.7 10^3/ul (1.5-7.7); Eosinophil % 0.3 %; Hematocrit 38 % (35-47); Hemoglobin 12.8 g/dL (12.0-16.0); Lymphocyte % 17.9 %; Mean Corpuscular HGB Conc 34 g/dL (31-36); Mean Corpuscular Hemoglobin 29 pg (27-31); Mean Corpuscular Volume 85 fL (80-97); Platelet Count 266 10^3/uL (150-450); Red Blood Count 4.44 10^6 /uL (3.70-4.87); Red Cell Distribution Width 14 % (10-15)
[2020-06-07 05:36] LABS: Albumin 4.1 g/dL (3.2-5.2); Albumin/Globulin Ratio 1.3 (1-3); BUN/Creatinine Ratio 32.2 (8-20); C Reactive Protein 7.22 mg/L (<8.01); EGFR African American 34.3 (>60); EGFR Non-African American 28.4 (>60); Globulin 3.1 g/dL (2-4); Potassium 4.5 mmol/L (3.5-5.0); Total Bilirubin 0.3 mg/dL (0.2-1.0); Total Protein 7.2 g/dL (6.4-8.9)
[2020-06-07] MEDS ORDERED: NS 0.9% 1000 ml BAG 1,000 ML IV ONE (06:09)
[2020-06-07 06:51] LABS: Urine Appearance Cloudy; Urine Bilirubin Negative (Negative); Urine Blood 1+ (Negative); Urine Color Yellow; Urine Glucose Negative (Negative); Urine Ketones Negative (Negative); Urine Nitrite Negative (Negative); Urine Protein Negative (Negative); Urine Specific Gravity 1.012 (1.002-1.030); Urine Urobilinogen Negative (Negative)
[2020-06-07 06:53] LABS: Urine Bacteria Absent (Absent); Urine Red Blood Cell Trace(0-2/hpf) (Absent); Urine Squamous Epithelial Cell Present (Absent); Urine White Blood Cell Trace(0-5/hpf) (Absent)
[2020-06-07] MEDS ORDERED: Al Hydrox/Mg Hydrox/Simet LIQ 30 ML UDC PO PRN (09:43)
[2020-06-07] MEDS ORDERED: Ondansetron 4 mg VIAL 2 MG/ML 2 ml VIAL IV PRN (09:43)
[2020-06-07] MEDS ORDERED: Calcium Carb (TUMS) 500 mg CHEW TAB PO SCH (10:00)
[2020-06-07] MEDS ORDERED: cycloSPORINE Modfied 100mg CAP PO SCH (10:00)
[2020-06-07] MEDS ORDERED: MYCOPHENOLATE 180 MG PO SCH (10:00)
[2020-06-07] MEDS ORDERED: CMCS: OMEGA-3 FATTY ACID 1000 mg(NF) PO SCH (12:00)
[2020-06-07 15:26] LABS: BUN/Creatinine Ratio 28.9 (8-20); Calcium 8.9 mg/dL (8.6-10.3); EGFR African American 33.5 (>60); EGFR Non-African American 27.7 (>60); Magnesium 1.7 mg/dL (1.9-2.7)
[2020-06-07 15:28] LABS: Potassium 5.1 mmol/L (3.5-5.0)
[2020-06-07] MEDS ORDERED: Magnesium Sulfate 2 gm BAG 2 GM/50 ML BAG IVPB ONE (15:32)
[2020-06-07 15:45] VITALS: BP 121/60
== END 2020-06-07 17:25 | disposition home or self-care (01) ==
LOC: MED 04:16 → ED 04:16 → MED 10:48
PROVIDERS: ADMIT Pediatrics; ATTEND Pediatrics

== ENCOUNTER 2021-04-24 11:20 | Inpatient (IN) ==
[2021-04-24 12:44] LABS: ABS Eosinophils 0.1 10^3/ul (0-0.6); ABS Lymphocytes 0.6 10^3/ul (1.0-4.8); ABS Monocytes 0.9 10^3/ul (0-0.8); ABS Neutrophils 6.1 10^3/ul (1.5-7.7); Eosinophil % 1.4 %; Hematocrit 25 % (35-47); Lymphocyte % 7.3 %; Mean Corpuscular HGB Conc 32 g/dL (31-36); Mean Corpuscular Hemoglobin 27 pg (27-31); Mean Corpuscular Volume 85 fL (80-97); Mean Platelet Volume 9.2 fL (7.4-10.4); Platelet Count 290 10^3/uL (150-450); Red Blood Count 2.93 10^6 /uL (3.70-4.87); Red Cell Distribution Width 16 % (10-15); White Blood Count 7.7 10^3/uL (3.5-10.8)
[2021-04-24 13:39] LABS: TSH Ultra Thyroid Stim Horm 1.76 mcIU/mL (0.34-5.60)
[2021-04-24 13:51] LABS: Albumin 3.6 g/dL (3.2-5.2); Anion Gap 11 mmol/L (2-11); CO2 Carbon Dioxide 18 mmol/L (22-32); Calcium 9.5 mg/dL (8.6-10.3); Chloride 106 mmol/L (101-111); Potassium 4.3 mmol/L (3.5-5.0); Sodium 135 mmol/L (135-145)
[2021-04-24 13:57] LABS: Urine Appearance Clear; Urine Bilirubin Negative (Negative); Urine Blood Negative (Negative); Urine Color Straw; Urine Glucose Negative (Negative); Urine Ketones Negative (Negative); Urine Nitrite Negative (Negative); Urine Protein Negative (Negative); Urine Specific Gravity 1.009 (1.002-1.030); Urine Urobilinogen Negative (Negative)
[2021-04-24 13:57] LABS: ALT 8 U/L (7-52); AST 8 U/L (13-39); Albumin/Globulin Ratio 1.3 (1-3); Alkaline Phosphatase 52 U/L (35-149); Blood Urea Nitrogen 127 mg/dL (6-24); Globulin 2.8 g/dL (2-4); Glucose 127 mg/dL (70-100); Total Protein 6.4 g/dL (6.4-8.9); eGFR CKD-EPI 18.9 (>60)
[2021-04-24] MEDS: Lactated Ringers 1000 ml BAG 1,000 ML IV SCH ×2 (14:29→16:53)
[2021-04-24] MEDS ORDERED: NS 0.9% 1000 ml BAG 1,000 ML IV SCH (16:30)
[2021-04-24 19:32] LABS: Total Iron Binding Capacity 372 mcg/dL (250-450); Transferrin 266 mg/dL (203-362)
[2021-04-24 19:33] LABS: % Iron Saturation 5 % (15-55); Iron < 20 ug/dL (50-212); Unsaturated Iron Binding 352 ug/dL
[2021-04-24 19:38] LABS: Ferritin 23.2 ng/mL (11-307)
[2021-04-24 19:43] LABS: Vitamin B12 342 pg/mL (180-914)
[2021-04-24] MEDS: MYCOPHENOLATE 180 MG PO SCH (21:46)
[2021-04-24] MEDS: cycloSPORINE Modified 25mg CAP PO SCH (22:08)
[2021-04-25 06:50] LABS: ABS Eosinophils 0.1 10^3/ul (0-0.6); ABS Monocytes 0.7 10^3/ul (0-0.8); ABS Neutrophils 3.2 10^3/ul (1.5-7.7); Hematocrit 21 % (35-47); Hemoglobin 6.6 g/dL (12.0-16.0); Lymphocyte % 19.4 %; Mean Corpuscular HGB Conc 32 g/dL (31-36); Mean Corpuscular Hemoglobin 27 pg (27-31); Mean Corpuscular Volume 84 fL (80-97); Mean Platelet Volume 8.9 fL (7.4-10.4); Platelet Count 258 10^3/uL (150-450); Red Blood Count 2.43 10^6 /uL (3.70-4.87); Red Cell Distribution Width 16 % (10-15)
[2021-04-25 06:54] LABS: INR 1.27 (0.86-1.15)
[2021-04-25 07:08] LABS: Calcium 8.6 mg/dL (8.6-10.3); Potassium 4.6 mmol/L (3.5-5.0); eGFR CKD-EPI 20.3 (>60)
[2021-04-25] MEDS: Magnesium Chloride EC 64 mgTAB PO SCH (08:27)
[2021-04-25] MEDS: CMCS: Pravastatin 20 mg TAB (NF) PO SCH (08:28)
[2021-04-25] MEDS: cycloSPORINE Modfied 100mg CAP PO SCH (08:28)
[2021-04-25] MEDS: MYCOPHENOLATE 180 MG PO SCH ×2 (08:30→20:34)
[2021-04-25] MEDS ORDERED: Patiromer POWDER 8.4 GM PAK PO SCH (09:00)
[2021-04-25] MEDS: Pantoprazole 80 mg in NS BAG 80 MG/250 ML BAG IV SCH (12:48)
[2021-04-25 16:19] LABS: Hematocrit 28 % (35-47); Hemoglobin 8.9 g/dL (12.0-16.0)
[2021-04-25] MEDS: cycloSPORINE Modified 25mg CAP PO SCH (20:34)
[2021-04-26] MEDS: Pantoprazole 80 mg in NS BAG 80 MG/250 ML BAG IV SCH ×3 (00:07→19:51)
[2021-04-26 05:49] LABS: ABS Eosinophils 0.2 10^3/ul (0-0.6); ABS Monocytes 0.7 10^3/ul (0-0.8); ABS Neutrophils 3.4 10^3/ul (1.5-7.7); Eosinophil % 3.5 %; Hematocrit 27 % (35-47); Hemoglobin 8.5 g/dL (12.0-16.0); Lymphocyte % 19.5 %; Mean Corpuscular HGB Conc 32 g/dL (31-36); Mean Corpuscular Hemoglobin 27 pg (27-31); Mean Corpuscular Volume 86 fL (80-97); Mean Platelet Volume 8.8 fL (7.4-10.4); Nucleated Red Blood Cells % 0.1; Platelet Count 250 10^3/uL (150-450); Red Blood Count 3.11 10^6 /uL (3.70-4.87); Red Cell Distribution Width 16 % (10-15); White Blood Count 5.3 10^3/uL (3.5-10.8)
[2021-04-26 06:02] LABS: Calcium 9.1 mg/dL (8.6-10.3); Potassium 4.7 mmol/L (3.5-5.0); eGFR CKD-EPI 21.7 (>60)
[2021-04-26] MEDS: CMCS: Pravastatin 20 mg TAB (NF) PO SCH (08:22)
[2021-04-26] MEDS: Magnesium Chloride EC 64 mgTAB PO SCH (08:22)
[2021-04-26] MEDS: cycloSPORINE Modfied 100mg CAP PO SCH (08:23)
[2021-04-26] MEDS: MYCOPHENOLATE 180 MG PO SCH ×2 (08:25→21:06)
[2021-04-26] MEDS ORDERED: fentaNYL 100 mcg/2 ml 50 MCG/ML VIAL ONE (15:44)
[2021-04-26] MEDS ORDERED: Midazolam 10 mg/10 ml VIAL 1 mg/ml 10 ml VIAL (10 mg) ONE (15:44)
[2021-04-26] MEDS ORDERED: Ondansetron 4 mg VIAL 2 MG/ML 2 ml VIAL ONE (15:45)
[2021-04-26] MEDS ORDERED: PEG 3000 GI LAVAGE 1 GALLON PO ONE (16:42)
[2021-04-26] MEDS: cycloSPORINE Modified 25mg CAP PO SCH (21:07)
[2021-04-27 05:59] LABS: ABS Eosinophils 0.2 10^3/ul (0-0.6); ABS Monocytes 0.7 10^3/ul (0-0.8); ABS Neutrophils 4.2 10^3/ul (1.5-7.7); Eosinophil % 2.9 %; Hematocrit 27 % (35-47); Hemoglobin 8.9 g/dL (12.0-16.0); Lymphocyte % 15.5 %; Mean Corpuscular HGB Conc 32 g/dL (31-36); Mean Corpuscular Hemoglobin 28 pg (27-31); Mean Corpuscular Volume 86 fL (80-97); Nucleated Red Blood Cells % 0.1; Platelet Count 241 10^3/uL (150-450); Red Cell Distribution Width 16 % (10-15); White Blood Count 6.1 10^3/uL (3.5-10.8)
[2021-04-27 06:25] LABS: Calcium 9.2 mg/dL (8.6-10.3); Potassium 4.4 mmol/L (3.5-5.0)
[2021-04-27 08:28] LABS: Magnesium 1.7 mg/dL (1.9-2.7)
[2021-04-27] MEDS ORDERED: Magnesium Sulfate 2 gm BAG 2 GM/50 ML BAG IVPB ONE (09:01)
[2021-04-27] MEDS: MYCOPHENOLATE 180 MG PO SCH (10:29)
[2021-04-27] MEDS: Magnesium Chloride EC 64 mgTAB PO SCH (10:30)
[2021-04-27] MEDS: CMCS: Pravastatin 20 mg TAB (NF) PO SCH (10:30)
[2021-04-27] MEDS: cycloSPORINE Modfied 100mg CAP PO SCH (10:32)
[2021-04-27] MEDS ORDERED: Ondansetron 4 mg VIAL 2 MG/ML 2 ml VIAL IV PRN (12:01)
[2021-04-27] MEDS ORDERED: fentaNYL 100 mcg/2 ml 50 MCG/ML VIAL ONE (12:48)
[2021-04-27] MEDS ORDERED: Midazolam 10 mg/10 ml VIAL 1 mg/ml 10 ml VIAL (10 mg) ONE (12:48)
[2021-04-27 16:11] VITALS: BP 147/75
== END 2021-04-27 17:48 | disposition home or self-care (01) | DRG 422 ==
LOC: MEDTELE 11:20 → ED 11:20 → SUATTDRO 16:27
PROVIDERS: ADMIT Hospitalist; ATTEND Student in an Organized Health Care Education/Training Program

== ENCOUNTER 2021-05-24 09:55 | Observation (INO) ==
[2021-05-24 11:25] LABS: ABS Eosinophils 0.2 10^3/ul (0-0.6); ABS Lymphocytes 0.8 10^3/ul (1.0-4.8); ABS Monocytes 1.2 10^3/ul (0-0.8); Eosinophil % 1.6 %; Hematocrit 24 % (35-47); Hemoglobin 7.8 g/dL (12.0-16.0); Lymphocyte % 8.2 %; Mean Corpuscular HGB Conc 32 g/dL (31-36); Mean Corpuscular Hemoglobin 27 pg (27-31); Mean Corpuscular Volume 85 fL (80-97); Mean Platelet Volume 8.5 fL (7.4-10.4); Nucleated Red Blood Cells % 0.3; Platelet Count 323 10^3/uL (150-450); Red Blood Count 2.86 10^6 /uL (3.70-4.87); Red Cell Distribution Width 15 % (10-15); White Blood Count 10.2 10^3/uL (3.5-10.8)
[2021-05-24 11:35] LABS: INR 1.15 (0.86-1.15)
[2021-05-24 12:07] LABS: Albumin 3.7 g/dL (3.2-5.2); Albumin/Globulin Ratio 1.5 (1-3); Calcium 9.3 mg/dL (8.6-10.3); Globulin 2.5 g/dL (2-4); Potassium 4.7 mmol/L (3.5-5.0); Total Bilirubin 0.3 mg/dL (0.2-1.0); Total Protein 6.2 g/dL (6.4-8.9); eGFR CKD-EPI 21.6 (>60)
[2021-05-24] MEDS ORDERED: PEG 3000 GI LAVAGE 1 GALLON PO ONE (13:52)
[2021-05-24] MEDS ORDERED: cloNIDine 0.2 MG PATCH 0.2 MG/24 HR 7 DAY PATCH TRANSDERM SCH (17:00)
[2021-05-24] MEDS: MYCOPHENOLATE 180 MG PO SCH (23:00)
[2021-05-24] MEDS: cycloSPORINE Modified 25mg CAP PO SCH (23:02)
[2021-05-25 06:07] LABS: ABS Eosinophils 0.1 10^3/ul (0-0.6); ABS Lymphocytes 1.4 10^3/ul (1.0-4.8); ABS Monocytes 0.8 10^3/ul (0-0.8); ABS Neutrophils 4.1 10^3/ul (1.5-7.7); Eosinophil % 2.2 %; Hematocrit 21 % (35-47); Hemoglobin 6.9 g/dL (12.0-16.0); Mean Corpuscular HGB Conc 32 g/dL (31-36); Mean Corpuscular Hemoglobin 28 pg (27-31); Mean Corpuscular Volume 85 fL (80-97); Mean Platelet Volume 8.9 fL (7.4-10.4); Nucleated Red Blood Cells % 0.1; Platelet Count 284 10^3/uL (150-450); Red Blood Count 2.49 10^6 /uL (3.70-4.87); Red Cell Distribution Width 15 % (10-15); White Blood Count 6.5 10^3/uL (3.5-10.8)
[2021-05-25 06:22] LABS: Calcium 9.1 mg/dL (8.6-10.3); Potassium 4.7 mmol/L (3.5-5.0); eGFR CKD-EPI 22.5 (>60)
[2021-05-25] MEDS ORDERED: BUMETANIDE 1 MG PO SCH (09:00)
[2021-05-25] MEDS: CMCS: Pravastatin 20 mg TAB (NF) PO SCH (09:46)
[2021-05-25] MEDS: cycloSPORINE Modfied 100mg CAP PO SCH (09:46)
[2021-05-25] MEDS: MYCOPHENOLATE 180 MG PO SCH ×2 (09:47→21:21)
[2021-05-25 18:08] LABS: Hematocrit 30 % (35-47); Hemoglobin 9.8 g/dL (12.0-16.0)
[2021-05-25] MEDS: Pantoprazole VIAL 40 MG VIAL IV SCH (21:21)
[2021-05-25] MEDS: cycloSPORINE Modified 25mg CAP PO SCH (21:22)
[2021-05-26 05:38] LABS: Hematocrit 28 % (35-47); Mean Corpuscular HGB Conc 32 g/dL (31-36); Mean Corpuscular Hemoglobin 28 pg (27-31); Mean Corpuscular Volume 85 fL (80-97); Mean Platelet Volume 8.4 fL (7.4-10.4); Platelet Count 265 10^3/uL (150-450); Red Blood Count 3.25 10^6 /uL (3.70-4.87); Red Cell Distribution Width 15 % (10-15); White Blood Count 6.7 10^3/uL (3.5-10.8)
[2021-05-26 05:39] LABS: ABS Eosinophils 0.2 10^3/ul (0-0.6); ABS Lymphocytes 1.2 10^3/ul (1.0-4.8); ABS Monocytes 0.9 10^3/ul (0-0.8); ABS Neutrophils 4.4 10^3/ul (1.5-7.7); Eosinophil % 2.4 %; Lymphocyte % 18.1 %; Nucleated Red Blood Cells % 0.1
[2021-05-26 06:11] LABS: Calcium 9.1 mg/dL (8.6-10.3); Magnesium 2.3 mg/dL (1.9-2.7); Potassium 4.6 mmol/L (3.5-5.0); eGFR CKD-EPI 24.1 (>60)
[2021-05-26 07:48] VITALS: BP 135/78
[2021-05-26] MEDS ORDERED: Calcium Carb (TUMS) 500 mg CHEW TAB PO SCH (09:00)
[2021-05-26] MEDS: cycloSPORINE Modfied 100mg CAP PO SCH (13:50)
[2021-05-26] MEDS: Pantoprazole VIAL 40 MG VIAL IV SCH (13:51)
[2021-05-26] MEDS: MYCOPHENOLATE 180 MG PO SCH (13:51)
[2021-05-26] MEDS: CMCS: Pravastatin 20 mg TAB (NF) PO SCH (13:51)
[2021-05-27] MEDS ORDERED: cloNIDine 0.2 MG PATCH 0.2 MG/24 HR 7 DAY PATCH TRANSDERM SCH (09:00)
== END 2021-05-26 10:00 | disposition home or self-care (01) ==
LOC: ED 09:55 → EDHOLD 09:55 → SUATTDRO 17:11 → SSU 19:19
PROVIDERS: ADMIT Internal Medicine; ATTEND Internal Medicine

== ENCOUNTER 2021-10-29 10:23 | Inpatient (IN) ==
[2021-10-29] MEDS ORDERED: Azithromycin 500 mg/250 ml NS 500 MG/250 ML BAG IVPB ONE (12:40)
[2021-10-29] MEDS ORDERED: cefTRIAXone 2 gm/50 mL D5W 2 GM/50 ML BAG IV ONE (12:40)
[2021-10-29 13:56] LABS: Hematocrit 30 % (35-47); Hemoglobin 9.7 g/dL (12.0-16.0); Mean Corpuscular HGB Conc 32 g/dL (31-36); Mean Corpuscular Hemoglobin 28 pg (27-31); Mean Corpuscular Volume 86 fL (80-97); Mean Platelet Volume 8.1 fL (7.4-10.4); Platelet Count 323 10^3/uL (150-450); Red Blood Count 3.47 10^6 /uL (3.70-4.87); Red Cell Distribution Width 17 % (10-15); White Blood Count 5.8 10^3/uL (3.5-10.8)
[2021-10-29] MEDS ORDERED: Ondansetron ODT 4 mg TAB 4 MG TAB PO PRN (14:26)
[2021-10-29 14:35] LABS: ABS Eosinophils 0.1 10^3/ul (0-0.6); ABS Lymphocytes 0.5 10^3/ul (1.0-4.8); ABS Monocytes 0.5 10^3/ul (0-0.8); ABS Neutrophils 4.7 10^3/ul (1.5-7.7); Albumin 3.2 g/dL (3.2-5.2); Albumin/Globulin Ratio 1.1 (1-3); Calcium 8.1 mg/dL (8.6-10.3); Eosinophil % 0.9 %; Globulin 2.9 g/dL (2-4); Lymphocyte % 9.5 %; Nucleated Red Blood Cells % 0.1; Potassium 4.8 mmol/L (3.5-5.0); Total Bilirubin 0.3 mg/dL (0.2-1.0); Total Protein 6.1 g/dL (6.4-8.9); eGFR CKD-EPI 21.6 (>60)
[2021-10-29 14:58] LABS: C Reactive Protein 166.81 mg/L (<8.01)
[2021-10-29] MEDS ORDERED: Lactated Ringers 1000 ml BAG 1,000 ML IV ONE (15:34)
[2021-10-29] MEDS ORDERED: MYCOPHENOLATE 180 MG PO SCH (21:00)
[2021-10-29] MEDS: cycloSPORINE Modified 25mg CAP PO SCH (21:47)
[2021-10-29] MEDS: cloNIDine 0.2 MG PATCH 0.2 MG/24 HR 7 DAY PATCH TRANSDERM SCH (21:54)
[2021-10-29] MEDS: KETOTIFEN FUMARATE BOTH EYES SCH (22:28)
[2021-10-30 04:58] LABS: Hematocrit 27 % (35-47); Hematocrit for Retic CNT 27 % (35-47); Hemoglobin 8.4 g/dL (12.0-16.0); Mean Corpuscular HGB Conc 32 g/dL (31-36); Mean Corpuscular Hemoglobin 28 pg (27-31); Mean Corpuscular Volume 87 fL (80-97); Mean Platelet Volume 8.3 fL (7.4-10.4); Platelet Count 288 10^3/uL (150-450); RBC Retic Count 3.06 10^6/uL (3.70-4.87); Red Blood Count 3.06 10^6 /uL (3.70-4.87); Red Cell Distribution Width 16 % (10-15); White Blood Count 4.5 10^3/uL (3.5-10.8)
[2021-10-30 05:46] LABS: Anion Gap 12 mmol/L (2-11); Blood Urea Nitrogen 71 mg/dL (6-24); CO2 Carbon Dioxide 20 mmol/L (22-32); Chloride 106 mmol/L (101-111); Glucose 90 mg/dL (70-100); Magnesium 1.1 mg/dL (1.9-2.7); Potassium 4.8 mmol/L (3.5-5.0); Sodium 138 mmol/L (135-145); eGFR CKD-EPI 19.6 (>60)
[2021-10-30 05:55] LABS: Iron < 20 ug/dL (50-212)
[2021-10-30 06:03] LABS: Ferritin 803.3 ng/mL (11-307)
[2021-10-30 06:04] LABS: ABS Eosinophils 0.1 10^3/ul (0-0.6); ABS Lymphocytes 0.6 10^3/ul (1.0-4.8); ABS Monocytes 0.5 10^3/ul (0-0.8); ABS Neutrophils 3.3 10^3/ul (1.5-7.7); Anisocytosis 1+; Eosinophil % 2.5 %; Lymphocyte % 13.4 %; Polychromasia 1+
[2021-10-30 06:32] LABS: Corrected Retic Count 0.5 % (0.5-1.5); Immature Retic Fraction 0.46
[2021-10-30] MEDS ORDERED: Magnesium Sulfate IV 3 GM in NS 0.9% 100 ml BAG 100 ML IVPB ONE (08:48)
[2021-10-30] MEDS: KETOTIFEN FUMARATE BOTH EYES SCH (09:00)
[2021-10-30] MEDS ORDERED: Conjugated Estrogens VAG CM 42.5 gm TUBE VAGINAL SCH (09:00)
[2021-10-30] MEDS: cycloSPORINE Modfied 100mg CAP PO SCH (09:20)
[2021-10-30] MEDS: Pravastatin 20 mg TAB (NF) PO SCH (09:21)
[2021-10-30] MEDS: Potassium Chlor 20 meq TAB.ER PO SCH (09:21)
[2021-10-30] MEDS ORDERED: NS 0.9% 1000 ml BAG 1,000 ML IV SCH (14:45)
[2021-10-30] MEDS: cefTRIAXone 1 gm/50 mL D5W 1 GM/50 ML BAG IV SCH (16:54)
[2021-10-30] MEDS ORDERED: Azithromycin 250 MG in NS 0.9% 250 ml 250 ML IVPB SCH (17:30)
[2021-10-30] MEDS: cycloSPORINE Modified 25mg CAP PO SCH (21:23)
[2021-10-30] MEDS: Conjugated Estrogens VAG CM 42.5 gm TUBE VAGINAL SCH (21:27)
[2021-10-31] MEDS: KETOTIFEN FUMARATE BOTH EYES SCH ×3 (00:26→21:49)
[2021-10-31 06:07] LABS: Hematocrit 26 % (35-47); Hemoglobin 8.4 g/dL (12.0-16.0); Mean Corpuscular HGB Conc 32 g/dL (31-36); Mean Corpuscular Hemoglobin 28 pg (27-31); Mean Corpuscular Volume 88 fL (80-97); Platelet Count 310 10^3/uL (150-450); Red Blood Count 2.97 10^6 /uL (3.70-4.87); Red Cell Distribution Width 16 % (10-15)
[2021-10-31 06:25] LABS: C Reactive Protein 158.41 mg/L (<8.01); Calcium 8.5 mg/dL (8.6-10.3); Magnesium 2.3 mg/dL (1.9-2.7); eGFR CKD-EPI 24.9 (>60)
[2021-10-31 06:26] LABS: Potassium 5.3 mmol/L (3.5-5.0)
[2021-10-31 07:36] LABS: ABS Eosinophils 0.1 10^3/ul (0-0.6); ABS Lymphocytes 0.5 10^3/ul (1.0-4.8); ABS Monocytes 0.4 10^3/ul (0-0.8); ABS Neutrophils 2.9 10^3/ul (1.5-7.7); Anisocytosis 1+; Eosinophil % 1.9 %; Lymphocyte % 12.7 %; Nucleated Red Blood Cells % 0.4
[2021-10-31] MEDS: Pravastatin 20 mg TAB (NF) PO SCH (08:52)
[2021-10-31] MEDS: Calcium Carb (TUMS) 500 mg CHEW TAB PO SCH (08:52)
[2021-10-31] MEDS: Potassium Chlor 20 meq TAB.ER PO SCH (08:52)
[2021-10-31] MEDS: cycloSPORINE Modfied 100mg CAP PO SCH (08:53)
[2021-10-31] MEDS: DOXYcycline 100 MG in NS 0.9% 250 ml 250 ML IVPB SCH ×2 (11:36→21:38)
[2021-10-31 14:18] LABS: Calcium 8.6 mg/dL (8.6-10.3)
[2021-10-31 14:24] LABS: eGFR CKD-EPI 27.9 (>60)
[2021-10-31] MEDS: cefTRIAXone 1 gm/50 mL D5W 1 GM/50 ML BAG IV SCH (15:18)
[2021-10-31] MEDS: cycloSPORINE Modified 25mg CAP PO SCH (21:37)
[2021-10-31] MEDS: Conjugated Estrogens VAG CM 42.5 gm TUBE VAGINAL SCH ×2 (21:37→21:49)
[2021-11-01 05:26] LABS: C Reactive Protein 127.3 mg/L (<8.01); Calcium 8.8 mg/dL (8.6-10.3); eGFR CKD-EPI 32.7 (>60)
[2021-11-01 05:31] LABS: Potassium 5.5 mmol/L (3.5-5.0)
[2021-11-01] MEDS ORDERED: SODIUM ZIRCONIUM CYCLOSILICATE 10 GM PACKET PO ONE (07:24)
[2021-11-01] MEDS: Pravastatin 20 mg TAB (NF) PO SCH (09:35)
[2021-11-01] MEDS: cycloSPORINE Modfied 100mg CAP PO SCH (09:37)
[2021-11-01] MEDS: DOXYcycline 100 MG in NS 0.9% 250 ml 250 ML IVPB SCH ×2 (09:39→21:56)
[2021-11-01] MEDS: KETOTIFEN FUMARATE BOTH EYES SCH ×2 (09:44→22:11)
[2021-11-01] MEDS: cefTRIAXone 1 gm/50 mL D5W 1 GM/50 ML BAG IV SCH (15:53)
[2021-11-01] MEDS: cycloSPORINE Modified 25mg CAP PO SCH (22:05)
[2021-11-01] MEDS: Conjugated Estrogens VAG CM 42.5 gm TUBE VAGINAL SCH (22:11)
[2021-11-02 06:07] LABS: Calcium 8.7 mg/dL (8.6-10.3); Magnesium 1.7 mg/dL (1.9-2.7); eGFR CKD-EPI 37.5 (>60)
[2021-11-02 06:14] LABS: Potassium 5.3 mmol/L (3.5-5.0)
[2021-11-02 06:16] LABS: Hematocrit 25 % (35-47); Hemoglobin 8.1 g/dL (12.0-16.0); Mean Corpuscular HGB Conc 33 g/dL (31-36); Mean Corpuscular Hemoglobin 29 pg (27-31); Mean Corpuscular Volume 86 fL (80-97); Mean Platelet Volume 7.6 fL (7.4-10.4); Platelet Count 319 10^3/uL (150-450); Red Blood Count 2.84 10^6 /uL (3.70-4.87); Red Cell Distribution Width 16 % (10-15); White Blood Count 4.1 10^3/uL (3.5-10.8)
[2021-11-02] MEDS ORDERED: Magnesium Sulfate 2 gm BAG 2 GM/50 ML BAG IVPB ONE (07:45)
[2021-11-02] MEDS ORDERED: SODIUM ZIRCONIUM CYCLOSILICATE 10 GM PACKET PO ONE (07:46)
[2021-11-02] MEDS: cycloSPORINE Modfied 100mg CAP PO SCH (08:21)
[2021-11-02] MEDS: Calcium Carb (TUMS) 500 mg CHEW TAB PO SCH (08:21)
[2021-11-02] MEDS: Pravastatin 20 mg TAB (NF) PO SCH (08:22)
[2021-11-02] MEDS: KETOTIFEN FUMARATE BOTH EYES SCH ×2 (08:24→21:30)
[2021-11-02 10:19] LABS: RBC Morphology Normal (Normal)
[2021-11-02 10:20] LABS: ABS Eosinophils 0.1 10^3/ul (0-0.6); ABS Lymphocytes 0.6 10^3/ul (1.0-4.8); ABS Monocytes 0.7 10^3/ul (0-0.8); ABS Neutrophils 2.6 10^3/ul (1.5-7.7); Eosinophil % 1.7 %; Lymphocyte % 15.9 %; Nucleated Red Blood Cells % 0.2
[2021-11-02] MEDS: DOXYcycline 100 MG in NS 0.9% 250 ml 250 ML IVPB SCH ×2 (10:27→21:31)
[2021-11-02] MEDS: cefTRIAXone 1 gm/50 mL D5W 1 GM/50 ML BAG IV SCH (16:49)
[2021-11-02] MEDS: Conjugated Estrogens VAG CM 42.5 gm TUBE VAGINAL SCH (21:26)
[2021-11-02] MEDS: cycloSPORINE Modified 25mg CAP PO SCH (21:27)
[2021-11-03 08:42] LABS: Hematocrit 26 % (35-47); Hemoglobin 8.2 g/dL (12.0-16.0); Mean Corpuscular HGB Conc 32 g/dL (31-36); Mean Corpuscular Hemoglobin 27 pg (27-31); Mean Corpuscular Volume 86 fL (80-97); Mean Platelet Volume 7.5 fL (7.4-10.4); Platelet Count 345 10^3/uL (150-450); Red Cell Distribution Width 16 % (10-15); White Blood Count 5.7 10^3/uL (3.5-10.8)
[2021-11-03] MEDS: Pravastatin 20 mg TAB (NF) PO SCH (09:11)
[2021-11-03] MEDS: KETOTIFEN FUMARATE BOTH EYES SCH ×2 (09:12→20:12)
[2021-11-03] MEDS: DOXYcycline 100 MG in NS 0.9% 250 ml 250 ML IVPB SCH ×2 (09:13→21:19)
[2021-11-03] MEDS: cycloSPORINE Modfied 100mg CAP PO SCH (09:24)
[2021-11-03 09:30] LABS: Calcium 8.5 mg/dL (8.6-10.3); Potassium 4.9 mmol/L (3.5-5.0); eGFR CKD-EPI 49.7 (>60)
[2021-11-03 12:18] LABS: ABS Eosinophils 0.1 10^3/ul (0-0.6); ABS Lymphocytes 0.9 10^3/ul (1.0-4.8); ABS Neutrophils 3.7 10^3/ul (1.5-7.7); Eosinophil % 1.7 %; Lymphocyte % 15.5 %
[2021-11-03] MEDS: cefTRIAXone 1 gm/50 mL D5W 1 GM/50 ML BAG IV SCH (16:22)
[2021-11-03] MEDS: cycloSPORINE Modified 25mg CAP PO SCH (20:05)
[2021-11-03] MEDS: Conjugated Estrogens VAG CM 42.5 gm TUBE VAGINAL SCH ×2 (20:05→21:19)
[2021-11-04 08:01] LABS: ABS Eosinophils 0.1 10^3/ul (0-0.6); ABS Lymphocytes 1.1 10^3/ul (1.0-4.8); ABS Monocytes 1.1 10^3/ul (0-0.8); ABS Neutrophils 4.8 10^3/ul (1.5-7.7); Eosinophil % 1.5 %; Hematocrit 26 % (35-47); Hemoglobin 8.4 g/dL (12.0-16.0); Lymphocyte % 15.3 %; Mean Corpuscular HGB Conc 33 g/dL (31-36); Mean Corpuscular Hemoglobin 29 pg (27-31); Mean Corpuscular Volume 87 fL (80-97); Mean Platelet Volume 7.8 fL (7.4-10.4); Platelet Count 334 10^3/uL (150-450); Red Blood Count 2.96 10^6 /uL (3.70-4.87); Red Cell Distribution Width 16 % (10-15); White Blood Count 7.2 10^3/uL (3.5-10.8)
[2021-11-04] MEDS: cycloSPORINE Modfied 100mg CAP PO SCH (08:07)
[2021-11-04] MEDS: Pravastatin 20 mg TAB (NF) PO SCH (08:08)
[2021-11-04] MEDS: Calcium Carb (TUMS) 500 mg CHEW TAB PO SCH (08:09)
[2021-11-04] MEDS: KETOTIFEN FUMARATE BOTH EYES SCH (08:10)
[2021-11-04] MEDS: DOXYcycline 100 MG in NS 0.9% 250 ml 250 ML IVPB SCH ×2 (08:15→21:03)
[2021-11-04 08:42] LABS: Calcium 8.6 mg/dL (8.6-10.3); Magnesium 1.8 mg/dL (1.9-2.7); eGFR CKD-EPI 48.3 (>60)
[2021-11-04 08:43] LABS: Potassium 5.1 mmol/L (3.5-5.0)
[2021-11-04] MEDS ORDERED: Magnesium Sulfate 2 gm BAG 2 GM/50 ML BAG IVPB ONE (08:43)
[2021-11-04] MEDS ORDERED: SODIUM ZIRCONIUM CYCLOSILICATE 10 GM PACKET PO ONE (14:44)
[2021-11-04] MEDS: cefTRIAXone 1 gm/50 mL D5W 1 GM/50 ML BAG IV SCH (15:49)
[2021-11-04] MEDS: cycloSPORINE Modified 25mg CAP PO SCH (20:58)
[2021-11-04] MEDS: Conjugated Estrogens VAG CM 42.5 gm TUBE VAGINAL SCH (20:59)
[2021-11-05 05:56] LABS: Hematocrit 25 % (35-47); Hemoglobin 8.1 g/dL (12.0-16.0); Mean Corpuscular HGB Conc 33 g/dL (31-36); Mean Corpuscular Hemoglobin 28 pg (27-31); Mean Corpuscular Volume 86 fL (80-97); Platelet Count 338 10^3/uL (150-450); Red Blood Count 2.85 10^6 /uL (3.70-4.87); Red Cell Distribution Width 16 % (10-15); White Blood Count 8.4 10^3/uL (3.5-10.8)
[2021-11-05 06:11] LABS: Calcium 8.9 mg/dL (8.6-10.3); Magnesium 1.9 mg/dL (1.9-2.7); Potassium 4.9 mmol/L (3.5-5.0); eGFR CKD-EPI 44.9 (>60)
[2021-11-05 06:14] LABS: ABS Eosinophils 0.1 10^3/ul (0-0.6); ABS Monocytes 1.3 10^3/ul (0-0.8); Eosinophil % 1.4 %; Lymphocyte % 11.8 %; Nucleated Red Blood Cells % 0.1
[2021-11-05] MEDS: cycloSPORINE Modfied 100mg CAP PO SCH (11:38)
[2021-11-05] MEDS: Pravastatin 20 mg TAB (NF) PO SCH (11:40)
[2021-11-05] MEDS: DOXYcycline 100 MG in NS 0.9% 250 ml 250 ML IVPB SCH (12:29)
[2021-11-05] MEDS: cefTRIAXone 1 gm/50 mL D5W 1 GM/50 ML BAG IV SCH (17:34)
[2021-11-05] MEDS: cycloSPORINE Modified 25mg CAP PO SCH (20:17)
[2021-11-05] MEDS: Conjugated Estrogens VAG CM 42.5 gm TUBE VAGINAL SCH (20:28)
[2021-11-05] MEDS: cloNIDine 0.2 MG PATCH 0.2 MG/24 HR 7 DAY PATCH TRANSDERM SCH (22:34)
[2021-11-06] MEDS: hydrALAZINE 20 mg/ml 1 ML Vial IV IV SLOW PU PRN ×3 (03:30→15:04)
[2021-11-06 09:22] LABS: Hematocrit 29 % (35-47); Hemoglobin 9.4 g/dL (12.0-16.0); Mean Corpuscular HGB Conc 33 g/dL (31-36); Mean Corpuscular Hemoglobin 28 pg (27-31); Mean Corpuscular Volume 86 fL (80-97); Platelet Count 395 10^3/uL (150-450); Red Blood Count 3.38 10^6 /uL (3.70-4.87); Red Cell Distribution Width 16 % (10-15); White Blood Count 8.7 10^3/uL (3.5-10.8)
[2021-11-06 10:03] LABS: Calcium 9.5 mg/dL (8.6-10.3); Potassium 4.4 mmol/L (3.5-5.0); eGFR CKD-EPI 49.7 (>60)
[2021-11-06 10:05] LABS: RBC Morphology Normal (Normal)
[2021-11-06 10:06] LABS: ABS Basophils 0.1 10^3/ul (0-0.2); ABS Eosinophils 0.1 10^3/ul (0-0.6); ABS Lymphocytes 1.2 10^3/ul (1.0-4.8); ABS Monocytes 0.6 10^3/ul (0-0.8); ABS Neutrophils 6.7 10^3/ul (1.5-7.7); Eosinophil % 1.4 %; Lymphocyte % 13.8 %; Nucleated Red Blood Cells % 0.1
[2021-11-06] MEDS: cycloSPORINE Modfied 100mg CAP PO SCH (11:30)
[2021-11-06] MEDS: Pravastatin 20 mg TAB (NF) PO SCH (11:31)
[2021-11-06] MEDS: Calcium Carb (TUMS) 500 mg CHEW TAB PO SCH (11:36)
[2021-11-06] MEDS: cefTRIAXone 1 gm/50 mL D5W 1 GM/50 ML BAG IV SCH (15:56)
[2021-11-06] MEDS ORDERED: Nitro 2% OINT (Nitroglycerin) 1 INCH/PAK ONE (19:14)
[2021-11-06] MEDS ORDERED: Nitro 2% OINT (Nitroglycerin) 1 INCH/PAK TOPICAL ONE (19:14)
[2021-11-06 19:35] LABS: Hematocrit 30 % (35-47); Hemoglobin 9.9 g/dL (12.0-16.0); Mean Corpuscular HGB Conc 33 g/dL (31-36); Mean Corpuscular Hemoglobin 28 pg (27-31); Mean Corpuscular Volume 86 fL (80-97); Mean Platelet Volume 8.2 fL (7.4-10.4); Platelet Count 398 10^3/uL (150-450); Red Cell Distribution Width 16 % (10-15); White Blood Count 10.8 10^3/uL (3.5-10.8)
[2021-11-06 19:53] LABS: ABS Eosinophils 0.1 10^3/ul (0-0.6); ABS Monocytes 1.1 10^3/ul (0-0.8); ABS Neutrophils 8.7 10^3/ul (1.5-7.7); Eosinophil % 0.5 %; Lymphocyte % 8.8 %; Nucleated Red Blood Cells % 0.2
[2021-11-06 20:17] LABS: Calcium 9.8 mg/dL (8.6-10.3); Magnesium 1.6 mg/dL (1.9-2.7); eGFR CKD-EPI 41.9 (>60)
[2021-11-06] MEDS: cycloSPORINE Modified 25mg CAP PO SCH (20:20)
[2021-11-06] MEDS: Conjugated Estrogens VAG CM 42.5 gm TUBE VAGINAL SCH (20:20)
[2021-11-06 20:22] LABS: Potassium 5.3 mmol/L (3.5-5.0)
[2021-11-06] MEDS ORDERED: Bumetanide IV 0.25 MG/ML 4 ml VIAL (1 mg) SLOW PUSH ONE (20:30)
[2021-11-06] MEDS ORDERED: Magnesium Sulfate 2 gm BAG 2 GM/50 ML BAG IVPB ONE (20:32)
[2021-11-06 20:46] LABS: High Sensitivity Troponin 1 Hr 15 pg/mL (<15)
[2021-11-07 06:09] LABS: Hematocrit 28 % (35-47); Hemoglobin 9.2 g/dL (12.0-16.0); Mean Corpuscular HGB Conc 33 g/dL (31-36); Mean Corpuscular Hemoglobin 28 pg (27-31); Mean Corpuscular Volume 86 fL (80-97); Mean Platelet Volume 8.4 fL (7.4-10.4); Platelet Count 369 10^3/uL (150-450); Red Blood Count 3.26 10^6 /uL (3.70-4.87); Red Cell Distribution Width 16 % (10-15)
[2021-11-07 07:13] LABS: C Reactive Protein 65.45 mg/L (<8.01); Calcium 9.6 mg/dL (8.6-10.3); Potassium 4.8 mmol/L (3.5-5.0); eGFR CKD-EPI 39.9 (>60)
[2021-11-07 07:37] LABS: ABS Eosinophils 0.1 10^3/ul (0-0.6); ABS Lymphocytes 1.2 10^3/ul (1.0-4.8); ABS Monocytes 0.9 10^3/ul (0-0.8); ABS Neutrophils 4.8 10^3/ul (1.5-7.7); Eosinophil % 1.4 %; Lymphocyte % 16.7 %; Nucleated Red Blood Cells % 0.2
[2021-11-07] MEDS: cycloSPORINE Modfied 100mg CAP PO SCH (09:48)
[2021-11-07] MEDS: Pravastatin 20 mg TAB (NF) PO SCH (09:48)
[2021-11-07 15:22] VITALS: BP 127/67
[2021-11-07] MEDS: cefTRIAXone 1 gm/50 mL D5W 1 GM/50 ML BAG IV SCH (16:04)
[2021-11-07 17:31] LABS: Magnesium 2.4 mg/dL (1.9-2.7)
== END 2021-11-07 17:34 | disposition home or self-care (01) | DRG 720 ==
LOC: EDHOLD 10:23 → ED 10:23 → SUATTDRO 13:23 → SSU 20:08 → SUATTDRO 10-31 09:49
PROVIDERS: ADMIT Pediatrics; ATTEND Hospitalist

== ENCOUNTER 2021-11-26 10:40 | Inpatient (IN) ==
[2021-11-26 13:03] LABS: ABS Eosinophils 0.1 10^3/ul (0-0.6); ABS Lymphocytes 0.5 10^3/ul (1.0-4.8); ABS Monocytes 0.3 10^3/ul (0-0.8); ABS Neutrophils 8.7 10^3/ul (1.5-7.7); Eosinophil % 0.8 %; Hematocrit 25 % (35-47); Hemoglobin 7.7 g/dL (12.0-16.0); Lymphocyte % 5.6 %; Mean Corpuscular HGB Conc 31 g/dL (31-36); Mean Corpuscular Hemoglobin 27 pg (27-31); Mean Corpuscular Volume 86 fL (80-97); Mean Platelet Volume 8.5 fL (7.4-10.4); Nucleated Red Blood Cells % 0.1; Platelet Count 377 10^3/uL (150-450); Red Blood Count 2.91 10^6 /uL (3.70-4.87); Red Cell Distribution Width 18 % (10-15); White Blood Count 9.7 10^3/uL (3.5-10.8)
[2021-11-26 13:48] LABS: Albumin 2.7 g/dL (3.2-5.2); Albumin/Globulin Ratio 0.6 (1-3); Calcium 8.8 mg/dL (8.6-10.3); Globulin 4.4 g/dL (2-4); Potassium 4.3 mmol/L (3.5-5.0); Total Bilirubin 0.3 mg/dL (0.2-1.0); Total Protein 7.1 g/dL (6.4-8.9); eGFR CKD-EPI 29.7 (>60)
[2021-11-26] MEDS ORDERED: Lactated Ringers 500 ml BAG 500 ML IV ONE (17:46)
[2021-11-26] MEDS ORDERED: Lactated Ringers 1000 ml BAG 1,000 ML IV ONE (21:03)
[2021-11-26] MEDS ORDERED: oxyCODONE/Acetamin 5/325 mg TAB PO ONE (21:03)
[2021-11-26 21:04] LABS: Urine Appearance Clear; Urine Bilirubin Negative (Negative); Urine Color Yellow; Urine Glucose Negative (Negative); Urine Ketones Negative (Negative); Urine Specific Gravity 1.015 (1.005-1.030)
[2021-11-26 21:05] LABS: Urine Blood Trace (Intact) (Negative); Urine Nitrite Negative (Negative); Urine Protein Trace (Negative); Urine Urobilinogen 0.2 (Negative) (Negative)
[2021-11-26 21:08] LABS: Urine Bacteria 1+ (Absent); Urine Red Blood Cell Trace(0-2/hpf) (Absent); Urine Squamous Epithelial Cell Present (Absent); Urine White Blood Cell Trace(0-5/hpf) (Absent)
[2021-11-26] MEDS ORDERED: Cefepime 1 GM in Dextrose 1 GM/50 ML BAG IV ONE (21:12)
[2021-11-26] MEDS ORDERED: Vancomycin 1,250 MG in NS 0.9% 250 ml 250 ML IVPB ONE (21:12)
[2021-11-26] MEDS ORDERED: cloNIDine 0.2 MG PATCH 0.2 MG/24 HR 7 DAY PATCH TRANSDERM SCH (23:45)
[2021-11-26] MEDS ORDERED: Vancomycin 1,000 MG in NS 0.9% 250 ml 250 ML IVPB SCH (23:45)
[2021-11-26] MEDS ORDERED: Vancomycin per Pharmacy 1 EA NOTE FOLLOW UP PRN (23:46)
[2021-11-26 23:57] LABS: C Reactive Protein 206.85 mg/L (<8.01); Magnesium 1.6 mg/dL (1.9-2.7)
[2021-11-27 01:36] LABS: ABS Lymphocytes 0.6 10^3/ul (1.0-4.8); ABS Monocytes 0.3 10^3/ul (0-0.8); ABS Neutrophils 5.2 10^3/ul (1.5-7.7); Eosinophil % 0.5 %; Hematocrit 23 % (35-47); Hemoglobin 7.3 g/dL (12.0-16.0); Lymphocyte % 9.3 %; Mean Corpuscular HGB Conc 32 g/dL (31-36); Mean Corpuscular Hemoglobin 27 pg (27-31); Mean Corpuscular Volume 85 fL (80-97); Mean Platelet Volume 8.1 fL (7.4-10.4); Nucleated Red Blood Cells % 0.1; Platelet Count 289 10^3/uL (150-450); Red Blood Count 2.68 10^6 /uL (3.70-4.87); Red Cell Distribution Width 17 % (10-15); White Blood Count 6.1 10^3/uL (3.5-10.8)
[2021-11-27] MEDS: Cefepime 1 GM in Dextrose 1 GM/50 ML BAG IV SCH ×2 (03:01→13:10)
[2021-11-27] MEDS: NS 0.9% 1000 ml BAG 1,000 ML IV SCH ×2 (03:16→14:30)
[2021-11-27 06:06] LABS: ABS Eosinophils 0.1 10^3/ul (0-0.6); ABS Lymphocytes 0.5 10^3/ul (1.0-4.8); ABS Monocytes 0.2 10^3/ul (0-0.8); ABS Neutrophils 5.2 10^3/ul (1.5-7.7); Hematocrit 23 % (35-47); Hemoglobin 7.2 g/dL (12.0-16.0); Lymphocyte % 8.4 %; Mean Corpuscular HGB Conc 32 g/dL (31-36); Mean Corpuscular Hemoglobin 27 pg (27-31); Mean Corpuscular Volume 85 fL (80-97); Mean Platelet Volume 8.1 fL (7.4-10.4); Platelet Count 290 10^3/uL (150-450); Red Blood Count 2.67 10^6 /uL (3.70-4.87); Red Cell Distribution Width 17 % (10-15)
[2021-11-27] MEDS: cloNIDine 0.2 MG PATCH 0.2 MG/24 HR 7 DAY PATCH TRANSDERM SCH (06:20)
[2021-11-27 06:37] LABS: C Reactive Protein 194.14 mg/L (<8.01); Calcium 8.2 mg/dL (8.6-10.3); Potassium 4.3 mmol/L (3.5-5.0)
[2021-11-27] MEDS ORDERED: MYCOPHENOLATE 180 MG PO SCH (09:00)
[2021-11-27] MEDS: Sulfamethox/Trimethoprim DS TAB 800/160 mg PO SCH (10:24)
[2021-11-27] MEDS: cycloSPORINE Modfied 100mg CAP PO SCH (10:38)
[2021-11-27] MEDS: MYCOPHENOLATE 180 MG PO SCH ×2 (15:04→21:02)
[2021-11-27] MEDS: cycloSPORINE Modified 25mg CAP PO SCH (21:03)
[2021-11-28] MEDS ORDERED: Vancomycin 1000 MG in NS 0.9% 250 ML IVPB SCH
[2021-11-28] MEDS: NS 0.9% 1000 ml BAG 1,000 ML IV SCH (00:12)
[2021-11-28] MEDS: Cefepime 1 GM in Dextrose 1 GM/50 ML BAG IV SCH ×2 (00:14→12:00)
[2021-11-28 05:59] LABS: ABS Eosinophils 0.1 10^3/ul (0-0.6); ABS Lymphocytes 0.6 10^3/ul (1.0-4.8); ABS Monocytes 0.4 10^3/ul (0-0.8); ABS Neutrophils 5.6 10^3/ul (1.5-7.7); Hematocrit 22 % (35-47); Hemoglobin 7.1 g/dL (12.0-16.0); Lymphocyte % 8.4 %; Mean Corpuscular HGB Conc 33 g/dL (31-36); Mean Corpuscular Hemoglobin 28 pg (27-31); Mean Corpuscular Volume 85 fL (80-97); Mean Platelet Volume 8.4 fL (7.4-10.4); Platelet Count 276 10^3/uL (150-450); Red Blood Count 2.54 10^6 /uL (3.70-4.87); Red Cell Distribution Width 17 % (10-15); White Blood Count 6.6 10^3/uL (3.5-10.8)
[2021-11-28 06:27] LABS: Magnesium 1.4 mg/dL (1.9-2.7); Potassium 4.5 mmol/L (3.5-5.0); Vancomycin Random 11.2 mcg/mL; eGFR CKD-EPI 34.1 (>60)
[2021-11-28] MEDS: cycloSPORINE Modfied 100mg CAP PO SCH (08:55)
[2021-11-28] MEDS: MYCOPHENOLATE 180 MG PO SCH ×2 (08:58→22:25)
[2021-11-28] MEDS ORDERED: Vancomycin Random Level NOTE FOLLOW UP ONE (09:00)
[2021-11-28] MEDS ORDERED: Magnesium Sulfate IV 3 GM in NS 0.9% 100 ml BAG 100 ML IVPB ONE (09:37)
[2021-11-28] MEDS ORDERED: Vancomycin 1000 MG in NS 0.9% 250 ML IVPB ONE (12:30)
[2021-11-28] MEDS: cycloSPORINE Modified 25mg CAP PO SCH (22:24)
[2021-11-29] MEDS: Cefepime 1 GM in Dextrose 1 GM/50 ML BAG IV SCH ×2 (00:02→14:32)
[2021-11-29 05:51] LABS: ABS Eosinophils 0.1 10^3/ul (0-0.6); ABS Lymphocytes 0.5 10^3/ul (1.0-4.8); ABS Monocytes 0.3 10^3/ul (0-0.8); ABS Neutrophils 5.7 10^3/ul (1.5-7.7); Eosinophil % 1.6 %; Hematocrit 24 % (35-47); Hemoglobin 7.4 g/dL (12.0-16.0); Lymphocyte % 7.6 %; Mean Corpuscular HGB Conc 31 g/dL (31-36); Mean Corpuscular Hemoglobin 27 pg (27-31); Mean Corpuscular Volume 86 fL (80-97); Mean Platelet Volume 8.1 fL (7.4-10.4); Nucleated Red Blood Cells % 0.1; Platelet Count 299 10^3/uL (150-450); Red Blood Count 2.76 10^6 /uL (3.70-4.87); Red Cell Distribution Width 17 % (10-15); White Blood Count 6.7 10^3/uL (3.5-10.8)
[2021-11-29] MEDS ORDERED: Vancomycin Random Level NOTE FOLLOW UP ONE (06:00)
[2021-11-29 06:13] LABS: Calcium 8.3 mg/dL (8.6-10.3); Magnesium 2.2 mg/dL (1.9-2.7); Potassium 4.8 mmol/L (3.5-5.0); Vancomycin Random 17.2 mcg/mL; eGFR CKD-EPI 34.4 (>60)
[2021-11-29] MEDS: cycloSPORINE Modfied 100mg CAP PO SCH (10:48)
[2021-11-29] MEDS: MYCOPHENOLATE 180 MG PO SCH ×2 (10:52→21:34)
[2021-11-29] MEDS: Sulfamethox/Trimethoprim DS TAB 800/160 mg PO SCH (10:53)
[2021-11-29] MEDS: cefTRIAXone 1 gm/50 mL D5W 1 GM/50 ML BAG IV SCH (13:55)
[2021-11-29] MEDS: cycloSPORINE Modified 25mg CAP PO SCH (21:33)
[2021-11-29] MEDS: Polyethylene Glycol 3350 17 GM PACKET PO SCH (23:23)
[2021-11-30] MEDS ORDERED: Vancomycin Random Level NOTE FOLLOW UP ONE ×2 (06:00)
[2021-11-30 06:25] LABS: ABS Basophils 0.1 10^3/ul (0-0.2); ABS Eosinophils 0.1 10^3/ul (0-0.6); ABS Lymphocytes 0.6 10^3/ul (1.0-4.8); ABS Monocytes 0.3 10^3/ul (0-0.8); ABS Neutrophils 6.4 10^3/ul (1.5-7.7); Eosinophil % 1.2 %; Hematocrit 21 % (35-47); Hemoglobin 6.6 g/dL (12.0-16.0); Lymphocyte % 7.8 %; Mean Corpuscular HGB Conc 31 g/dL (31-36); Mean Corpuscular Hemoglobin 27 pg (27-31); Mean Corpuscular Volume 85 fL (80-97); Mean Platelet Volume 8.2 fL (7.4-10.4); Nucleated Red Blood Cells % 0.1; Platelet Count 301 10^3/uL (150-450); Red Blood Count 2.47 10^6 /uL (3.70-4.87); Red Cell Distribution Width 18 % (10-15); White Blood Count 7.4 10^3/uL (3.5-10.8)
[2021-11-30 07:13] LABS: Calcium 8.2 mg/dL (8.6-10.3); eGFR CKD-EPI 28.8 (>60)
[2021-11-30 07:14] LABS: Potassium 5.4 mmol/L (3.5-5.0)
[2021-11-30] MEDS: Polyethylene Glycol 3350 17 GM PACKET PO SCH ×2 (08:16→20:31)
[2021-11-30] MEDS: cycloSPORINE Modfied 100mg CAP PO SCH (08:24)
[2021-11-30] MEDS: MYCOPHENOLATE 180 MG PO SCH ×2 (08:25→20:34)
[2021-11-30] MEDS ORDERED: NS 0.9% 1000 ml BAG 1,000 ML IV ONE (12:22)
[2021-11-30] MEDS: cefTRIAXone 1 gm/50 mL D5W 1 GM/50 ML BAG IV SCH (14:35)
[2021-11-30] MEDS ORDERED: Magnesium Hydroxide LIQ 30 ML UDC PO ONE (15:10)
[2021-11-30 16:33] LABS: Hematocrit 28 % (35-47); Hemoglobin 8.9 g/dL (12.0-16.0)
[2021-11-30 17:14] LABS: Calcium 8.3 mg/dL (8.6-10.3); eGFR CKD-EPI 27.9 (>60)
[2021-11-30 17:16] LABS: Potassium 5.6 mmol/L (3.5-5.0)
[2021-11-30] MEDS ORDERED: Sodium Polystyrene ORAL.SUSP 15 GM/60 ML BTL PO ONE (17:47)
[2021-11-30] MEDS: cycloSPORINE Modified 25mg CAP PO SCH (20:33)
[2021-11-30 23:17] LABS: Calcium 8.1 mg/dL (8.6-10.3); eGFR CKD-EPI 27.7 (>60)
[2021-11-30 23:19] LABS: Potassium 5.5 mmol/L (3.5-5.0)
[2021-12-01 00:20] LABS: ABS Eosinophils 0.1 10^3/ul (0-0.6); ABS Lymphocytes 0.7 10^3/ul (1.0-4.8); ABS Monocytes 0.4 10^3/ul (0-0.8); ABS Neutrophils 7.5 10^3/ul (1.5-7.7); Eosinophil % 1.1 %; Hematocrit 30 % (35-47); Hemoglobin 9.6 g/dL (12.0-16.0); Lymphocyte % 7.7 %; Mean Corpuscular HGB Conc 32 g/dL (31-36); Mean Corpuscular Hemoglobin 27 pg (27-31); Mean Corpuscular Volume 84 fL (80-97); Mean Platelet Volume 8.3 fL (7.4-10.4); Nucleated Red Blood Cells % 0.1; Platelet Count 378 10^3/uL (150-450); Red Blood Count 3.61 10^6 /uL (3.70-4.87); Red Cell Distribution Width 17 % (10-15); White Blood Count 8.6 10^3/uL (3.5-10.8)
[2021-12-01 00:47] LABS: Urine Appearance Cloudy; Urine Bilirubin Negative (Negative); Urine Blood 1+ (Negative); Urine Color Yellow; Urine Glucose Negative (Negative); Urine Ketones Negative (Negative); Urine Nitrite Negative (Negative); Urine Protein 2+(100 mg/dL) (Negative); Urine Specific Gravity 1.015 (1.002-1.030); Urine Urobilinogen Negative (Negative)
[2021-12-01 00:53] LABS: Urine Bacteria 1+ (Absent); Urine Red Blood Cell Trace(0-2/hpf) (Absent); Urine Squamous Epithelial Cell Present (Absent); Urine White Blood Cell Trace(0-5/hpf) (Absent)
[2021-12-01 06:04] LABS: ABS Eosinophils 0.1 10^3/ul (0-0.6); ABS Lymphocytes 0.4 10^3/ul (1.0-4.8); ABS Monocytes 0.4 10^3/ul (0-0.8); Eosinophil % 0.9 %; Hematocrit 24 % (35-47); Hemoglobin 7.9 g/dL (12.0-16.0); Lymphocyte % 5.6 %; Mean Corpuscular HGB Conc 32 g/dL (31-36); Mean Corpuscular Hemoglobin 27 pg (27-31); Mean Corpuscular Volume 84 fL (80-97); Mean Platelet Volume 7.8 fL (7.4-10.4); Nucleated Red Blood Cells % 0.1; Platelet Count 293 10^3/uL (150-450); Red Blood Count 2.89 10^6 /uL (3.70-4.87); Red Cell Distribution Width 17 % (10-15)
[2021-12-01 06:26] LABS: Calcium 7.9 mg/dL (8.6-10.3); eGFR CKD-EPI 27.3 (>60)
[2021-12-01 06:48] LABS: Potassium 5.6 mmol/L (3.5-5.0)
[2021-12-01] MEDS: Polyethylene Glycol 3350 17 GM PACKET PO SCH (07:54)
[2021-12-01] MEDS: MYCOPHENOLATE 180 MG PO SCH ×2 (08:45→21:16)
[2021-12-01] MEDS: Pantoprazole VIAL 40 MG VIAL IV SCH ×2 (09:22→21:15)
[2021-12-01] MEDS: Sulfamethox/Trimethoprim DS TAB 800/160 mg PO SCH (09:35)
[2021-12-01] MEDS: cycloSPORINE Modfied 100mg CAP PO SCH (09:35)
[2021-12-01 13:42] LABS: ABS Eosinophils 0.1 10^3/ul (0-0.6); ABS Lymphocytes 0.3 10^3/ul (1.0-4.8); ABS Monocytes 0.4 10^3/ul (0-0.8); ABS Neutrophils 7.9 10^3/ul (1.5-7.7); Eosinophil % 0.7 %; Hematocrit 25 % (35-47); Hemoglobin 8.1 g/dL (12.0-16.0); Mean Corpuscular HGB Conc 32 g/dL (31-36); Mean Corpuscular Hemoglobin 27 pg (27-31); Mean Corpuscular Volume 84 fL (80-97); Mean Platelet Volume 8.1 fL (7.4-10.4); Nucleated Red Blood Cells % 0.3; Platelet Count 324 10^3/uL (150-450); Red Blood Count 3.01 10^6 /uL (3.70-4.87); Red Cell Distribution Width 17 % (10-15); White Blood Count 8.6 10^3/uL (3.5-10.8)
[2021-12-01] MEDS ORDERED: Sodium Polystyrene ORAL.SUSP 15 GM/60 ML BTL PO ONE (14:20)
[2021-12-01 14:29] LABS: eGFR CKD-EPI 27.6 (>60)
[2021-12-01 14:34] LABS: Potassium 5.5 mmol/L (3.5-5.0)
[2021-12-01] MEDS: cefTRIAXone 1 gm/50 mL D5W 1 GM/50 ML BAG IV SCH (14:35)
[2021-12-01] MEDS ORDERED: Polyethylene Glycol 3350 17 GM PACKET PO PRN (15:02)
[2021-12-01] MEDS: Iron Sucrose 200 MG in NS 0.9% 100 ml BAG 100 ML IVPB SCH (16:30)
[2021-12-01] MEDS ORDERED: Ondansetron 4 mg VIAL 2 MG/ML 2 ml VIAL IV PRN (19:33)
[2021-12-01 20:55] LABS: Hematocrit 26 % (35-47); Hemoglobin 8.1 g/dL (12.0-16.0)
[2021-12-01] MEDS: cycloSPORINE Modified 25mg CAP PO SCH (21:16)
[2021-12-01 21:56] LABS: Calcium 8.2 mg/dL (8.6-10.3); eGFR CKD-EPI 26.2 (>60)
[2021-12-01 22:00] LABS: Potassium 5.2 mmol/L (3.5-5.0)
[2021-12-01 22:14] LABS: Ferritin 369.5 ng/mL (11-307)
[2021-12-02 01:55] LABS: Hematocrit 26 % (35-47); Hemoglobin 8.3 g/dL (12.0-16.0)
[2021-12-02 07:46] LABS: Hematocrit 25 % (35-47); Hemoglobin 8.2 g/dL (12.0-16.0); Mean Corpuscular HGB Conc 32 g/dL (31-36); Mean Corpuscular Hemoglobin 27 pg (27-31); Mean Corpuscular Volume 84 fL (80-97); Mean Platelet Volume 8.2 fL (7.4-10.4); Platelet Count 357 10^3/uL (150-450); Red Cell Distribution Width 17 % (10-15); White Blood Count 6.8 10^3/uL (3.5-10.8)
[2021-12-02 08:14] LABS: C Reactive Protein 191.54 mg/L (<8.01); Calcium 8.5 mg/dL (8.6-10.3); Magnesium 1.9 mg/dL (1.9-2.7); Phosphorus 3.7 mg/dL (2.5-5.0); eGFR CKD-EPI 25.7 (>60)
[2021-12-02 08:36] LABS: Potassium 5.1 mmol/L (3.5-5.0)
[2021-12-02] MEDS: MYCOPHENOLATE 180 MG PO SCH ×2 (08:37→23:27)
[2021-12-02] MEDS: Pantoprazole VIAL 40 MG VIAL IV SCH ×2 (08:38→21:29)
[2021-12-02] MEDS: cycloSPORINE Modfied 100mg CAP PO SCH (08:38)
[2021-12-02] MEDS: Iron Sucrose 200 MG in NS 0.9% 100 ml BAG 100 ML IVPB SCH (08:39)
[2021-12-02 12:13] LABS: Urine Osmo 344 mOsm/kg (150-1150)
[2021-12-02] MEDS: cefTRIAXone 1 gm/50 mL D5W 1 GM/50 ML BAG IV SCH (13:09)
[2021-12-02 19:40] LABS: Hematocrit 25 % (35-47); Hemoglobin 8.2 g/dL (12.0-16.0)
[2021-12-02] MEDS: cycloSPORINE Modified 25mg CAP PO SCH (21:30)
[2021-12-03 08:18] LABS: ABS Eosinophils 0.2 10^3/ul (0-0.6); ABS Lymphocytes 0.4 10^3/ul (1.0-4.8); ABS Monocytes 0.4 10^3/ul (0-0.8); Eosinophil % 1.9 %; Hematocrit 27 % (35-47); Hemoglobin 8.7 g/dL (12.0-16.0); Lymphocyte % 4.8 %; Mean Corpuscular HGB Conc 33 g/dL (31-36); Mean Corpuscular Hemoglobin 27 pg (27-31); Mean Corpuscular Volume 84 fL (80-97); Mean Platelet Volume 8.3 fL (7.4-10.4); Platelet Count 390 10^3/uL (150-450); Red Blood Count 3.17 10^6 /uL (3.70-4.87); Red Cell Distribution Width 18 % (10-15); White Blood Count 7.9 10^3/uL (3.5-10.8)
[2021-12-03 08:41] LABS: Calcium 8.8 mg/dL (8.6-10.3); eGFR CKD-EPI 27.3 (>60)
[2021-12-03 08:44] LABS: Potassium 5.1 mmol/L (3.5-5.0)
[2021-12-03] MEDS: Pantoprazole VIAL 40 MG VIAL IV SCH ×2 (09:25→21:25)
[2021-12-03] MEDS: cycloSPORINE Modfied 100mg CAP PO SCH (09:26)
[2021-12-03] MEDS: Sulfamethox/Trimethoprim DS TAB 800/160 mg PO SCH (09:26)
[2021-12-03] MEDS: Iron Sucrose 200 MG in NS 0.9% 100 ml BAG 100 ML IVPB SCH (09:37)
[2021-12-03] MEDS ORDERED: Senna TAB 8.6 mg TAB PO PRN (10:26)
[2021-12-03] MEDS: MYCOPHENOLATE 180 MG PO SCH ×2 (11:14→21:39)
[2021-12-03] MEDS: cefTRIAXone 1 gm/50 mL D5W 1 GM/50 ML BAG IV SCH (14:26)
[2021-12-03] MEDS: cycloSPORINE Modified 25mg CAP PO SCH (21:27)
[2021-12-04 05:26] LABS: ABS Eosinophils 0.1 10^3/ul (0-0.6); ABS Lymphocytes 0.5 10^3/ul (1.0-4.8); ABS Monocytes 0.4 10^3/ul (0-0.8); ABS Neutrophils 4.5 10^3/ul (1.5-7.7); Eosinophil % 2.7 %; Hematocrit 24 % (35-47); Hemoglobin 7.7 g/dL (12.0-16.0); Lymphocyte % 8.5 %; Mean Corpuscular HGB Conc 32 g/dL (31-36); Mean Corpuscular Hemoglobin 28 pg (27-31); Mean Corpuscular Volume 86 fL (80-97); Mean Platelet Volume 8.2 fL (7.4-10.4); Platelet Count 304 10^3/uL (150-450); Red Blood Count 2.78 10^6 /uL (3.70-4.87); Red Cell Distribution Width 18 % (10-15); White Blood Count 5.5 10^3/uL (3.5-10.8)
[2021-12-04 05:43] LABS: Calcium 8.2 mg/dL (8.6-10.3); Magnesium 1.8 mg/dL (1.9-2.7); Phosphorus 3.1 mg/dL (2.5-5.0); Potassium 4.7 mmol/L (3.5-5.0); eGFR CKD-EPI 27.9 (>60)
[2021-12-04] MEDS ORDERED: Magnesium Sulfate IV 3 GM in NS 0.9% 100 ml BAG 100 ML IVPB ONE (09:00)
[2021-12-04] MEDS: cloNIDine 0.2 MG PATCH 0.2 MG/24 HR 7 DAY PATCH TRANSDERM SCH (09:12)
[2021-12-04] MEDS: Pantoprazole VIAL 40 MG VIAL IV SCH ×2 (09:15→21:25)
[2021-12-04] MEDS: cycloSPORINE Modfied 100mg CAP PO SCH (09:16)
[2021-12-04] MEDS: MYCOPHENOLATE 180 MG PO SCH ×2 (09:16→21:25)
[2021-12-04] MEDS: Iron Sucrose 200 MG in NS 0.9% 100 ml BAG 100 ML IVPB SCH (10:35)
[2021-12-04] MEDS ORDERED: Polyethylene Glycol 3350 17 GM PACKET PO STA (11:02)
[2021-12-04] MEDS ORDERED: Bumetanide IV 0.25 MG/ML 4 ml VIAL (1 mg) SLOW PUSH ONE (15:37)
[2021-12-04] MEDS: cefTRIAXone 1 gm/50 mL D5W 1 GM/50 ML BAG IV SCH (16:06)
[2021-12-04 20:00] LABS: Hematocrit 27 % (35-47); Hemoglobin 8.7 g/dL (12.0-16.0)
[2021-12-04] MEDS ORDERED: Heparin DRIP 25,000 UNITS BAG 25,000 UNITS/500 ML BAG IV SCH (20:30)
[2021-12-04] MEDS ORDERED: Heparin 5000 UNITS/ML 1 mL VIAL IV SCH (21:00)
[2021-12-04] MEDS: cycloSPORINE Modified 25mg CAP PO SCH (21:24)
[2021-12-05 02:50] LABS: Hematocrit 24 % (35-47); Hemoglobin 7.6 g/dL (12.0-16.0)
[2021-12-05] MEDS ORDERED: Pantoprazole 80 mg in NS BAG 80 MG/250 ML BAG IV SCH (04:00)
[2021-12-05 05:29] LABS: ABS Eosinophils 0.2 10^3/ul (0-0.6); ABS Lymphocytes 0.8 10^3/ul (1.0-4.8); ABS Monocytes 0.4 10^3/ul (0-0.8); ABS Neutrophils 4.1 10^3/ul (1.5-7.7); Eosinophil % 4.4 %; Hematocrit 26 % (35-47); Hemoglobin 8.1 g/dL (12.0-16.0); Lymphocyte % 14.4 %; Mean Corpuscular HGB Conc 31 g/dL (31-36); Mean Corpuscular Hemoglobin 26 pg (27-31); Mean Corpuscular Volume 85 fL (80-97); Mean Platelet Volume 7.6 fL (7.4-10.4); Nucleated Red Blood Cells % 0.1; Platelet Count 376 10^3/uL (150-450); Red Blood Count 3.05 10^6 /uL (3.70-4.87); Red Cell Distribution Width 17 % (10-15); White Blood Count 5.6 10^3/uL (3.5-10.8)
[2021-12-05 06:01] LABS: Calcium 8.4 mg/dL (8.6-10.3); Potassium 4.7 mmol/L (3.5-5.0); eGFR CKD-EPI 28.8 (>60)
[2021-12-05 07:38] VITALS: BP 134/64
[2021-12-05] MEDS ORDERED: Pantoprazole VIAL 40 MG VIAL IV SCH (09:00)
== END 2021-12-05 08:05 | disposition short-term general hospital (02) | DRG 720 ==
LOC: ED 10:40 → EDHOLD 23:09 → SUATTDRO 23:09 → MED 11-27 01:43
PROVIDERS: ADMIT Internal Medicine; ATTEND Hospitalist

== ENCOUNTER 2022-01-17 06:17 | Observation (INO) ==
[2022-01-17] MEDS ORDERED: Lactated Ringers 1000 ml BAG 1,000 ML IV ONE (08:49)
[2022-01-17 09:38] LABS: Hematocrit 26 % (35-47); Hemoglobin 8.3 g/dL (12.0-16.0); Mean Corpuscular HGB Conc 32 g/dL (31-36); Mean Corpuscular Hemoglobin 28 pg (27-31); Mean Corpuscular Volume 87 fL (80-97); Mean Platelet Volume 7.4 fL (7.4-10.4); Platelet Count 494 10^3/uL (150-450); Red Blood Count 2.98 10^6 /uL (3.70-4.87); Red Cell Distribution Width 19 % (10-15); White Blood Count 4.9 10^3/uL (3.5-10.8)
[2022-01-17 10:30] LABS: Albumin 2.9 g/dL (3.2-5.2); Albumin/Globulin Ratio 0.6 (1-3); Calcium 8.7 mg/dL (8.6-10.3); Globulin 5.2 g/dL (2-4); Potassium 3.9 mmol/L (3.5-5.0); Total Bilirubin 0.4 mg/dL (0.2-1.0); Total Protein 8.1 g/dL (6.4-8.9); eGFR CKD-EPI 22.3 (>60)
[2022-01-17 10:44] LABS: ABS Eosinophils 0.2 10^3/ul (0-0.6); ABS Lymphocytes 0.9 10^3/ul (1.0-4.8); ABS Monocytes 0.9 10^3/ul (0-0.8); ABS Neutrophils 2.9 10^3/ul (1.5-7.7); Eosinophil % 3.2 %; Lymphocyte % 19.1 %; Nucleated Red Blood Cells % 0.3
[2022-01-17] MEDS ORDERED: Ondansetron ODT 4 mg TAB 4 MG TAB SL ONE (11:05)
[2022-01-17] MEDS ORDERED: Ciprofloxacin 400mg IVPREMIX 400 MG/200 ML BAG IVPB ONE (12:04)
[2022-01-17] MEDS ORDERED: Enoxaparin 30 MG/0.3 ML SYR SUBCUT SCH (14:00)
[2022-01-17] MEDS: Ondansetron ODT 4 mg TAB 4 MG TAB SL ONE ×2 (14:07→16:41)
[2022-01-17] MEDS: cycloSPORINE Modified 25mg CAP PO SCH (20:43)
[2022-01-17] MEDS: MYCOPHENOLATE 180 MG PO SCH (20:43)
[2022-01-18] MEDS ORDERED: Ciprofloxacin 400mg IVPREMIX 400 MG/200 ML BAG IVPB SCH
[2022-01-18 03:24] LABS: Urine Appearance Cloudy; Urine Bilirubin Negative (Negative); Urine Blood 2+ (Negative); Urine Color Yellow; Urine Glucose Negative (Negative); Urine Ketones Negative (Negative); Urine Nitrite Negative (Negative); Urine Protein 2+(100 mg/dL) (Negative); Urine Specific Gravity 1.012 (1.002-1.030); Urine Urobilinogen Negative (Negative)
[2022-01-18 03:28] LABS: Urine Bacteria 1+ (Absent); Urine Red Blood Cell Trace(0-2/hpf) (Absent); Urine Squamous Epithelial Cell Present (Absent); Urine White Blood Cell 1+(6-10/hpf) (Absent)
[2022-01-18 06:17] LABS: Hematocrit 22 % (35-47); Hemoglobin 7.4 g/dL (12.0-16.0); Mean Corpuscular HGB Conc 34 g/dL (31-36); Mean Corpuscular Hemoglobin 30 pg (27-31); Mean Corpuscular Volume 88 fL (80-97); Mean Platelet Volume 6.8 fL (7.4-10.4); Platelet Count 389 10^3/uL (150-450); Red Blood Count 2.51 10^6 /uL (3.70-4.87); Red Cell Distribution Width 19 % (10-15); White Blood Count 2.6 10^3/uL (3.5-10.8)
[2022-01-18 06:28] LABS: ABS Neutrophils 0.9 10^3/ul (1.5-7.7); Eosinophil % 7.5 %; Lymphocyte % 31.5 %
[2022-01-18 06:29] LABS: ABS Eosinophils 0.2 10^3/ul (0-0.6); ABS Lymphocytes 0.8 10^3/ul (1.0-4.8); ABS Monocytes 0.6 10^3/ul (0-0.8); Nucleated Red Blood Cells % 0.2
[2022-01-18 07:15] LABS: Calcium 8.2 mg/dL (8.6-10.3); Potassium 4.1 mmol/L (3.5-5.0); eGFR CKD-EPI 23.6 (>60)
[2022-01-18] MEDS: Ciprofloxacin 400mg IVPREMIX 400 MG/200 ML BAG IVPB SCH (08:27)
[2022-01-18] MEDS: MYCOPHENOLATE 180 MG PO SCH (08:28)
[2022-01-18] MEDS: cycloSPORINE Modfied 100mg CAP PO SCH (08:29)
[2022-01-18] MEDS: PRAVASTATIN 20 MG PO SCH (08:29)
[2022-01-18 15:51] LABS: Mycophenolic Acid 0.7 mcg/mL (1.0 - 3.5)
[2022-01-18] MEDS: cycloSPORINE Modified 25mg CAP PO SCH (21:02)
[2022-01-19 08:16] LABS: Hematocrit 24 % (35-47); Hemoglobin 7.8 g/dL (12.0-16.0); Mean Corpuscular HGB Conc 32 g/dL (31-36); Mean Corpuscular Hemoglobin 28 pg (27-31); Mean Corpuscular Volume 88 fL (80-97); Mean Platelet Volume 7.1 fL (7.4-10.4); Platelet Count 393 10^3/uL (150-450); Red Blood Count 2.75 10^6 /uL (3.70-4.87); Red Cell Distribution Width 19 % (10-15); White Blood Count 2.4 10^3/uL (3.5-10.8)
[2022-01-19 08:43] LABS: Calcium 8.4 mg/dL (8.6-10.3); Magnesium 1.4 mg/dL (1.9-2.7); Potassium 4.2 mmol/L (3.5-5.0); eGFR CKD-EPI 20.3 (>60)
[2022-01-19] MEDS ORDERED: MYCOPHENOLATE 180 MG PO SCH (09:00)
[2022-01-19] MEDS ORDERED: Calcium Carb (TUMS) 500 mg CHEW TAB PO SCH (09:00)
[2022-01-19] MEDS: Ciprofloxacin 400mg IVPREMIX 400 MG/200 ML BAG IVPB SCH (09:09)
[2022-01-19] MEDS: PRAVASTATIN 20 MG PO SCH (09:19)
[2022-01-19] MEDS: cycloSPORINE Modfied 100mg CAP PO SCH (09:21)
[2022-01-19 09:44] LABS: ABS Eosinophils 0.2 10^3/ul (0-0.6); ABS Lymphocytes 0.9 10^3/ul (1.0-4.8); ABS Monocytes 0.6 10^3/ul (0-0.8); ABS Neutrophils 0.7 10^3/ul (1.5-7.7); Eosinophil % 6.7 %; Lymphocyte % 36.6 %; Nucleated Red Blood Cells % 0.3
[2022-01-19] MEDS: Hydrocortisone INJ 100 MG/2ML 2 ML VIAL IV SCH ×3 (11:46→20:32)
[2022-01-19] MEDS ORDERED: Ampicillin ADVAN 1 GM in NS 0.9% 50 ML 50 ML IVPB ONE (20:00)
[2022-01-19] MEDS: cycloSPORINE Modified 25mg CAP PO SCH (20:36)
[2022-01-20] MEDS: Hydrocortisone INJ 100 MG/2ML 2 ML VIAL IV SCH ×2 (02:52→10:12)
[2022-01-20 06:27] LABS: Hematocrit 25 % (35-47); Mean Corpuscular HGB Conc 33 g/dL (31-36); Mean Corpuscular Hemoglobin 29 pg (27-31); Mean Corpuscular Volume 88 fL (80-97); Mean Platelet Volume 7.1 fL (7.4-10.4); Platelet Count 416 10^3/uL (150-450); Red Blood Count 2.81 10^6 /uL (3.70-4.87); Red Cell Distribution Width 19 % (10-15); White Blood Count 3.6 10^3/uL (3.5-10.8)
[2022-01-20 06:49] LABS: Albumin 2.8 g/dL (3.2-5.2); Albumin/Globulin Ratio 0.6 (1-3); Calcium 8.6 mg/dL (8.6-10.3); Globulin 4.5 g/dL (2-4); Potassium 4.6 mmol/L (3.5-5.0); Total Bilirubin 0.4 mg/dL (0.2-1.0); Total Protein 7.3 g/dL (6.4-8.9); eGFR CKD-EPI 18.7 (>60)
[2022-01-20 07:14] LABS: Anisocytosis 1+; Polychromasia 1+; Toxic Granulation 1+
[2022-01-20 07:15] LABS: ABS Lymphocytes 0.7 10^3/ul (1.0-4.8); ABS Monocytes 0.2 10^3/ul (0-0.8); ABS Neutrophils 2.7 10^3/ul (1.5-7.7); Eosinophil % 0.1 %; Lymphocyte % 18.1 %; Nucleated Red Blood Cells % 0.1
[2022-01-20 08:02] VITALS: BP 90/54
[2022-01-20] MEDS: Ciprofloxacin 400mg IVPREMIX 400 MG/200 ML BAG IVPB SCH (10:12)
[2022-01-20] MEDS: cycloSPORINE Modfied 100mg CAP PO SCH (10:13)
[2022-01-20] MEDS: PRAVASTATIN 20 MG PO SCH (10:14)
[2022-01-20] MEDS ORDERED: MYCOPHENOLATE 180 MG PO SCH (21:00)
== END 2022-01-20 14:00 | disposition home or self-care (01) ==
LOC: ED 06:17 → EDHOLD 06:17 → SUATTDRO 13:42 → MED 18:15
PROVIDERS: ADMIT Internal Medicine; ATTEND Internal Medicine

== ENCOUNTER 2022-02-14 13:30 | Inpatient (IN) ==
[2022-02-14 15:52] LABS: ABS Basophils 0.1 10^3/ul (0-0.2); ABS Neutrophils 15.1 10^3/ul (1.5-7.7); Eosinophil % 0.3 %; Hematocrit 28 % (35-47); Lymphocyte % 5.6 %; Mean Corpuscular HGB Conc 32 g/dL (31-36); Mean Corpuscular Hemoglobin 28 pg (27-31); Mean Corpuscular Volume 88 fL (80-97); Mean Platelet Volume 8.1 fL (7.4-10.4); Platelet Count 467 10^3/uL (150-450); Red Blood Count 3.19 10^6 /uL (3.70-4.87); Red Cell Distribution Width 18 % (10-15); White Blood Count 17.2 10^3/uL (3.5-10.8)
[2022-02-14 16:12] LABS: Albumin 3.8 g/dL (3.2-5.2); Albumin/Globulin Ratio 0.7 (1-3); C Reactive Protein 122.2 mg/L (<8.01); Calcium 8.5 mg/dL (8.6-10.3); Globulin 5.1 g/dL (2-4); Potassium 3.7 mmol/L (3.5-5.0); Total Bilirubin 0.4 mg/dL (0.2-1.0); Total Protein 8.9 g/dL (6.4-8.9); eGFR CKD-EPI 22.8 (>60)
[2022-02-14] MEDS ORDERED: Ondansetron 4 mg VIAL 2 MG/ML 2 ml VIAL IV ONE (16:24)
[2022-02-14] MEDS ORDERED: Lactated Ringers 1000 ml BAG 1,000 ML IV ONE (16:24)
[2022-02-14] MEDS ORDERED: Lactated Ringers SEPSIS* BAG 2,040 ML IV ONE (16:33)
[2022-02-14 16:53] LABS: Urine Appearance Turbid; Urine Bilirubin Negative (Negative); Urine Blood 1+ (Negative); Urine Color Amber; Urine Glucose Negative (Negative); Urine Ketones Negative (Negative); Urine Nitrite Negative (Negative); Urine Protein 2+(100 mg/dL) (Negative); Urine Specific Gravity 1.013 (1.002-1.030); Urine Urobilinogen Negative (Negative)
[2022-02-14 17:02] LABS: Urine Bacteria 2+ (Absent); Urine Red Blood Cell 1+(3-5/hpf) (Absent); Urine Squamous Epithelial Cell Present (Absent); Urine Transitional Epithelial Present (Absent); Urine White Blood Cell 3+(>20/hpf) (Absent)
[2022-02-14] MEDS ORDERED: Ondansetron 4 mg VIAL 2 MG/ML 2 ml VIAL IV PRN (17:08)
[2022-02-14] MEDS ORDERED: Piperacillin/Tazobac ADVAN 3.375 GM in NS 0.9% 100 ml BAG 100 ML IV ONE (17:08)
[2022-02-14] MEDS ORDERED: Zosyn per Pharmacy NOTE FOLLOW UP SCH (18:00)
[2022-02-14] MEDS ORDERED: cloNIDine 0.2 MG PATCH 0.2 MG/24 HR 7 DAY PATCH TRANSDERM SCH (18:00)
[2022-02-14] MEDS: Linezolid 600 MG IVPREMIX(*) 600 MG/300 ML BAG IVPB SCH (18:28)
[2022-02-14] MEDS: cycloSPORINE Modified 25mg CAP PO SCH (20:07)
[2022-02-14] MEDS: CMC:Mycophenolate 180 mg TAB (NF) PO SCH (20:10)
[2022-02-14] MEDS: Sodium Citrate/Citric Acid LIQ 15 ML UDC PO SCH (20:10)
[2022-02-14] MEDS ORDERED: ZOSYN 3.375 GM Q8H per EXTENDED INFUSION IV SCH (22:00)
[2022-02-15] MEDS: Linezolid 600 MG IVPREMIX(*) 600 MG/300 ML BAG IVPB SCH (05:15)
[2022-02-15 06:53] LABS: ABS Eosinophils 0.1 10^3/ul (0-0.6); ABS Lymphocytes 0.7 10^3/ul (1.0-4.8); ABS Monocytes 0.6 10^3/ul (0-0.8); ABS Neutrophils 5.3 10^3/ul (1.5-7.7); Eosinophil % 1.8 %; Hematocrit 20 % (35-47); Hemoglobin 6.6 g/dL (12.0-16.0); Lymphocyte % 10.1 %; Mean Corpuscular HGB Conc 34 g/dL (31-36); Mean Corpuscular Hemoglobin 29 pg (27-31); Mean Corpuscular Volume 86 fL (80-97); Mean Platelet Volume 7.6 fL (7.4-10.4); Nucleated Red Blood Cells % 0.1; Platelet Count 317 10^3/uL (150-450); Red Blood Count 2.31 10^6 /uL (3.70-4.87); Red Cell Distribution Width 18 % (10-15); White Blood Count 6.8 10^3/uL (3.5-10.8)
[2022-02-15 07:24] LABS: Albumin 2.6 g/dL (3.2-5.2); Albumin/Globulin Ratio 0.8 (1-3); Calcium 7.4 mg/dL (8.6-10.3); Globulin 3.4 g/dL (2-4); Potassium 3.5 mmol/L (3.5-5.0); Total Bilirubin 0.3 mg/dL (0.2-1.0); eGFR CKD-EPI 23.7 (>60)
[2022-02-15 07:44] LABS: Magnesium 0.6 mg/dL (1.9-2.7)
[2022-02-15] MEDS ORDERED: ZOSYN 3.375 GM Q8H per EXTENDED INFUSION IV SCH (08:30)
[2022-02-15] MEDS ORDERED: Magnesium Sulf 4 GM/100 ML IV 4,000 MG/100 ML BAG IVPB ONE (08:30)
[2022-02-15 08:55] LABS: Total Iron Binding Capacity 164 mcg/dL (250-450); Transferrin 117 mg/dL (203-362)
[2022-02-15 08:56] LABS: % Iron Saturation 12 % (15-55); Iron < 20 ug/dL (50-212); Unsaturated Iron Binding 144 ug/dL
[2022-02-15] MEDS: Sodium Citrate/Citric Acid LIQ 15 ML UDC PO SCH ×3 (09:36→20:42)
[2022-02-15] MEDS: cycloSPORINE Modfied 100mg CAP PO SCH (09:36)
[2022-02-15] MEDS: CMC:Mycophenolate 180 mg TAB (NF) PO SCH ×2 (09:36→20:40)
[2022-02-15] MEDS: CMC:Pravastatin 20 mg TAB (NF) PO SCH (09:37)
[2022-02-15] MEDS: Psyllium PAK PO SCH (09:40)
[2022-02-15 12:39] LABS: Hematocrit 21 % (35-47); Hemoglobin 6.6 g/dL (12.0-16.0)
[2022-02-15] MEDS: cefTRIAXone 1 gm/50 mL D5W 1 GM/50 ML BAG IV SCH (15:19)
[2022-02-15] MEDS: cycloSPORINE Modified 25mg CAP PO SCH (20:40)
[2022-02-15 22:25] LABS: Hematocrit 27 % (35-47); Hemoglobin 9.1 g/dL (12.0-16.0); Mean Corpuscular HGB Conc 33 g/dL (31-36); Mean Corpuscular Hemoglobin 29 pg (27-31); Mean Corpuscular Volume 86 fL (80-97); Mean Platelet Volume 7.6 fL (7.4-10.4); Platelet Count 342 10^3/uL (150-450); Red Blood Count 3.17 10^6 /uL (3.70-4.87); Red Cell Distribution Width 17 % (10-15); White Blood Count 5.6 10^3/uL (3.5-10.8)
[2022-02-15 23:42] LABS: Urine Appearance Clear; Urine Bilirubin Negative (Negative); Urine Blood 1+ (Small) (Negative); Urine Color Yellow; Urine Glucose Negative (Negative); Urine Ketones Negative (Negative); Urine Nitrite Negative (Negative); Urine Protein 2+ (100 mg/dL) (Negative); Urine Specific Gravity 1.015 (1.005-1.030); Urine Urobilinogen 0.2 (Negative) (Negative); Urine pH 5.5 (5.0-9.0)
[2022-02-15 23:49] LABS: Urine Bacteria 1+ (Absent); Urine Red Blood Cell Trace(0-2/hpf) (Absent); Urine Squamous Epithelial Cell Present (Absent); Urine White Blood Cell 3+(>20/hpf) (Absent)
[2022-02-16] MEDS ORDERED: Remdesivir 100 mg Vial 200 MG in NS 0.9% 250 ml 210 ML IV ONE (08:42)
[2022-02-16 09:18] LABS: ABS Eosinophils 0.2 10^3/ul (0-0.6); ABS Lymphocytes 0.5 10^3/ul (1.0-4.8); ABS Monocytes 0.5 10^3/ul (0-0.8); ABS Neutrophils 3.2 10^3/ul (1.5-7.7); Eosinophil % 3.9 %; Hematocrit 27 % (35-47); Hemoglobin 9.3 g/dL (12.0-16.0); Lymphocyte % 11.8 %; Mean Corpuscular HGB Conc 34 g/dL (31-36); Mean Corpuscular Hemoglobin 29 pg (27-31); Mean Corpuscular Volume 85 fL (80-97); Mean Platelet Volume 7.4 fL (7.4-10.4); Platelet Count 346 10^3/uL (150-450); Red Blood Count 3.23 10^6 /uL (3.70-4.87); Red Cell Distribution Width 17 % (10-15); White Blood Count 4.4 10^3/uL (3.5-10.8)
[2022-02-16] MEDS: Psyllium PAK PO SCH (09:55)
[2022-02-16] MEDS: Calcium Carb (TUMS) 500 mg CHEW TAB PO SCH (09:56)
[2022-02-16] MEDS: Sodium Citrate/Citric Acid LIQ 15 ML UDC PO SCH ×3 (09:56→21:27)
[2022-02-16] MEDS: CMC:Pravastatin 20 mg TAB (NF) PO SCH (09:56)
[2022-02-16] MEDS: CMC:Mycophenolate 180 mg TAB (NF) PO SCH ×2 (09:57→21:04)
[2022-02-16] MEDS: cycloSPORINE Modfied 100mg CAP PO SCH (09:57)
[2022-02-16 10:00] LABS: Potassium 3.7 mmol/L (3.5-5.0)
[2022-02-16 10:01] LABS: Albumin 2.9 g/dL (3.2-5.2); Albumin/Globulin Ratio 0.7 (1-3); Calcium 8.5 mg/dL (8.6-10.3); Globulin 3.9 g/dL (2-4); Magnesium 1.9 mg/dL (1.9-2.7); Total Bilirubin 0.5 mg/dL (0.2-1.0); Total Protein 6.8 g/dL (6.4-8.9); eGFR CKD-EPI 26.2 (>60)
[2022-02-16] MEDS: cefTRIAXone 1 gm/50 mL D5W 1 GM/50 ML BAG IV SCH (13:52)
[2022-02-16] MEDS: cycloSPORINE Modified 25mg CAP PO SCH (21:05)
[2022-02-17 06:41] LABS: Hematocrit 27 % (35-47); Hemoglobin 8.8 g/dL (12.0-16.0); Mean Corpuscular HGB Conc 33 g/dL (31-36); Mean Corpuscular Hemoglobin 28 pg (27-31); Mean Corpuscular Volume 85 fL (80-97); Mean Platelet Volume 7.9 fL (7.4-10.4); Platelet Count 303 10^3/uL (150-450); Red Blood Count 3.12 10^6 /uL (3.70-4.87); Red Cell Distribution Width 17 % (10-15); White Blood Count 2.9 10^3/uL (3.5-10.8)
[2022-02-17 07:00] LABS: Albumin 2.6 g/dL (3.2-5.2); Albumin/Globulin Ratio 0.7 (1-3); Calcium 8.7 mg/dL (8.6-10.3); Globulin 3.7 g/dL (2-4); Magnesium 1.8 mg/dL (1.9-2.7); Potassium 3.5 mmol/L (3.5-5.0); Total Bilirubin 0.3 mg/dL (0.2-1.0); Total Protein 6.3 g/dL (6.4-8.9); eGFR CKD-EPI 30.2 (>60)
[2022-02-17 07:01] LABS: INR 1.79 (0.89-1.11)
[2022-02-17 08:44] LABS: ABS Eosinophils 0.2 10^3/ul (0-0.6); ABS Lymphocytes 0.6 10^3/ul (1.0-4.8); ABS Monocytes 0.4 10^3/ul (0-0.8); ABS Neutrophils 1.6 10^3/ul (1.5-7.7); Eosinophil % 6.8 %; Lymphocyte % 20.9 %; Nucleated Red Blood Cells % 0.3; RBC Morphology Normal (Normal)
[2022-02-17] MEDS: Sodium Citrate/Citric Acid LIQ 15 ML UDC PO SCH ×3 (09:45→20:25)
[2022-02-17] MEDS: cycloSPORINE Modfied 100mg CAP PO SCH (09:45)
[2022-02-17] MEDS: CMC:Pravastatin 20 mg TAB (NF) PO SCH (09:46)
[2022-02-17] MEDS: CMC:Mycophenolate 180 mg TAB (NF) PO SCH ×2 (09:47→20:22)
[2022-02-17] MEDS: Psyllium PAK PO SCH (09:47)
[2022-02-17] MEDS: Remdesivir 100 mg Vial 100 MG in NS 0.9% 250 ml 230 ML IV SCH (10:02)
[2022-02-17] MEDS: cefTRIAXone 1 gm/50 mL D5W 1 GM/50 ML BAG IV SCH (14:25)
[2022-02-17] MEDS: cycloSPORINE Modified 25mg CAP PO SCH (20:30)
[2022-02-18 07:17] LABS: INR 2.12 (0.89-1.11)
[2022-02-18 07:24] LABS: Albumin 2.4 g/dL (3.2-5.2); Albumin/Globulin Ratio 0.7 (1-3); Calcium 8.3 mg/dL (8.6-10.3); Globulin 3.5 g/dL (2-4); Potassium 3.5 mmol/L (3.5-5.0); Total Bilirubin 0.2 mg/dL (0.2-1.0); Total Protein 5.9 g/dL (6.4-8.9); eGFR CKD-EPI 23.4 (>60)
[2022-02-18] MEDS: CMC:Mycophenolate 180 mg TAB (NF) PO SCH ×2 (09:05→21:11)
[2022-02-18] MEDS: Sodium Citrate/Citric Acid LIQ 15 ML UDC PO SCH ×3 (09:05→21:11)
[2022-02-18] MEDS: cycloSPORINE Modfied 100mg CAP PO SCH (09:06)
[2022-02-18] MEDS: Calcium Carb (TUMS) 500 mg CHEW TAB PO SCH (09:06)
[2022-02-18] MEDS: CMC:Pravastatin 20 mg TAB (NF) PO SCH (09:08)
[2022-02-18] MEDS: Remdesivir 100 mg Vial 100 MG in NS 0.9% 250 ml 230 ML IV SCH (09:11)
[2022-02-18] MEDS: NS 0.9% 1000 ml BAG 1,000 ML IV SCH ×2 (09:13→23:45)
[2022-02-18] MEDS: Psyllium PAK PO SCH (09:14)
[2022-02-18] MEDS: cefTRIAXone 2 gm/50 mL D5W 2 GM/50 ML BAG IV SCH (11:00)
[2022-02-18] MEDS: cycloSPORINE Modified 25mg CAP PO SCH (21:10)
[2022-02-19 06:42] LABS: Hematocrit 24 % (35-47); Hemoglobin 8.2 g/dL (12.0-16.0); Mean Corpuscular HGB Conc 34 g/dL (31-36); Mean Corpuscular Hemoglobin 29 pg (27-31); Mean Corpuscular Volume 85 fL (80-97); Mean Platelet Volume 7.5 fL (7.4-10.4); Platelet Count 224 10^3/uL (150-450); Red Blood Count 2.83 10^6 /uL (3.70-4.87); Red Cell Distribution Width 17 % (10-15); White Blood Count 2.1 10^3/uL (3.5-10.8)
[2022-02-19 07:00] LABS: ABS Eosinophils 0.2 10^3/ul (0-0.6); ABS Lymphocytes 0.7 10^3/ul (1.0-4.8); ABS Monocytes 0.4 10^3/ul (0-0.8); ABS Neutrophils 0.7 10^3/ul (1.5-7.7); Lymphocyte % 34.3 %
[2022-02-19 07:49] LABS: Calcium 7.8 mg/dL (8.6-10.3); Magnesium 1.6 mg/dL (1.9-2.7); Potassium 3.5 mmol/L (3.5-5.0); eGFR CKD-EPI 26.5 (>60)
[2022-02-19] MEDS ORDERED: Magnesium Sulfate IV 3 GM in NS 0.9% 100 ml BAG 100 ML IVPB ONE (08:34)
[2022-02-19] MEDS: cefTRIAXone 2 gm/50 mL D5W 2 GM/50 ML BAG IV SCH (10:31)
[2022-02-19] MEDS: CMC:Pravastatin 20 mg TAB (NF) PO SCH (10:34)
[2022-02-19] MEDS: cycloSPORINE Modfied 100mg CAP PO SCH (10:34)
[2022-02-19] MEDS: CMC:Mycophenolate 180 mg TAB (NF) PO SCH ×2 (10:35→20:53)
[2022-02-19] MEDS: Psyllium PAK PO SCH (10:36)
[2022-02-19] MEDS: Sodium Citrate/Citric Acid LIQ 15 ML UDC PO SCH ×3 (10:36→22:44)
[2022-02-19] MEDS: NS 0.9% 1000 ml BAG 1,000 ML IV SCH (11:57)
[2022-02-19] MEDS: cycloSPORINE Modified 25mg CAP PO SCH (20:49)
[2022-02-20 06:07] LABS: Hematocrit 27 % (35-47); Hemoglobin 8.8 g/dL (12.0-16.0); Mean Corpuscular HGB Conc 33 g/dL (31-36); Mean Corpuscular Hemoglobin 28 pg (27-31); Mean Corpuscular Volume 87 fL (80-97); Mean Platelet Volume 8.1 fL (7.4-10.4); Platelet Count 253 10^3/uL (150-450); Red Blood Count 3.09 10^6 /uL (3.70-4.87); Red Cell Distribution Width 17 % (10-15); White Blood Count 2.2 10^3/uL (3.5-10.8)
[2022-02-20 06:15] LABS: ABS Neutrophils 0.6 10^3/ul (1.5-7.7)
[2022-02-20 06:30] LABS: Calcium 8.1 mg/dL (8.6-10.3); Magnesium 2.4 mg/dL (1.9-2.7); Potassium 3.8 mmol/L (3.5-5.0); eGFR CKD-EPI 33.9 (>60)
[2022-02-20 10:06] LABS: ABS Eosinophils 0.2 10^3/ul (0-0.6); ABS Lymphocytes 0.9 10^3/ul (1.0-4.8); ABS Monocytes 0.5 10^3/ul (0-0.8); Eosinophil % 9.4 %; Lymphocyte % 41.4 %; Nucleated Red Blood Cells % 0.2; RBC Morphology Normal (Normal)
[2022-02-20] MEDS: CMC:Pravastatin 20 mg TAB (NF) PO SCH (10:49)
[2022-02-20] MEDS: Calcium Carb (TUMS) 500 mg CHEW TAB PO SCH (10:50)
[2022-02-20] MEDS: cycloSPORINE Modfied 100mg CAP PO SCH (10:50)
[2022-02-20] MEDS: Psyllium PAK PO SCH (10:52)
[2022-02-20] MEDS: CMC:Mycophenolate 180 mg TAB (NF) PO SCH ×2 (10:53→21:09)
[2022-02-20] MEDS: Sodium Citrate/Citric Acid LIQ 15 ML UDC PO SCH ×3 (10:58→21:08)
[2022-02-20] MEDS: cycloSPORINE Modified 25mg CAP PO SCH (21:09)
[2022-02-21 05:54] LABS: Hematocrit 25 % (35-47); Hemoglobin 8.3 g/dL (12.0-16.0); Mean Corpuscular HGB Conc 33 g/dL (31-36); Mean Corpuscular Hemoglobin 28 pg (27-31); Mean Corpuscular Volume 86 fL (80-97); Mean Platelet Volume 7.7 fL (7.4-10.4); Platelet Count 252 10^3/uL (150-450); Red Blood Count 2.95 10^6 /uL (3.70-4.87); Red Cell Distribution Width 17 % (10-15); White Blood Count 1.9 10^3/uL (3.5-10.8)
[2022-02-21 06:16] LABS: ABS Neutrophils 0.3 10^3/ul (1.5-7.7)
[2022-02-21 06:34] LABS: Calcium 7.9 mg/dL (8.6-10.3); Potassium 3.5 mmol/L (3.5-5.0); eGFR CKD-EPI 36.1 (>60)
[2022-02-21 07:29] LABS: RBC Morphology Normal (Normal)
[2022-02-21 07:34] LABS: ABS Eosinophils 0.2 10^3/ul (0-0.6); ABS Lymphocytes 0.8 10^3/ul (1.0-4.8); ABS Monocytes 0.5 10^3/ul (0-0.8); Lymphocyte % 43.8 %; Nucleated Red Blood Cells % 0.1
[2022-02-21] MEDS: Sodium Citrate/Citric Acid LIQ 15 ML UDC PO SCH ×3 (08:46→22:12)
[2022-02-21] MEDS: CMC:Pravastatin 20 mg TAB (NF) PO SCH (08:46)
[2022-02-21] MEDS: cycloSPORINE Modfied 100mg CAP PO SCH (08:48)
[2022-02-21] MEDS: CMC:Mycophenolate 180 mg TAB (NF) PO SCH ×2 (08:49→22:17)
[2022-02-21] MEDS: Psyllium PAK PO SCH (08:50)
[2022-02-21] MEDS: Remdesivir 100 mg Vial 100 MG in NS 0.9% 250 ml 230 ML IV SCH (13:23)
[2022-02-21] MEDS: Fluticasone NASAL SPRAY 50MCG 16 gm SPRAY BTL BOTH NARES SCH (17:24)
[2022-02-21] MEDS: cycloSPORINE Modified 25mg CAP PO SCH (22:13)
[2022-02-22 06:26] LABS: Hematocrit 26 % (35-47); Hemoglobin 8.5 g/dL (12.0-16.0); Mean Corpuscular HGB Conc 33 g/dL (31-36); Mean Corpuscular Hemoglobin 28 pg (27-31); Mean Corpuscular Volume 87 fL (80-97); Mean Platelet Volume 8.1 fL (7.4-10.4); Platelet Count 245 10^3/uL (150-450); Red Blood Count 3.02 10^6 /uL (3.70-4.87); Red Cell Distribution Width 17 % (10-15); White Blood Count 1.9 10^3/uL (3.5-10.8)
[2022-02-22] MEDS: CMC:Pravastatin 20 mg TAB (NF) PO SCH (08:35)
[2022-02-22] MEDS: Sodium Citrate/Citric Acid LIQ 15 ML UDC PO SCH ×3 (08:35→20:21)
[2022-02-22] MEDS: Calcium Carb (TUMS) 500 mg CHEW TAB PO SCH (08:35)
[2022-02-22] MEDS: Psyllium PAK PO SCH ×2 (08:37→08:38)
[2022-02-22] MEDS: Remdesivir 100 mg Vial 100 MG in NS 0.9% 250 ml 230 ML IV SCH (08:38)
[2022-02-22] MEDS: Fluticasone NASAL SPRAY 50MCG 16 gm SPRAY BTL BOTH NARES SCH (08:38)
[2022-02-22] MEDS: cycloSPORINE Modfied 100mg CAP PO SCH (08:41)
[2022-02-22] MEDS: CMC:Mycophenolate 180 mg TAB (NF) PO SCH ×2 (08:42→20:23)
[2022-02-22 09:17] LABS: ABS Eosinophils 0.1 10^3/ul (0-0.6); ABS Lymphocytes 0.8 10^3/ul (1.0-4.8); ABS Monocytes 0.5 10^3/ul (0-0.8); ABS Neutrophils 0.5 10^3/ul (1.5-7.7); Eosinophil % 7.1 %; Lymphocyte % 41.6 %
[2022-02-22] MEDS: cycloSPORINE Modified 25mg CAP PO SCH (20:22)
[2022-02-23 06:17] LABS: Hematocrit 26 % (35-47); Hemoglobin 8.7 g/dL (12.0-16.0); Mean Corpuscular HGB Conc 33 g/dL (31-36); Mean Corpuscular Hemoglobin 29 pg (27-31); Mean Corpuscular Volume 86 fL (80-97); Mean Platelet Volume 8.1 fL (7.4-10.4); Platelet Count 262 10^3/uL (150-450); Red Blood Count 3.05 10^6 /uL (3.70-4.87); Red Cell Distribution Width 18 % (10-15); White Blood Count 2.8 10^3/uL (3.5-10.8)
[2022-02-23 07:08] LABS: Toxic Granulation 2+
[2022-02-23 07:11] LABS: Anisocytosis 1+
[2022-02-23 07:12] LABS: ABS Eosinophils 0.1 10^3/ul (0-0.6); ABS Lymphocytes 0.9 10^3/ul (1.0-4.8); ABS Monocytes 0.7 10^3/ul (0-0.8); Eosinophil % 4.9 %; Lymphocyte % 33.6 %; Nucleated Red Blood Cells % 0.4
[2022-02-23] MEDS: Sodium Citrate/Citric Acid LIQ 15 ML UDC PO SCH ×3 (09:22→21:10)
[2022-02-23] MEDS: CMC:Pravastatin 20 mg TAB (NF) PO SCH (09:22)
[2022-02-23] MEDS: Psyllium PAK PO SCH (09:22)
[2022-02-23] MEDS: Fluticasone NASAL SPRAY 50MCG 16 gm SPRAY BTL BOTH NARES SCH (09:23)
[2022-02-23] MEDS: cycloSPORINE Modfied 100mg CAP PO SCH (09:24)
[2022-02-23] MEDS: CMC:Mycophenolate 180 mg TAB (NF) PO SCH ×2 (09:24→21:10)
[2022-02-23 13:10] LABS: Mycophenolic Acid <0.5 mcg/mL (1.0 - 3.5); Mycophenolic Acid Glucuronide 41 mcg/mL (35 - 100)
[2022-02-23] MEDS: cycloSPORINE Modified 25mg CAP PO SCH (21:11)
[2022-02-23] MEDS ORDERED: Bumetanide IV 0.25 MG/ML 4 ml VIAL (1 mg) SLOW PUSH ONE (22:00)
[2022-02-24 07:50] LABS: Hematocrit 26 % (35-47); Hemoglobin 8.7 g/dL (12.0-16.0); Mean Corpuscular HGB Conc 33 g/dL (31-36); Mean Corpuscular Hemoglobin 29 pg (27-31); Mean Corpuscular Volume 86 fL (80-97); Mean Platelet Volume 7.5 fL (7.4-10.4); Platelet Count 270 10^3/uL (150-450); Red Blood Count 3.03 10^6 /uL (3.70-4.87); Red Cell Distribution Width 17 % (10-15); White Blood Count 4.6 10^3/uL (3.5-10.8)
[2022-02-24 08:38] LABS: C Reactive Protein 139.46 mg/L (<8.01); Calcium 8.1 mg/dL (8.6-10.3); Potassium 3.7 mmol/L (3.5-5.0); eGFR CKD-EPI 27.3 (>60)
[2022-02-24 08:45] LABS: Toxic Granulation 1+
[2022-02-24 08:49] LABS: Anisocytosis 1+
[2022-02-24 08:50] LABS: ABS Basophils 0.1 10^3/ul (0-0.2); ABS Eosinophils 0.2 10^3/ul (0-0.6); ABS Lymphocytes 1.1 10^3/ul (1.0-4.8); ABS Monocytes 0.9 10^3/ul (0-0.8); ABS Neutrophils 2.3 10^3/ul (1.5-7.7); Dohle Bodies Present; Eosinophil % 4.4 %; Lymphocyte % 24.2 %; Nucleated Red Blood Cells % 0.2
[2022-02-24] MEDS: Calcium Carb (TUMS) 500 mg CHEW TAB PO SCH (10:27)
[2022-02-24] MEDS: CMC:Pravastatin 20 mg TAB (NF) PO SCH (10:28)
[2022-02-24] MEDS: Fluticasone NASAL SPRAY 50MCG 16 gm SPRAY BTL BOTH NARES SCH (10:29)
[2022-02-24] MEDS: CMC:Mycophenolate 180 mg TAB (NF) PO SCH ×2 (10:29→20:24)
[2022-02-24] MEDS: Sodium Citrate/Citric Acid LIQ 15 ML UDC PO SCH ×3 (10:30→21:30)
[2022-02-24] MEDS: cycloSPORINE Modfied 100mg CAP PO SCH (10:31)
[2022-02-24] MEDS: HYDROcodone/ACETAMIN 5/325 mg TAB PO PRN ×2 (10:32→16:11)
[2022-02-24] MEDS: Psyllium PAK PO SCH (10:34)
[2022-02-24] MEDS: cycloSPORINE Modified 25mg CAP PO SCH (20:24)
[2022-02-25] MEDS: oxyCODONE/Acetamin 5/325 mg TAB PO PRN ×3 (02:17→21:02)
[2022-02-25] MEDS ORDERED: Furosemide 20 mg/2 ml IV VIAL IV ONE (03:48)
[2022-02-25 06:17] LABS: Hematocrit 27 % (35-47); Hemoglobin 8.5 g/dL (12.0-16.0); Mean Corpuscular HGB Conc 32 g/dL (31-36); Mean Corpuscular Hemoglobin 28 pg (27-31); Mean Corpuscular Volume 88 fL (80-97); Platelet Count 294 10^3/uL (150-450); Red Blood Count 3.06 10^6 /uL (3.70-4.87); Red Cell Distribution Width 18 % (10-15); White Blood Count 4.9 10^3/uL (3.5-10.8)
[2022-02-25 06:34] LABS: Calcium 7.7 mg/dL (8.6-10.3); Potassium 3.3 mmol/L (3.5-5.0)
[2022-02-25 06:37] LABS: Anisocytosis 1+; Polychromasia 1+
[2022-02-25 06:38] LABS: ABS Eosinophils 0.2 10^3/ul (0-0.6); ABS Lymphocytes 1.2 10^3/ul (1.0-4.8); ABS Monocytes 1.1 10^3/ul (0-0.8); ABS Neutrophils 2.3 10^3/ul (1.5-7.7); Eosinophil % 4.4 %; Lymphocyte % 24.4 %; Nucleated Red Blood Cells % 0.2
[2022-02-25] MEDS: cycloSPORINE Modfied 100mg CAP PO SCH (09:43)
[2022-02-25] MEDS: CMC:Pravastatin 20 mg TAB (NF) PO SCH (09:43)
[2022-02-25] MEDS: CMC:Mycophenolate 180 mg TAB (NF) PO SCH ×2 (09:44→20:57)
[2022-02-25] MEDS: Psyllium PAK PO SCH (09:44)
[2022-02-25] MEDS: Fluticasone NASAL SPRAY 50MCG 16 gm SPRAY BTL BOTH NARES SCH (09:44)
[2022-02-25 09:45] LABS: Magnesium 1.4 mg/dL (1.9-2.7)
[2022-02-25] MEDS: Sodium Citrate/Citric Acid LIQ 15 ML UDC PO SCH ×3 (09:45→20:59)
[2022-02-25] MEDS: Acetaminophen IV 1 GM/100ML 1,000 MG/100 ML BAG IV SCH ×2 (09:57→17:29)
[2022-02-25] MEDS: Bumetanide IV 0.25 MG/ML 4 ml VIAL (1 mg) SLOW PUSH SCH (15:18)
[2022-02-25] MEDS: Potassium Chlor 20 meq TAB.ER PO SCH ×2 (15:25→20:54)
[2022-02-25] MEDS ORDERED: Magnesium Sulfate IV 3 GM in NS 0.9% 100 ml BAG 100 ML IVPB ONE (16:00)
[2022-02-25] MEDS: cycloSPORINE Modified 25mg CAP PO SCH (20:58)
[2022-02-26] MEDS: Acetaminophen IV 1 GM/100ML 1,000 MG/100 ML BAG IV SCH ×4 (01:31→17:21)
[2022-02-26 05:57] LABS: Hematocrit 26 % (35-47); Hemoglobin 8.3 g/dL (12.0-16.0); Mean Corpuscular HGB Conc 32 g/dL (31-36); Mean Corpuscular Hemoglobin 28 pg (27-31); Mean Corpuscular Volume 86 fL (80-97); Mean Platelet Volume 7.5 fL (7.4-10.4); Platelet Count 278 10^3/uL (150-450); Red Blood Count 2.99 10^6 /uL (3.70-4.87); Red Cell Distribution Width 17 % (10-15); White Blood Count 5.6 10^3/uL (3.5-10.8)
[2022-02-26 06:16] LABS: Calcium 7.6 mg/dL (8.6-10.3); Potassium 4.3 mmol/L (3.5-5.0); eGFR CKD-EPI 20.1 (>60)
[2022-02-26 08:43] LABS: ABS Eosinophils 0.2 10^3/ul (0-0.6); ABS Lymphocytes 1.2 10^3/ul (1.0-4.8); ABS Monocytes 1.4 10^3/ul (0-0.8); ABS Neutrophils 2.9 10^3/ul (1.5-7.7); Anisocytosis 1+; Eosinophil % 2.9 %; Lymphocyte % 21.1 %; Nucleated Red Blood Cells % 0.2; Polychromasia 1+
[2022-02-26] MEDS: Sodium Citrate/Citric Acid LIQ 15 ML UDC PO SCH ×3 (09:19→20:45)
[2022-02-26] MEDS: CMC:Mycophenolate 180 mg TAB (NF) PO SCH ×2 (09:19→20:43)
[2022-02-26] MEDS: Fluticasone NASAL SPRAY 50MCG 16 gm SPRAY BTL BOTH NARES SCH (09:19)
[2022-02-26] MEDS: CMC:Pravastatin 20 mg TAB (NF) PO SCH (09:20)
[2022-02-26] MEDS: Calcium Carb (TUMS) 500 mg CHEW TAB PO SCH (09:20)
[2022-02-26] MEDS: cycloSPORINE Modfied 100mg CAP PO SCH (09:20)
[2022-02-26] MEDS: Psyllium PAK PO SCH (09:21)
[2022-02-26] MEDS: Bumetanide IV 0.25 MG/ML 4 ml VIAL (1 mg) SLOW PUSH SCH (09:23)
[2022-02-26 10:56] LABS: Magnesium 2.3 mg/dL (1.9-2.7)
[2022-02-26 11:49] LABS: Urine Appearance Clear; Urine Bilirubin Negative (Negative); Urine Color Yellow; Urine Glucose Negative (Negative); Urine Ketones Negative (Negative); Urine Specific Gravity 1.025 (1.005-1.030)
[2022-02-26 11:50] LABS: Urine Blood Trace (Intact) (Negative); Urine Nitrite Negative (Negative); Urine Protein 2+ (100 mg/dL) (Negative); Urine Urobilinogen 0.2 (Negative) (Negative); Urine pH 5.5 (5.0-9.0)
[2022-02-26 12:14] LABS: Urine Bacteria Absent (Absent); Urine Red Blood Cell 2+(6-10/hpf) (Absent); Urine Squamous Epithelial Cell Present (Absent); Urine Transitional Epithelial Present (Absent); Urine White Blood Cell Trace(0-5/hpf) (Absent)
[2022-02-26 19:07] LABS: Hematocrit 26 % (35-47); Hemoglobin 8.6 g/dL (12.0-16.0); Mean Corpuscular HGB Conc 33 g/dL (31-36); Mean Corpuscular Hemoglobin 28 pg (27-31); Mean Corpuscular Volume 86 fL (80-97); Mean Platelet Volume 7.5 fL (7.4-10.4); Platelet Count 295 10^3/uL (150-450); Red Blood Count 3.07 10^6 /uL (3.70-4.87); Red Cell Distribution Width 17 % (10-15); White Blood Count 7.1 10^3/uL (3.5-10.8)
[2022-02-26 19:11] LABS: C Reactive Protein 186.66 mg/L (<8.01)
[2022-02-26 19:34] LABS: ABS Eosinophils 0.1 10^3/ul (0-0.6); ABS Lymphocytes 0.9 10^3/ul (1.0-4.8); ABS Monocytes 1.5 10^3/ul (0-0.8); ABS Neutrophils 4.5 10^3/ul (1.5-7.7); Lymphocyte % 12.8 %; Nucleated Red Blood Cells % 0.1
[2022-02-26] MEDS: cycloSPORINE Modified 25mg CAP PO SCH (20:42)
[2022-02-27] MEDS: Acetaminophen IV 1 GM/100ML 1,000 MG/100 ML BAG IV SCH (01:16)
[2022-02-27 06:14] LABS: Hematocrit 25 % (35-47); Hemoglobin 8.2 g/dL (12.0-16.0); Mean Corpuscular HGB Conc 33 g/dL (31-36); Mean Corpuscular Hemoglobin 28 pg (27-31); Mean Corpuscular Volume 86 fL (80-97); Mean Platelet Volume 7.7 fL (7.4-10.4); Platelet Count 254 10^3/uL (150-450); Red Blood Count 2.92 10^6 /uL (3.70-4.87); Red Cell Distribution Width 17 % (10-15); White Blood Count 5.4 10^3/uL (3.5-10.8)
[2022-02-27 06:22] LABS: ABS Eosinophils 0.1 10^3/ul (0-0.6); ABS Neutrophils 3.2 10^3/ul (1.5-7.7); Eosinophil % 2.7 %; Lymphocyte % 18.1 %; Nucleated Red Blood Cells % 0.1
[2022-02-27 06:28] LABS: Calcium 7.6 mg/dL (8.6-10.3); Potassium 4.2 mmol/L (3.5-5.0); eGFR CKD-EPI 17.4 (>60)
[2022-02-27] MEDS ORDERED: cefTRIAXone 1 gm/50 mL D5W 1 GM/50 ML BAG IV SCH (10:00)
[2022-02-27] MEDS ORDERED: Vancomycin 750 MG in NS 0.9% 250 ml 250 ML IVPB ONE (10:00)
[2022-02-27] MEDS ORDERED: Vancomycin per Pharmacy 1 EA NOTE FOLLOW UP PRN (10:03)
[2022-02-27] MEDS: Bumetanide IV 0.25 MG/ML 4 ml VIAL (1 mg) SLOW PUSH SCH (10:39)
[2022-02-27] MEDS: CMC:Mycophenolate 180 mg TAB (NF) PO SCH ×2 (10:45→22:04)
[2022-02-27] MEDS: cycloSPORINE Modfied 100mg CAP PO SCH (10:49)
[2022-02-27] MEDS: CMC:Pravastatin 20 mg TAB (NF) PO SCH (10:49)
[2022-02-27] MEDS: Fluticasone NASAL SPRAY 50MCG 16 gm SPRAY BTL BOTH NARES SCH (10:50)
[2022-02-27] MEDS: Psyllium PAK PO SCH (10:55)
[2022-02-27] MEDS: Sodium Citrate/Citric Acid LIQ 15 ML UDC PO SCH ×3 (10:55→22:07)
[2022-02-27] MEDS ORDERED: Piperacillin/Tazobac ADVAN 3.375 GM in NS 0.9% 100 ml BAG 100 ML IV ONE (13:04)
[2022-02-27] MEDS: Hydrocortisone INJ 100 MG/2ML 2 ML VIAL IV SCH ×2 (13:41→23:10)
[2022-02-27] MEDS: Magnesium Hydroxide LIQ 30 ML UDC PO SCH ×2 (13:43→22:06)
[2022-02-27] MEDS ORDERED: Zosyn per Pharmacy NOTE FOLLOW UP SCH ×2 (14:00)
[2022-02-27] MEDS: oxyCODONE/Acetamin 5/325 mg TAB PO PRN (14:03)
[2022-02-27] MEDS: ZOSYN 3.375 GM Q8H per EXTENDED INFUSION IV SCH (18:15)
[2022-02-27] MEDS: cycloSPORINE Modified 25mg CAP PO SCH (21:59)
[2022-02-28] MEDS: ZOSYN 3.375 GM Q8H per EXTENDED INFUSION IV SCH ×3 (03:22→19:59)
[2022-02-28 06:34] LABS: Hematocrit 25 % (35-47); Hemoglobin 8.1 g/dL (12.0-16.0); Mean Corpuscular HGB Conc 32 g/dL (31-36); Mean Corpuscular Hemoglobin 28 pg (27-31); Mean Corpuscular Volume 87 fL (80-97); Platelet Count 241 10^3/uL (150-450); Red Blood Count 2.86 10^6 /uL (3.70-4.87); Red Cell Distribution Width 17 % (10-15); White Blood Count 7.2 10^3/uL (3.5-10.8)
[2022-02-28] MEDS: Hydrocortisone INJ 100 MG/2ML 2 ML VIAL IV SCH ×2 (06:34→14:11)
[2022-02-28 06:49] LABS: Calcium 7.4 mg/dL (8.6-10.3); Potassium 4.8 mmol/L (3.5-5.0); eGFR CKD-EPI 15.6 (>60)
[2022-02-28 06:59] LABS: ABS Lymphocytes 0.6 10^3/ul (1.0-4.8); ABS Monocytes 0.7 10^3/ul (0-0.8); ABS Neutrophils 5.8 10^3/ul (1.5-7.7); Lymphocyte % 8.4 %; Nucleated Red Blood Cells % 0.1
[2022-02-28] MEDS ORDERED: cefTRIAXone 1 gm/50 mL D5W 1 GM/50 ML BAG IV SCH (09:00)
[2022-02-28] MEDS ORDERED: cefTRIAXone 1 GM Q24H (ADVAN) IVPB SCH (09:00)
[2022-02-28] MEDS: Sodium Citrate/Citric Acid LIQ 15 ML UDC PO SCH ×4 (09:48→20:15)
[2022-02-28] MEDS: Psyllium PAK PO SCH (09:48)
[2022-02-28] MEDS: Bumetanide IV 0.25 MG/ML 4 ml VIAL (1 mg) SLOW PUSH SCH (09:49)
[2022-02-28] MEDS: Fluticasone NASAL SPRAY 50MCG 16 gm SPRAY BTL BOTH NARES SCH (09:49)
[2022-02-28] MEDS: Calcium Carb (TUMS) 500 mg CHEW TAB PO SCH (09:49)
[2022-02-28] MEDS: CMC:Pravastatin 20 mg TAB (NF) PO SCH (09:50)
[2022-02-28] MEDS: cycloSPORINE Modfied 100mg CAP PO SCH (09:50)
[2022-02-28] MEDS: Polyethylene Glycol 3350 17 GM PACKET PO SCH (09:51)
[2022-02-28] MEDS: CMC:Mycophenolate 180 mg TAB (NF) PO SCH ×2 (09:51→20:12)
[2022-02-28 18:55] LABS: CMV DNA DETECT/QT, P <35 IU/mL (Undetected)
[2022-02-28 18:56] LABS: Urine Appearance Clear; Urine Bilirubin Negative (Negative); Urine Blood Trace (Intact) (Negative); Urine Color Yellow; Urine Glucose Negative (Negative); Urine Ketones Negative (Negative); Urine Protein 1+ (30 mg/dL) (Negative); Urine pH 5.5 (5.0-9.0)
[2022-02-28 18:57] LABS: Urine Nitrite Negative (Negative); Urine Urobilinogen 0.2 (Negative) (Negative)
[2022-02-28 19:00] LABS: Urine Bacteria Absent (Absent); Urine Red Blood Cell 1+(3-5/hpf) (Absent); Urine Squamous Epithelial Cell Present (Absent); Urine White Blood Cell Trace(0-5/hpf) (Absent)
[2022-02-28] MEDS: cycloSPORINE Modified 25mg CAP PO SCH (20:11)
[2022-03-01] MEDS: Hydrocortisone INJ 100 MG/2ML 2 ML VIAL IV SCH ×3 (00:17→13:49)
[2022-03-01] MEDS: ZOSYN 3.375 GM Q8H per EXTENDED INFUSION IV SCH ×2 (03:33→11:13)
[2022-03-01 06:48] LABS: Calcium 7.6 mg/dL (8.6-10.3); Potassium 4.1 mmol/L (3.5-5.0); eGFR CKD-EPI 17.3 (>60)
[2022-03-01] MEDS: Psyllium PAK PO SCH (08:02)
[2022-03-01] MEDS: Polyethylene Glycol 3350 17 GM PACKET PO SCH (08:02)
[2022-03-01] MEDS: Bumetanide IV 0.25 MG/ML 4 ml VIAL (1 mg) SLOW PUSH SCH (08:05)
[2022-03-01] MEDS: CMC:Pravastatin 20 mg TAB (NF) PO SCH (08:05)
[2022-03-01] MEDS: CMC:Mycophenolate 180 mg TAB (NF) PO SCH ×2 (08:07→21:32)
[2022-03-01] MEDS: cycloSPORINE Modfied 100mg CAP PO SCH (08:07)
[2022-03-01] MEDS: Fluticasone NASAL SPRAY 50MCG 16 gm SPRAY BTL BOTH NARES SCH (08:09)
[2022-03-01] MEDS: Sodium Citrate/Citric Acid LIQ 15 ML UDC PO SCH ×3 (08:10→21:32)
[2022-03-01] MEDS ORDERED: cefTRIAXone 1 gm/50 mL D5W 1 GM/50 ML BAG IV SCH (09:00)
[2022-03-01 11:47] LABS: C Reactive Protein 216.44 mg/L (<8.01)
[2022-03-01] MEDS: Acetaminophen IV 1 GM/100ML 1,000 MG/100 ML BAG IV PRN ×2 (16:26→21:39)
[2022-03-01] MEDS ORDERED: ZOSYN 3.375 GM Q12H per EXTENDED INFUSION IV SCH (22:00)
[2022-03-01] MEDS: Piperacillin/Tazobac ADVAN 3.375 GM in NS 0.9% 100 ml BAG 100 ML IV SCH (22:22)
[2022-03-02] MEDS: Hydrocortisone INJ 100 MG/2ML 2 ML VIAL IV SCH ×2 (02:30→14:23)
[2022-03-02 06:53] LABS: Hematocrit 30 % (35-47); Hemoglobin 9.4 g/dL (12.0-16.0); Mean Corpuscular HGB Conc 32 g/dL (31-36); Mean Corpuscular Hemoglobin 28 pg (27-31); Mean Corpuscular Volume 88 fL (80-97); Mean Platelet Volume 7.8 fL (7.4-10.4); Platelet Count 398 10^3/uL (150-450); Red Blood Count 3.37 10^6 /uL (3.70-4.87); Red Cell Distribution Width 17 % (10-15); White Blood Count 11.6 10^3/uL (3.5-10.8)
[2022-03-02 06:58] LABS: Calcium 7.9 mg/dL (8.6-10.3); Potassium 3.6 mmol/L (3.5-5.0); eGFR CKD-EPI 25.2 (>60)
[2022-03-02] MEDS: Sodium Citrate/Citric Acid LIQ 15 ML UDC PO SCH ×3 (07:35→20:15)
[2022-03-02] MEDS: CMC:Pravastatin 20 mg TAB (NF) PO SCH (07:37)
[2022-03-02] MEDS: cycloSPORINE Modified 25mg CAP PO SCH ×2 (07:40→20:15)
[2022-03-02] MEDS: CMC:Mycophenolate 180 mg TAB (NF) PO SCH ×2 (07:40→20:15)
[2022-03-02] MEDS: Psyllium PAK PO SCH (07:41)
[2022-03-02] MEDS: Bumetanide IV 0.25 MG/ML 4 ml VIAL (1 mg) SLOW PUSH SCH (07:41)
[2022-03-02] MEDS: Polyethylene Glycol 3350 17 GM PACKET PO SCH (07:41)
[2022-03-02] MEDS: Calcium Carb (TUMS) 500 mg CHEW TAB PO SCH (07:42)
[2022-03-02] MEDS: Fluticasone NASAL SPRAY 50MCG 16 gm SPRAY BTL BOTH NARES SCH (07:42)
[2022-03-02 08:32] LABS: ABS Lymphocytes 0.9 10^3/ul (1.0-4.8); ABS Monocytes 0.8 10^3/ul (0-0.8); ABS Neutrophils 9.9 10^3/ul (1.5-7.7); Eosinophil % 0.1 %; Lymphocyte % 7.3 %; Nucleated Red Blood Cells % 0.1; RBC Morphology Normal (Normal)
[2022-03-02] MEDS: Acetaminophen IV 1 GM/100ML 1,000 MG/100 ML BAG IV PRN ×2 (10:09→17:53)
[2022-03-02] MEDS: Piperacillin/Tazobac ADVAN 3.375 GM in NS 0.9% 100 ml BAG 100 ML IV SCH ×2 (10:43→22:11)
[2022-03-03] MEDS: Hydrocortisone INJ 100 MG/2ML 2 ML VIAL IV SCH ×2 (02:19→13:01)
[2022-03-03 06:49] LABS: Hematocrit 28 % (35-47); Hemoglobin 8.9 g/dL (12.0-16.0); Mean Corpuscular HGB Conc 32 g/dL (31-36); Mean Corpuscular Hemoglobin 28 pg (27-31); Mean Corpuscular Volume 86 fL (80-97); Mean Platelet Volume 7.3 fL (7.4-10.4); Platelet Count 378 10^3/uL (150-450); Red Blood Count 3.22 10^6 /uL (3.70-4.87); Red Cell Distribution Width 17 % (10-15); White Blood Count 11.8 10^3/uL (3.5-10.8)
[2022-03-03 07:06] LABS: C Reactive Protein 64.29 mg/L (<8.01); Calcium 8.1 mg/dL (8.6-10.3); eGFR CKD-EPI 36.7 (>60)
[2022-03-03 07:22] LABS: ABS Lymphocytes 0.7 10^3/ul (1.0-4.8); ABS Monocytes 0.8 10^3/ul (0-0.8); ABS Neutrophils 10.3 10^3/ul (1.5-7.7); Lymphocyte % 6.2 %; Nucleated Red Blood Cells % 0.1
[2022-03-03] MEDS: Bumetanide IV 0.25 MG/ML 4 ml VIAL (1 mg) SLOW PUSH SCH (08:09)
[2022-03-03] MEDS: CMC:Pravastatin 20 mg TAB (NF) PO SCH (08:12)
[2022-03-03] MEDS: CMC:Mycophenolate 180 mg TAB (NF) PO SCH ×2 (08:14→21:09)
[2022-03-03] MEDS: cycloSPORINE Modified 25mg CAP PO SCH ×2 (08:14→21:09)
[2022-03-03] MEDS: Acetaminophen IV 1 GM/100ML 1,000 MG/100 ML BAG IV PRN (08:20)
[2022-03-03] MEDS: Polyethylene Glycol 3350 17 GM PACKET PO SCH (08:21)
[2022-03-03] MEDS: Fluticasone NASAL SPRAY 50MCG 16 gm SPRAY BTL BOTH NARES SCH (08:21)
[2022-03-03] MEDS: Sodium Citrate/Citric Acid LIQ 15 ML UDC PO SCH ×3 (08:27→21:09)
[2022-03-03] MEDS: Psyllium PAK PO SCH (08:27)
[2022-03-03 08:50] LABS: Magnesium 1.4 mg/dL (1.9-2.7)
[2022-03-03] MEDS: Piperacillin/Tazobac ADVAN 3.375 GM in NS 0.9% 100 ml BAG 100 ML IV SCH ×2 (10:35→19:46)
[2022-03-03] MEDS ORDERED: Magnesium Sulfate IV 3 GM in NS 0.9% 100 ml BAG 100 ML IVPB ONE (11:22)
[2022-03-03] MEDS: Potassium Chlor 20 meq TAB.ER PO SCH ×3 (13:01→19:47)
[2022-03-03] MEDS ORDERED: KCL 20 MEQ/100 ML IVPREMIX 20 MEQ/100 ML BAG IV ONE (21:50)
[2022-03-04] MEDS: Acetaminophen IV 1 GM/100ML 1,000 MG/100 ML BAG IV PRN (00:01)
[2022-03-04] MEDS: Hydrocortisone INJ 100 MG/2ML 2 ML VIAL IV SCH ×2 (02:23→13:58)
[2022-03-04] MEDS: Piperacillin/Tazobac ADVAN 3.375 GM in NS 0.9% 100 ml BAG 100 ML IV SCH ×3 (04:07→20:57)
[2022-03-04 09:00] LABS: Hematocrit 26 % (35-47); Hemoglobin 8.5 g/dL (12.0-16.0); Mean Corpuscular HGB Conc 32 g/dL (31-36); Mean Corpuscular Hemoglobin 28 pg (27-31); Mean Corpuscular Volume 86 fL (80-97); Mean Platelet Volume 7.3 fL (7.4-10.4); Platelet Count 402 10^3/uL (150-450); Red Blood Count 3.06 10^6 /uL (3.70-4.87); Red Cell Distribution Width 17 % (10-15); White Blood Count 11.7 10^3/uL (3.5-10.8)
[2022-03-04 09:20] LABS: Calcium 8.1 mg/dL (8.6-10.3); Magnesium 1.9 mg/dL (1.9-2.7); Potassium 3.4 mmol/L (3.5-5.0); eGFR CKD-EPI 44.6 (>60)
[2022-03-04 09:29] LABS: Anisocytosis 1+; Toxic Granulation 1+
[2022-03-04 09:30] LABS: ABS Lymphocytes 0.9 10^3/ul (1.0-4.8); ABS Monocytes 0.9 10^3/ul (0-0.8); ABS Neutrophils 9.8 10^3/ul (1.5-7.7); Eosinophil % 0.1 %; Lymphocyte % 8.1 %; Nucleated Red Blood Cells % 0.1
[2022-03-04] MEDS: Psyllium PAK PO SCH (10:02)
[2022-03-04] MEDS: Sodium Citrate/Citric Acid LIQ 15 ML UDC PO SCH ×3 (10:03→21:03)
[2022-03-04] MEDS: CMC:Mycophenolate 180 mg TAB (NF) PO SCH ×2 (10:03→20:58)
[2022-03-04] MEDS: Calcium Carb (TUMS) 500 mg CHEW TAB PO SCH (10:03)
[2022-03-04] MEDS: Fluticasone NASAL SPRAY 50MCG 16 gm SPRAY BTL BOTH NARES SCH (10:04)
[2022-03-04] MEDS: CMC:Pravastatin 20 mg TAB (NF) PO SCH (10:04)
[2022-03-04] MEDS: Bumetanide IV 0.25 MG/ML 4 ml VIAL (1 mg) SLOW PUSH SCH (10:11)
[2022-03-04] MEDS: Polyethylene Glycol 3350 17 GM PACKET PO SCH (10:12)
[2022-03-04] MEDS: cycloSPORINE Modified 25mg CAP PO SCH ×2 (10:12→20:59)
[2022-03-05] MEDS: Piperacillin/Tazobac ADVAN 3.375 GM in NS 0.9% 100 ml BAG 100 ML IV SCH ×3 (03:25→20:11)
[2022-03-05] MEDS ORDERED: Hydrocortisone INJ 100 MG/2ML 2 ML VIAL IV SCH (09:00)
[2022-03-05] MEDS: CMC:Mycophenolate 180 mg TAB (NF) PO SCH ×2 (09:40→20:17)
[2022-03-05] MEDS: Fluticasone NASAL SPRAY 50MCG 16 gm SPRAY BTL BOTH NARES SCH (09:40)
[2022-03-05] MEDS: Psyllium PAK PO SCH (09:40)
[2022-03-05] MEDS: Bumetanide IV 0.25 MG/ML 4 ml VIAL (1 mg) SLOW PUSH SCH (09:40)
[2022-03-05] MEDS: Sodium Citrate/Citric Acid LIQ 15 ML UDC PO SCH ×3 (09:40→20:15)
[2022-03-05] MEDS: cycloSPORINE Modified 25mg CAP PO SCH ×2 (09:41→20:15)
[2022-03-05] MEDS: Polyethylene Glycol 3350 17 GM PACKET PO SCH (09:42)
[2022-03-05] MEDS: CMC:Pravastatin 20 mg TAB (NF) PO SCH (09:42)
[2022-03-05 10:09] LABS: Hematocrit 28 % (35-47); Hemoglobin 9.4 g/dL (12.0-16.0); Mean Corpuscular HGB Conc 33 g/dL (31-36); Mean Corpuscular Hemoglobin 29 pg (27-31); Mean Corpuscular Volume 87 fL (80-97); Mean Platelet Volume 7.2 fL (7.4-10.4); Platelet Count 517 10^3/uL (150-450); Red Blood Count 3.25 10^6 /uL (3.70-4.87); Red Cell Distribution Width 17 % (10-15); White Blood Count 9.7 10^3/uL (3.5-10.8)
[2022-03-05 10:27] LABS: Calcium 8.6 mg/dL (8.6-10.3); Magnesium 1.7 mg/dL (1.9-2.7); Potassium 3.1 mmol/L (3.5-5.0); eGFR CKD-EPI 46.6 (>60)
[2022-03-05 10:52] LABS: ABS Eosinophils 0.1 10^3/ul (0-0.6); ABS Lymphocytes 1.5 10^3/ul (1.0-4.8); ABS Monocytes 0.8 10^3/ul (0-0.8); ABS Neutrophils 7.3 10^3/ul (1.5-7.7); Eosinophil % 1.1 %; Lymphocyte % 14.9 %; Nucleated Red Blood Cells % 0.4; RBC Morphology Normal (Normal)
[2022-03-05 11:16] LABS: Phosphorus 2.8 mg/dL (2.5-5.0)
[2022-03-05] MEDS ORDERED: Potassium Chlor 20 meq TAB.ER PO ONE (11:26)
[2022-03-05] MEDS ORDERED: Magnesium Sulf 4 GM/100 ML IV 4,000 MG/100 ML BAG IVPB ONE (11:28)
[2022-03-06 06:26] LABS: Calcium 8.1 mg/dL (8.6-10.3); Magnesium 2.4 mg/dL (1.9-2.7); Potassium 3.3 mmol/L (3.5-5.0); eGFR CKD-EPI 52.9 (>60)
[2022-03-06 07:29] LABS: High Sensitivity Troponin 1 Hr 8 pg/mL (<15)
[2022-03-06] MEDS ORDERED: Morphine 2 MG/ML SYRINGE IV PRN (07:54)
[2022-03-06] MEDS: CMC:Pravastatin 20 mg TAB (NF) PO SCH (08:07)
[2022-03-06] MEDS: Polyethylene Glycol 3350 17 GM PACKET PO SCH (08:08)
[2022-03-06] MEDS: Psyllium PAK PO SCH (08:08)
[2022-03-06] MEDS: cycloSPORINE Modified 25mg CAP PO SCH ×2 (08:08→20:40)
[2022-03-06] MEDS: CMC:Mycophenolate 180 mg TAB (NF) PO SCH ×2 (08:09→20:45)
[2022-03-06] MEDS: Calcium Carb (TUMS) 500 mg CHEW TAB PO SCH (08:09)
[2022-03-06] MEDS: Bumetanide IV 0.25 MG/ML 4 ml VIAL (1 mg) SLOW PUSH SCH (08:12)
[2022-03-06] MEDS ORDERED: Potassium Chlor 20 meq TAB.ER PO ONE (08:18)
[2022-03-06] MEDS: Fluticasone NASAL SPRAY 50MCG 16 gm SPRAY BTL BOTH NARES SCH (08:42)
[2022-03-06] MEDS: Sodium Citrate/Citric Acid LIQ 15 ML UDC PO SCH ×3 (08:42→20:45)
[2022-03-06] MEDS: Potassium Chlor 20 meq TAB.ER PO SCH (10:19)
[2022-03-07 07:47] LABS: Calcium 8.5 mg/dL (8.6-10.3); Potassium 3.3 mmol/L (3.5-5.0); eGFR CKD-EPI 51.3 (>60)
[2022-03-07] MEDS: CMC:Mycophenolate 180 mg TAB (NF) PO SCH ×2 (09:13→21:17)
[2022-03-07] MEDS: Sodium Citrate/Citric Acid LIQ 15 ML UDC PO SCH ×3 (09:13→21:19)
[2022-03-07] MEDS: Psyllium PAK PO SCH (09:14)
[2022-03-07] MEDS: CMC:Pravastatin 20 mg TAB (NF) PO SCH (09:14)
[2022-03-07] MEDS: Polyethylene Glycol 3350 17 GM PACKET PO SCH (09:14)
[2022-03-07] MEDS: Potassium Chlor 20 meq TAB.ER PO SCH (09:15)
[2022-03-07] MEDS: Bumetanide IV 0.25 MG/ML 4 ml VIAL (1 mg) SLOW PUSH SCH (09:15)
[2022-03-07] MEDS: cycloSPORINE Modified 25mg CAP PO SCH ×2 (09:18→21:17)
[2022-03-07] MEDS: Fluticasone NASAL SPRAY 50MCG 16 gm SPRAY BTL BOTH NARES SCH (09:35)
[2022-03-07 23:03] LABS: Urine Appearance Clear; Urine Bilirubin Negative (Negative); Urine Blood 1+ (Negative); Urine Color Straw; Urine Glucose Negative (Negative); Urine Ketones Negative (Negative); Urine Nitrite Negative (Negative); Urine Protein 2+(100 mg/dL) (Negative); Urine Specific Gravity 1.008 (1.002-1.030); Urine Urobilinogen Negative (Negative)
[2022-03-07 23:14] LABS: Urine Bacteria Absent (Absent); Urine Red Blood Cell Trace(0-2/hpf) (Absent); Urine White Blood Cell Absent (Absent)
[2022-03-08 06:25] LABS: Calcium 8.8 mg/dL (8.6-10.3); Potassium 3.6 mmol/L (3.5-5.0)
[2022-03-08] MEDS: CMC:Pravastatin 20 mg TAB (NF) PO SCH (07:57)
[2022-03-08] MEDS: Potassium Chlor 20 meq TAB.ER PO SCH (07:57)
[2022-03-08] MEDS: cycloSPORINE Modified 25mg CAP PO SCH ×2 (07:57→21:26)
[2022-03-08] MEDS: Calcium Carb (TUMS) 500 mg CHEW TAB PO SCH (07:58)
[2022-03-08] MEDS: CMC:Mycophenolate 180 mg TAB (NF) PO SCH ×2 (07:59→21:30)
[2022-03-08] MEDS: Polyethylene Glycol 3350 17 GM PACKET PO SCH (08:05)
[2022-03-08] MEDS: Psyllium PAK PO SCH (08:06)
[2022-03-08] MEDS: Sodium Citrate/Citric Acid LIQ 15 ML UDC PO SCH ×3 (08:09→21:29)
[2022-03-08] MEDS: Bumetanide IV 0.25 MG/ML 4 ml VIAL (1 mg) SLOW PUSH SCH (08:09)
[2022-03-08] MEDS: Fluticasone NASAL SPRAY 50MCG 16 gm SPRAY BTL BOTH NARES SCH (08:09)
[2022-03-09 06:56] LABS: ABS Eosinophils 0.1 10^3/ul (0-0.6); ABS Lymphocytes 0.8 10^3/ul (1.0-4.8); ABS Monocytes 0.7 10^3/ul (0-0.8); ABS Neutrophils 5.8 10^3/ul (1.5-7.7); Eosinophil % 1.1 %; Hematocrit 23 % (35-47); Hemoglobin 7.6 g/dL (12.0-16.0); Lymphocyte % 10.6 %; Mean Corpuscular HGB Conc 34 g/dL (31-36); Mean Corpuscular Hemoglobin 30 pg (27-31); Mean Corpuscular Volume 89 fL (80-97); Mean Platelet Volume 6.9 fL (7.4-10.4); Platelet Count 368 10^3/uL (150-450); Red Blood Count 2.54 10^6 /uL (3.70-4.87); Red Cell Distribution Width 17 % (10-15); White Blood Count 7.4 10^3/uL (3.5-10.8)
[2022-03-09 07:11] LABS: Calcium 8.7 mg/dL (8.6-10.3); Potassium 3.7 mmol/L (3.5-5.0)
[2022-03-09] MEDS: Sodium Citrate/Citric Acid LIQ 15 ML UDC PO SCH ×3 (09:14→21:42)
[2022-03-09] MEDS: Bumetanide IV 0.25 MG/ML 4 ml VIAL (1 mg) SLOW PUSH SCH (09:14)
[2022-03-09] MEDS: Polyethylene Glycol 3350 17 GM PACKET PO SCH (09:14)
[2022-03-09] MEDS: Psyllium PAK PO SCH (09:14)
[2022-03-09] MEDS: CMC:Mycophenolate 180 mg TAB (NF) PO SCH ×2 (09:15→21:39)
[2022-03-09] MEDS: Potassium Chlor 20 meq TAB.ER PO SCH (09:15)
[2022-03-09] MEDS: CMC:Pravastatin 20 mg TAB (NF) PO SCH (09:16)
[2022-03-09] MEDS: cycloSPORINE Modified 25mg CAP PO SCH ×2 (09:16→21:37)
[2022-03-09] MEDS: Fluticasone NASAL SPRAY 50MCG 16 gm SPRAY BTL BOTH NARES SCH (09:17)
[2022-03-09 16:51] LABS: Urine Appearance Clear; Urine Bilirubin Negative (Negative); Urine Blood 1+ (Negative); Urine Color Straw; Urine Glucose Negative (Negative); Urine Ketones Negative (Negative); Urine Nitrite Negative (Negative); Urine Protein 2+(100 mg/dL) (Negative); Urine Specific Gravity 1.006 (1.002-1.030); Urine Urobilinogen Negative (Negative)
[2022-03-09 17:05] LABS: Urine Bacteria 1+ (Absent); Urine Red Blood Cell 2+(6-10/hpf) (Absent); Urine White Blood Cell Trace(0-5/hpf) (Absent)
[2022-03-09 20:06] LABS: Hematocrit 25 % (35-47); Hemoglobin 7.7 g/dL (12.0-16.0)
[2022-03-10 05:57] LABS: ABS Basophils 0.1 10^3/ul (0-0.2); ABS Eosinophils 0.1 10^3/ul (0-0.6); ABS Lymphocytes 1.1 10^3/ul (1.0-4.8); ABS Monocytes 0.8 10^3/ul (0-0.8); Eosinophil % 1.8 %; Hematocrit 25 % (35-47); Hemoglobin 7.8 g/dL (12.0-16.0); Lymphocyte % 14.9 %; Mean Corpuscular HGB Conc 31 g/dL (31-36); Mean Corpuscular Hemoglobin 28 pg (27-31); Mean Corpuscular Volume 89 fL (80-97); Mean Platelet Volume 7.3 fL (7.4-10.4); Platelet Count 373 10^3/uL (150-450); Red Cell Distribution Width 18 % (10-15); White Blood Count 7.1 10^3/uL (3.5-10.8)
[2022-03-10 06:13] LABS: C Reactive Protein 181.14 mg/L (<8.01); Calcium 8.8 mg/dL (8.6-10.3); Magnesium 1.5 mg/dL (1.9-2.7); Potassium 3.8 mmol/L (3.5-5.0); eGFR CKD-EPI 37.8 (>60)
[2022-03-10] MEDS ORDERED: Magnesium Sulfate IV 3 GM in NS 0.9% 100 ml BAG 100 ML IVPB ONE (07:50)
[2022-03-10] MEDS: Bumetanide IV 0.25 MG/ML 4 ml VIAL (1 mg) SLOW PUSH SCH (09:17)
[2022-03-10] MEDS: Sodium Citrate/Citric Acid LIQ 15 ML UDC PO SCH ×3 (09:17→20:44)
[2022-03-10] MEDS: Psyllium PAK PO SCH (09:18)
[2022-03-10] MEDS: cycloSPORINE Modified 25mg CAP PO SCH ×2 (09:18→20:42)
[2022-03-10] MEDS: Polyethylene Glycol 3350 17 GM PACKET PO SCH (09:18)
[2022-03-10] MEDS: CMC:Mycophenolate 180 mg TAB (NF) PO SCH ×2 (09:18→20:41)
[2022-03-10] MEDS: CMC:Pravastatin 20 mg TAB (NF) PO SCH (09:18)
[2022-03-10] MEDS: Potassium Chlor 20 meq TAB.ER PO SCH (09:18)
[2022-03-10] MEDS: Fluticasone NASAL SPRAY 50MCG 16 gm SPRAY BTL BOTH NARES SCH (09:19)
[2022-03-10] MEDS: Calcium Carb (TUMS) 500 mg CHEW TAB PO SCH (09:19)
[2022-03-10] MEDS: Linezolid 600 MG IVPREMIX(*) 600 MG/300 ML BAG IVPB SCH (15:18)
[2022-03-11] MEDS: Linezolid 600 MG IVPREMIX(*) 600 MG/300 ML BAG IVPB SCH (03:04)
[2022-03-11 05:35] LABS: Hematocrit 21 % (35-47); Hemoglobin 6.8 g/dL (12.0-16.0); Mean Corpuscular HGB Conc 32 g/dL (31-36); Mean Corpuscular Hemoglobin 28 pg (27-31); Mean Corpuscular Volume 89 fL (80-97); Platelet Count 298 10^3/uL (150-450); Red Cell Distribution Width 17 % (10-15); White Blood Count 5.8 10^3/uL (3.5-10.8)
[2022-03-11 06:07] LABS: ABS Eosinophils 0.1 10^3/ul (0-0.6); ABS Lymphocytes 0.8 10^3/ul (1.0-4.8); ABS Monocytes 0.8 10^3/ul (0-0.8); ABS Neutrophils 3.9 10^3/ul (1.5-7.7); Eosinophil % 2.3 %; Lymphocyte % 13.3 %
[2022-03-11 06:30] LABS: Calcium 8.6 mg/dL (8.6-10.3); Potassium 4.1 mmol/L (3.5-5.0); eGFR CKD-EPI 37.8 (>60)
[2022-03-11] MEDS: CMC:Mycophenolate 180 mg TAB (NF) PO SCH ×2 (09:12→21:39)
[2022-03-11] MEDS: CMC:Pravastatin 20 mg TAB (NF) PO SCH (09:12)
[2022-03-11] MEDS: cycloSPORINE Modified 25mg CAP PO SCH ×2 (09:12→21:44)
[2022-03-11] MEDS: Sodium Citrate/Citric Acid LIQ 15 ML UDC PO SCH ×3 (09:12→21:38)
[2022-03-11] MEDS: Potassium Chlor 20 meq TAB.ER PO SCH (09:13)
[2022-03-11] MEDS: Bumetanide IV 0.25 MG/ML 4 ml VIAL (1 mg) SLOW PUSH SCH (09:14)
[2022-03-11] MEDS: Fluticasone NASAL SPRAY 50MCG 16 gm SPRAY BTL BOTH NARES SCH (09:14)
[2022-03-11] MEDS: Polyethylene Glycol 3350 17 GM PACKET PO SCH (09:15)
[2022-03-11] MEDS: Psyllium PAK PO SCH (09:15)
[2022-03-11] MEDS: Senna TAB 8.6 mg TAB PO PRN (09:24)
[2022-03-11 17:47] LABS: Hematocrit 26 % (35-47); Hemoglobin 8.3 g/dL (12.0-16.0)
[2022-03-11 20:43] LABS: Albumin 2.9 g/dL (3.2-5.2); Calcium 8.9 mg/dL (8.6-10.3); Potassium 4.7 mmol/L (3.5-5.0); Total Bilirubin 0.4 mg/dL (0.2-1.0)
[2022-03-11 20:49] LABS: Albumin/Globulin Ratio 0.8 (1-3); Globulin 3.8 g/dL (2-4); Total Protein 6.7 g/dL (6.4-8.9); eGFR CKD-EPI 35.1 (>60)
[2022-03-12 06:14] LABS: ABS Basophils 0.1 10^3/ul (0-0.2); ABS Eosinophils 0.1 10^3/ul (0-0.6); Eosinophil % 1.6 %; Hematocrit 23 % (35-47); Hemoglobin 7.4 g/dL (12.0-16.0); Lymphocyte % 13.8 %; Mean Corpuscular HGB Conc 33 g/dL (31-36); Mean Corpuscular Hemoglobin 29 pg (27-31); Mean Corpuscular Volume 88 fL (80-97); Mean Platelet Volume 7.4 fL (7.4-10.4); Nucleated Red Blood Cells % 0.1; Platelet Count 334 10^3/uL (150-450); Red Cell Distribution Width 17 % (10-15); White Blood Count 7.2 10^3/uL (3.5-10.8)
[2022-03-12] MEDS: Bumetanide IV 0.25 MG/ML 4 ml VIAL (1 mg) SLOW PUSH SCH (10:35)
[2022-03-12] MEDS: Sodium Citrate/Citric Acid LIQ 15 ML UDC PO SCH ×3 (10:36→22:34)
[2022-03-12] MEDS: CMC:Mycophenolate 180 mg TAB (NF) PO SCH ×2 (10:36→22:34)
[2022-03-12] MEDS: Calcium Carb (TUMS) 500 mg CHEW TAB PO SCH (10:36)
[2022-03-12] MEDS: CMC:Pravastatin 20 mg TAB (NF) PO SCH (10:36)
[2022-03-12] MEDS: cycloSPORINE Modified 25mg CAP PO SCH ×2 (10:37→22:34)
[2022-03-12] MEDS: Fluticasone NASAL SPRAY 50MCG 16 gm SPRAY BTL BOTH NARES SCH (10:37)
[2022-03-12] MEDS: Psyllium PAK PO SCH (10:38)
[2022-03-12] MEDS: Polyethylene Glycol 3350 17 GM PACKET PO SCH (10:42)
[2022-03-12] MEDS: Potassium Chlor 20 meq TAB.ER PO SCH (10:58)
[2022-03-12 12:02] LABS: Calcium 9.1 mg/dL (8.6-10.3); Potassium 4.3 mmol/L (3.5-5.0)
[2022-03-12 14:35] LABS: Magnesium 1.6 mg/dL (1.9-2.7)
[2022-03-12] MEDS ORDERED: Magnesium Sulfate IV 3 GM in NS 0.9% 100 ml BAG 100 ML IVPB ONE (14:39)
[2022-03-12] MEDS ORDERED: NS 0.9% 250 ml 250 ML IV SCH (18:00)
[2022-03-13 05:55] LABS: ABS Basophils 0.1 10^3/ul (0-0.2); ABS Eosinophils 0.1 10^3/ul (0-0.6); ABS Lymphocytes 0.7 10^3/ul (1.0-4.8); ABS Monocytes 0.8 10^3/ul (0-0.8); ABS Neutrophils 4.1 10^3/ul (1.5-7.7); Eosinophil % 2.3 %; Hematocrit 23 % (35-47); Hemoglobin 7.1 g/dL (12.0-16.0); Lymphocyte % 12.8 %; Mean Corpuscular HGB Conc 32 g/dL (31-36); Mean Corpuscular Hemoglobin 28 pg (27-31); Mean Corpuscular Volume 89 fL (80-97); Mean Platelet Volume 7.4 fL (7.4-10.4); Nucleated Red Blood Cells % 0.1; Platelet Count 332 10^3/uL (150-450); Red Blood Count 2.55 10^6 /uL (3.70-4.87); Red Cell Distribution Width 18 % (10-15); White Blood Count 5.9 10^3/uL (3.5-10.8)
[2022-03-13 06:12] LABS: Calcium 8.7 mg/dL (8.6-10.3); Magnesium 2.4 mg/dL (1.9-2.7); Potassium 4.3 mmol/L (3.5-5.0)
[2022-03-13 06:17] LABS: eGFR CKD-EPI 29.1 (>60)
[2022-03-13] MEDS: Sodium Citrate/Citric Acid LIQ 15 ML UDC PO SCH ×3 (08:24→19:40)
[2022-03-13] MEDS: cycloSPORINE Modified 25mg CAP PO SCH ×2 (08:24→19:39)
[2022-03-13] MEDS: Polyethylene Glycol 3350 17 GM PACKET PO SCH (08:24)
[2022-03-13] MEDS: CMC:Mycophenolate 180 mg TAB (NF) PO SCH ×2 (08:24→19:40)
[2022-03-13] MEDS: CMC:Pravastatin 20 mg TAB (NF) PO SCH (08:25)
[2022-03-13] MEDS: Psyllium PAK PO SCH (08:25)
[2022-03-13] MEDS: Fluticasone NASAL SPRAY 50MCG 16 gm SPRAY BTL BOTH NARES SCH (08:26)
[2022-03-13] MEDS ORDERED: Lidocaine PATCH 5% PATCH TRANSDERM PRN (22:21)
[2022-03-14 05:52] LABS: ABS Basophils 0.1 10^3/ul (0-0.2); ABS Eosinophils 0.1 10^3/ul (0-0.6); ABS Monocytes 0.8 10^3/ul (0-0.8); ABS Neutrophils 4.1 10^3/ul (1.5-7.7); Eosinophil % 1.9 %; Hematocrit 22 % (35-47); Hemoglobin 6.8 g/dL (12.0-16.0); Lymphocyte % 16.2 %; Mean Corpuscular HGB Conc 32 g/dL (31-36); Mean Corpuscular Hemoglobin 28 pg (27-31); Mean Corpuscular Volume 89 fL (80-97); Mean Platelet Volume 7.3 fL (7.4-10.4); Platelet Count 307 10^3/uL (150-450); Red Blood Count 2.43 10^6 /uL (3.70-4.87); Red Cell Distribution Width 18 % (10-15)
[2022-03-14 06:15] LABS: Calcium 8.5 mg/dL (8.6-10.3); Potassium 4.3 mmol/L (3.5-5.0); eGFR CKD-EPI 24.2 (>60)
[2022-03-14] MEDS: Calcium Carb (TUMS) 500 mg CHEW TAB PO SCH (08:55)
[2022-03-14] MEDS: Fluticasone NASAL SPRAY 50MCG 16 gm SPRAY BTL BOTH NARES SCH (08:57)
[2022-03-14] MEDS: CMC:Pravastatin 20 mg TAB (NF) PO SCH (08:57)
[2022-03-14] MEDS: Sodium Citrate/Citric Acid LIQ 15 ML UDC PO SCH ×3 (08:57→20:16)
[2022-03-14] MEDS: cycloSPORINE Modified 25mg CAP PO SCH ×2 (08:57→20:11)
[2022-03-14] MEDS: CMC:Mycophenolate 180 mg TAB (NF) PO SCH (08:57)
[2022-03-14] MEDS: Psyllium PAK PO SCH (09:03)
[2022-03-14] MEDS: Polyethylene Glycol 3350 17 GM PACKET PO SCH (09:03)
[2022-03-14 10:01] LABS: Uric Acid 9.9 mg/dL (2.3-6.6)
[2022-03-14 19:09] LABS: ABS Basophils 0.1 10^3/ul (0-0.2); ABS Eosinophils 0.1 10^3/ul (0-0.6); ABS Lymphocytes 0.8 10^3/ul (1.0-4.8); ABS Monocytes 0.8 10^3/ul (0-0.8); Eosinophil % 1.4 %; Hematocrit 27 % (35-47); Hemoglobin 8.5 g/dL (12.0-16.0); Lymphocyte % 12.2 %; Mean Corpuscular HGB Conc 32 g/dL (31-36); Mean Corpuscular Hemoglobin 28 pg (27-31); Mean Corpuscular Volume 88 fL (80-97); Mean Platelet Volume 7.2 fL (7.4-10.4); Platelet Count 344 10^3/uL (150-450); Red Blood Count 3.01 10^6 /uL (3.70-4.87); Red Cell Distribution Width 17 % (10-15); White Blood Count 6.8 10^3/uL (3.5-10.8)
[2022-03-14] MEDS: MYCOPHENOLATE 180 MG PO SCH (20:16)
[2022-03-15 07:26] LABS: Urine Appearance Clear; Urine Bacteria Absent (Absent); Urine Bilirubin Negative (Negative); Urine Blood 1+ (Negative); Urine Color Yellow; Urine Glucose Negative (Negative); Urine Ketones Negative (Negative); Urine Nitrite Negative (Negative); Urine Protein 3+(>=500 mg/dL) (Negative); Urine Red Blood Cell 2+(6-10/hpf) (Absent); Urine Specific Gravity 1.012 (1.002-1.030); Urine Squamous Epithelial Cell Present (Absent); Urine Urobilinogen Negative (Negative); Urine White Blood Cell Trace(0-5/hpf) (Absent)
[2022-03-15 08:14] LABS: ABS Basophils 0.1 10^3/ul (0-0.2); ABS Eosinophils 0.1 10^3/ul (0-0.6); ABS Lymphocytes 0.8 10^3/ul (1.0-4.8); ABS Monocytes 0.7 10^3/ul (0-0.8); Eosinophil % 1.8 %; Hematocrit 30 % (35-47); Hemoglobin 9.6 g/dL (12.0-16.0); Lymphocyte % 9.9 %; Mean Corpuscular HGB Conc 32 g/dL (31-36); Mean Corpuscular Hemoglobin 29 pg (27-31); Mean Corpuscular Volume 89 fL (80-97); Mean Platelet Volume 7.5 fL (7.4-10.4); Platelet Count 380 10^3/uL (150-450); Red Blood Count 3.37 10^6 /uL (3.70-4.87); Red Cell Distribution Width 17 % (10-15); White Blood Count 7.7 10^3/uL (3.5-10.8)
[2022-03-15 08:37] LABS: Calcium 9.2 mg/dL (8.6-10.3); Magnesium 1.8 mg/dL (1.9-2.7); Potassium 4.3 mmol/L (3.5-5.0); eGFR CKD-EPI 21.9 (>60)
[2022-03-15] MEDS: CMC:Pravastatin 20 mg TAB (NF) PO SCH (08:43)
[2022-03-15] MEDS: Fluticasone NASAL SPRAY 50MCG 16 gm SPRAY BTL BOTH NARES SCH (08:46)
[2022-03-15] MEDS: Polyethylene Glycol 3350 17 GM PACKET PO SCH (08:46)
[2022-03-15] MEDS: methylPREDNISolone SOD SUCC 40 mg/ml 1 ml VIAL IV SCH ×2 (10:09→16:43)
[2022-03-15] MEDS: Sodium Citrate/Citric Acid LIQ 15 ML UDC PO SCH ×3 (10:10→21:33)
[2022-03-15] MEDS: Psyllium PAK PO SCH (10:12)
[2022-03-15] MEDS: cycloSPORINE Modified 25mg CAP PO SCH ×2 (10:15→21:30)
[2022-03-15 10:34] LABS: C Reactive Protein 288.28 mg/L (<8.01)
[2022-03-15] MEDS: MYCOPHENOLATE 180 MG PO SCH ×2 (11:01→21:32)
[2022-03-15 11:51] LABS: Urine Appearance Clear; Urine Bilirubin Negative (Negative); Urine Blood 1+ (Negative); Urine Color Yellow; Urine Glucose Negative (Negative); Urine Ketones Negative (Negative); Urine Nitrite Negative (Negative); Urine Protein 2+(100 mg/dL) (Negative); Urine Urobilinogen Negative (Negative)
[2022-03-15 12:00] LABS: Urine Bacteria Absent (Absent); Urine Red Blood Cell Trace(0-2/hpf) (Absent); Urine Squamous Epithelial Cell Present (Absent); Urine Transitional Epithelial Present (Absent); Urine White Blood Cell Absent (Absent)
[2022-03-16] MEDS: methylPREDNISolone SOD SUCC 40 mg/ml 1 ml VIAL IV SCH ×3 (01:26→16:43)
[2022-03-16 06:12] LABS: ABS Lymphocytes 0.7 10^3/ul (1.0-4.8); ABS Monocytes 0.1 10^3/ul (0-0.8); ABS Neutrophils 7.7 10^3/ul (1.5-7.7); Hematocrit 29 % (35-47); Hemoglobin 9.3 g/dL (12.0-16.0); Mean Corpuscular HGB Conc 32 g/dL (31-36); Mean Corpuscular Hemoglobin 29 pg (27-31); Mean Corpuscular Volume 90 fL (80-97); Mean Platelet Volume 7.6 fL (7.4-10.4); Nucleated Red Blood Cells % 0.1; Platelet Count 371 10^3/uL (150-450); Red Blood Count 3.26 10^6 /uL (3.70-4.87); Red Cell Distribution Width 17 % (10-15); White Blood Count 8.6 10^3/uL (3.5-10.8)
[2022-03-16 06:34] LABS: Calcium 9.1 mg/dL (8.6-10.3); Potassium 4.9 mmol/L (3.5-5.0)
[2022-03-16 06:40] LABS: eGFR CKD-EPI 22.4 (>60)
[2022-03-16 08:09] LABS: Magnesium 1.7 mg/dL (1.9-2.7)
[2022-03-16] MEDS ORDERED: Magnesium Sulfate IV 3 GM in NS 0.9% 100 ml BAG 100 ML IVPB ONE (08:18)
[2022-03-16] MEDS: cycloSPORINE Modified 25mg CAP PO SCH ×2 (09:02→21:54)
[2022-03-16] MEDS: CMC:Pravastatin 20 mg TAB (NF) PO SCH (09:03)
[2022-03-16] MEDS: Calcium Carb (TUMS) 500 mg CHEW TAB PO SCH ×2 (09:03→22:13)
[2022-03-16] MEDS: MYCOPHENOLATE 180 MG PO SCH ×2 (09:04→21:56)
[2022-03-16] MEDS: Sodium Citrate/Citric Acid LIQ 15 ML UDC PO SCH ×3 (09:06→21:56)
[2022-03-16] MEDS: Fluticasone NASAL SPRAY 50MCG 16 gm SPRAY BTL BOTH NARES SCH (09:07)
[2022-03-16] MEDS: Psyllium PAK PO SCH (09:07)
[2022-03-16] MEDS: Polyethylene Glycol 3350 17 GM PACKET PO SCH (09:07)
[2022-03-16 09:09] LABS: C Reactive Protein 255.08 mg/L (<8.01)
[2022-03-16] MEDS ORDERED: Calcium Carb (TUMS) 500 mg CHEW TAB PO ONE (22:08)
[2022-03-17] MEDS: methylPREDNISolone SOD SUCC 40 mg/ml 1 ml VIAL IV SCH ×3 (01:55→16:44)
[2022-03-17 06:26] LABS: ABS Basophils 0.1 10^3/ul (0-0.2); ABS Lymphocytes 0.5 10^3/ul (1.0-4.8); ABS Monocytes 0.2 10^3/ul (0-0.8); ABS Neutrophils 9.5 10^3/ul (1.5-7.7); Hematocrit 27 % (35-47); Hemoglobin 8.9 g/dL (12.0-16.0); Lymphocyte % 5.2 %; Mean Corpuscular HGB Conc 33 g/dL (31-36); Mean Corpuscular Hemoglobin 29 pg (27-31); Mean Corpuscular Volume 89 fL (80-97); Mean Platelet Volume 7.2 fL (7.4-10.4); Nucleated Red Blood Cells % 0.1; Platelet Count 387 10^3/uL (150-450); Red Blood Count 3.07 10^6 /uL (3.70-4.87); Red Cell Distribution Width 17 % (10-15); White Blood Count 10.2 10^3/uL (3.5-10.8)
[2022-03-17 07:05] LABS: Calcium 9.2 mg/dL (8.6-10.3); Magnesium 2.5 mg/dL (1.9-2.7); Potassium 4.7 mmol/L (3.5-5.0); eGFR CKD-EPI 23.4 (>60)
[2022-03-17] MEDS: Fluticasone NASAL SPRAY 50MCG 16 gm SPRAY BTL BOTH NARES SCH (09:02)
[2022-03-17] MEDS: Sodium Citrate/Citric Acid LIQ 15 ML UDC PO SCH ×3 (09:02→20:59)
[2022-03-17] MEDS: CMC:Pravastatin 20 mg TAB (NF) PO SCH (09:03)
[2022-03-17] MEDS: MYCOPHENOLATE 180 MG PO SCH ×2 (09:04→21:01)
[2022-03-17] MEDS: cycloSPORINE Modified 25mg CAP PO SCH ×2 (09:04→20:59)
[2022-03-17] MEDS: Polyethylene Glycol 3350 17 GM PACKET PO SCH (09:07)
[2022-03-17] MEDS: Psyllium PAK PO SCH (09:07)
[2022-03-17] MEDS ORDERED: NS 0.9% 500 ml BAG 500 ML IV ONE (11:22)
[2022-03-17] MEDS: Senna TAB 8.6 mg TAB PO PRN (12:09)
[2022-03-18] MEDS ORDERED: hydrALAZINE 20 mg/ml 1 ML Vial IV IV SLOW PU PRN (00:02)
[2022-03-18 06:27] LABS: ABS Lymphocytes 0.9 10^3/ul (1.0-4.8); ABS Monocytes 0.3 10^3/ul (0-0.8); ABS Neutrophils 5.2 10^3/ul (1.5-7.7); Hematocrit 28 % (35-47); Hemoglobin 9.3 g/dL (12.0-16.0); Lymphocyte % 13.6 %; Mean Corpuscular HGB Conc 33 g/dL (31-36); Mean Corpuscular Hemoglobin 29 pg (27-31); Mean Corpuscular Volume 89 fL (80-97); Mean Platelet Volume 7.5 fL (7.4-10.4); Nucleated Red Blood Cells % 0.1; Platelet Count 384 10^3/uL (150-450); Red Blood Count 3.18 10^6 /uL (3.70-4.87); Red Cell Distribution Width 16 % (10-15); White Blood Count 6.4 10^3/uL (3.5-10.8)
[2022-03-18 06:40] LABS: Calcium 9.2 mg/dL (8.6-10.3); Potassium 4.3 mmol/L (3.5-5.0); eGFR CKD-EPI 33.2 (>60)
[2022-03-18] MEDS ORDERED: cloNIDine 0.2 MG PATCH 0.2 MG/24 HR 7 DAY PATCH TRANSDERM SCH (08:00)
[2022-03-18] MEDS: cycloSPORINE Modified 25mg CAP PO SCH (08:22)
[2022-03-18] MEDS: Calcium Carb (TUMS) 500 mg CHEW TAB PO SCH (08:22)
[2022-03-18] MEDS: CMC:Pravastatin 20 mg TAB (NF) PO SCH (08:22)
[2022-03-18] MEDS: Fluticasone NASAL SPRAY 50MCG 16 gm SPRAY BTL BOTH NARES SCH (08:23)
[2022-03-18] MEDS: MYCOPHENOLATE 180 MG PO SCH (08:23)
[2022-03-18] MEDS: Sodium Citrate/Citric Acid LIQ 15 ML UDC PO SCH (08:24)
[2022-03-18] MEDS: Polyethylene Glycol 3350 17 GM PACKET PO SCH (08:24)
[2022-03-18] MEDS: Psyllium PAK PO SCH (08:24)
[2022-03-18 09:44] LABS: C Reactive Protein 61.41 mg/L (<8.01)
[2022-03-18 11:23] VITALS: BP 179/104
== END 2022-03-18 12:45 | DRG 720 ==
LOC: ED 13:30 → SUATTDRO 17:09 → EDHOLD 17:09 → MED 23:59
PROVIDERS: ADMIT Hospitalist; ATTEND Hospitalist

== ENCOUNTER 2022-03-14 11:50 | Inpatient (IN) ==
[2022-03-18] MEDS ORDERED: Senna TAB 8.6 mg TAB PO PRN (17:02)
[2022-03-18] MEDS: cycloSPORINE Modified 25mg CAP PO SCH (21:35)
[2022-03-18] MEDS: MYCOPHENOLATE 180 MG PO SCH (21:36)
[2022-03-18] MEDS: Sodium Citrate/Citric Acid LIQ 15 ML UDC PO SCH (21:37)
[2022-03-19] MEDS: Sodium Citrate/Citric Acid LIQ 15 ML UDC PO SCH ×3 (08:40→21:51)
[2022-03-19] MEDS: MYCOPHENOLATE 180 MG PO SCH ×2 (08:40→21:50)
[2022-03-19] MEDS: cycloSPORINE Modified 25mg CAP PO SCH ×2 (08:41→21:50)
[2022-03-19] MEDS: Fluticasone NASAL SPRAY 50MCG 16 gm SPRAY BTL BOTH NARES SCH (12:24)
[2022-03-19] MEDS: Pravastatin 20 mg TAB (NF) PO SCH (16:41)
[2022-03-20 06:27] LABS: ABS Eosinophils 0.2 10^3/ul (0-0.6); ABS Lymphocytes 1.1 10^3/ul (1.0-4.8); ABS Monocytes 0.5 10^3/ul (0-0.8); ABS Neutrophils 4.1 10^3/ul (1.5-7.7); Eosinophil % 3.4 %; Hematocrit 27 % (35-47); Lymphocyte % 18.9 %; Mean Corpuscular HGB Conc 34 g/dL (31-36); Mean Corpuscular Hemoglobin 29 pg (27-31); Mean Corpuscular Volume 87 fL (80-97); Mean Platelet Volume 6.7 fL (7.4-10.4); Nucleated Red Blood Cells % 0.2; Platelet Count 320 10^3/uL (150-450); Red Blood Count 3.11 10^6 /uL (3.70-4.87); Red Cell Distribution Width 16 % (10-15)
[2022-03-20 06:56] LABS: Albumin 2.8 g/dL (3.2-5.2); Albumin/Globulin Ratio 0.9 (1-3); Calcium 8.7 mg/dL (8.6-10.3); Globulin 3.2 g/dL (2-4); Potassium 3.7 mmol/L (3.5-5.0); Total Bilirubin 0.5 mg/dL (0.2-1.0); eGFR CKD-EPI 35.4 (>60)
[2022-03-20] MEDS: cycloSPORINE Modified 25mg CAP PO SCH ×2 (08:24→21:44)
[2022-03-20] MEDS: Sodium Citrate/Citric Acid LIQ 15 ML UDC PO SCH ×4 (08:24→21:39)
[2022-03-20] MEDS: MYCOPHENOLATE 180 MG PO SCH ×2 (08:25→21:41)
[2022-03-20] MEDS: Fluticasone NASAL SPRAY 50MCG 16 gm SPRAY BTL BOTH NARES SCH (08:25)
[2022-03-20] MEDS: Pravastatin 20 mg TAB (NF) PO SCH (16:37)
[2022-03-21] MEDS: cycloSPORINE Modified 25mg CAP PO SCH ×2 (11:30→21:22)
[2022-03-21] MEDS: Fluticasone NASAL SPRAY 50MCG 16 gm SPRAY BTL BOTH NARES SCH (11:30)
[2022-03-21] MEDS: MYCOPHENOLATE 180 MG PO SCH ×2 (11:31→21:23)
[2022-03-21] MEDS: Sodium Citrate/Citric Acid LIQ 15 ML UDC PO SCH ×3 (11:31→21:24)
[2022-03-21] MEDS: Pravastatin 20 mg TAB (NF) PO SCH (16:58)
[2022-03-22 05:53] VITALS: BP 119/71
[2022-03-22 07:19] LABS: Hematocrit 25 % (35-47); Hemoglobin 8.3 g/dL (12.0-16.0); Mean Corpuscular HGB Conc 33 g/dL (31-36); Mean Corpuscular Hemoglobin 29 pg (27-31); Mean Corpuscular Volume 88 fL (80-97); Mean Platelet Volume 7.4 fL (7.4-10.4); Platelet Count 316 10^3/uL (150-450); Red Cell Distribution Width 16 % (10-15); White Blood Count 6.9 10^3/uL (3.5-10.8)
[2022-03-22 07:50] LABS: Albumin 2.7 g/dL (3.2-5.2); Albumin/Globulin Ratio 0.8 (1-3); C Reactive Protein 113.58 mg/L (<8.01); Calcium 8.6 mg/dL (8.6-10.3); Globulin 3.2 g/dL (2-4); Potassium 3.6 mmol/L (3.5-5.0); Total Bilirubin 0.4 mg/dL (0.2-1.0); Total Protein 5.9 g/dL (6.4-8.9); eGFR CKD-EPI 38.4 (>60)
[2022-03-22 08:22] LABS: ABS Eosinophils 0.2 10^3/ul (0-0.6); ABS Lymphocytes 1.2 10^3/ul (1.0-4.8); ABS Monocytes 0.7 10^3/ul (0-0.8); ABS Neutrophils 4.8 10^3/ul (1.5-7.7); Eosinophil % 3.1 %; Lymphocyte % 17.2 %; Nucleated Red Blood Cells % 0.1; RBC Morphology Normal (Normal)
[2022-03-22] MEDS: cycloSPORINE Modified 25mg CAP PO SCH (08:25)
[2022-03-22] MEDS: MYCOPHENOLATE 180 MG PO SCH (08:25)
[2022-03-22] MEDS: Sodium Citrate/Citric Acid LIQ 15 ML UDC PO SCH (08:28)
[2022-03-22] MEDS: Fluticasone NASAL SPRAY 50MCG 16 gm SPRAY BTL BOTH NARES SCH (08:28)
[2022-03-25] MEDS ORDERED: cloNIDine 0.2 MG PATCH 0.2 MG/24 HR 7 DAY PATCH TRANSDERM SCH (08:00)
== END 2022-03-22 14:15 | disposition home or self-care (01) | DRG 860 ==
LOC: PMRU 03-18 12:46
PROVIDERS: ADMIT Physical Medicine & Rehabilitation; ATTEND Physical Medicine & Rehabilitation

== ENCOUNTER 2023-02-21 03:09 | Observation (INO) ==
[2023-02-21 03:59] LABS: Albumin 3.2 g/dL (3.2-5.2); Albumin/Globulin Ratio 0.9 (1-3); Calcium 9.4 mg/dL (8.6-10.3); Creatinine, Serum 3.51 mg/dL (0.51-0.95); Globulin 3.4 g/dL (2-4); Potassium 4.1 mmol/L (3.5-5.0); Total Bilirubin 0.3 mg/dL (0.2-1.0); Total Protein 6.6 g/dL (6.4-8.9); eGFR CKD-EPI 14.2 (>60)
[2023-02-21 04:04] LABS: ABS Eosinophils 0.1 10^3/uL (0.0-0.5); ABS Lymphocytes 0.7 10^3/uL (1.0-4.8); ABS Monocytes 0.9 10^3/uL (0.0-0.9); ABS Neutrophils 13.6 10^3/uL (1.5-7.6); ABS Nucleated RBC 0.02 10^3/ul; Eosinophil % 0.7 %; Hematocrit 24.6 % (35-45); Hemoglobin 7.7 g/dL (11.5-14.3); Lymphocyte % 4.3 %; Mean Corpuscular Hemoglobin 22.9 pg (27-33); Mean Corpuscular Hgb Conc 31.2 g/dL (31-36); Mean Corpuscular Volume 73.7 fL (80-97); Mean Platelet Volume 7.4 fL (7.5-11.2); Nucleated Red Blood Cells % 0.2 %/100WBC (0.0-0.8); Platelet Count 601 10^3/uL (150-450); Red Blood Count 3.34 10^6/uL (3.63-4.92); Red Cell Distribution Width 21.1 % (12-17); White Blood Count 15.3 10^3/uL (3.8-11.8)
[2023-02-21] MEDS ORDERED: Lactated Ringers 1000 ml BAG 500 ML IV ONE (04:06)
[2023-02-21] MEDS ORDERED: Vancomycin 1,250 MG in NS 0.9% 250 ml 250 ML IVPB ONE (04:20)
[2023-02-21] MEDS: cefTRIAXone 1 gm/50 mL D5W 1 GM/50 ML BAG IV ONE ×2 (04:45→04:55)
[2023-02-21] MEDS ORDERED: NS 0.9% 500 ml BAG 500 ML IV SCH (05:00)
[2023-02-21 05:45] LABS: High Sensitivity Troponin 1 Hr 15 pg/mL (<15)
[2023-02-21] MEDS ORDERED: Ondansetron 4 mg VIAL 2 MG/ML 2 ml VIAL IV PRN (07:54)
[2023-02-21] MEDS ORDERED: oxyCODONE/Acetamin 5/325 mg TAB PO PRN ×2 (07:56→10:49)
[2023-02-21 08:12] LABS: Urine Appearance Cloudy; Urine Bilirubin Negative (Negative); Urine Blood Negative (Negative); Urine Color Yellow; Urine Glucose Negative (Negative); Urine Ketones Negative (Negative); Urine Nitrite Negative (Negative); Urine Protein Negative (Negative); Urine Specific Gravity 1.011 (1.002-1.030); Urine Urobilinogen Negative (Negative)
[2023-02-21] MEDS ORDERED: Bumetanide IV 0.25 MG/ML 4 ml VIAL (1 mg) IV SLOW PU ONE (08:34)
[2023-02-21 08:48] LABS: C Reactive Protein 120.63 mg/L (<8.01)
[2023-02-21] MEDS ORDERED: cloNIDine 0.2 MG PATCH 0.2 MG/24 HR 7 DAY PATCH TRANSDERM SCH (09:00)
[2023-02-21] MEDS: Cholecalciferol (VIT D3) 1,000 unit TAB PO SCH (09:18)
[2023-02-21] MEDS: CMC:Mycophenolate 180 mg TAB (NF) PO SCH ×2 (09:19→21:10)
[2023-02-21] MEDS: Azithromycin 500 mg/250 ml NS 500 MG/250 ML BAG IVPB SCH (15:19)
[2023-02-21] MEDS ORDERED: CMC:Febuxostat 40 mg TAB (NF) PO SCH (21:00)
[2023-02-22 07:16] LABS: Hematocrit 19.9 % (35-45); Hemoglobin 6.3 g/dL (11.5-14.3); Mean Corpuscular Hemoglobin 23.8 pg (27-33); Mean Corpuscular Hgb Conc 31.5 g/dL (31-36); Mean Corpuscular Volume 75.3 fL (80-97); Mean Platelet Volume 7.5 fL (7.5-11.2); Platelet Count 459 10^3/uL (150-450); Red Blood Count 2.64 10^6/uL (3.63-4.92); Red Cell Distribution Width 20.8 % (12-17); White Blood Count 8.5 10^3/uL (3.8-11.8)
[2023-02-22 07:27] LABS: Calcium 8.5 mg/dL (8.6-10.3); Creatinine, Serum 3.39 mg/dL (0.51-0.95); Potassium 3.8 mmol/L (3.5-5.0); eGFR CKD-EPI 14.8 (>60)
[2023-02-22 07:56] LABS: ABS Lymphocytes 0.7 10^3/uL (1.0-4.8); ABS Monocytes 0.7 10^3/uL (0.0-0.9); ABS Neutrophils 7.1 10^3/uL (1.5-7.6); ABS Nucleated RBC 0.04 10^3/ul; Acanthocytes 1+; Anisocytosis 3+; Eosinophil % 0.5 %; Lymphocyte % 8.4 %; Nucleated Red Blood Cells % 0.4 %/100WBC (0.0-0.8); Polychromasia 2+
[2023-02-22] MEDS: Cholecalciferol (VIT D3) 1,000 unit TAB PO SCH (08:38)
[2023-02-22] MEDS: CMC:Mycophenolate 180 mg TAB (NF) PO SCH (10:49)
[2023-02-22] MEDS: Azithromycin 500 mg/250 ml NS 500 MG/250 ML BAG IVPB SCH ×3 (12:52→14:33)
[2023-02-22 16:03] VITALS: BP 121/71
== END 2023-02-22 17:10 | disposition home or self-care (01) ==
LOC: ED 03:09 → EDHOLD 03:09 → MED 10:37
PROVIDERS: ADMIT Student in an Organized Health Care Education/Training Program; ATTEND Student in an Organized Health Care Education/Training Program